=== PATIENT | female | born 1955 | race Two or more races ===

== ENCOUNTER 2020-06-22 10:19 | Outpatient (REF) | payer MEDICAID, SELFPAY ==
--- NOTE | 2020-06-22 10:27 | MM_ITS ---
EXAMINATION: MM SCREENING DIGITAL BREAST TOMOSYNTHESIS, BILATERAL CLINICAL INFORMATION: Screening. Asymptomatic. The lifetime risk of breast cancer based on the Tyrer-Cuzick Model is 4.6%. COMPARISON: Mammography: June 02, 2019 and studies dating back to July 07, 2011 TECHNIQUE: Digital breast tomosynthesis is performed in both the craniocaudal and mediolateral oblique views along with computer-aided detection (CAD). Synthesized 2D images are generated from the tomosynthesis. FINDINGS: There are scattered areas of fibroglandular density (ACR BI-RADS breast composition Category b). There are no significant masses, abnormal calcifications, or other abnormalities. MM/MM tomosynthesis screening BI IMPRESSION: There are no significant changes from prior study. ASSESSMENT: BI-RADS 1: Negative RECOMMENDATION: Routine annual mammography screening. This patient's information was entered into a reminder system with a target due date for their next mammogram.
== END 2020-06-22 10:20 | disposition home or self-care (01) ==
LOC: HO.MAMMO 10:19
PROVIDERS: PCP Internal Medicine Geriatric Medicine; Visit Provider Internal Medicine Geriatric Medicine
DX: Z12.31 Encounter for screening mammogram for malignant neoplasm of breast (principal)
CPT/HCPCS: 77063; 77067

== ENCOUNTER → 2020-06-26 13:51 | Outpatient (BNVA) | payer MEDICAID, SELFPAY | PROVIDERS: PCP Internal Medicine Geriatric Medicine; Referring Provider Internal Medicine Geriatric Medicine; Visit Provider Internal Medicine | DX: E21.3 Hyperparathyroidism, unspecified (principal); M81.0 Age-related osteoporosis without current pathological fracture; E55.9 Vitamin D deficiency, unspecified; Z79.899 Other long term (current) drug therapy | CPT/HCPCS: 99212 ==

== ENCOUNTER 2020-07-04 10:11 | Outpatient (REF) | payer MEDICAID, SELFPAY ==
[2020-07-04 12:50] LABS: Vitamin D 25-OH Total 29.9 ng/mL (>30)
[2020-07-04 12:56] LABS: Alanine Aminotransferase 12 U/L (0-31); Albumin Level 4.4 g/dL (3.5-5.0); Alkaline Phosphatase 202 U/L (39-117); Anion Gap 10 (12-20); Aspartate Amino Transferase 13 U/L (5-31); Bilirubin Total < 0.2 mg/dL (0.0-1.0); Blood Urea Nitrogen 16 mg/dL (9-16); Calcium 10.2 mg/dL (8.4-10.2); Carbon Dioxide 30 mmol/L (22-29); Chloride 105 mmol/L (96-108); Estimated Glomerular Filt Rate > 60; Glucose Random 72 mg/dL (60-115); Phosphorus 3.1 mg/dL (2.7-4.5); Potassium 4.8 mmol/l (3.3-5.1); Sodium 140 mmol/L (135-145); Total Protein 7.4 g/dL (6.5-8.0)
[2020-07-05 18:52] LABS: Calcium (PTHI) 10.3 mg/dL (8.6-10.4); PTHI 76 pg/mL (14-64)
== END 2020-07-04 10:12 | disposition home or self-care (01) ==
LOC: HO.LAB 10:11
PROVIDERS: PCP Internal Medicine Geriatric Medicine; Visit Provider Internal Medicine
DX: M81.0 Age-related osteoporosis without current pathological fracture (principal); E55.9 Vitamin D deficiency, unspecified
CPT/HCPCS: 80053; 82306; 83970; 84100

== ENCOUNTER → 2020-08-15 14:24 | Outpatient (BNVA) | payer MEDICAID, SELFPAY | PROVIDERS: PCP Internal Medicine Geriatric Medicine; Referring Provider Internal Medicine Geriatric Medicine; Visit Provider Internal Medicine | DX: Z76.89 Persons encountering health services in other specified circumstances (principal) ==

== ENCOUNTER → 2020-11-15 13:28 | Outpatient (BNVA) | payer MEDICAID, SELFPAY | PROVIDERS: PCP Internal Medicine Geriatric Medicine; Visit Provider Internal Medicine ==

== ENCOUNTER → 2021-04-02 09:23 | Outpatient (BNVA) | payer MEDICAID, SELFPAY | PROVIDERS: PCP Internal Medicine Geriatric Medicine; Visit Provider Internal Medicine ==

== ENCOUNTER 2021-05-05 16:40 | Outpatient (REF) | payer MEDICARE, MEDICAID, SELFPAY ==
[2021-05-05 17:46] LABS: Alanine Aminotransferase 8 U/L (0-31); Albumin Level 4.2 g/dL (3.5-5.0); Alkaline Phosphatase 160 U/L (39-117); Anion Gap 11 (12-20); Aspartate Amino Transferase 13 U/L (5-31); Bilirubin Total < 0.2 mg/dL (0.0-1.0); Blood Urea Nitrogen 14 mg/dL (9-16); Calcium 10.2 mg/dL (8.4-10.2); Carbon Dioxide 27 mmol/L (22-29); Chloride 108 mmol/L (96-108); Estimated Glomerular Filt Rate > 60; Glucose Random 100 mg/dL (60-115); Sodium 141 mmol/L (135-145); Total Protein 6.9 g/dL (6.5-8.0)
[2021-05-05 17:54] LABS: Vitamin D 25-OH Total 33.6 ng/mL (>30)
[2021-05-06 18:27] LABS: Calcium (PTHI) 10.5 mg/dL (8.6-10.4); PTHI 124 pg/mL (14-64)
== END 2021-05-05 16:41 | disposition home or self-care (01) ==
LOC: HO.LAB 16:40
PROVIDERS: PCP Internal Medicine Geriatric Medicine; Visit Provider Internal Medicine
DX: M81.0 Age-related osteoporosis without current pathological fracture (principal); E55.9 Vitamin D deficiency, unspecified
CPT/HCPCS: 36415; 80053; 82306; 83970; 84100

== ENCOUNTER 2021-06-24 14:56 | Outpatient (REF) | payer MEDICARE, MEDICAID, SELFPAY ==
--- NOTE | ~2021-06-24 | MM_ITS ---
EXAMINATION: MM SCREENING DIGITAL BREAST TOMOSYNTHESIS, BILATERAL CLINICAL INFORMATION: Screening. Asymptomatic. The lifetime risk of breast cancer based on the Tyrer-Cuzick Model is 4.2%. COMPARISON: Mammography: June 22, 2020 and studies dating back to July 07, 2011 TECHNIQUE: Digital breast tomosynthesis is performed in both the craniocaudal and mediolateral oblique views along with computer-aided detection (CAD). Synthesized 2D images are generated from the tomosynthesis. FINDINGS: There are scattered areas of fibroglandular density (ACR BI-RADS breast composition Category b). There are no significant masses, abnormal calcifications, or other abnormalities. MM/MM tomosynthesis screening BI IMPRESSION: There are no significant changes from prior study. ASSESSMENT: BI-RADS 1: Negative RECOMMENDATION: Routine annual mammography screening. This patient's information was entered into a reminder system with a target due date for their next mammogram.
--- NOTE | ~2021-06-24 | MM_ITS ---
EXAMINATION: BONE DENSITOMETRY CLINICAL INDICATION: Osteoporosis. COMPARISON: Baseline BD dated 06/02/2019. TECHNIQUE: Using a [employer] DXA System (software version: 13.1) manufactured by [employer], dual-energy x-ray absorptiometry was performed of the lumbar spine, left hip, and left forearm radius 33%. The images are of good technical quality. Summary results are attached. FINDINGS: AP SPINE L1-L4: Current: BMD 0.946 g/cm2, Z-score -0.2, T-score -2.0, osteopenia, 1.6% decrease from baseline (<5% change is not significant). Baseline: BMD 0.961 g/cm2. LEFT FEMUR, NECK: Current: BMD 0.695 g/cm2, Z-score -0.9, T-score -2.5, osteoporosis. Baseline: BMD 0.728 g/cm2. LEFT FEMUR, TOTAL: Current: BMD 0.684 g/cm2, Z-score -1.3, T-score -2.6, osteoporosis, 7.4% increase from baseline (<5% change is not significant). Baseline: BMD 0.637 g/cm2. LEFT FOREARM RADIUS 33%: BMD 0.580 g/cm2, Z-score -2.0, T-score -3.4, osteoporosis, 3.2% decrease from baseline (<5% change is not significant). Baseline: BMD 0.599 g/cm2. IDENTIFIED RISK FACTORS: Menopause, hyperparathyroidism, osteoporosis. HISTORY OF FRACTURE: None listed. MEDICATIONS: Multivitamin, vitamin D. MM/XR DEXA appendicular skeleton IMPRESSION: 1. DIAGNOSIS: Osteoporosis based on the lowest T-score value of -3.4 in the forearm radius 33% applying World Health Organization criteria. 2. 10-YEAR FRACTURE RISK PREDICTION, FRAX: Major osteoporotic fracture (clinical spine, forearm, hip or shoulder) 7.3%. Hip fracture 1.5%. 3. Treatment Recommendations: NOF guidelines recommend consideration for treatment in postmenopausal women and men age 50 and older presenting with the following: -A hip or vertebral (clinical or morphometric) fracture. -T-score less than or equal to -2.5 at the femoral neck or spine after appropriate evaluation to exclude secondary causes. -Low bone mass at the hip or spine and a 10-year fracture probability by FRAX of greater than or equal to 3% for hip fracture or greater than or equal to 20% for major osteoporotic fracture based on the [place] adapted WHO algorithm. 4. Other Recommendations: All treatment decisions require clinical judgment and consideration of individual patient factors, including patient preferences, comorbidities, previous drug use, risk factors not captured in the FRAX model (e.g. frailty, falls, vitamin D deficiency, increased bone turnover, interval significant decline in bone density) and possible under or overestimation of fracture risk by FRAX. Additional medical evaluation for secondary cause of low bone mineral density may be appropriate. FUTURE SCAN RECOMMENDATION: People with diagnosed cases of osteoporosis or at high risk for fracture should have regular bone mineral density tests. For patients eligible for Medicare, routine testing is allowed once every 2 years. The testing frequency can be increased to one year for patients who have rapidly progressing disease, those who are receiving or discontinuing medical therapy to restore bone mass, or have additional risk factors.
== END 2021-06-24 14:57 | disposition home or self-care (01) ==
LOC: HO.MAMMO 14:56
PROVIDERS: Visit Provider Internal Medicine Geriatric Medicine
DX: Z12.31 Encounter for screening mammogram for malignant neoplasm of breast (principal); Z13.820 Encounter for screening for osteoporosis; M81.0 Age-related osteoporosis without current pathological fracture; Z78.0 Asymptomatic menopausal state; E21.3 Hyperparathyroidism, unspecified; Z79.899 Other long term (current) drug therapy
CPT/HCPCS: 77063; 77067; 77081

== ENCOUNTER → 2021-07-14 11:02 | Outpatient (BNVA) | payer MEDICARE, MEDICAID, SELFPAY | PROVIDERS: PCP Internal Medicine Geriatric Medicine; Visit Provider Internal Medicine ==

== ENCOUNTER → 2021-07-21 08:26 | Outpatient (BNVA) | payer MEDICARE, SELFPAY | PROVIDERS: PCP Internal Medicine Geriatric Medicine; Visit Provider Internal Medicine | DX: E21.3 Hyperparathyroidism, unspecified (principal); E55.9 Vitamin D deficiency, unspecified; M81.0 Age-related osteoporosis without current pathological fracture | CPT/HCPCS: Q3014 ==

== ENCOUNTER 2021-11-26 14:50 | Outpatient (REF) | payer MEDICARE, MEDICAID, SELFPAY ==
--- NOTE | ~2021-11-26 | XR_ITS ---
EXAMINATION: XR CHEST CLINICAL INFORMATION: Cough and SOB. COMPARISON: None TECHNIQUE: 2 views of the chest were obtained. FINDINGS: No significant abnormality is noted involving the heart, lungs, mediastinum, bony thorax or soft tissues. XR/XR chest 2V IMPRESSION: Unremarkable chest examination.
== END 2021-11-26 14:51 | disposition home or self-care (01) ==
LOC: HO.XRAY 14:50
PROVIDERS: PCP Internal Medicine Geriatric Medicine; Visit Provider Internal Medicine Geriatric Medicine
DX: R05.9 Cough, unspecified (principal); R06.02 Shortness of breath
CPT/HCPCS: 71046

== ENCOUNTER → 2021-12-10 10:55 | Outpatient (BNVA) | payer MEDICARE, SELFPAY | PROVIDERS: PCP Internal Medicine Geriatric Medicine; Visit Provider Internal Medicine | DX: Z13.89 Encounter for screening for other disorder (principal) ==

== ENCOUNTER → 2022-03-25 09:46 | Outpatient (BNVA) | payer MEDICARE, SELFPAY | PROVIDERS: PCP Internal Medicine Geriatric Medicine; Visit Provider Internal Medicine | DX: E21.3 Hyperparathyroidism, unspecified (principal); M81.0 Age-related osteoporosis without current pathological fracture | CPT/HCPCS: Q3014 ==

== ENCOUNTER → 2022-07-02 14:39 | Outpatient (BNVA) | payer MEDICARE, SELFPAY | PROVIDERS: PCP Internal Medicine Geriatric Medicine; Visit Provider Surgery Vascular Surgery | DX: I83.12 Varicose veins of left lower extremity with inflammation (principal) | CPT/HCPCS: 99202 ==

== ENCOUNTER 2022-07-22 14:32 | Outpatient (REF) | payer MEDICARE, MEDICAID, SELFPAY ==
--- NOTE | ~2022-07-22 | MM_ITS ---
EXAMINATION: MM SCREENING DIGITAL BREAST TOMOSYNTHESIS, BILATERAL CLINICAL INFORMATION: Screening. Asymptomatic. The lifetime risk of breast cancer based on the Tyrer-Cuzick Model is 4%. COMPARISON: Mammography: 06/24/2021, 06/22/2020, 06/02/2019 TECHNIQUE: Digital breast tomosynthesis is performed in both the craniocaudal and mediolateral oblique views along with computer-aided detection (CAD). Synthesized 2D images are generated from the tomosynthesis. Additional left MLO view is provided. FINDINGS: There are scattered areas of fibroglandular density (ACR BI-RADS breast composition Category b). There are no significant masses, abnormal calcifications, or other abnormalities. Parenchymal pattern is similar to prior studies. There is no developing density or architectural abnormality. The axilla and skin contours are unremarkable. No significant changes. MM/MM tomosynthesis screening BI IMPRESSION: No mammographic evidence of malignancy. ASSESSMENT: BI-RADS 1: Negative RECOMMENDATION: Routine annual mammography screening. This patient's information was entered into a reminder system with a target due date for their next mammogram.
== END 2022-07-22 14:33 | disposition home or self-care (01) ==
LOC: HO.MAMMO 14:32
PROVIDERS: PCP Internal Medicine Geriatric Medicine; Visit Provider Internal Medicine Geriatric Medicine
DX: Z12.31 Encounter for screening mammogram for malignant neoplasm of breast (principal)
CPT/HCPCS: 77063; 77067

== ENCOUNTER 2022-09-16 12:48 | Outpatient (REF) | payer MEDICARE, MEDICAID, SELFPAY ==
--- NOTE | ~2022-09-16 | US_ITS ---
EXAMINATION: US VENOUS REFLUX/INSUFFICIENCY CLINICAL INFORMATION: This is a 67-year-old woman with with left lower extremity varicosities and inflammatory change. COMPARISON: None. TECHNIQUE: Bilateral lower extremity and venous insufficiency ultrasound was performed with velocity measurements. Color flow Doppler imaging was performed. FINDINGS: RIGHT SIDE: GREATER SAPHENOUS VEIN: The right saphenofemoral junction measurement is 0.7 cm. There is no reflux The right proximal thigh measurement is 0.4 cm. There is no reflux. The right mid thigh measurement is 0.3 cm. There is no reflux The right above-knee measurement is 0.3 cm. The reflux time is 740 ms. The right at knee measurement is 0.3 cm. There is no reflux. The right below-knee measurement is 0.2 cm. There is no reflux The right mid calf measurement is 0.2 cm. The reflux time is 1408 ms. The right ankle measurement is 0.3 cm. There is no reflux. LESSER SAPHENOUS VEIN: The right saphenofemoral junction measurement is 0.2 cm. There is no reflux. The right mid calf measurement is 0.2 cm. There is no reflux. The right distal calf measurement is 0.2 cm. There is no reflux. LEFT SIDE: GREATER SAPHENOUS VEIN: The left saphenofemoral junction measurement is 0.9 cm. The reflux time is 2768 ms. The left proximal thigh measurement is 0.9 cm. The reflux time is 3224 ms. The left mid thigh measurement is 0.5 cm. The reflux time is 2900 ms. The left above-knee measurement is 0.5 cm. The reflux time is 2992 ms. The left at knee measurement is 0.4 cm. There is no reflux. The left below-knee measurement is 0.3 cm. The reflux time is 616 cm/s. The left mid calf measurement is 0.3 cm. The reflux time is 1792 ms. The left ankle measurement is 0.3 cm. The reflux time is 3232 ms. LESSER SAPHENOUS VEIN: The left saphenofemoral junction measurement is 0.2 cm. There is no reflux. The left mid calf measurement is 0.2 cm. There is no reflux. The left distal calf measurement is 0.2 cm. There is no reflux. BILATERAL LOWER EXTREMITIES DEEP VENOUS SYSTEMS: The right common femoral, mid femoral and popliteal vein segments show no reflux. No right lower extremity deep venous thrombosis is seen. The left common femoral and popliteal vein segments show no reflux. The mid left femoral vein segment shows a reflux time of 1480 ms. No left lower extremity deep venous thrombosis is seen. US/US venous duplex LE BI IMPRESSION: 1. There is hemodynamically significant reflux of the right greater saphenous vein. 2. There is hemodynamically significant reflux of the left greater saphenous vein. 3. No hemodynamically significant reflux is seen of the bilateral lesser saphenous veins. 4. No hemodynamically significant reflux is seen of the right deep venous system. 5. There is hemodynamically significant reflux of the left deep venous system.
== END 2022-09-16 12:49 | disposition home or self-care (01) ==
LOC: HO.US 12:48
PROVIDERS: PCP Internal Medicine Geriatric Medicine; Visit Provider Surgery Vascular Surgery
DX: I83.893 Varicose veins of bilateral lower extremities with other complications (principal)
CPT/HCPCS: 93970

== ENCOUNTER → 2022-11-12 15:04 | Outpatient (BNVA) | payer MEDICARE, MEDICAID, SELFPAY | PROVIDERS: PCP Internal Medicine Geriatric Medicine; Visit Provider Surgery Vascular Surgery | DX: I83.12 Varicose veins of left lower extremity with inflammation (principal) | CPT/HCPCS: 99212 ==

== ENCOUNTER 2022-12-16 14:27 | Outpatient (REF) | payer MEDICARE, MEDICAID, SELFPAY ==
--- NOTE | ~2022-12-16 | XR_ITS ---
EXAMINATION: XR LUMBOSACRAL SPINE CLINICAL INFORMATION: Low back pain COMPARISON: Previous x-ray March 2016 TECHNIQUE: Three views of the lumbosacral spine. FINDINGS: There is mild curvature of the lower lumbar spine to the right. Bone alignment is otherwise normal. No fracture or dislocation. There is degenerative spondylosis at L3-L4. There is lower lumbar spine facet arthritis. There is mild atherosclerotic disease. XR/XR lumbar spine 2-3V IMPRESSION: Mild degenerative changes.
== END 2022-12-16 14:28 | disposition home or self-care (01) ==
LOC: HO.XRAY 14:27
PROVIDERS: PCP Internal Medicine Geriatric Medicine; Visit Provider Internal Medicine Geriatric Medicine
DX: M54.50 Low back pain, unspecified (principal); M79.604 Pain in right leg
CPT/HCPCS: 72100

== ENCOUNTER → 2022-12-25 08:26 | Outpatient (BNVA) | payer MEDICARE, MEDICAID, SELFPAY | PROVIDERS: PCP Internal Medicine Geriatric Medicine; Visit Provider Surgery Vascular Surgery | DX: I83.12 Varicose veins of left lower extremity with inflammation (principal) | CPT/HCPCS: 36482 ==

== ENCOUNTER 2022-12-28 14:57 | Outpatient (REF) | payer MEDICARE, MEDICAID, SELFPAY ==
--- NOTE | ~2022-12-28 | US_ITS ---
EXAMINATION: WITH DOPPLER OF LEFT LOWER EXTREMITY CLINICAL INFORMATION: Status post Venaseal procedure on 12/28/22. COMPARISON: Venous reflux exam on 09/16/2022. TECHNIQUE: Color flow triplex imaging and compression Doppler were performed as well as superficial ultrasound with Doppler. FINDINGS: TRIPLEX SCANNING OF LEFT LOWER EXTREMITY: Respiratory variation, normal compression and augmented flow are noted throughout the lower extremity. The visualized common femoral vein, femoral vein, profunda femoral vein, popliteal vein and the calf veins show no evidence of deep venous thrombosis. There is no evidence of Sandoval's cyst. SUPERFICIAL ULTRASOUND WITH DOPPLER OF LEFT LOWER EXTREMITY: The left great saphenous vein is occluded from the access site to just before the saphenofemoral junction. There is no extension of thrombus into the deep system. US/US venous duplex LE IMPRESSION: 1. Normal triplex scan of the left lower extremity without evidence of deep venous thrombosis. 2. Excellent appearance status post Venaseal of the left great saphenous vein.
== END 2022-12-28 14:58 | disposition home or self-care (01) ==
LOC: HO.US 14:57
PROVIDERS: PCP Internal Medicine Geriatric Medicine; Visit Provider Surgery Vascular Surgery
DX: M79.605 Pain in left leg (principal)
CPT/HCPCS: 93971

== ENCOUNTER → 2023-01-07 15:04 | Outpatient (BNVA) | payer MEDICARE, MEDICAID, SELFPAY | PROVIDERS: PCP Internal Medicine Geriatric Medicine; Visit Provider Surgery Vascular Surgery | DX: I83.12 Varicose veins of left lower extremity with inflammation (principal); Z98.890 Other specified postprocedural states | CPT/HCPCS: 99212 ==

== ENCOUNTER 2023-02-03 15:32 | Outpatient (REF) | payer MEDICARE, MEDICAID, SELFPAY ==
--- NOTE | ~2023-02-03 | US_ITS ---
EXAMINATION: US VENOUS ULTRASOUND WITH DOPPLER LOWER EXTREMITY, RIGHT CLINICAL INFORMATION: Right lower extremity edema. Venaseal closure in December 2022 COMPARISON: 12/28/2022. TECHNIQUE: Ultrasound of the deep veins is performed from the hip to the calf with compression sonography and color and pulse Doppler assessment. Spectral analysis with color-flow imaging is performed. FINDINGS: There is normal venous compression and respiratory variation and augmented flow. The visualized common femoral vein, superficial femoral vein, profunda femoral vein, popliteal vein, and the trifurcation region shows no evidence of deep venous thrombosis. There is no significant popliteal fossa cyst. If the patient's symptoms persist, followup ultrasound in 5 days 7 days might be of value to exclude proximal propagation from a non-visualized calf vein. US/US venous duplex LE RT IMPRESSION: No DVT demonstrated in the right lower extremity.
== END 2023-02-03 15:33 | disposition home or self-care (01) ==
LOC: HO.US 15:32
PROVIDERS: PCP Internal Medicine Geriatric Medicine; Visit Provider Internal Medicine
DX: R60.0 Localized edema (principal)
CPT/HCPCS: 93971

== ENCOUNTER 2023-02-15 15:59 | Outpatient (REF) | payer MEDICARE, MEDICAID, SELFPAY | END 2023-02-15 16:00 | disposition home or self-care (01) | LOC: HO.HHCX 15:59 | PROVIDERS: Visit Provider Internal Medicine Geriatric Medicine | DX: M25.561 Pain in right knee (principal) | CPT/HCPCS: 73564 ==

== ENCOUNTER 2023-04-13 13:58 | Outpatient (AMB) | payer MEDICARE, MEDICAID, SELFPAY ==
--- NOTE | 2023-04-13 13:59 | MHC.OFFVIS ---
Intake Vital Signs 04/13/23 14:04 Height 5 ft 3 in Weight 133 lb BMI 23.6 Intake Visit Reasons: ccnp- Chronic pain of right knee Intake Note: Catalina is a 67 year old female who presents today as a new patient with complaints of right knee pain. Denies injury. Pain has been ongoing for about 3 months now. She has had no previous therapies. She has tried Tylenol and anti-inflammatory medicines which gave her mild relief. She states that her right knee will give out intermittently. She has worn a knee brace which gives her mild relief. 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 Analytical Chemistry Teacher Name: [id number] Allergies sumatriptan [Imitrex] Allergy (Unknown, Verified 04/13/23 14:00) anaphylaxis Medication List - Last Reconciled 04/13/23 by Bhavesh Montiel MD amitriptyline 50 mg PO BEDTIME amlodipine 5 mg PO DAILY yaafksyqzx-tivwkjwfeo-btx-cod [id number] mg 1 cap PO Q4H PRN cholecalciferol (vitamin D3) 50 mcg PO DAILY lisinopril 20 mg PO DAILY loratadine 10 mg PO DAILY omeprazole 20 mg PO DAILY omeprazole 20 mg PO DAILY trazodone 50 mg PO BEDTIME PRN venlafaxine ER 37.5 mg PO DAILY PFSH Medical History Hyperparathyroidism Osteoporosis Vitamin D deficiency Surgical History Hx of colonoscopy Family History Father Colon cancer Mother Cancer Social History Alcohol intake: never Patient Tobacco Use Status: Never used Tobacco Physical Exam Vital Signs: BMI result Body Mass Index 23.6 Const Other: Well-nourished well-developed very friendly female awake alert and oriented x3 in no acute distress Extrem Other: Bilateral lower extremity examination shows good capillary refill, no skin lesions noted, normal sensation light touch Right knee examination shows a minimal effusion, minimal crepitus with range of motion, tenderness along her medial joint line, positive Ronnie's test no instability Office Procedures Joint Injection/Drain Joint Injection/Drain Primary Site: left knee Prep: site was prepped using aseptic technique Injected: 40 mg of, Kenalog and 1% plain lidocaine Procedure: The patient tolerated the procedure well Coding 39174 - Large joint Procedure code (CPT) selection complete Results Reviewed Results Reviewed: 04/13/23 14:16 Lidocaine HCl 2 % MPF [Xylocaine 2 % MPF] 5 ml .ROUTE .STK-MED ONE Triamcinolone Acetonide [Kenalog-40] 40 mg .ROUTE .STK-MED ONE X-rays of the patient's right knee show mild diffuse joint space narrowing, no acute bony Assessment & Plan Assessment & Plan (1) Arthritis of left knee: Code(s): M17.12 - Unilateral primary osteoarthritis, left knee Plan: Ms. Florian presents with right knee pain most likely due to early degenerative joint disease as well as possible medial meniscus tearing. I had a lengthy discussion with the patient regarding the treatment options. She wishes to hold off on surgery for as long as possible. I agree with this plan. The risks and benefits of a right knee cortisone injection were discussed at length with the patient. The patient wished to proceed. The patient tolerated the injection well. She will continue with her activity modifications. She will follow up with me on an as-needed basis should her symptoms not plateau at an acceptable level over the next few months. Feel free to call me at any time should questions regarding her orthopedic management arise. Thank you very much for asking me to see this very friendly patient. I spent 22 minutes in reviewing the patient's records and imaging studies, seeing the patient and documenting in the medical record. Orders: Orders AMB Joint Injection/Aspiration Today M17.12 - Unilateral primary osteoarthritis, left knee Coding Level of Care Code New Pt Level 2 (49721) Diagnoses Arthritis of left knee M17.12 CPT Codes Coding - 92491 Large joint: 58774 - Large joint ([id number])
[2023-04-13 14:04] VITALS: BMI 23.6
== END 2023-04-13 14:36 | disposition home or self-care (01) ==
PROVIDERS: PCP Internal Medicine Geriatric Medicine; Visit Provider Orthopaedic Surgery
DX: M17.12 Unilateral primary osteoarthritis, left knee (principal)
CPT/HCPCS: 20610; 99204

== ENCOUNTER → 2023-04-13 13:58 | Outpatient (BNVA) | payer MEDICARE, MEDICAID, SELFPAY | PROVIDERS: PCP Internal Medicine Geriatric Medicine; Visit Provider Orthopaedic Surgery | DX: M17.12 Unilateral primary osteoarthritis, left knee (principal) | CPT/HCPCS: 20610; 99202; J3301 ==

== ENCOUNTER 2023-07-27 09:27 | Outpatient (AMB) | payer MEDICARE, MEDICAID, SELFPAY ==
--- NOTE | 2023-07-27 09:44 | A.OFFVIS_ITS ---
Intake Vital Signs 07/27/23 09:45 Height 5 ft 3 in Weight 133 lb BMI 23.6 Intake Visit Reasons: OV- pain of right knee Intake Note: Catalina is a 68 year old female who presents today for a new problem visit of her right knee. Last injection done in the left knee 04/13/23. She states that she got very good relief from the left knee injection. She describes her right knee pain as sharp in nature. She denies any locking or giving way. She has taken Tylenol which gives her mild relief. He denies any fevers or chills. She would like to hold off on surgery for as long as possible. Allergies sumatriptan [Imitrex] Allergy (Unknown, Verified 04/13/23 14:00) anaphylaxis Medication List - Last Reconciled 07/27/23 by Bhavesh Montiel MD amitriptyline 50 mg PO BEDTIME amlodipine 5 mg PO DAILY riezcqocly-yjabuxoqlv-jrp-cod [id number] mg 1 cap PO Q4H PRN cholecalciferol (vitamin D3) 50 mcg PO DAILY lisinopril 20 mg PO DAILY loratadine 10 mg PO DAILY omeprazole 20 mg PO DAILY omeprazole 20 mg PO DAILY trazodone 50 mg PO BEDTIME PRN venlafaxine ER 37.5 mg PO DAILY PFSH Medical History Hyperparathyroidism Osteoporosis Vitamin D deficiency Surgical History Hx of colonoscopy Family History Father Colon cancer Mother Cancer Social History Alcohol intake: never Patient Tobacco Use Status: Never used Tobacco Physical Exam Vital Signs: BMI result Body Mass Index 23.6 Const Other: Well-nourished well-developed very friendly female awake alert and oriented x3 in no acute distress Extrem Other: Bilateral lower extremity examination shows good capillary refill, no skin lesions noted, normal sensation light touch Right knee examination shows a minimal effusion, mild crepitus with range of motion, tenderness along her medial joint line, positive Ronnie's test, no instability Office Procedures Joint Injection/Drain Joint Injection/Drain Primary Site: right knee Prep: site was prepped using aseptic technique Injected: 40 mg of, DepoMedrol and 1% plain lidocaine Procedure: The patient tolerated the procedure well Coding - Large joint Procedure code (CPT) selection complete Results Reviewed Results Reviewed: X-rays of the patient's right knee taken today show mild diffuse joint space narrowing, no acute bony abnormalities Assessment & Plan Assessment & Plan (1) Arthritis of right knee: Code(s): M17.11 - Unilateral primary osteoarthritis, right knee Plan: Ms. Florian presents with right knee pain due to degenerative joint disease as well as possible tearing of her medial meniscus. I had a lengthy discussion with the patient regarding the treatment options. She wishes to hold off on surgery for as long as possible. I agree with this plan. The risks and benefits of a right knee cortisone injection were discussed at length with the patient. The patient wished to proceed. She tolerated the injection well. She will continue with her home exercise program. She will follow up with me on an as-needed basis should her symptoms not plateau at an unacceptable level over the next few months. Feel free to call me at any time should questions r egarding her orthopedic management arise. I spent 22 minutes in reviewing the patient's records and imaging studies, seeing the patient and documenting in the medical record. Orders: Orders AMB Joint Injection/Aspiration Today M17.11 - Unilateral primary osteoarthritis, right knee Coding Level of Care Code Est Pt Level 2 (97215) Diagnoses Arthritis of right knee M17.11 CPT Codes Coding - Large joint: 57024 - Large joint ([id number])
[2023-07-27 09:45] VITALS: BMI 23.6
== END 2023-07-27 10:15 | disposition home or self-care (01) ==
PROVIDERS: PCP Internal Medicine Geriatric Medicine; Visit Provider Orthopaedic Surgery
DX: M17.11 Unilateral primary osteoarthritis, right knee (principal)
CPT/HCPCS: 20610; 99213

== ENCOUNTER → 2023-07-27 09:27 | Outpatient (BNVA) | payer MEDICARE, MEDICAID, SELFPAY | PROVIDERS: PCP Internal Medicine Geriatric Medicine; Visit Provider Orthopaedic Surgery | DX: M17.11 Unilateral primary osteoarthritis, right knee (principal) | CPT/HCPCS: 20610; 99212; J1020 ==

== ENCOUNTER 2023-08-17 11:45 | Outpatient (AMB) | payer MEDICARE, MEDICAID, SELFPAY ==
[2023-08-17 11:47] VITALS: BMI 23.6
--- NOTE | 2023-08-17 11:47 | A.OFFVIS_ITS ---
Intake Vital Signs 08/17/23 11:47 Height 5 ft 3 in Weight 133 lb BMI 23.6 Intake Visit Reasons: OV-pain of right knee-follow up Intake Note: Catalina, 68 female, reports pain in her left knee being an 8/10. She describes her pain as sharp in nature. Most of the pain is along the medial aspect of her knee. She denies any locking or giving way. She has tried Tylenol and anti- inflammatory medicines which gave her minimal relief. She has also done physical therapy exercises which aggravated her pain. She has had cortisone injections given into her right knee which gave her good relief of her right knee pain. Allergies sumatriptan [Imitrex] Allergy (Unknown, Verified 08/17/23 11:48) anaphylaxis Medication List - Last Reconciled 08/17/23 by Bhavesh Montiel MD amitriptyline 50 mg PO BEDTIME amlodipine 5 mg PO DAILY cyvpqbsswh-gfwkrqubto-qyb-cod 04-729-14-30 mg 1 cap PO Q4H PRN cholecalciferol (vitamin D3) 50 mcg PO DAILY lisinopril 20 mg PO DAILY loratadine 10 mg PO DAILY omeprazole 20 mg PO DAILY PFSH Medical History Osteoporosis Vitamin D deficiency Hyperparathyroidism Surgical History Hx of colonoscopy Family History Father Colon cancer Mother Cancer Social History Alcohol intake: never Patient Tobacco Use Status: Never used Tobacco Physical Exam Vital Signs: BMI result Body Mass Index 23.6 Const Other: Well-nourished well-developed very friendly female awake alert and oriented x3 in no acute distress Extrem Other: Bilateral lower extremity examination shows good capillary refill, no skin lesions noted, normal sensation light touch Left knee examination shows a minimal effusion, mild crepitus with range of motion, pain with range of motion, negative Ronnie's test, no instability Office Procedures Joint Injection/Drain Joint Injection/Drain Primary Site: left knee Prep: site was prepped using aseptic technique Injected: 40 mg of, DepoMedrol and 1% plain lidocaine Procedure: The patient tolerated the procedure well Coding - Large joint Procedure code (CPT) selection complete Assessment & Plan Assessment & Plan (1) Arthritis of left knee: Code(s): M17.12 - Unilateral primary osteoarthritis, left knee Plan Ms. Florian presents with left knee pain due to degenerative joint disease. I had a lengthy discussion with the patient regarding the treatment options. She wishes to hold off on surgery for as long as possible. I agree with this plan. The risks and benefits of a left knee cortisone injection were discussed at length with the patient. The patient wished to proceed with the injection. She tolerated the injection well. She will continue with activities as tolerated. She will follow up with me on an as-needed basis should her symptoms not plateau at an unacceptable level over the next few months. Feel free to call me at any time should questions regarding her orthopedic management arise. I spent 22 minutes in reviewing the patient's records and imaging studies, seeing the patient and documenting in the medical record. Orders: Orders AMB Joint Injection/Aspiration Today M17.12 - Unilateral primary osteoarthritis, left knee Coding Level of Care Code Est Pt Level 2 (24313) Diagnoses Arthritis of left knee M17.12 CPT Codes Coding - Large joint: 57623 - Large joint ([id number])
--- OUTSIDE RECORDS SUMMARY | 2023-08-17 11:47 | XMS_ITS | Continuity of Care Document ---
Author Name Unknown Organization [facility] Address [address] [place] [id number]- Care Team Providers Care Dedicated Driver Name Role Phone Name Juan CERDA Primary Care Physician Encounter [facility] [place] Date(s): 12/21/22 - 01/20/23 [facility] [address] [place] [id number] [place] Allergies, Adverse Reactions, Alerts Substance Reaction Severity Status Imitrex Active Medications Acetaminophen PRN, 0 Refills, Maintenance, 08/04/17 13:08:22 Start Date: 08/04/17 Status: Ordered acetaminophen-butalbital 325 mg-50 mg oral tablet 1 tablet, By Mouth, Every 4 hours, 0 Refills, Maintenance, 06/29/22 8:58:00 EST, Partial fill upon patient request if the prescription is for a schedule II opioid drug. Start Date: 06/29/22 Status: Ordered amitriptyline 50 mg oral tablet 1 tablet = 50 mg, By Mouth, Daily at bedtime, 0 Refills, Maintenance, 06/29/22 8:57:00 EST, Partialfill upon patient request if the prescription is for a schedule II opioid drug. Start Date: 06/29/22 Status: Ordered Dulcolax 5 mg oral enteric coated tablet 2 tablet = 10 mg, By Mouth, Daily, the night before the colonoscopy, # 4 tablet, 0 Refills, Maintenance, 07/13/18 15:16:44 EST Start Date: 07/13/18 Status: Ordered Flovent 110 mcg Inhaler HFA Refills 0, Maintenance, 06/29/22 8:57:00 EST Start Date: 06/29/22 Status: Ordered hydrochlorothiazide-lisinopril 12.5 mg-10 mg oral tablet 1 tablet, By Mouth, Daily, # 90 tablet, 0 Refills, Maintenance, 08/04/17 13:05:50, Tablet Start Date: 08/04/17 Status: Ordered lisinopril 20 mg oral tablet 20 mg, 1, tablet, By Mouth, Daily, # 30 tablet, Refills 0, Maintenance, 06/29/22 8:58:00 EST, Partial fill upon patient request if the prescription is for a schedule II opioid drug. Start Date: 06/29/22 Status: Ordered loratadine 10 mg oral capsule 1 capsule = 10 mg, By Mouth, Daily, 0 Refills, Maintenance, 06/29/22 8:56:00 EST, Partial fill uponpatient request if the prescription is for a schedule II opioid drug. Start Date: 06/29/22 Status: Ordered naproxen 500 mg oral tablet 1 tablet = 500 mg, By Mouth, 2 times a day, PRN, # 180 tablet, 0 Refills, Maintenance, 08/04/17 13:07:46, Tablet Start Date: 08/04/17 Status: Ordered NuLYTELY with Flavor Packs oral powder for reconstitution 240 mL, By Mouth, Every 15 minutes, # 4,000 mL, 0 Refills, Maintenance, 08/04/17 13:25:40, 240 mL By Mouth Every 15 minutes Start Date: 08/04/17 Status: Ordered NuLYTELY with Flavor Packs oral powder for reconstitution 240 mL, By Mouth, Every 15 minutes, # 4,000 mL, 0 Refills, Maintenance, 01/26/19 18:19:00 EDT, 240 mL By Mouth Every 15 minutes Start Date: 01/26/19 Status: Ordered PriLOSEC OTC 20 mg oral delayed release tablet 1 tablet = 20 mg, By Mouth, Daily, 0 Refills, Maintenance, 08/04/17 13:06:43 Start Date: 08/04/17 Status: Ordered ProAir HFA 90 mcg/inh inhalation aerosol 2 puffs, Inhalation, Every 6 hours, 0 Refills, Maintenance, 06/29/22 8:55:00 EST, Partial fill uponpatient request if the prescription is for a schedule II opioid drug. Start Date: 06/29/22 Status: Ordered traZODone 50 mg oral tablet 50 mg, 1, tablet, By Mouth, Daily at bedtime, Refills 0, Maintenance, 08/04/17 13:06:14 Start Date: 08/04/17 Status: Ordered venlafaxine 75 mg oral capsule, extended release 75 mg, 1, capsule, By Mouth, Daily, # 30 capsule, Refills 0, Maintenance, 06/29/22 8:56:00 EST, Partial fill upon patient request if the prescription is for a schedule II opioid drug. Start Date: 06/29/22 Status: Ordered Ventolin 90 mcg Inhaler Inhalation, Every 6 hours, Refills 0, Maintenance, 06/29/22 8:57:00 EST Start Date: 06/29/22 Status: Ordered Zofran ODT 4 mg oral tablet, disintegrating = 4 mg, By Mouth, 2 times a day, 0 Refills, Maintenance, 06/29/22 8:56:00 EST, Partial fill upon patient request if the prescription is for a schedule II opioid drug. Start Date: 06/29/22 Status: Ordered Patient Care team information Care Team Personnel Name: Lynn Tamez Position: S Outreach Member Role: Lifetime Consulting Physician Name: Juan Lacy MD Position: S Outreach Member Role: PCP Address: Address: [address] [place] [id number]- Care Team Related Persons Name: FREDDY HOU Name: BAILEE GUNN Address: home [id number] Name: SHIN DRUMMOND Address: home [address] [address]
== END 2023-08-17 12:20 | disposition home or self-care (01) ==
LOC: HO.HOS 11:45
PROVIDERS: PCP Internal Medicine Geriatric Medicine; Visit Provider Orthopaedic Surgery
DX: M17.12 Unilateral primary osteoarthritis, left knee (principal)
CPT/HCPCS: 20610; 99213

== ENCOUNTER → 2023-08-17 11:45 | Outpatient (BNVA) | payer MEDICARE, OTHER, SELFPAY | PROVIDERS: PCP Internal Medicine Geriatric Medicine; Visit Provider Orthopaedic Surgery | DX: M17.12 Unilateral primary osteoarthritis, left knee (principal) | CPT/HCPCS: 20610; 99212; J1020 ==

== ENCOUNTER 2023-08-30 09:28 | Outpatient (AMB) | payer MEDICARE, SELFPAY ==
--- NOTE | 2023-08-30 09:33 | MHC.OFFVIS ---
Intake Vital Signs 08/30/23 09:35 08/30/23 09:58 Height 5 ft 3 in Weight 134 lb 7.712 oz BMI 23.8 BP 182/98 H 156/74 H Blood Pressure Location Lt brachial Lt brachial Position Sitting Sitting Pulse 62 Comment BP RECHECK Intake Visit Reasons: colonoscopy screening/family hx of colon CA Intake Note: Catalina presents in the office as a colon cancer screening - family Hx of CA. CC: She states that she is having some concerns. She states that she is having lots of acid. She states that she is not able to eat anymore. It comes up into her throat and alejandro. At night or standing up she gets burning in her stomach. Field Contractor Required: Yes Field Contractor Name: [id number] Horace Allergies sumatriptan [Imitrex] Allergy (Unknown, Verified 08/30/23 09:37) anaphylaxis Medication List - Last Reconciled 08/30/23 by Tia Barrientos PA-C amitriptyline 50 mg PO BEDTIME amlodipine 5 mg PO DAILY bisacodyl (Dulcolax (bisacodyl)) 20 mg (4 x 5 mg) PO ONCE 1 day yfzmjlpilj-pkpmycqrrc-iwo-cod 44-526-10-30 mg 1 cap PO Q4H PRN lisinopril 20 mg PO DAILY metoprolol tartrate 25 mg PO BID omeprazole 20 mg PO DAILY pantoprazole 20 mg PO QAM PRN 30 days polyethylene glycol 3350 (Miralax) 238 grams PO ONCE PRN 1 day HPI HPI Comments History of Present Illness Details A 68 y/o female HTN referred for screening colonoscopy- family hx of cancers unknown type- not CRC- She says her BP runs high very often- no CP, SOB or headache- she monitors at home-always high- saw BCP-April Bowels are normal appetite is good- she cannot tolerate eating too much beef- so avoids it -she has had acid reflux for many years she is taking omeprazole does not seem to really help much No respiratory ofr cardiac issues- No nausea, vomiting, hematemesis, hematochezia fever chills PFSH Medical History Osteoporosis Vitamin D deficiency Hyperparathyroidism Surgical History Hx of colonoscopy Family History Father Colon cancer Mother Cancer Social History (Updated 08/30/23 @ 09:55 by Tia Barrientos PA-C) Household Members Other:: alone Alcohol intake: never Patient Tobacco Use Status: Never used Tobacco Review of Systems Const All systems reviewed & are unremarkable except as noted in HPI and below Card Denies chest pain and Denies dyspnea Resp Denies dyspnea GI Denies abdominal pain, Denies hematochezia, Reports heartburn, Denies nausea and Denies vomiting Physical Exam Vital Signs: Last Vital Signs Pulse 62 08/30/23 09:35 BP 156/74 H 08/30/23 09:58 BMI result Body Mass Index 23.8 Const General: cooperative, healthy appearing, comfortable and no acute distress Orientation/consciousness: patient oriented x3 Limitations: language barrier Eyes Sclerae: sclerae normal Resp Effort & Inspection: normal respiratory effort and able to speak in complete sentences Auscultation: clear to auscultation bilaterally, no rales, no rhonchi and no wheezes Cardio Rate: regular rate Rhythm: regular rhythm Heart sounds: S1 normal heart sound present and S2 normal heart sound present GI Palpation (GI): Soft to palpation and nontender Auscultation: normal bowel sounds Skin General skin exam: no rashes or lesions noted Neuro General: patient oriented x3 Extrem General: Yes full ROM Psych Appearance: grossly normal and well kempt Mental Status: mental status grossly normal Speech and movement: Normal speech and movement present and Clear speech present Affect: normal affect Thought process: Normal thought process present Thought content: Normal thought content present Insight: Good insight present (Psych) Judgement: Good judgement present (Psych) Assessment & Plan Assessment & Plan (1) Encounter for screening colonoscopy: Comment: Screening colonoscopy and EGD discussed procedure, rare risks need for escorted due to anesthesia Code(s): Z12.11 - Encounter for screening for malignant neoplasm of colon Plan: colonoscopy (2) HTN (hypertension): Comment: Recheck BP improved Code(s): I10 - Essential (primary) hypertension Plan: continue to monitor (3) Acid reflux: Comment: Omeprazole for years without much improvement will switch to pantoprazole for better coverage Code(s): K21.9 - Gastro-esophageal reflux disease without esophagitis Plan: pantoprazole 20 mg Reflux precautions EGD Plan EGD/ colon- MG prep Pantoprazole-20 mg reflux precautions Orders: Orders EGD/Winona Combo - GI Use Only Today K21.9 - Gastro-esophageal reflux disease without esophagitis, Z12.11 - Encounter for screening for malignant neoplasm of colon Medications: New polyethylene glycol 3350 (Miralax) Take as directed by mouth the day before your procedure. 238 grams PO ONCE 1 day PRN 238 grams 0RF laxative effect pantoprazole 20 mg PO QAM 30 days PRN 30 tabs 6RF reflux bisacodyl (Dulcolax (bisacodyl)) Day before procedure, prep day Take 4 tablets by mouth upon awakening followed by large glass of water 20 mg (4 x 5 mg) PO ONCE 1 day 4 tabs 0RF colonoscopy prep Z12.11 - Encounter for screening for malignant neoplasm of colon Patient Instructions: EGD/ colon- MG prep, reviewed, literature given Pantoprazole-20 mg reflux precautions avoid culprits Encouraged to call with questions or concerns Coding Level of Care Code New Pt Level 4 (11529) Diagnoses Encounter for screening colonoscopy Z12.11 HTN (hypertension) I10 Acid reflux K21.9 Time Spent (min) 30 Comment [id number]
[2023-08-30 09:35] VITALS: BP 182/98; PULSE 62; BMI 23.8
[2023-08-30 09:58] VITALS: BP 156/74
== END 2023-08-30 10:14 | disposition home or self-care (01) ==
PROVIDERS: PCP Internal Medicine Geriatric Medicine; Visit Provider Physician Assistant
DX: K21.9 Gastro-esophageal reflux disease without esophagitis (principal); Z12.11 Encounter for screening for malignant neoplasm of colon; Z80.0 Family history of malignant neoplasm of digestive organs; I10 Essential (primary) hypertension
CPT/HCPCS: 99204

== ENCOUNTER → 2023-08-30 09:28 | Outpatient (BNVA) | payer MEDICARE, SELFPAY | PROVIDERS: PCP Internal Medicine Geriatric Medicine; Visit Provider Physician Assistant | DX: Z12.11 Encounter for screening for malignant neoplasm of colon (principal); I10 Essential (primary) hypertension; K21.9 Gastro-esophageal reflux disease without esophagitis | CPT/HCPCS: 99202 ==

== ENCOUNTER 2023-11-02 09:00 | Outpatient (REF) | payer MEDICARE, SELFPAY ==
[2023-11-02 12:21] LABS: Anion Gap 12 (12-20); Blood Urea Nitrogen 12 mg/dL (9-16); Calcium 10.7 mg/dL (8.4-10.2); Carbon Dioxide 29 mmol/L (22-29); Chloride 104 mmol/L (96-108); Estimated Glomerular Filt Rate > 60; Glucose Random 113 mg/dL (60-115); Potassium 4.3 mmol/L (3.3-5.1); Sodium 141 mmol/L (135-145)
[2023-11-02 13:36] LABS: Erythrocyte Sedimentation Rate 5 MM/HR (0-20)
== END 2023-11-02 09:01 | disposition home or self-care (01) ==
LOC: HO.HHCL 09:00
PROVIDERS: Visit Provider Internal Medicine Geriatric Medicine
DX: I10 Essential (primary) hypertension (principal); G43.909 Migraine, unspecified, not intractable, without status migrainosus
CPT/HCPCS: 36415; 80048; 85652

== ENCOUNTER 2023-11-16 10:14 | Outpatient (AMB) | payer MEDICARE, MEDICAID, SELFPAY ==
[2023-11-16 10:21] VITALS: BMI 23.7
--- NOTE | 2023-11-16 10:21 | A.OFFVIS_ITS ---
Intake Vital Signs 11/16/23 10:21 Height 5 ft 3 in Weight 134 lb BMI 23.7 Intake Visit Reasons: OV-pain of right knee-follow up Intake Note: Catalina is a 68 year old female who presents with right knee pain. The patient describes her pain as sharp in nature. She has had cortisone injections in the past which gave her fairly good relief. She has tried Tylenol and anti- inflammatory medicines which gave her minimal hold surgery for as long as possible. Allergies sumatriptan [Imitrex] Allergy (Unknown, Verified 11/16/23 10:24) anaphylaxis Medication List - Last Reconciled 11/16/23 by Bhavesh Montiel MD amitriptyline 50 mg PO BEDTIME amlodipine 5 mg PO DAILY bisacodyl (Dulcolax (bisacodyl)) 20 mg (4 x 5 mg) PO ONCE 1 day hnxjgtnzjy-zeuazdguvg-pru-cod 29-136-73-30 mg 1 cap PO Q4H PRN lisinopril 20 mg PO DAILY metoprolol tartrate 25 mg PO BID omeprazole 20 mg PO DAILY pantoprazole 20 mg PO QAM PRN 30 days polyethylene glycol 3350 (Miralax) 238 grams PO ONCE PRN 1 day PFSH Medical History Osteoporosis Vitamin D deficiency Hyperparathyroidism Surgical History Hx of colonoscopy Family History Father Colon cancer Mother Cancer Social History (Updated 08/30/23 @ 09:55 by Tia Barrientos PA-C) Household Members Other:: alone Alcohol intake: never Patient Tobacco Use Status: Never used Tobacco Physical Exam Vital Signs: BMI result Body Mass Index 23.7 Const Other: Well-nourished well-developed very friendly female awake alert and oriented x3 in no acute distress Extrem Other: Bilateral lower extremity examination shows good capillary refill, no skin lesions noted, normal sensation light touch Right knee examination shows a minimal effusion, palpable crepitus with range of motion, pain with range of motion, no instability Office Procedures Joint Injection/Drain Joint Injection/Drain Primary Site: right knee Prep: site was prepped using aseptic technique Injected: 40 mg of, DepoMedrol and 1% plain lidocaine Procedure: The patient tolerated the procedure well Coding - Large joint Procedure code (CPT) selection complete Results Reviewed Results Reviewed: X-rays of the patient's right knee show joint space narrowing, subchondral sclerosis, no acute bony abnormalities Assessment & Plan Assessment & Plan (1) Arthritis of right knee: Code(s): M17.11 - Unilateral primary osteoarthritis, right knee Plan Ms. Florian presents with right knee pain due to degenerative joint disease. I had a lengthy discussion with the patient regarding the treatment options. She wishes to hold off on surgery for as long as possible. I agree with this plan. The risks and benefits of a right knee cortisone injection were discussed at length with the patient. The patient wished to proceed. She tolerated the injection well. She will continue with her activity modifications. She will follow up with me on an as-needed basis should her symptoms not plateau at an unacceptable level over the next few months. I spent 22 minutes in reviewing the patient's records and imaging studies, seeing the patient and documenting in the medical record. Orders: Orders AMB Joint Injection/Aspiration Today M17.11 - Unilateral primary osteoarthritis, right knee Coding Level of Care Code Est Pt Level 2 (70692) Diagnoses Arthritis of right knee M17.11 CPT Codes Coding - Large joint: 21666 - Large joint ([id number])
== END 2023-11-16 10:46 | disposition home or self-care (01) ==
PROVIDERS: PCP Internal Medicine Geriatric Medicine; Visit Provider Orthopaedic Surgery
DX: M17.11 Unilateral primary osteoarthritis, right knee (principal)
CPT/HCPCS: 20610; 99213

== ENCOUNTER → 2023-11-16 10:14 | Outpatient (BNVA) | payer MEDICARE, OTHER, SELFPAY | PROVIDERS: PCP Internal Medicine Geriatric Medicine; Visit Provider Orthopaedic Surgery | DX: M17.11 Unilateral primary osteoarthritis, right knee (principal) | CPT/HCPCS: 20610; 99212; J1010; J1020 ==

== ENCOUNTER → 2023-12-14 07:44 | Outpatient (REF) | payer MEDICARE, SELFPAY ==
--- NOTE | 2023-12-14 07:56 | CA_ITS ---
Transthoracic Echocardiogram Patient (Last, First, Middle): Catalina Florian, Gender: Female Date of : 1955 Age: 68 Procedure Date: 12/14/2023 Procedure Type: Transthoracic Echocardiogram Location: OP Height: 160.02 cm Weight: 60.78 kg BSA: 1.63 m2 Heart Rate: 54 bpm BP: 142 / 94 mmHg Donor Floor Technician: ZHAO Referring MD: Juan Lacy MD Symptoms: I10 HTN Study Quality: Adequate ECG Rhythm: Bradycardia Conclusions: - The left ventricular systolic function is normal. The calculated ejection fraction is 61% by biplane method. - There is mild septal asymmetric hypertrophy. - There is mild calcification of the aortic valve. - There is mild mitral annular calcification. - There is mild tricuspid valve regurgitation. - There is mild dilatation of the ascending aorta measuring 3.80 cm. Findings Left Ventricle Normal left ventricular cavity size. The left ventricular systolic function is normal. The calculated ejection fraction is 61% by biplane method. There is no evidence of regional wall motion abnormalities. Evidence suggests grade I (mild) diastolic dysfunction. There is mild septal asymmetric hypertrophy. LV peak GLS -17.1%, possibly underestimate. Right Ventricle Normal right ventricular cavity size and systolic function. Atria Both atria are normal in size. Aortic Valve There is a normal trileaflet aortic valve. There is mild calcification of the aortic valve. There is no aortic valve stenosis. There is no aortic valve regurgitation. Mitral Valve There is mild mitral annular calcification. There is no mitral valve regurgitation. There is no mitral valve stenosis. Pulmonic Valve The pulmonic valve is likely normal. Tricuspid Valve Normal tricuspid valve structure. There is mild tricuspid valve regurgitation. There is no evidence of pulmonary hypertension. Great Vessels There is mild dilatation of the ascending aorta measuring 3.80 cm. Venous The inferior vena cava is normal in size and collapses greater than 50% with inspiration. Pericardium/Pleural There is no evidence of pericardial effusion. Prior Study Comparison No prior study available for comparison. Measurements 2D Linear Measurements IVSd: 1.23 0.6-0.9/0.6-1.0 cm LVIDd: 4.12 3.9-5.3/4.2-5.9 cm LVIDd Index: 2.53 2.4-3.2/2.2-3.1 cm/m2 LVIDs: 2.29 2.0-3.6 cm LVPWd: 0.86 0.7-1.1 cm Ao Root: 2.90 2.1-3.5 cm LA Diam: 2.70 2.7-3.8/3.0-4.0 cm LAIDs Index: 1.66 1.5-2.3 cm/m2 LV Mass: 176.33 67-162/88-224 g LV Mass Index: 108.18 43-95/49-115 g/m2 LVOT Diam: 2.00 3.0+(-)1.3 cm 2D Systolic Function EF 4C: 56.30 >55% EF 2C: 67.50 >55% EF BiP: 61.30 >55% Mitral Valve MV Pk E: 0.63 MV PK A: 0.76 MV Decel Time: 217.00 E/A: 0.80 E'Lateral: 5.22 E'Medial: 4.03 E/E' Med: 15.70 E/E' Lat: 12.10 PHT: 64.00 MVA PHT: 3.44 Decel [place]: 2.92 Aortic Valve AoV Pk Martín: 1.05 AoV Pk Grad: 4.00 FEDERICO: 2.93 LVOT LVOT Pk Martín: 0.98 LVOT Mn Martín: 0.69 LVOT VTI: 0.21 LVOT Pk Grad: 4.00 LVOT Mn Grad: 2.00 LVOT Diam: 2.00 LVOT Area: 3.14 Diastolic Function MV Pk E: 0.63 MV Pk A: 0.76 E/A: 0.80 E'Medial: 4.03 E/E' Med: 15.70 E' Laterial: 5.22 E/E' Lat: 12.10 Right Ventricle TAPSE (mm): 24.00 TVS' Martín: 12.60 Tricuspid Valve TR Pk Martín: 1.89 TR Pk Grad: 14.00 RA Press: 3.00 RVSP: 17.00 Great Vessels Aorta Ao Root-2D: 2.90 2.0-3.7 cm Sinus of Valsalva: 2.90 2.0-3.5 cm Ao Asc: 3.80 2.1-3.4 cm Pulmonary Valve PV Pk Martín: 0.67 Peak PV Grad: 2.00 Updated in Other Vendor System with Status of Final Dima Rodriguez MD electronically signed on 12/15/2023 12:41:36 PM with status of Final
== END ==
LOC: HO.CARD 07:44
PROVIDERS: PCP Internal Medicine Geriatric Medicine; Visit Provider Internal Medicine Geriatric Medicine
DX: Z13.89 Encounter for screening for other disorder (principal)
CPT/HCPCS: 93306

== ENCOUNTER → 2023-12-14 07:56 | Outpatient (BNV) | payer MEDICARE, SELFPAY | PROVIDERS: PCP Internal Medicine Geriatric Medicine; Visit Provider Internal Medicine | DX: I36.1 Nonrheumatic tricuspid (valve) insufficiency (principal); I34.81 Nonrheumatic mitral (valve) annulus calcification; I35.8 Other nonrheumatic aortic valve disorders | CPT/HCPCS: 93306; 93356 ==

== ENCOUNTER 2023-12-14 08:41 | Day surgery (SDC) | payer MEDICARE, OTHER, SELFPAY ==
[2023-12-10 15:04] VITALS: BMI 23.7
--- NOTE | 2023-12-13 12:00 | HO.ANESPROP2 ---
Documented by User: Kaylee Bravo NP 12/13/23 12:00 HPI - Anesthesia Eval Consult details Narrative: 68yo F for Upper Endoscopy and Colonoscopy PMFSH Active Problems Active Problems: All Active Problems Acid reflux (Acute) HTN (hypertension) (Acute) Encounter for screening colonoscopy (Acute) Arthritis of right knee (Acute) Arthritis of left knee (Acute) Varicose veins of left lower extremity with inflammation (Acute) Osteoporosis (Acute) Vitamin D deficiency (Acute) Hyperparathyroidism (Acute) Past Medical History Medical History Hyperparathyroidism Arthritis HTN (hypertension) Osteoporosis Vitamin D deficiency Hyperparathyroidism Family History Family History Father Colon cancer Mother Cancer Surgical History Surgical History Hx of colonoscopy Social History Social History Household Members Other:: alone Alcohol intake: never Patient Tobacco Use Status: Never used Tobacco Advance Directives: No Advance Directives Information Provided: Yes Meds Allergies Allergy/AdvReac Type Severity Reaction Status Date / Time sumatriptan [Imitrex] Allergy Unknown anaphylaxis Verified 11/16/23 10:24 Home Medications ?Medication ?Instructions ?Recorded ?Confirmed ?Last Taken ?Type butalbital 50 mg-acetaminophen 325 1 cap PO Q4H PRN Migraine Headache 06/26/20 12/10/23 Unknown History mg-caffeine 40 mg-codeine 30 mg cap lisinopril 20 mg tablet 20 mg PO DAILY 06/26/20 12/10/23 Unknown History amitriptyline 50 mg tablet 50 mg PO BEDTIME 11/15/20 12/10/23 Unknown History amlodipine 5 mg tablet 5 mg PO DAILY 07/02/22 12/14/23 Unknown History metoprolol tartrate 25 mg tablet 25 mg PO BID 08/30/23 12/10/23 Unknown History Exam Height,Weight and Vital Signs: Height 5 ft 3 in Weight 60.781 kg Pertinent Lab Results Pertinent Lab Results: Laboratory Tests 11/02/23 09:01 Sodium 141 Potassium 4.3 Chloride 104 Carbon Dioxide 29 BUN 12 Creatinine 0.73 Assessment and Plan Assessment Anesthesia Assessment: Chart Reviewed Documented by User: Alicia Womack MD 12/14/23 11:10 [facility] Past Medical History Medical History Hyperparathyroidism Arthritis HTN (hypertension) Osteoporosis Vitamin D deficiency Hyperparathyroidism Family History Family History Father Colon cancer Mother Cancer Surgical History Surgical History Hx of colonoscopy History of Problems with Anesthesia: No Social History Social History Household Members Other:: alone Alcohol intake: never Patient Tobacco Use Status: Never used Tobacco Advance Directives: No Advance Directives Information Provided: Yes Meds Allergies Allergy/AdvReac Type Severity Reaction Status Date / Time sumatriptan [Imitrex] Allergy Unknown anaphylaxis Verified 11/16/23 10:24 Home Medications ?Medication ?Instructions ?Recorded ?Confirmed ?Last Taken ?Type butalbital 50 mg-acetaminophen 325 1 cap PO Q4H PRN Migraine Headache 06/26/20 12/10/23 Unknown History mg-caffeine 40 mg-codeine 30 mg cap lisinopril 20 mg tablet 20 mg PO DAILY 06/26/20 12/10/23 Unknown History amitriptyline 50 mg tablet 50 mg PO BEDTIME 11/15/20 12/10/23 Unknown History amlodipine 5 mg tablet 5 mg PO DAILY 07/02/22 12/14/23 Unknown History metoprolol tartrate 25 mg tablet 25 mg PO BID 08/30/23 12/10/23 Unknown History Exam Airway Mallampati Class: III TM Dist: >3cm Neck ROM: Full Loose/Missing/Broken Teeth: No Heart: RRR Lungs: CTA Assessment and Plan Assessment Anesthesia Assessment: Anesthesia Plan Discussed Final Anesthetic Review History of Problems with Anesthesia: No NPO: Yes ASA Class: II Final Preanesthetic Review: Meds/Allgs Chart Reviewed, Consent Obtained/Reviewed and Anes Risks/Benef Reviewed Patient Risk: Low Procedure Risk: Intermediate Anesthetic Plan Anesthetic Plan: MAC: Disposition: Standard PACU
[2023-12-14 09:49] VITALS: BP 156/76; PULSE 55; RESP 16; TEMP 36.1; O2SAT 100
[2023-12-14 09:51] VITALS: BMI 23.3
[2023-12-14] MEDS: Lactated Ringers 1,000 ML 100 ML IVCONT (10:10)
--- NOTE | 2023-12-14 11:43 | MHC.SHP ---
Pre-Procedural Eval Section A - 24 Hr Update-Section A only Date of Service: 12/14/23 Section B - Complete if H&P > 30 days Chief Complaint: Gastro-esophageal reflux disease without esophagit Details of Present Illness: Osteoporosis Vitamin D deficiency Hyperparathyroidism Surgical History Hx of colonoscopy Present Medications: see Short Stay Collaborative assessment Medical History: No relevant PMH History of Previous Operations: No relevant previous surgery Allergies: Allergies Allergy/AdvReac Type Severity Reaction Status Date / Time sumatriptan [Imitrex] Allergy Unknown anaphylaxis Verified 11/16/23 10:24 Review of Systems Review of Systems Comment: Ten point ROS negative Exam Exam Comment: Gen appear: No acute distress HEENT: no icterus Chest: No overt resp distress Abd: soft, nontender, nondistended Psych: Stable affect, answering questions appropriately Neuro: A/Ox3 noted to move all extremities spontaneously Ext: no peripheral edema Plan Diagnosis/Plan: Unchanged I have reviewed the history and physical and performed a pertinent physical examination on my patient. No changes have occurred unless specified. Time Spent With Patient Time: Total time managing care of this patient today ____ minutes.
--- NOTE | 2023-12-14 12:30 | P.OP_ITS ---
Operative Note Operative Note Date of Service: 12/14/23 Narrative: Procedure: Upper endoscopy and colonoscopy Indication: GERD, screening Endoscopist: Rosamaria Marsh MD Anesthesia Provider: Paulina Flores CRNA Anesthesia type: MAC Instrument: [id number]-[id number] and [id number]-[id number] EGD Procedure:?? The procedure, indications, preparation and potential complications were reviewed with the patient, who indicated understanding and gave written informed consent to proceed. An assault boat coxswain was utilized to assist with the encounter. Physical exam was performed. The endoscope was introduced through the mouth, and advanced to the 2nd part of the duodenum. The mucosa was carefully examined on slow withdrawal of the endoscope. The patient tolerated the procedure well. There were no immediate complications.? EGD Findings:? * Esophagus:? Normal mucosa was noted with irregular Z-line at 35 cm up to 34 cm. A moderate sized hiatal hernia was noted with the diaphragmatic pinch at 38 cm. Cold forceps biopsies were taken to rule out Barretts esophagus. These will be sent for tissue site for if BE confirmed. * Stomach:? Normal gastric mucosa was noted. Retroflexion was performed in the cardia. Cold forceps biopsies were taken to r/o H Pylori. * Duodenum:? Normal duodenal mucosa. Colonoscopy Procedure:? The patient was then turned for the colonoscopy. A digital rectal exam was performed which was normal.? A distal attachment cap was affixed to the tip of the scope and the colonoscope was then inserted through the anus and advanced through the colon and advanced to the cecum at 75 cm and terminal ileum.? Appendiceal orifice and ileocecal valve were identified. Mucosa was carefully examined under high definition white light as the instrument was slowly withdrawn in a retrograde panoramic fashion. Retroflexion was performed in ascending colon and rectum. The procedure was not difficult. The quality of the prep was BBPS: 2+2+2 = adequate Withdrawal time 15 minutes Limitations: No limitations Findings: Mucosa: Small pellets of solid stools were noted throughout the colon likely due to underlying diverticulosis. Normal colon and terminal ileum mucosa. Protruding lesions: * A 2 cm pedunculated subepithelial lesion was noted in the sigmoid colon at 25 cm. Pillow sign was positive. Most consistent with a lipoma clinically. Bite on bite cold forceps biopsies were taken for histology. * Medium internal hemorrhoids without stigmata of recent bleeding. Excavated lesions: * Extensive diverticulosis of the colon including cecum. Impression: 1. Irregular Z line (biopsy) 2. Hiatal hernia 3. Normal gastric mucosa (biopsy) 4. Normal duodenal mucosa (biopsy) 5. Normal colon and terminal ileum mucosa 6. Nodule in sigmoid colon ? lipoma (biopsy) 7. Diverticulosis 8. Internal hemorrhoids Recommendations:?? * Follow-up path results * Repeat colonoscopy in 5-7 years due to prep
[2023-12-14 12:35] VITALS: BP 127/71; PULSE 66; RESP 16; TEMP 36.7; O2SAT 100
[2023-12-14 12:52] VITALS: BP 158/77; PULSE 62; RESP 17; TEMP 36.7; O2SAT 100
== END 2023-12-14 13:05 | disposition home or self-care (01) ==
PROVIDERS: PCP Internal Medicine Geriatric Medicine; Visit Provider Internal Medicine
PROC: (CPT 45380; principal; 2023-12-14 12:00)
DX: Z12.11 Encounter for screening for malignant neoplasm of colon (principal); K63.89 Other specified diseases of intestine; K57.30 Diverticulosis of large intestine without perforation or abscess without bleeding; K64.8 Other hemorrhoids; K21.9 Gastro-esophageal reflux disease without esophagitis; K44.9 Diaphragmatic hernia without obstruction or gangrene; I10 Essential (primary) hypertension; Z79.899 Other long term (current) drug therapy; Z88.8 Allergy status to other drugs, medicaments and biological substances
CPT/HCPCS: 45380; 43239; 88305; 88313; 88342; 93306; 93356; 95816; J2704

== ENCOUNTER → 2023-12-14 08:41 | Outpatient (BNV) | payer MEDICARE, SELFPAY | PROVIDERS: PCP Internal Medicine Geriatric Medicine; Visit Provider Internal Medicine | DX: Z12.11 Encounter for screening for malignant neoplasm of colon (principal); K57.90 Diverticulosis of intestine, part unspecified, without perforation or abscess without bleeding; D12.5 Benign neoplasm of sigmoid colon; K64.8 Other hemorrhoids; K21.9 Gastro-esophageal reflux disease without esophagitis; K22.89 Other specified disease of esophagus | CPT/HCPCS: 43239; 45380 ==

== ENCOUNTER 2023-12-28 09:04 | Outpatient (AMB) | payer MEDICARE, SELFPAY ==
[2023-12-28 09:15] VITALS: BP 164/74; PULSE 65; BMI 23.5
--- NOTE | 2023-12-28 09:15 | MHC.OFFVIS ---
Vital Signs 12/28/23 09:15 Height 5 ft 4 in Weight 137 lb BMI 23.5 BP 164/74 H Blood Pressure Location Lt brachial Position Sitting Pulse 65 Intake Visit Reasons: S/P Double; Dr. Thomas Intake Note: Patient follow up for S/P double results Patient cc: acid reflex with burning sensation. Denies any other GI issues. Robotic Technician Required: Yes Robotic Technician Name: Jean [id number] Accompanied by: Self / Same As Patient Allergies sumatriptan [Imitrex] Allergy (Unknown, Verified 12/28/23 09:14) anaphylaxis Medication List - Last Reconciled 12/28/23 by Tia Barrientos PA-C amitriptyline 50 mg PO BEDTIME amlodipine 5 mg PO DAILY mfkquogprf-grcmymtjxx-tpg-cod [id number] mg 1 cap PO Q4H PRN lisinopril 20 mg PO DAILY metoprolol tartrate 25 mg PO BID pantoprazole 20 mg PO QAM PRN 30 days HPI Comments Details: A very pleasant 68-year-old female follows up after recent EGD and colonoscopy for reflux screening She tolerated procedures well She has no GI complaint Reviewed procedure report, pathology as well as recommendations Opportunity for questions, answered to her satisfaction She does not eat much fiber-discussed importance good bowel pattern certainly given fact she has extensive diverticulosis experience design director device was used No nausea, vomiting, hematemesis, hematochezia fever or chills PFSH Medical History (Updated 12/28/23 @ 09:52 by Tia Barrientos PA-C) Hyperparathyroidism Arthritis HTN (hypertension) Osteoporosis Vitamin D deficiency Hyperparathyroidism Surgical History History of esophagogastroduodenoscopy (EGD) Hx of colonoscopy Family History Father Colon cancer Mother Cancer Social History Household Members Other:: alone Alcohol intake: never Patient Tobacco Use Status: Never used Tobacco Review of Systems Const All systems reviewed & are unremarkable except as noted in HPI and below Physical Exam Vital Signs: Last Vital Signs Pulse 65 12/28/23 09:15 BP 164/74 H 12/28/23 09:15 BMI result Body Mass Index 23.5 Const General: cooperative, healthy appearing, comfortable, no acute distress and well groomed Orientation/consciousness: patient oriented x3 Limitations: language barrier Neuro General: patient oriented x3 Extrem General: Yes full ROM Psych Appearance: grossly normal and well kempt Mental Status: mental status grossly normal Speech and movement: Normal speech and movement present and Clear speech present Affect: normal affect Attitude: cooperative Thought process: Normal thought process present Thought content: Normal thought content present Insight: Good insight present (Psych) Judgement: Good judgement present (Psych) Results Reviewed Results Reviewed: 12/14/23- Dr. Marsh Impression: 1. Irregular Z line (biopsy) 2. Hiatal hernia 3. Normal gastric mucosa (biopsy) 4. Normal duodenal mucosa (biopsy) 5. Normal colon and terminal ileum mucosa 6. Nodule in sigmoid colon ? lipoma (biopsy) 7. Diverticulosis 8. Internal hemorrhoids Recommendations:?? Follow-up path results Repeat colonoscopy in 5-7 years due to prep ddendum #1 Immunostain for H. pylori is non-reactive (A). Deeper levels on C do not reveal significant submucosal tissue. No change is made to the diagnoses. Electronically Signed By: Ever Caldwell MD 12/20/23 1308 Diagnosis A. Stomach, random, biopsy: Gastric antral and body mucosa with minimal chronic inactive gastritis; negative for intestinal metaplasia and dysplasia (see comment). B. Gastroesophageal junction, biopsy: Squamocolumnar mucosa with hyperplasia and mild chronic active inflammation; negative for intestinal metaplasia and dysplasia. C. Colon, sigmoid at 25 cm, submucosal nodule: Colonic mucosa with no specific change (see comment). Comment: (A): Immunostain for H.pylori is pending; addendum to follow. (C): The submucosa is not well represented on the initial levels. Additional deeper tissue levels are pending; addendum to follow. Clinical History Pre-Op Dx: GERD, screening Post-Op Dx: Hiatal hernia, irregular z - line, internal hemorrhoids, diverticulosis, nodule, hemorrhoids Microscopic Description Microscopic sections reviewed. AB/PAS on B and C are negative for intestinal metaplasia. Control stains appropriately. Material Received A. Random gastric B. GE junction, r/o Scott's Patient: Catalina Florian Age/Sex: 68/F [id number] MR#: [id number] Page 1 of 2 Assessment & Plan Assessment & Plan (1) Diverticulosis of colon: Comment: reviewed procedure report, path and recommendation Code(s): K57.30 - Diverticulosis of large intestine without perforation or abscess without bleeding Category: Medical Plan: Questions answered- via conche loader and unloader (2) Acid reflux: Comment: Omeprazole for years without much improvement will switch to pantoprazole for better coverage Code(s): K21.9 - Gastro-esophageal reflux disease without esophagitis Category: Medical (3) Hemorrhoids: Code(s): K64.9 - Unspecified hemorrhoids Category: Medical Plan ER protocol foods to avoid HFD- lit given Medications: New psyllium husk (Metamucil) mix into at least 8 oz of water or juice before administering 1 tbsp PO DAILY 30 days 660 grams 5RF Patient Instructions: ER protocol diverticulosis/ititis foods to avoid-nuts, corn, seeds HFD- lit given metamucil recall colonoscopy- 5-7 years due to prep Coding Level of Care Code Est Pt Level 4 (61668) Diagnoses Diverticulosis of colon K57.30 Acid reflux K21.9 Hemorrhoids K64.9 Time Spent (min) 30 Comment [id number] many repetitions
== END 2023-12-28 10:17 | disposition home or self-care (01) ==
PROVIDERS: PCP Internal Medicine Geriatric Medicine; Visit Provider Physician Assistant
DX: K57.30 Diverticulosis of large intestine without perforation or abscess without bleeding (principal); K21.9 Gastro-esophageal reflux disease without esophagitis; K64.9 Unspecified hemorrhoids
CPT/HCPCS: 99214

== ENCOUNTER → 2023-12-28 09:04 | Outpatient (BNVA) | payer MEDICARE, SELFPAY | PROVIDERS: PCP Internal Medicine Geriatric Medicine; Visit Provider Physician Assistant | DX: K57.30 Diverticulosis of large intestine without perforation or abscess without bleeding (principal); K21.9 Gastro-esophageal reflux disease without esophagitis; K64.9 Unspecified hemorrhoids; Z98.890 Other specified postprocedural states | CPT/HCPCS: 99212 ==

== ENCOUNTER 2024-02-15 09:28 | Outpatient (AMB) | payer MEDICARE, MEDICAID, SELFPAY ==
--- NOTE | 2024-02-15 09:28 | A.OFFVIS_ITS ---
Intake Visit Reasons: OV-pain of right knee-follow up Intake Note: Catalina is a 68 year old female who presents with complaints of progressively worsening right knee pain. The patient describes her knee pain as sharp in nature. She did have a cortisone injection given into her left knee earlier this year. She got very good relief from that injection. She reports minimal discomfort in her left knee today. Her right knee pain has gotten worse over the last few months in spite of continued non operative treatments. She has tried Tylenol and anti-inflammatory medicines which gave her minimal relief. She has also done a home exercise program which aggravated her pain she wishes to hold off on surgery for as long as possible. Allergies sumatriptan [Imitrex] Allergy (Unknown, Verified 02/15/24 09:29) anaphylaxis Medication List - Last Reconciled 02/15/24 by Bhavesh Montiel MD amitriptyline 50 mg PO BEDTIME amlodipine 5 mg PO DAILY fgjxwcshcl-zpqhylkvyh-mxd-cod 76-614-65-30 mg 1 cap PO Q4H PRN lisinopril 20 mg PO DAILY metoprolol tartrate 25 mg PO BID pantoprazole 20 mg PO QAM PRN 30 days psyllium husk (Metamucil) 1 tbsp PO DAILY 30 days PFSH Medical History (Updated 12/28/23 @ 09:52 by Tia Barrientos PA-C) Hyperparathyroidism Arthritis HTN (hypertension) Osteoporosis Vitamin D deficiency Hyperparathyroidism Surgical History History of esophagogastroduodenoscopy (EGD) Hx of colonoscopy Family History Father Colon cancer Mother Cancer Social History Household Members Other:: alone Alcohol intake: never Patient Tobacco Use Status: Never used Tobacco Physical Exam Const Other: Well-nourished well-developed very friendly female awake alert and oriented x3 in no acute distress Extrem Other: Bilateral lower extremity examination shows good capillary refill, no skin lesions noted, normal sensation light touch Right knee examination shows a minimal effusion, palpable crepitus with range of motion, pain with range motion, no instability Office Procedures Joint Injection/Drain Joint Injection/Drain Primary Site: right knee Prep: site was prepped using aseptic technique Injected: 40 mg of, DepoMedrol and 1% plain lidocaine Procedure: The patient tolerated the procedure well Coding - Large joint Procedure code (CPT) selection complete Results Reviewed Results Reviewed: X-rays of the patient's right knee show joint space narrowing, subchondral sclerosis, no acute Assessment & Plan Assessment & Plan (1) Arthritis of right knee: Code(s): M17.11 - Unilateral primary osteoarthritis, right knee Category: Medical Plan Ms. Florian presents with right knee pain due to degenerative joint disease. I had a lengthy discussion with the patient regarding the treatment options. She wishes to hold off on surgery for as long as possible. I agree with this plan. The risks and benefits of a right knee cortisone injection were discussed at length with the patient. The patient wished to proceed. She tolerated the injection well. She will continue with her home exercise program. She will follow up with me on an as-needed basis should her symptoms not plateau at an un acceptable level over the next few months. Feel free to call me at any time should questions regarding her orthopedic management arise. I spent 22 minutes in reviewing the patient's records and imaging studies, seeing the patient and documenting in the medical record. Orders: Orders AMB Joint Injection/Aspiration Today M17.11 - Unilateral primary osteoarthritis, right knee Coding Level of Care Code Est Pt Level 3 (06588) Diagnoses Arthritis of right knee M17.11 CPT Codes Coding - Large joint: 29167 - Large joint ([id number])
== END 2024-02-15 09:55 | disposition home or self-care (01) ==
PROVIDERS: PCP Internal Medicine Geriatric Medicine; Visit Provider Orthopaedic Surgery
DX: M17.11 Unilateral primary osteoarthritis, right knee (principal)
CPT/HCPCS: 20610; 99213

== ENCOUNTER → 2024-02-15 09:28 | Outpatient (BNVA) | payer MEDICARE, SELFPAY | PROVIDERS: PCP Internal Medicine Geriatric Medicine; Visit Provider Orthopaedic Surgery | DX: M17.11 Unilateral primary osteoarthritis, right knee (principal) | CPT/HCPCS: 20610; 99212; J1010 ==

== ENCOUNTER 2024-05-15 09:19 | Outpatient (REF) | payer MEDICARE, MEDICAID, SELFPAY ==
[2024-05-15 11:52] LABS: MANUAL DIFF FLAG NO
[2024-05-15 12:01] LABS: Basophils Absolute Auto 0.1 X10*3/uL (0.0-0.2); Eosinophils Absolute Auto 1.5 X10*3/uL (0.0-0.4); Eosinophils Percent Auto 18.2 % (0-4); Hematocrit 41.4 % (37.0-47.0); Hemoglobin 13.8 g/dl (12.0-16.0); Imm Gran Abs Auto 0.02 X10*3/uL (0.00-0.03); Imm Gran Pct Auto 0.2 % (0.0-0.4); Lymphocytes Absolute Auto 3.1 X10*3/uL (1.2-4.9); Lymphocytes Percent Auto 36.9 % (20-40); Mean Corpuscular HGB Conc 33.3 g/dl (31.0-35.0); Mean Corpuscular Hemoglobin 29.6 pg (27.0-33.0); Mean Corpuscular Volume 88.7 fL (80.0-98.0); Mean Platelet Volume 12.1 fL (9.4-12.3); Monocytes Absolute Auto 0.6 X10*3/uL (0.1-1.2); Monocytes Percent Auto 7.3 % (2-11); Neutrophils Absolute Auto 3.1 x10*3/uL (2.0-8.3); Neutrophils Percent Auto 36.4 % (45-73); Platelet Count 289 X10*3/uL (160-400); Red Blood Count 4.67 X10*6/uL (4.20-5.50); Red Cell Distribution Width 12.8 % (11.0-16.0); White Blood Count 8.4 X10*3/uL (4.8-10.8)
[2024-05-15 12:29] LABS: Alanine Aminotransferase 13 U/L (0-31); Albumin Level 4.6 g/dL (3.5-5.0); Alkaline Phosphatase 186 U/L (39-117); Anion Gap 12 (12-20); Aspartate Amino Transferase 16 U/L (5-31); Bilirubin Total 0.3 mg/dL (0.0-1.0); Blood Urea Nitrogen 18 mg/dL (9-16); Calcium 11.1 mg/dL (8.4-10.2); Carbon Dioxide 26 mmol/L (22-29); Chloride 104 mmol/L (96-108); Cholesterol 216 mg/dL (<200); Estimated Glomerular Filt Rate > 60; Glucose Random 80 mg/dL (60-115); HDL Cholesterol 47 mg/dL (>40); LDL Cholesterol Calculated 133 mg/dL (<100); Potassium 3.6 mmol/L (3.3-5.1); Sodium 138 mmol/L (135-145); Total Protein 8.1 g/dL (6.5-8.0); Triglycerides 180 mg/dL (<150)
== END 2024-05-15 09:20 | disposition home or self-care (01) ==
LOC: HO.HHCL 09:19
PROVIDERS: Visit Provider Internal Medicine Geriatric Medicine
DX: I10 Essential (primary) hypertension (principal); E21.3 Hyperparathyroidism, unspecified
CPT/HCPCS: 36415; 80053; 80061; 85025

== ENCOUNTER 2024-05-18 09:14 | Outpatient (AMB) | payer MEDICARE, SELFPAY ==
--- NOTE | 2024-05-18 09:18 | MHC.OFFVIS ---
Intake Visit Reasons: Right knee pain Intake Note: Catalina 69 year old female that presents with complaints of right knee pain. The patient describes her pain as sharp in nature. She has tried Tylenol and anti-inflammatory medicines which gave her minimal relief. She has also done physical therapy which aggravated her pain. She has had cortisone injections in the past which gave her fairly good relief. She wishes to hold off on surgery if at all possible. Allergies sumatriptan [Imitrex] Allergy (Unknown, Verified 05/18/24 09:18) anaphylaxis Medication List - Last Reconciled 05/18/24 by Bhavesh Montiel MD amitriptyline 50 mg PO BEDTIME amlodipine 5 mg PO DAILY rhfoymrnnn-htsprjnkbf-dgv-cod [id number] mg 1 cap PO Q4H PRN lisinopril 20 mg PO DAILY metoprolol tartrate 25 mg PO BID pantoprazole 20 mg PO QAM PRN 30 days psyllium husk (Metamucil) 1 tbsp PO DAILY 30 days PFSH Medical History (Updated 12/28/23 @ 09:52 by Tia Barrientos PA-C) Hyperparathyroidism Arthritis HTN (hypertension) Osteoporosis Vitamin D deficiency Hyperparathyroidism Surgical History History of esophagogastroduodenoscopy (EGD) Hx of colonoscopy Family History Father Colon cancer Mother Cancer Social History Household Members Other:: alone Alcohol intake: never Patient Tobacco Use Status: Never used Tobacco Physical Exam Const Other: Well-nourished well-developed very friendly female awake alert and oriented x3 in no acute distress Extrem Other: Bilateral lower extremity examination shows good capillary refill, no skin lesions noted, normal sensation light touch Right knee examination shows a minimal effusion, palpable crepitus with range of motion, pain with range of motion, no instability Office Procedures Joint Injection/Aspiration Joint Injection/Aspiration Primary Site: right knee Prep: site was prepped using aseptic technique Injected: 40 mg of, DepoMedrol and 1% plain lidocaine Procedure: The patient tolerated the procedure well Coding 57550 - Large joint Procedure code (CPT) selection complete Results Reviewed Results Reviewed: X-rays of the patient's bilateral knees taken previously show joint space narrowing, subchondral sclerosis, no acute bony abnormalities Assessment & Plan Assessment & Plan (1) Arthritis of right knee: Code(s): M17.11 - Unilateral primary osteoarthritis, right knee Category: Medical (2) Right knee pain: Code(s): M25.561 - Pain in right knee Plan Ms. Florian presents with progressively worsening right knee pain due to degenerative joint disease. I had a lengthy discussion with the patient regarding the treatment options. She wishes to hold off on surgery for as long as possible. The risks and benefits of a right knee cortisone injection were discussed at length with the patient. The patient wished to proceed. She tolerated the injection well. She will continue with her home exercise program. She will contact me prior to her follow-up appointment in 3 months should any questions or concerns arise. Feel free to call me at any time should questions regarding her orthopedic management arise. I spent 22 minutes in reviewing the patient's records and imaging studies, seeing the patient and documenting in the medical record. Orders: Orders AMB Joint Injection/Aspiration Today M17.11 - Unilateral primary osteoarthritis, right knee Coding Level of Care Code Est Pt Level 3 (63747) Complex EM visit Add On G2211 Diagnoses Arthritis of right knee M17.11 Right knee pain M25.561 CPT Codes Coding - 76662 Large joint: 31251 - Large joint ([id number])
== END 2024-05-18 09:51 | disposition home or self-care (01) ==
PROVIDERS: PCP Internal Medicine Geriatric Medicine; Visit Provider Orthopaedic Surgery
DX: M17.11 Unilateral primary osteoarthritis, right knee (principal); M25.561 Pain in right knee
CPT/HCPCS: 20610; 99213

== ENCOUNTER → 2024-05-18 09:14 | Outpatient (BNVA) | payer MEDICARE, SELFPAY | PROVIDERS: PCP Internal Medicine Geriatric Medicine; Visit Provider Orthopaedic Surgery | DX: M17.11 Unilateral primary osteoarthritis, right knee (principal) | CPT/HCPCS: 20610; 99212; J1010; J2003 ==

== ENCOUNTER 2024-06-07 08:16 | Outpatient (AMB) | payer MEDICARE, SELFPAY ==
[2024-06-07 08:30] VITALS: BMI 23.5
--- NOTE | 2024-06-07 08:30 | A.OFFVIS_ITS ---
Vital Signs 06/07/24 08:30 Height 5 ft 4 in Weight 137 lb BMI 23.5 Intake Visit Reasons: Right shoulder pain and weakness Intake Note: Mckayla is a 69 year old female who presents with complaints of progressively worsening right shoulder pain and weakness. The patient states that she injured her right shoulder several years ago while lifting a heavy object. Since that time her symptoms have gotten worse in spite of continued non operative treatments. She has failed the last 6 weeks of conservative treatment which consisted of physical therapy exercises, Tylenol, topical creams and anti- inflammatory medicines. The patient reports difficulty lifting her right hand above shoulder height. Supervisor Ride Assembly Required: Yes Supervisor Ride Assembly Language: Cashiers Supervisor Name: Sushil [id number] Allergies sumatriptan [Imitrex] Allergy (Unknown, Verified 06/07/24 08:38) anaphylaxis Medication List - Last Reconciled 06/07/24 by Bhavesh Montiel MD amitriptyline 50 mg PO BEDTIME amlodipine 5 mg PO DAILY arqfjlyozx-fmvohwadff-rss-cod [id number] mg 1 cap PO Q4H PRN lisinopril 20 mg PO DAILY metoprolol tartrate 25 mg PO BID pantoprazole 20 mg PO QAM PRN 30 days psyllium husk (Metamucil) 1 tbsp PO DAILY 30 days PFSH Medical History (Updated 06/02/24 @ 12:33 by Bhavesh Montiel MD) Hyperparathyroidism Arthritis HTN (hypertension) Osteoporosis Vitamin D deficiency Hyperparathyroidism Surgical History History of esophagogastroduodenoscopy (EGD) Hx of colonoscopy Family History Father Colon cancer Mother Cancer Social History Household Members Other:: alone Alcohol intake: never Patient Tobacco Use Status: Never used Tobacco Physical Exam Vital Signs: BMI result Body Mass Index 23.5 Const Other: Well-nourished well-developed very friendly female awake alert and oriented x3 in no acute distress Extrem Other: Bilateral upper extremity examination shows good capillary refill, no skin lesions noted, normal sensation light touch Right shoulder examination shows decreased range of motion when compared to her left shoulder, 4+ out of 5 strength with supraspinatus testing, positive impingement signs, tenderness over her acromioclavicular joint, no instability Results Reviewed Results Reviewed: X-rays of the patient's right shoulder taken today show severe acromioclavicular joint narrowing, a type 2 acromion, no acute bony abnormalities Assessment & Plan Assessment & Plan (1) Right shoulder pain: Code(s): M25.511 - Pain in right shoulder Category: Medical Plan Ms. Florian presents with progressively worsening right shoulder pain and weakness due to impingement syndrome and possible rotator cuff tearing. Thus, I will send the patient for an MRI of her right shoulder to further evaluate the status of her rotator cuff tendons. I will see her back once the MRI is completed to discuss the findings and treatment options. Feel free to call me at any time should questions regarding her orthopedic management arise. I spent 21 minutes in reviewing the patient's records and imaging studies, seeing the patient and documenting in the medical record. Orders: Orders XR shoulder RT min 2V Today M25.511 - Pain in right shoulder MR shoulder RT wo con Today M25.511 - Pain in right shoulder Coding Level of Care Code Est Pt Level 3 (47773) Complex EM visit Add On G2211 Diagnoses Right shoulder pain M25.511
== END 2024-06-07 08:44 | disposition home or self-care (01) ==
PROVIDERS: PCP Internal Medicine Geriatric Medicine; Visit Provider Orthopaedic Surgery
DX: M25.511 Pain in right shoulder (principal)
CPT/HCPCS: 99213; G2211

== ENCOUNTER → 2024-06-07 08:24 | Outpatient (BNV) | payer MEDICARE, SELFPAY | PROVIDERS: Visit Provider Radiology Diagnostic Radiology | DX: M25.511 Pain in right shoulder (principal) | CPT/HCPCS: 73030 ==

== ENCOUNTER 2024-06-07 12:46 | Outpatient (REF) | payer MEDICARE, SELFPAY ==
--- NOTE | ~2024-06-07 | XR_ITS ---
EXAMINATION: XR SHOULDER, RIGHT CLINICAL INFORMATION: Pain COMPARISON: None available. TECHNIQUE: AP external rotation, and scapular Y, views of the right shoulder. FINDINGS: No acute cortical disruption or malalignment. No lytic or blastic lesions. XR/XR shoulder RT min 2V IMPRESSION: No acute fracture or dislocation. Electronically signed by: Murtaza Cavazos MD 06/07/2024 08:50 AM EDT
== END 2024-06-07 12:47 | disposition home or self-care (01) ==
LOC: HO.HOSX 12:46
PROVIDERS: Visit Provider Orthopaedic Surgery
DX: M25.511 Pain in right shoulder (principal)
CPT/HCPCS: 73030; 99212

== ENCOUNTER 2024-06-27 09:13 | Outpatient (REF) | payer MEDICARE, SELFPAY ==
[2024-06-27 12:02] LABS: Alanine Aminotransferase 16 U/L (0-31); Albumin Level 4.1 g/dL (3.5-5.0); Alkaline Phosphatase 167 U/L (39-117); Anion Gap 10 (12-20); Aspartate Amino Transferase 22 U/L (5-31); Bilirubin Direct 0.1 mg/dL (0.0-0.5); Bilirubin Total 0.4 mg/dL (0.0-1.0); Blood Urea Nitrogen 24 mg/dL (9-16); Calcium 10.5 mg/dL (8.4-10.2); Carbon Dioxide 27 mmol/L (22-29); Chloride 106 mmol/L (96-108); Cholesterol 151 mg/dL (<200); Estimated Glomerular Filt Rate > 60; Glucose Random 93 mg/dL (60-115); HDL Cholesterol 45 mg/dL (>40); LDL Cholesterol Calculated 87 mg/dL (<100); Sodium 139 mmol/L (135-145); Total Protein 7.2 g/dL (6.5-8.0); Triglycerides 96 mg/dL (<150)
[2024-06-27 12:18] LABS: TSH reflex Free T4 2.39 uIU/mL (0.32-4.0)
== END 2024-06-27 09:14 | disposition home or self-care (01) ==
LOC: HO.HHCL 09:13
PROVIDERS: Visit Provider Internal Medicine Geriatric Medicine
DX: I10 Essential (primary) hypertension (principal); E78.5 Hyperlipidemia, unspecified; E21.3 Hyperparathyroidism, unspecified
CPT/HCPCS: 36415; 80048; 80061; 80076; 84443

== ENCOUNTER 2024-07-18 08:37 | Outpatient (REF) | payer MEDICARE, SELFPAY ==
--- NOTE | ~2024-07-18 | MR_ITS ---
EXAMINATION: MR SHOULDER WITHOUT CONTRAST, RIGHT CLINICAL INFORMATION: Right shoulder pain, limited range of motion, crepitus, swelling. COMPARISON: Right shoulder radiographs dated 06/07/2024. TECHNIQUE: MRI of the shoulder without contrast was performed on a high-field scanner. FINDINGS: ROTATOR CUFF: Moderate supraspinatus and more mild infraspinatus tendinosis. Irregular bursal surface fraying/partial tearing involving the supraspinatus and anterior aspect of the infraspinatus tendon measuring approximately 2.3 x 1.8 cm (AP x ML). Articular surface tendon fibers remaining intact. No full-thickness rotator cuff tendon tear. No muscle atrophy or fatty infiltration. BICEPS: Intact. CORACOACROMIAL ARCH: The undersurface of the acromion is flat with no subacromial spur. Moderate acromioclavicular osteoarthritis with capsular and marrow edema. Trace fluid within the subacromial-subdeltoid bursa, consistent with minimal bursitis. LABRUM/CAPSULE: No displaced labral tear. Intact inferior joint capsule. GLENOHUMERAL JOINT/MARROW: Intact articular cartilage. No acute glenohumeral injury. MR/MR shoulder RT wo con IMPRESSION: 1. Moderate supraspinatus and more mild infraspinatus tendinosis. Irregular bursal surface fraying/partial tearing involving the supraspinatus and anterior aspect of the infraspinatus tendon measuring 2.3 x 1.8 cm (AP x ML). Articular surface tendon fibers remaining intact. No full-thickness rotator cuff tendon tear. 2. Moderate acromioclavicular osteoarthritis with capsular and marrow edema. 3. Minimal subacromial-subdeltoid bursitis. Electronically signed by: Ulisses Rutledge MD 07/27/2024 09:06 PM ELEANOR
== END 2024-07-18 08:38 | disposition home or self-care (01) ==
LOC: HO.MRI 08:37
PROVIDERS: PCP Internal Medicine Geriatric Medicine; Visit Provider Orthopaedic Surgery
DX: M25.511 Pain in right shoulder (principal)
CPT/HCPCS: 73221

== ENCOUNTER 2024-08-22 10:05 | Outpatient (REF) | payer MEDICARE, MEDICAID, SELFPAY ==
[2024-08-22 12:09] LABS: Anion Gap 7 (12-20); Blood Urea Nitrogen 11 mg/dL (9-16); Calcium 10.2 mg/dL (8.4-10.2); Carbon Dioxide 31 mmol/L (22-29); Chloride 107 mmol/L (96-108); Estimated Glomerular Filt Rate > 60; Glucose Random 87 mg/dL (60-115); Potassium 4.1 mmol/L (3.3-5.1); Sodium 141 mmol/L (135-145)
== END 2024-08-22 10:06 | disposition home or self-care (01) ==
LOC: HO.HHCL 10:05
PROVIDERS: Visit Provider Internal Medicine Geriatric Medicine
DX: I10 Essential (primary) hypertension (principal)
CPT/HCPCS: 36415; 80048

== ENCOUNTER 2024-08-31 08:24 | Outpatient (AMB) | payer MEDICARE, SELFPAY ==
--- NOTE | 2024-08-31 08:27 | A.OFFVIS_ITS ---
Vital Signs 08/31/24 08:28 Height 5 ft 4 in Weight 137 lb BMI 23.5 Intake Visit Reasons: OV- RT shoulder MRI review Intake Note: Catalina is a 69 year old female who presents with complaints of right shoulder pain and stiffness. She describes her pain as sharp in nature. Her pain has gotten worse over the last few years in spite of continued non operative treatments. She reports difficulty lifting her right hand above shoulder height. She has done physical therapy exercises which aggravated her pain. She has also tried Tylenol and anti-inflammatory medicines which gave her minimal relief. Her right shoulder pain and stiffness are now interfering with her activities of daily living and her ability to sleep well through the night. Hospital Administrative Assistant Required: Yes Hospital Administrative Assistant Language: Fruit C[employer] Services: Hospital Administrative Assistant Present Hospital Administrative Assistant Name: MertCHRISTAL/ISAIAH Allergies sumatriptan [Imitrex] Allergy (Unknown, Verified 08/31/24 08:28) anaphylaxis Medication List - Last Reconciled 08/31/24 by Bhavesh Montiel MD amitriptyline 50 mg PO BEDTIME amlodipine 5 mg PO DAILY bisacodyl (Dulcolax (bisacodyl)) 20 mg (4 x 5 mg) PO ONCE 1 day cpidctthnr-xuspokwbxq-dfq-cod 80-218-87-30 mg 1 cap PO Q4H PRN lisinopril 20 mg PO DAILY metoprolol tartrate 25 mg PO BID pantoprazole 20 mg PO QAM PRN 30 days polyethylene glycol 3350 (Miralax) 238 grams PO ONCE 1 day psyllium husk (Metamucil) 1 tbsp PO DAILY 30 days spironolactone PO PFSH Medical History Arthritis HTN (hypertension) Osteoporosis Vitamin D deficiency Hyperparathyroidism Surgical History History of esophagogastroduodenoscopy (EGD) Hx of colonoscopy Family History Father Colon cancer Mother Cancer Social History Household Members Other:: alone Alcohol intake: never Patient Tobacco Use Status: Never used Tobacco Physical Exam Vital Signs: BMI result Body Mass Index 23.5 Const Other: Well-nourished well-developed very friendly female awake alert and oriented x3 in no acute distress Psych Other: Bilateral upper extremity examination shows good capillary refill, no skin lesions noted, normal sensation light touch Right shoulder examination shows decreased active and passive range of motion when compared to her left shoulder, 4+ out of 5 strength with supraspinatus testing, tenderness over her acromioclavicular joint, no instability Results Reviewed Results Reviewed: MRI of the patient's right shoulder show severe acromioclavicular joint narrowing, a type 2 acromion, signal change within the supraspinatus tendon most likely due to adhesive capsulitis Assessment & Plan Assessment & Plan (1) Impingement of right shoulder: Code(s): M25.811 - Other specified joint disorders, right shoulder Category: Medical Plan Ms. Florian presents with right shoulder pain and stiffness due to impingement syndrome, acromioclavicular joint arthritis and adhesive capsulitis. I had a lengthy discussion with the patient regarding the treatment options. At this point she appears to be failing continued non operative treatments. The risks and benefits of right shoulder surgery were discussed at length with the patient. The patient is considering undergoing right shoulder surgery later this year. She will contact my office to pick a surgery date if she chooses to do so. Surgery will most likely involve right shoulder diagnostic arthroscopy with distal clavicle excision, acromioplasty, capsular release and manipulation under anesthesia. The patient will continue with her kevse-cy-ixtuzt exercises in the meantime. Feel free to call me at any time should questions regarding her orthopedic management arise. I spent 20 minutes in reviewing the patient's records and imaging studies, seeing the patient and documenting in the medical record. Coding Level of Care Code Est Pt Level 3 (94509) Complex EM visit Add On G2211 Diagnoses Impingement of right shoulder M25.811
[2024-08-31 08:28] VITALS: BMI 23.5
== END 2024-08-31 08:47 | disposition home or self-care (01) ==
PROVIDERS: PCP Internal Medicine Geriatric Medicine; Visit Provider Orthopaedic Surgery
DX: M25.811 Other specified joint disorders, right shoulder (principal)
CPT/HCPCS: 99213; G2211

== ENCOUNTER → 2024-08-31 08:24 | Outpatient (BNVA) | payer MEDICARE, SELFPAY | PROVIDERS: PCP Internal Medicine Geriatric Medicine; Visit Provider Orthopaedic Surgery | DX: M25.811 Other specified joint disorders, right shoulder (principal) | CPT/HCPCS: 99212 ==

== ENCOUNTER 2024-09-26 09:15 | Outpatient (AMB) | payer MEDICARE, SELFPAY ==
[2024-09-26 09:23] VITALS: BMI 23.5
--- NOTE | 2024-09-26 09:23 | MHC.OFFVIS ---
Vital Signs 09/26/24 09:23 Height 5 ft 4 in Weight 137 lb BMI 23.5 Intake Visit Reasons: Right shoulder pain and stiffness Intake Note: Catalina is a 69 year old female who presents with complaints of right shoulder pain and stiffness. She describes her pain as sharp in nature. Her pain has gotten worse over the last few years in spite of continued non operative treatments. She reports difficulty lifting her right hand above shoulder height. She has done physical therapy exercises which aggravated her pain. She has also tried Tylenol and anti-inflammatory medicines which gave her minimal relief. Her right shoulder pain and stiffness are now interfering with her activities of daily living and her ability to sleep well through the night. Registered Nurse Maternity Required: Yes Registered Nurse Maternity Language: Supervisor Plate Forming Services: Registered Nurse Maternity Present Registered Nurse Maternity Name: Mert CHRISTAL/ISAIAH Allergies sumatriptan [Imitrex] Allergy (Unknown, Verified 09/26/24 09:24) anaphylaxis Medication List - Last Reconciled 09/26/24 by Bhavesh Montiel MD amitriptyline 50 mg PO BEDTIME amlodipine 5 mg PO DAILY bisacodyl (Dulcolax (bisacodyl)) 20 mg (4 x 5 mg) PO ONCE 1 day xpqrzrtzaz-zmbcpepqox-ksa-cod [id number] mg 1 cap PO Q4H PRN lisinopril 20 mg PO DAILY metoprolol tartrate 25 mg PO BID pantoprazole 20 mg PO QAM PRN 30 days polyethylene glycol 3350 (Miralax) 238 grams PO ONCE 1 day psyllium husk (Metamucil) 1 tbsp PO DAILY 30 days spironolactone PO PFSH Medical History Arthritis HTN (hypertension) Osteoporosis Vitamin D deficiency Hyperparathyroidism Surgical History History of esophagogastroduodenoscopy (EGD) Hx of colonoscopy Family History Father Colon cancer Mother Cancer Social History Household Members Other:: alone Alcohol intake: never Patient Tobacco Use Status: Never used Tobacco Physical Exam Vital Signs: BMI result Body Mass Index 23.5 Const Other: Well-nourished well-developed very friendly female awake alert and oriented x3 in no acute distress Extrem Other: Bilateral upper extremity examination shows good capillary refill, no skin lesions noted, normal sensation light touch Right shoulder examination shows decreased active and passive range of motion when compared to her left shoulder, 4+ out of 5 strength with supraspinatus testing, positive impingement signs, tenderness over her acromioclavicular joint, no instability Results Reviewed Results Reviewed: MRI of the patient's right shoulder show severe acromioclavicular joint narrowing, a type 2 acromion, signal change within the supraspinatus tendon most likely due to adhesive capsulitis Assessment & Plan Assessment & Plan (1) Impingement of right shoulder: Code(s): M25.811 - Other specified joint disorders, right shoulder Category: Medical Plan Ms. Florian presents with progressively worsening right shoulder pain and stiffness due to impingement syndrome, acromioclavicular joint arthritis and adhesive capsulitis. I had a lengthy discussion with the patient regarding the treatment options. At this point she has failed continued non operative treatments. The risks and benefits of right shoulder surgery were discussed at length with the patient. The patient wishes to proceed with surgery. Surgery will most likely involve right shoulder diagnostic arthroscopy with distal clavicle excision, acromioplasty, capsular release and manipulation under anesthesia. The patient will continue with her lmxjb-pn-dudipt exercises in the meantime. I did give her a prescription for tramadol to help with her pain. Feel free to call me should any questions regarding her orthopedic management arise. I spent 20 minutes in reviewing the patient's records and imaging studies, seeing the patient and documenting in the medical record. Medications: New tramadol 50 mg PO Q12H PRN 30 tabs 0RF pain Coding Level of Care Code Est Pt Level 3 (14788) Complex EM visit Add On G2211 Diagnoses Impingement of right shoulder M25.811
--- OUTSIDE RECORDS SUMMARY | 2024-09-26 10:22 | XMS_ITS | Encounter Summary ---
Author Organization [employer] Address [address] [facility] 7t [place] [address] Care Team Providers Care Lapping Machine Operator Name Role Phone Name, Juan CERDA Primary Care Provider [phone] Daja Sigala PharmD Unavailable [phone] Reason for Visit * Reason Onset Date Comments Nurse Triage 09/21/2023 Encounter Details Date Type Department Care Team ([facility] st Contact Info) Description 09/21/2023 Telephone [facility] [address] [place], [place] [phone] Name, MD Juan [address] [place] [address] Nurse Triage Social History Tobacco Use Types Packs/Day Years Used Date Smoking Tobacco: Never Smokeless Tobacco: Never Alcohol Use Standard Drinks/Week Comments Never 0 (1 standard drink = 0.6 oz pur e alcohol) Depression Answer Date Recorded Patient Health Questionnaire-9 Score 2 01/07/2024 Patient Health Questionnaire-9 Score 2 01/07/2024 Last PHQ-9: Questionnaire Data Not on file 0 01/07/2024 Housing Stability Answer Date Recorded What is your housing situation today? I have sandhya perea 01/07/[address] you li ve. Do you have problems with any of the following? None of the above 01/07/2024 Food Insecurity Answer Date Recorded Within the past 12 months, y ou worried that your food would run out before you got money to buy more: Never True 01/07/2024 Within the past 12 months,th e food you bought just didn't last and you didn't have enough money to get more: Never True Transportation Answer Date Recorded In the past 12 months, has l ack of transportation kept you from medical appts, meetings, work or from getting things needed for daily living? No 01/07/2024 Utilities Answer Date Recorded In the past 12 months, has t he electric, gas, oil or water company threatened to shut off services in your home? No 01/07/2024 Depression Answer Date Recorded Patient Health Questionnaire-2 Score 0 01/07/2024 Comments Unknown Sex and Gender Information Value Date Recorded Sex Assigned at Female 06/15/2022 10:18 AM EDT Legal Sex Female 10:18 AM EDT Gender Identity Female 06/15/2022 10:18 AM EDT Sexual Orientation Don't know 06/15/2022 10 :18 AM EDT documented as of this encounter Miscellaneous Notes * Telephone Encounter - Farnaz Gomez RN - 09/21/2023 12:54 PM EST Called pt. Via [employer] slag [employer]er [id number] [place]re[place]. Pt. States that she has been having a headache x 2weeks. Pt. Also has pain in her neck. Pt. Denies any problem breathing, denies tightness in throat.Pt. States she has HX. Of Migraines and over the past few days her headache makes her feel like shecannot open her eyes. Pt. Takes Tylenol and also a migraine medication that is not working. Pt. Cantouch chin to her neck but it is painful. Pt has been having nausea and vomited one time the other night. Bright lights are bothersome to pt. Pt. Does check her BP daily due to HX of Htn. Todays 184/113- pulse 67. Asked pt. To recheck BP at present 166/94-71. Pt. Is adamant to see her PCP, Dr. Lacy. Appt. Made for 10/27/23 at 315pm with PCP but, pt. Advised to go to walk in today for evaluation of headache and high BP. Strongly advised. Protocol Used: Headache (Adult) Protocol-Based Disposition: Callback or Video Visit by PCP within 1 Hour- advised walk in. Will send note to PCP as FYI since pt. Upset that PCP has booked schedule. Video visit not offered Positive Triage Question: * Severe headache (e.g., excruciating) and has had severe headaches before * All higher-acuity triage questions were negative Care Advice Discussed: * Reassurance and Education - Migraine Headache * Pain Medicines * Pain Medicines - Extra Notes and Warnings * Pain Medicine for Migraine * Rest for Headache * Cold Pack for Headache * Stretching * Reasons To Call Back * Telephone Encounter - Rosalba Valente - 09/21/2023 12:52 PM EST Symptom: Headache Outcome: Transfer to a nurse or provider NOW! Reason: Sudden worst headache of life now The caller accepted this outcome Please contact at [phone] Nigerien documented in this encounter Plan of Treatment Upcoming Encounters Date Type Department Care Team (Late st Contact Info) Description 10/31/2024 9:00 AM EDT Medication Management [facility] [address] [place] [address] Daja Sigala PharmD [address] [place] [address] documented as of this encounter Visit Diagnoses Not on filedocumented in this encounter Additional Health Concerns Assessment Noted Time PHQ-9 Depression Total Score: 6 12/10/19 23 4:19 PM EDT documented as of this encounter Care Teams Lapping Machine Operator Relationship Specialty Start Date End Date Name, MD Juan [address] [place] [address] PCP - General Family Medicine 11/29/15 Daja Sigala, PharmD [address] [place] [address] Pharmacist Internal Medicine 05/25/24 documented as of this encounter
--- OUTSIDE RECORDS SUMMARY | 2024-09-26 10:22 | XMS_ITS | Encounter Summary ---
Author Organization [employer] Address [address] [facility] 7t [place] [address] Care Team Providers Care Fireworks Display Specialist Name Role Phone Name, Juan CERDA Primary Care Provider [phone] Daja Sigala PharmD Unavailable [phone] Encounter Details Date Type Department Care Team (Late st Contact Info) Description 01/07/2023 Abstract [facility] MEDICINE [address] [place] [address] [phone] Name, MD Juan [address] [place] [phone] Social History Tobacco Use Types Packs/Day Years Used Date Smoking Tobacco: Never Smokeless Tobacco: Never Depression Answer Date Recorded Patient Health Questionnaire-9 Score 6 12/09/2022 Depression Answer Date Recorded Patient Health Questionnaire-2 Score 2 12/09/2022 Comments Unknown Sex and Gender Information Value Date Recorded Sex Assigned at Female 06/15/2022 10:18 AM EDT Legal Sex Female 10:18 AM EDT Gender Identity Female 06/15/2022 10:18 AM EDT Sexual Orientation Don't know 06/15/2022 10 :18 AM EDT COVID-19 Exposure Response Date Recorded In the last 10 days, have yo u been in contact with someone who was confirmed or suspected to have Coronavirus/COVID-19? No / Unsure 12/09/2022 3:47 PM EDT documented as of this encounter Plan of Treatment Upcoming Encounters Date Type Department Care Team (Late st Contact Info) Description 10/31/2024 9:00 AM EDT Medication Management [facility] MED[facility]INE [address] [place] [address] [phone] Daja Sigala PharmD [address] [place] [address] documented as of this encounter Visit Diagnoses Not on filedocumented in this encounter Additional Health Concerns Assessment Noted Time PHQ-9 Depression Total Score: 6 12/10/19 23 4:19 PM EDT documented as of this encounter Care Teams Fireworks Display Specialist Relationship Specialty Start Date End Date Name, MD Juan [address] [place] [id number] PCP - General Family Medicine 11/29/15 Daja Sigala PharmD [address] [place] [phone] Pharmacist Internal Medicine 05/25/24 documented as of this encounter
--- OUTSIDE RECORDS SUMMARY | 2024-09-26 10:22 | XMS_ITS | Encounter Summary ---
Author Organization [employer] Address [address] [facility] 7t [place] [address] Care Team Providers Care Culinary Art Teacher Name Role Phone Name, Juan CERDA Primary Care Provider [phone] Daja Sigala PharmD Unavailable [phone] Reason for Visit * Reason Comments Med Refill Encounter Details Date Type Department Care Team ([facility] st Contact Info) Description 09/20/2024 Refill [facility] MEDICINE [address] [place], [place] [phone] Name, MD Juan [address] [place] [address] Social History Tobacco Use Types Packs/Day Years [...] AM EDT documented as of this encounter Plan of Treatment Upcoming Encounters Date Type Department Care Team (Late st Contact Info) Description 10/31/2024 9:00 AM EDT Medication Management [facility] [address] [place] [address] Daja Sigala PharmD [address] [place] [address] documented as of this encounter Visit Diagnoses Not on filedocumented in this encounter Additional Health Concerns Assessment Noted Time PHQ-9 Depression Total Score: 2 01/07/20 11:51 AM EDT documented as of this encounter Care Teams Culinary Art Teacher Relationship Specialty Start Date End Date Name, MD Juan [address] [place] [phone] PCP - General Family Medicine 11/29/15 Daja Sigala, MirnaD [address] [place] [phone] Pharmacist Internal Medicine 05/25/24 documented as of this encounter
--- OUTSIDE RECORDS SUMMARY | 2024-09-26 10:22 | XMS_ITS | Encounter Summary ---
Author Organization [employer] Address [address] [facility] 7t [place] [address] Care Team Providers Care Dental Office Receptionist Name Role Phone Name, Juan CERDA Primary Care Provider [phone] Daja Sigala PharmD Unavailable [phone] Reason for Visit * Reason Onset Date Comments Prior Authorization 01/08/2023 Encounter Details Date Type Department Care Team (Late st Contact Info) Description 01/08/2023 Telephone [facility] [address] [place], [place] [phone] Name, MD Juan [address] [place] [address] Prior Authorization Social History Tobacco Use Types Packs/Day Years [...] PM EDT documented as of this encounter Miscellaneous Notes * Telephone Encounter - Annetta Patel - 01/15/2023 10:13 AM EDT PA initiated through Cover my meds, waiting on response * Telephone Encounter - Daja Martinez - 01/08/2023 10:48 AM EDT Tc grupo Strong from [facility] pharmacy requesting a PA for medication elavil 50 mg . documented in this encounter Plan of Treatment Upcoming Encounters Date Type Department Care Team (Late st Contact Info) Description 10/31/2024 9:00 AM EDT Medication Management [facility] [address] [place] [address] Daja Sigala PharmD [address] [place] [address] documented as of this encounter Visit Diagnoses Not on filedocumented in this encounter Additional Health Concerns Assessment Noted Time PHQ-9 Depression Total Score: 6 12/10/19 23 4:19 PM EDT documented as of this encounter Care Teams Dental Office Receptionist Relationship Specialty Start Date End Date Name, MD Juan [address] [place] [address] PCP - General Family Medicine 11/29/15 Daja Sigala PharmD [address] [place] [address] Pharmacist Internal Medicine 05/25/24 documented as of this encounter
--- OUTSIDE RECORDS SUMMARY | 2024-09-26 10:22 | XMS_ITS | Encounter Summary ---
Author Organization [employer] Address [address] [facility] 7t [place] [address] Care Team Providers Care Parts And Service Manager Name Role Phone Name, Juan CERDA Primary Care Provider [phone] Daja Sigala PharmD Unavailable [phone] Reason for Visit * Reason Onset Date Comments Call Back Request 10/20/2023 Encounter Details Date Type Department Care Team ([facility] st Contact Info) Description 10/20/2023 Telephone [facility] MEDICINE [address] [place], [place] [phone] Name, MD Juan [address] [place] [address] Call Back Request Social History Tobacco Use Types Packs/Day Years Used Date Smoking Tobacco: Never Smokeless Tobacco: Never Alcohol Use Standard Drinks/Week Comments Never 0 (1 standard drink = 0.6 oz pur e alcohol) Depression Answer Date Recorded Patient Health Questionnaire-9 Score 6 12/09/2022 Housing Stability Answer Date Recorded What is your housing situation today? I have sandhya perea 06/09/[address] you li ve. Do you have problems with any of the following? None of the above 06/09/2023 Food Insecurity Answer Date Recorded Within the past 12 months, y ou worried that your food would run out before you got money to buy more: Never True 06/09/2023 Within the past 12 months,th e food you bought just didn't last and you didn't have enough money to get more: Never True Transportation Answer Date Recorded In the past 12 months, has l ack of transportation kept you from medical appts, meetings, work or from getting things needed for daily living? No 06/09/2023 Utilities Answer Date Recorded In the past 12 months, has t he electric, gas, oil or water company threatened to shut off services in your home? No 06/09/2023 Depression Answer Date Recorded Patient Health Questionnaire-2 Score 2 12/09/2022 Comments Unknown Sex and Gender Information Value Date Recorded Sex Assigned at Female 06/15/2022 10:18 AM EDT Legal Sex Female 10:18 AM EDT Gender Identity Female 06/15/2022 10:18 AM EDT Sexual Orientation Don't know 06/15/2022 10 :18 AM EDT documented as of this encounter Miscellaneous Notes * Telephone Encounter - Altaf Bee - 10/20/2023 2:19 PM EST Tc from patient was returning for required information please return call to patient documented in this encounter Plan of Treatment Upcoming Encounters Date Type Department Care Team (Late st Contact Info) Description 10/31/2024 9:00 AM EDT Medication Management [facility]INE [address] [place] [address] Daja Sigala PharmD [address] [place] [address] documented as of this encounter Visit Diagnoses Not on filedocumented in this encounter Additional Health Concerns Assessment Noted Time PHQ-9 Depression Total Score: 6 12/10/19 23 4:19 PM EDT documented as of this encounter Care Teams Parts And Service Manager Relationship Specialty Start Date End Date Name, MD Juan [address] [place] [phone] PCP - General Family Medicine 11/29/15 Daja Sigala PharmD [address] [place] [phone] Pharmacist Internal Medicine 05/25/24 documented as of this encounter
--- OUTSIDE RECORDS SUMMARY | 2024-09-26 10:22 | XMS_ITS | Encounter Summary ---
Author Organization [employer] Address [address] [facility] 7t [place] [address] Care Team Providers Care Mechanical System Technician Name Role Phone Name, Juan CERDA Primary Care Provider [phone] Daja Sigala PharmD Unavailable [phone] Reason for Visit * Reason Comments Med Refill Encounter Details Date Type Department Care Team ([facility] st Contact Info) Description 08/03/2024 Refill [facility] MEDICINE [address] [place], [place] [phone] Name, MD Juan [address] [place] [address] Social History Tobacco Use Types Packs/Day Years [...] Description 10/31/2024 9:00 AM EDT Medication Management [facility] [address] [place] [address] Daja Sigala PharmD [address] [place] [address] documented as of this encounter Visit Diagnoses Not on filedocumented in this encounter Additional Health Concerns Assessment Noted Time PHQ-9 Depression Total Score: 2 01/07/20 11:51 AM EDT documented as of this encounter Care Teams Mechanical System Technician Relationship Specialty Start Date End Date Name, MD Juan [address] [place] [phone] PCP - General Family Medicine 11/29/15 Daja Sigala, MirnaD [address] [place] [phone] Pharmacist Internal Medicine 05/25/24 documented as of this encounter
--- OUTSIDE RECORDS SUMMARY | 2024-09-26 10:22 | XMS_ITS | Encounter Summary ---
Author Organization [employer] Address [address] [facility] 7t [place] [address] Care Team Providers Care Loadmaster Name Role Phone Name, Juan CERDA Primary Care Provider [phone] Daja Sigala PharmD Unavailable [phone] Reason for Visit * Reason Onset Date Comments No Show 09/19/2024 Encounter Details Date Type Department Care Team ([facility] st Contact Info) Description 09/19/2024 Telephone [facility] MED[facility]INE [address] [place], [place] [phone] Name, MD Juan [address] [place] [address] No Show Social History Tobacco Use Types Packs/Day Years [...] encounter Miscellaneous Notes * Telephone Encounter - Luz Sr - 09/19/2024 10:37 AM EST Patient didn't answer TELEPHONE VISIT appointment on 09/19/24. documented in this encounter Plan of Treatment Upcoming Encounters Date Type Department Care Team (Late st Contact Info) Description 10/31/2024 9:00 AM EDT Medication Management [facility] [address] [place] [address] Daja Sigala PharmD [address] [place] [address] documented as of this encounter Visit Diagnoses Not on filedocumented in this encounter Additional Health Concerns Assessment Noted Time PHQ-9 Depression Total Score: 2 01/07/20 24 11:51 AM EDT documented as of this encounter Care Teams Loadmaster Relationship Specialty Start Date End Date Name, MD Juan [address] [place] [address] PCP - General Family Medicine 11/29/15 Daja Sigala PharmD [address] [place] [address] Pharmacist Internal Medicine 05/25/24 documented as of this encounter
--- OUTSIDE RECORDS SUMMARY | 2024-09-26 10:22 | XMS_ITS | Encounter Summary ---
Author Organization [employer] Address [address] [facility] 7t [place] [address] Care Team Providers Care Marker Delivery Name Role Phone Name, Juan CERDA Primary Care Provider [phone] Daja Sigala PharmD Unavailable [phone] Encounter Details Date Type Department Care Team (Late st Contact Info) Description 01/08/2023 Abstract [facility] MEDICINE [address] [place] [address] [phone] Name, MD Juan [address] [place] [address] Social History Tobacco Use Types Packs/Day Years [...] Description 10/31/2024 9:00 AM EDT Medication Management [facility] MED[facility]INE [address] [place] [address] [phone] Daja Sigala PharmD [address] [place] [address] documented as of this encounter Visit Diagnoses Not on filedocumented in this encounter Additional Health Concerns Assessment Noted Time PHQ-9 Depression Total Score: 6 12/10/19 23 4:19 PM EDT documented as of this encounter Care Teams Marker Delivery Relationship Specialty Start Date End Date Name, MD Juan [address] [place] [address] PCP - General Family Medicine 11/29/15 Daja Sigala PharmD [address] [place] [address] Pharmacist Internal Medicine 05/25/24 documented as of this encounter
--- OUTSIDE RECORDS SUMMARY | 2024-09-26 10:22 | XMS_ITS | Clinical Summary ---
Author Organization [facility] [employer] Address [address] [facility] [address] [place] [address] Care Team Providers Care Menagerie Caretaker Name Role Phone Name, Juan CERDA Primary Care Provider [phone] Daja Sigala PharmD Unavailable [phone] Allergies Active Allergy Reactions Criticality Noted Date Comments Sumatriptan Anaphylaxis High 11/29/2015 Medications alendronate (Fosamax) 70 MG tablet 04/29/20 22 Active famotidine (Pepcid) 20 MG tablet Take 1 tablet (20 mg) by mouth 2 times daily. 60 tablet 11 05/11/20 23 Active amLODIPine-valsar king (Exforge) 10-320 MG tablet Take 1 tablet by mouth in the morning. 30 tablet 11 10/27/19 24 025 Active hydrocortisone 2.5 % cream Mix 60g tube of Hydrocortisone 2.5% with 16oz jar of CeraVe cream. Apply by topical route 1-2 times per day after shower or bath from the neck down (not on face). 60 g 1 01/17/20 24 Active magnesium oxide (Mag-Ox) 400 mg tablet TAKE 1 TABLET BY MOUTH IN THE MORNING 30 tablet 04/20/20 24 Active amitriptyline (Elavil) 10 MG tablet Take 1 tablet (10 mg) by mouth at bedtime. 30 tablet 2 05/09/20 24 Active atorvastatin (Lipitor) 40 MG tabletIndications :Hyperlipidemia, unspecified hyperlipidemia type Take 1 tablet (40 mg) by mouth Once per day. 30 tablet 11 05/25/20 24 025 Active metoprolol succinate XL (Toprol XL) 25 MG 24 hr tabletIndications :Essential hypertension Take 1 tablet (25 mg) by mouth Once per day. Do not crush or chew. 90 tablet 1 06/12/20 Active Blood Pressure kitIndications:Es sential hypertension USE TO CHECK HOME BLOOD PRESSURE ONCE DAILY DIRECTED 1 kit 06/20/20 Active butalbital-acetam inophen-caffeine 50-325-40 MG tablet TAKE 1 TO 2 TABLETS BY MOUTH EVERY 8 HOURS NEEDED . DO NOT EXCEED 6 TABLETS PER 24 HOURS 20 tablet 07/06/20 24 Active pantoprazole (ProtoNix) 20 MG EC tablet Take 20 mg by mouth if needed each day (reflux). 06/29/20 Active hydroCHLOROthiazi de (HYDRODiuril) 25 MG tabletIndications :Essential hypertension Take 1 tablet (25 mg) by mouth Once per day. 30 tablet 2 07/11/20 Active spironolactone (Aldactone) 25 MG tablet Take 1 tablet (25 mg) by mouth Once per day. 30 tablet 11 09/12/19 25 026 Active zolpidem (Ambien) 5 MG tablet Take 1 tablet (5 mg) by mouth if needed at bedtime for sleep. 30 tablet 09/12/19 25 026 Active spironolactone (Aldactone) 25 MG tablet Take 0.5 tablets (12.5 mg) by mouth Once per day. 15 tablet 11 05/09/20 24 025 Disconti nued(Dos e adjustme nt) Active Problems Problem Noted Date Diagnosed Date Acid reflux 05/09/2024 Arthritis of right knee 05/09/2024 Diverticulosis of colon 05/09/2024 Encounter for screening colonoscopy 05/09/2024 Hemorrhoids 05/09/2024 Varicose veins of left lower extremity with infl ammation 05/09/2024 Vitamin D deficiency 05/09/2024 Nocturnal leg cramps 02/15/2023 SILVERIO (obstructive sleep apnea) 02/15/2023 Leg edema, right 02/02/2023 Assessment & Plan (02/02/2023 5:49 PM EDT): CHF? ro DVT Order venous DVT US, avoid leg massages Order BNP, if elevated it may be related to CHF, will fu results. Use compression stockings Generalized abdominal pain 02/02/2023 Assessment & Plan (02/02/2023 5:47 PM EDT): Patient has some abd distension,\ with no potential GI cause ro CHF Order BNP, US. Change to liquid diet and advance as tolerated, re consult prn Osteoporosis 10/19/2022 Tinea corporis 01/10/2019 Seasonal allergic rhinitis 02/03/2018 Posterior rhinorrhea 02/03/2018 Seasonal allergic reaction 12/30/2017 Diverticulitis of large intestine 05/05/2017 Hyperparathyroidism 04/05/2017 Hypercalcemia 03/30/2017 Insomnia 01/27/2017 Recurrent major depressive episodes, moderate Peripheral venous insufficiency 03/31/2016 Chronic low back pain 02/19/2016 Migraine 11/29/2015 HTN (hypertension) 11/29/2015 Assessment & Plan (02/02/2023 5:48 PM EDT): Uncontrolled. Continue amlodipine, lisinopril and fu w PCP next week Encounters Date Type Department Care Team Description 09/26/2024 Travel 09/20/2024 Refill [facility] [place] [place] [address] [place] Lacy MD 09/19/2024 Telephone [facility] [place] [address] [place] Lacy MD No Show 09/19/2024 Telephone [facility] [place] [phone] Tesha Clemens RN 09/12/2024 10:00 AM EST Office Visit [facility] [place] [address] [place] Lacy MD Hypertension, unspecified type (Primary Dx); Acute insomnia 09/12/2024 Travel 09/11/2024 Telephone [facility] [place] [phone] Chrissy Patel MA chart prep 08/22/2024 Orders Only [facility] [place] [address] [place] Lacy MD 08/21/2024 Telephone [facility] [place] [place] [address] [place] Lacy MD 08/03/2024 Refill [facility] [address] [place] [address] Name, MD [place] 07/18/2024 Orders Only [facility] External Provider, [facility] 07/06/2024 Refill [facility] [address] [facility] [place] [address] Name, MD [place] from Last 3 Months Immunizations Name Administration Dates Next Due INFLUENZA VACCINE QUADRIVALE NT RECOMBINANT PRESERVATIVE FREE RIV4 05/04/2020 Influenza High-dose Quadriva lent Preservative Free 06/21/2023,05/18/2022,05/13/2021 Influenza injectable quadriv alent IIV4 with preservative 05/05/2017,07/27/2016 Influenza injectable quadriv alent preservative free 06/23/2019 Influenza, High Dose Seasona l, Preservative Free 05/09/2024 Influenza, IIV3, injectable 07/30/2015,0 05/15/2013,05/24/2012,2010,05/13/2010,05/23/2009,06/14/2008 MMR 04/08/2017 Moderna Covid-19 Vaccine 12+ 12/01/2020,11/10/19 21 Novel [id number], preservative-free 08/22/2009 Pneumococcal Conjugate PCV 13 02/09/2022 Pneumococcal Conjugate PCV 20 06/20/2024 TD (adult), 2 Lf tetanus tox oid, preservative free, adsorbed 02/09/2022 Tdap 06/14/2008 Zoster, Recombinant 10/11/2019,06/23/2019 Social History Tobacco Use Types Packs/Day Years Used Date Smoking Tobacco: Never Smokeless Tobacco: Never Tobacco Cessation:Counseling Given: Not Answered Alcohol Use Standard Drinks/Week Comments Never 0 [...] Don't know 06/15/2022 10 :18 AM EDT Last Filed Vital Signs Vital Sign Reading Time Taken Comments Blood Pressure 134/82 09/26/2024 10:13 AM EST Pulse 70 09/26/2024 10:13 AM EST Temperature 35.9 ??C (96.6 ??F) 09/12/2024 1 0:17 AM EST Respiratory Rate 12 09/12/2024 10:1 7 AM EST Oxygen Saturation 98% 09/12/2024 10: 17 AM EST Inhaled Oxygen Concentration - - Weight 60.2 kg (132 lb 12.8 oz) 025 10:17 AM EST Height 162.6 cm (5' 4 ) 09/12/2024 10:1 7 AM EST Body Mass Index 22.8 09/12/2024 10:17 AM EST Plan of Treatment Upcoming Encounters Date Type Department Care Team (Late st Contact Info) Description 10/31/2024 9:00 AM EDT Medication Management [facility] [address], [place] [phone] Daja Sigala, MirnaD [address] [place] [address] Health Maintenance Due Date Last Done Comments CT Colonography 1955 FIT DNA/Cologuard 1955 FIT 1955 FOBT 1955 Sigmoidoscopy 1955 Alcohol/Substance Use Screening 1968 Hepatitis C Screening 1974 COVID-19 Vaccine ( season) 2024 07/18/2021, 12/01/2020, 11/09/2020 Mammogram 07/22/2024 07/22/2022, 04/2021, 06/24/2021, Additional history exists Depression Screening 01/06/2025 01/07/2024, 01/07/20 SDOH Screening 01/06/2025 01/07/2024 Tobacco Screening 09/12/2025 09/12/2024 Colonoscopy 12/13/2028 12/14/2023 Colorectal Cancer Screening 12/13/2028 Lipid Panel 06/27/2029 06/27/2024, 05/15/2024 RSV Patients and Patients Aged 60 years or older (1 - 1-dose 75+ series) 2031 DTaP/Tdap/Td Vaccines (3 - Td or Tdap) 02/10/2032 02/09/2022, 06/14/2008 Zoster Vaccines Completed 10/11/2019, 06/23/2019 Influenza Vaccine Completed 05/09/2024, , 05/18/2022, Additional history exists Pneumococcal Vaccine: 50+ Years Completed 06/20/2024, 02/09/2022 HIB Vaccines Aged Out No longer eligi ble based on patient's age to complete this topic HPV Vaccines Aged Out No longer eligi ble based on patient's age to complete this topic Hepatitis A Vaccines Aged Out No long er eligible based on patient's age to complete this topic Hepatitis B Vaccines Aged Out No long er eligible based on patient's age to complete this topic IPV Vaccines Aged Out No longer eligi ble based on patient's age to complete this topic Meningococcal Vaccine Aged Out No francisco bob eligible based on patient's age to complete this topic RSV under 20 months Aged Out No longe r eligible based on patient's age to complete this topic Rotavirus Vaccines Aged Out No longer eligible based on patient's age to complete this topic Procedures Procedure Name Priority Date/Time Associated Diagnosis Comments BASIC METABOLIC PANEL Routine 08/22/2024 10:06 AM EST MR SHOULDER WO CONTRAST RIGHT Routine 07/18/2024 8:51 AM EST TSH W/REFLEX TO FT4 Routine 06/27/2024 9 :17 AM EST LIPID PANEL, STANDARD Routine 06/27/2024 9:17 AM EST BASIC METABOLIC PANEL Routine 06/27/2024 9:17 AM EST HEPATIC FUNCTION PANEL Routine 9:17 AM EST HM COLONOSCOPY Routine 12/14/2023 BI MAMMOGRAM SCREENING TOMOSYNTHESIS BILATERAL Routine 07/22/2022 2:52 PM EST from Last 3 Months or Most Recently Relevant to Health Maintenance Results * (ABNORMAL) Basic Metabolic Panel (08/22/2024 10:06 AM EST) Only the most recent of2 resultswithin the time period is included. Sodium 141 135 - 145 mmol/L [facility] Potassium 4.1 3.3 - 5.1 mmol/L [facility] Chloride 107 96 - 108 mmol/L [facility] Carbon Dioxide 31(H) 22 - 29 mmol/L [facility] Anion Gap 7(L) 12 - 20 [facility] Urea Nitrogen (BUN) 11 9 - 16 mg/dL [facility] Creatinine, Serum 0.70 0.5 - 1.4 mg/dL [facility] Estimated Glomerular Filt Rate >60 [facility] Comment:Chronic Kidney Disea se: Estimated GFR < 60 mL/min/1.73i7Qcmpnd Kidney Disease: Estimated GFR < 15 mL/min/1.73m2 Glucose 87 60 - 115 mg/dL [facility] Calcium 10.2 8.4 - 10.2 mg/dL [facility] 08/22/2024 10:0 6 AM EST 08/22/2024 11:39 AM EST us Juan Name MD LAB BLOOD ORDERABLES Final Resul t [facility] [address] [place] [address] [phone] * MR Shoulder w/o Contrast Right (07/18/2024 8:51 AM EST) Anatomical Region Laterality Modality Upper Extremities, Shoulder Right Magn etic Resonance 07/18/2024 8:51 AM EST Narrative 07/27/2024 9:09 PM EST ? [facility] ?[address] ?[place] [address] ? Magnetic Resonance Report ? Signed ? Patient: Anival,Ceneida ?MR#: [id number] ?? [id number] ? : 1955 ?Acct:[id number] ? Age/Sex: 69 / F ?ADM Date: 07/18/24 ? Loc: HO.MRI ? Attending Dr: Bhavesh Montiel MD ? Ordering Physician: Bhavesh Montiel MD ?? Date of Service: 07/18/24 ?? Procedure(s): MR shoulder RT wo con ?? Accession Number(s): [id number] ? cc: [place] Lacy MD; Bhavesh Montiel MD ? EXAMINATION: ?? MR SHOULDER WITHOUT CONTRAST, RIGHT ? CLINICAL INFORMATION: ?? Right shoulder pain, limited range of motion, crepitus, swelling. ? COMPARISON: ?? Right shoulder radiographs dated 06/07/2024. ? TECHNIQUE: ?? MRI of the shoulder without contrast was performed on a high-field ?? scanner. ? FINDINGS: ?? ROTATOR CUFF: Moderate supraspinatus and more mild infraspinatus ?? tendinosis. Irregular bursal surface fraying/partial tearing involving ?? the supraspinatus and anterior aspect of the infraspinatus tendon ?? measuring approximately 2.3 x 1.8 cm (AP x ML). Articular surface ?? tendon fibers remaining intact. No full-thickness rotator cuff tendon ?? tear. No muscle atrophy or fatty infiltration. ? BICEPS: Intact. ? CORACOACROMIAL ARCH: The undersurface of the acromion is flat with no ?? subacromial spur. Moderate acromioclavicular osteoarthritis with ?? capsular and marrow edema. Trace fluid within the ?? subacromial-subdeltoid bursa, consistent with minimal bursitis. ? LABRUM/CAPSULE: No displaced labral tear. Intact inferior joint ?? capsule. ? GLENOHUMERAL JOINT/MARROW: Intact articular cartilage. No acute ?? glenohumeral injury. ? MR/MR shoulder RT wo con ?? IMPRESSION: ?? 1. Moderate supraspinatus and more mild infraspinatus tendinosis. ?? Irregular bursal surface fraying/partial tearing involving the ?? supraspinatus and anterior aspect of the infraspinatus tendon measuring ?? 2.3 x 1.8 cm (AP x ML). Articular surface tendon fibers remaining ?? intact. No full-thickness rotator cuff tendon tear. ? 2. Moderate acromioclavicular osteoarthritis with capsular and marrow ?? edema. ? 3. Minimal subacromial-subdeltoid bursitis. ? Electronically signed by: ??Ulisses Rutledge MD ??07/27/2024 09:06 PM EST ? Dictated By: ?Ulisses Rutledge MD ? Signed By: ?<Electronically signed by Ulisses Rutledge MD in OV> ?07/27/24 2106 ? DD/ 0851 ? TD/TT: 07/18/24 0905 ? Bisque Placer: SR ? Procedure Note Francisco Rutherford - 07/28/[address] [address] Magnetic Resonance Report Signed Patient: Kassandra Florian#: [id number] : 6Acct:[id number] Age/Sex: 69 / FADM Date: 07/18/24 Loc: HO.MRI Attending Dr: Bhavesh Montiel MD Ordering Physician: Bhavesh Montiel MD Date of Service: 07/18/24 Procedure(s): MR shoulder RT wo con Accession Number(s): [id number] cc: Name,[place] CERDA; Bhavesh Montiel MD EXAMINATION: MR SHOULDER WITHOUT CONTRAST, RIGHT CLINICAL INFORMATION: Right shoulder pain, limited range of motion, crepitus, swelling. COMPARISON: Right shoulder radiographs dated 06/07/2024. TECHNIQUE: MRI of the shoulder without contrast was performed on a high-field scanner. FINDINGS: ROTATOR CUFF: Moderate supraspinatus and more mild infraspinatus tendinosis. Irregular bursal surface fraying/partial tearing involving the supraspinatus and anterior aspect of the infraspinatus tendon measuring approximately 2.3 x 1.8 cm (AP x ML). Articular surface tendon fibers remaining intact. No full-thickness rotator cuff tendon tear. No muscle atrophy or fatty infiltration. BICEPS: Intact. CORACOACROMIAL ARCH: The undersurface of the acromion is flat with no subacromial spur. Moderate acromioclavicular osteoarthritis with capsular and marrow edema. Trace fluid within the subacromial-subdeltoid bursa, consistent with minimal bursitis. LABRUM/CAPSULE: No displaced labral tear. Intact inferior joint capsule. GLENOHUMERAL JOINT/MARROW: Intact articular cartilage. No acute glenohumeral injury. MR/MR shoulder RT wo con IMPRESSION: 1. Moderate supraspinatus and more mild infraspinatus tendinosis. Irregular bursal surface fraying/partial tearing involving the supraspinatus and anterior aspect of the infraspinatus tendon measuring 2.3 x 1.8 cm (AP x ML). Articular surface tendon fibers remaining intact. No full-thickness rotator cuff tendon tear. 2. Moderate acromioclavicular osteoarthritis with capsular and marrow edema. 3. Minimal subacromial-subdeltoid bursitis. Electronically signed by: Ulisses Rutledge MD 07/27/2024 09:06 PM [facility] Dictated By: Ulisses Rutledge MD Signed By: <Electronically signed by Ulisses Rutledge MD in OV> 07/27/24 2106 DD/ 0851 TD/TT: 07/18/24 0905 Bisque Placer: SR [facility] External Provider IMG MRI PROCEDURES Edited Result - Final * TSH with Reflex to Free T4 (06/27/2024 9:17 AM EST) TSH reflex Free T4 2.39 0.32 - 4.0 uIU/mL [facility] 06/27/2024 9:17 AM EST 06/27/2024 11:35 AM EST [place] Lacy MD LAB BLOOD ORDERABLES Final Resul t Performing Organization Address [facility] Co de Phone Number [facility] [address] [place] [address] [phone] * (ABNORMAL) Hepatic Function Panel (06/27/2024 9:17 AM EST) Bilirubin, Total 0.4 0.0 - 1.0 mg/dL [facility] Bilirubin, Direct 0.1 0.0 - 0.5 mg/dL [facility] Aspartate Amino Transferase 22 5 - 31 U/L [facility] Alanine Aminotransferase 16 0 - 31 U/L [facility] Total Protein 7.2 6.5 - 8.0 g/dL [facility] Albumin Level 4.1 3.5 - 5.0 g/dL [facility] Alkaline Phosphatase 167(H) 39 - 117 U/L [facility] 06/27/2024 9:17 AM EST 06/27/2024 11:35 AM EST [place] Lacy MD LAB BLOOD ORDERABLES Final Resul t Performing Organization Address City/[facility]/ZIP Co de Phone Number [facility] [address] [place] [phone] * Lipid Panel, Standard (06/27/2024 9:17 AM EST) Triglycerides 96 <150 mg/dL [facility] Comment:Desirable Triglyceri de: less than 150 mg/dLBorderline High Triglyceride 150-199 mg/dLHigh Triglyceride: 200-499 mg/dLVery High Triglyceride: greater than or equal to 5OO mg/dL Cholesterol 151 <200 mg/dL [facility] Comment:Desirable Cholestero l: less than 200 mg/dLBorderline High Cholesterol: 200-239 mg/dLHigh Cholesterol: greater than 239 mg/dL LDL Cholesterol Calculated 87 <100 mg/dL [facility] Comment:Desirable LDL: less than 100 mg/dLNear Optimal/Above Optimal LDL: 110- 129 mg/dLBorderline High LDL: 130-159 mg/dLHigh LDL: 160-189 mg/dLVery High LDL: greater than or equal to 190 mg/dL HDL Cholesterol 45 >40 mg/dL [facility] Comment:Desirable HDL: great er than 40 mg/dL Note: This HDL assay may give artificially low results in patients with liver disease. 06/27/2024 9:17 AM EST 06/27/2024 11:35 AM EST us [place] Lacy MD LAB BLOOD ORDERABLES Final Resul t [facility] [address] [place] [address] [phone] * (ABNORMAL) Hm Colonoscopy (12/14/2023) Colonoscopy Abnormal(A ) Normal us [place] Lacy MD HEALTH MAINTENANCE Final Result * BI Mammogram Screening Tomosynthesis Bilateral (07/22/2022 2:52 PM EST) Anatomical Region Laterality Modality Breast Bilateral Mammography 07/22/2022 2:52 PM EST Narrative 07/23/2022 1:30 PM EST ? [facility] ? [address] ?[place] [address] ? Mammography Report ? Signed ? Patient: Anival,Ceneida ?MR#: [id number] ?? [id number] ? : 1955 ?Acct:[id number] ? Age/Sex: 67 / F ?ADM Date: 12/07/22 ? Loc: HO.MAMMO ? Attending Dr: [place] Lacy MD ? Ordering Physician: [place] Lacy MD ?Results: 1Negative ? Date of Service: 07/22/22 ?Follow Up: 1 Year From Orig ?? inal Mammogram ? Procedure(s): MM tomosynthesis screening BI ?? Accession Number(s): [id number] ? cc: Bambi,Juan CERDA ? EXAMINATION: ?? MM SCREENING DIGITAL BREAST TOMOSYNTHESIS, BILATERAL ? CLINICAL INFORMATION: ? Screening. Asymptomatic. ? The lifetime risk of breast cancer based on the Tyrer-Cuzick Model is ?? 4%. ? COMPARISON: ?? Mammography: 06/24/2021, 06/22/2020, 06/02/2019 ? TECHNIQUE: ?? Digital breast tomosynthesis is performed in both the craniocaudal and ?? mediolateral oblique views along with computer-aided detection (CAD). ?? Synthesized 2D images are generated from the tomosynthesis. ??Additional ?? left MLO view is provided. ? FINDINGS: ?? There are scattered areas of fibroglandular density (ACR BI-RADS breast ?? composition Category b). ? There are no significant masses, abnormal calcifications, or other ?? abnormalities. ??Parenchymal pattern is similar to prior studies. There ?? is no developing density or architectural abnormality. The axilla and ?? skin contours are unremarkable. No significant changes. ? MM/MM tomosynthesis screening BI ?? IMPRESSION: ?? No mammographic evidence of malignancy. ? ASSESSMENT: ? BI-RADS 1: Negative ? RECOMMENDATION: ?? Routine annual mammography screening. ? This patient's information was entered into a reminder system with a ?? target due date for their next mammogram. ? Dictated By: ?Judah Martínez MD ? Signed By: ?<Electronically signed by Judah Martínez MD in OV> ?07/23/227 ? DD/ 1452 ? TD/TT: ? Bisque Placer: MARSHALL ? Procedure Note Donotuseinterpreter, Image - 07/23/2022 [place] [facility] [address] [place] [address] Mammography Report Signed Patient: Kassandra Florian#: [id number] : 6Acct:[id number] Age/Sex: 67 / FADM Date: 07/22/22 Loc: HO.MAMMO Attending Dr: [place] Lacy MD Ordering Physician: [place] Lacy MDResults: 1Negative Date of Service: 07/22/22Follow Up: 1 Year From Orig inal Mammogram Procedure(s): MM tomosynthesis screening BI Accession Number(s): [id number] cc: [place] Lacy MD EXAMINATION: MM SCREENING DIGITAL BREAST TOMOSYNTHESIS, BILATERAL CLINICAL INFORMATION: Screening. Asymptomatic. The lifetime risk of breast cancer based on the Tyrer-Cuzick Model is 4%. COMPARISON: Mammography: 06/24/2021, 06/22/2020, 06/02/2019 TECHNIQUE: Digital breast tomosynthesis is performed in both the craniocaudal and mediolateral oblique views along with computer-aided detection (CAD). Synthesized 2D images are generated from the tomosynthesis. Additional left MLO view is provided. FINDINGS: There are scattered areas of fibroglandular density (ACR BI-RADS breast composition Category b). There are no significant masses, abnormal calcifications, or other abnormalities. Parenchymal pattern is similar to prior studies. There is no developing density or architectural abnormality. The axilla and skin contours are unremarkable. No significant changes. MM/MM tomosynthesis screening BI IMPRESSION: No mammographic evidence of malignancy. ASSESSMENT: BI-RADS 1: Negative RECOMMENDATION: Routine annual mammography screening. This patient's information was entered into a reminder system with a target due date for their next mammogram. Dictated By: Judah Martínez MD Signed By: <Electronically signed by Judah Martínez MD in OV> 07/23/22 1327 DD/ 1452 TD/TT: Bisque Placer: JOANNA [facility] External Provider IMG BI PROCEDURES Edited Result - Final from Last 3 Months or Most Recently Relevant to Health Maintenance [place] [address] [address] [place] [address] STANDARD MEDICARE [address] [place] [id number] Care Teams Menagerie Caretaker Relationship Specialty Start Date End Date Name, MD [place] [address] [place] [address] PCP - General Family Medicine 11/29/15 Daja Sigala PharmD [address] [place] [phone] Pharmacist Internal Medicine 05/25/24
--- OUTSIDE RECORDS SUMMARY | 2024-09-26 10:22 | XMS_ITS | Clinical Summary ---
Author Organization [facility] Address [address] [place] [address] Care Team Providers Care Roof Fitter Name Role Phone Richi Bazan MD Primary Care Provider Surgical History Surgery Date Site/Laterality Comments COLONOSCOPY 11/12/2005 PROCEDURE: GA COLONOSCOPY STOMA DX INCLUDING COLLJ SPEC SPX; COMMENT: Up to cecum, diverticulosis. [facility] at [facility], poor prep. ESOPHAGOGASTRODUODENOSCOPY 01/21/2009 PROCEDURE: GA EGD TRANSORAL BIOPSY SINGLE/MULTIPLE; COMMENT: Normal esophagus, antral ulcer-biopsy:bening ulcer(HPylori+/treated), duodenitis, SB-biopsy:Nl ESOPHAGOGASTRODUODENOSCOPY 05/12/2010 PROCEDURE: GA EGD TRANSORAL BIOPSY SINGLE/MULTIPLE; COMMENT: Esophagus normal, gastritis, gastric ulcer-biopsy:acute ulcerative gastritis (HPylori+++), normal esophagus. SB bx: normal ESOPHAGOGASTRODUODENOSCOPY 10/02/2011 PROCEDURE: GA EGD TRANSORAL BIOPSY SINGLE/MULTIPLE; COMMENT: small gastric ulcer, bx: h pylori present. COLONOSCOPY 10/02/2011 PROCEDURE: GA COLONOSCOPY FLX DX W/COLLJ SPEC WHEN PFRMD; COMMENT: diverticulosis; no polyps. good prep. OTHER SURGICAL HISTORY 06/06/2013 PROCEDURE: GA ANTERIOR COLPORRAPHY RPR CYSTOCELE W/CYSTO Medical History Medical History Date Comments Migraine with aura, without mention of intractable migraine without mention of status migrainosus 02/14/2007 DX:Migraine with aura, witho ut mention of intractable migraine without mention of status migrainosus Allergic rhinitis, cause unspecified 02/14/2007 DX:Allergic rhinitis, cause unspecified Unspecified essential hypertension 03/28/2007 DX:Unspecified essential hypertension Heart disease, unspecified 03/28/2007 DX:He art disease, unspecified Anemia 11/26/08 DX:Anemia Family History Medical History Relation Name Comments Colon cancer Father Relation Name Status Comments Father colon cancer Mother cancer, primary ? Sister Alive Social History Tobacco Use Types Packs/Day Years Used Date Smoking Tobacco: Never Smokeless Tobacco: Never Alcohol Use Standard Drinks/Week Comments No 0 (1 standard drink = 0.6 oz pur e alcohol) Comments Unknown Sex and Gender Information Value Date Recorded Sex Assigned at Not on file Legal Sex Female 4:51 AM EST Gender Identity Not on file Sexual Orientation Not on file Obstetrics History Plan of Treatment Health Maintenance Due Date Last Done Comments Breast Cancer Screening 1955 Pneumococcal Vaccine: 50+ Years (1 of 1 - PCV) 2006 Zoster Vaccines (1 of 2) 2006 DTaP,Tdap,and Td Vaccines (2 - Td or Tdap) 07/12/2008 06/14/2008 COVID-19 Vaccine (1 - season) 2024 Influenza Vaccine (#1) 2024 5, 05/15/2013, 05/24/2012, Additional history exists RSV Immunization Patients 60+ Years Old (1 - 1-dose 75+ series) 2031 HIB Vaccines Aged Out No longer eligi [...] on patient's age to complete this topic MMR Vaccines Aged Out No longer eligi ble based on patient's age to complete this topic Meningococcal ACWY Vaccine Aged Out N o longer eligible based on patient's age to complete this topic Meningococcal B Vacine Aged Out No lo nger eligible based on patient's age to complete this topic RSV Immunization Patients Under 20 months Aged Out No longer eligible based on patient's age to complete this topic Varicella Vaccines Aged Out No longer eligible based on patient's age to complete this topic Care Teams Roof Fitter Relationship Specialty Start Date End Date Richi Bazan MD PCP - General Internal Medicine 10/03/15
--- OUTSIDE RECORDS SUMMARY | 2024-09-26 10:22 | XMS_ITS | Encounter Summary ---
Author Organization [employer] Address [address] [facility] 7t [place] [address] Care Team Providers Care Vortex Operator Name Role Phone Name, Juan CERDA Primary Care Provider [phone] Daja Sigala PharmD Unavailable [phone] Encounter Details Date Type Department Care Team (Latest Contact Info) Description 09/12/2024 Travel Social History Tobacco Use Types Packs/Day Years [...] 9:00 AM EDT Medication Management [facility] [address] [place] [address] Daja Sigala PharmD [address] [place] [address] documented as of this encounter Visit Diagnoses Not on filedocumented in this encounter Additional Health Concerns Assessment Noted Time PHQ-9 Depression Total Score: 2 01/07/20 24 11:51 AM EDT documented as of this encounter Care Teams Vortex Operator Relationship Specialty Start Date End Date Name, MD Juan [address] [place] [address] PCP - General Family Medicine 11/29/15 Daja Sigala PharmD [address] [place] [address] Pharmacist Internal Medicine 05/25/24 documented as of this encounter
--- OUTSIDE RECORDS SUMMARY | 2024-09-26 10:22 | XMS_ITS | Encounter Summary ---
Author Organization [employer] Address [address] [facility] 7t [place] [address] Care Team Providers Care Biller Name Role Phone Name, Juan CERDA Primary Care Provider [phone] Daja Sigala PharmD Unavailable [phone] Reason for Visit * Reason Comments Hypertension Encounter Details Date Type Department Care Team ([facility] Contact Info) Description 09/12/2024 10:00 AM EST Office Visit [facility] MEDICINE [address] [place], [place] [phone] Name, MD Juan [address] [place], [place] [phone] Hypertension, unspecified type (Primary Dx); Acute insomnia Social History Tobacco Use Types Packs/Day Years [...] your housing situation today? I have sandhya eliazar 01/07/[address] you li [...] AM EDT documented as of this encounter Last Filed Vital Signs Vital Sign Reading Time Taken Comments Blood Pressure 173/94 09/12/2024 10:17 AM EST Pulse 58 09/12/2024 10:17 AM EST Temperature 35.9 ??C (96.6 ??F) 09/12/2024 1 0:17 AM EST Respiratory Rate 12 09/12/2024 10:1 7 AM EST Oxygen Saturation 98% 09/12/2024 10: 17 AM EST Inhaled Oxygen Concentration - - Weight 60.2 kg (132 lb 12.8 oz) 025 10:17 AM EST Height 162.6 cm (5' 4 ) 09/12/2024 10:1 7 AM EST Body Mass Index 22.8 09/12/2024 10:17 AM EST documented in this encounter Progress Notes * Juan Lacy MD - 09/12/2024 10:00 AM EST Subjective Patient ID: Catalina Florian is a 69 y.o. female who presents for Hypertension. Patient comes for a follow-up visit. Her blood pressure is elevated. The patient is on a multiple medication regimen that was controlling her blood pressure well under the past week or so. She deniesany chest pains or shortness of breath. She is not having any headaches. She explains to me that she has been anxious and for the past week she has not slept at all for at least 3 days. She uses her m edications as prescribed. She checks her blood pressure at home daily. She follows with a CDTM program. Review of Systems Constitutional: Negative for chills and fever. HENT: Negative for sore throat. Respiratory: Negative for cough, shortness of breath and wheezing. Cardiovascular: Negative for chest pain, palpitations and leg swelling. Gastrointestinal: Negative for abdominal pain. Psychiatric/Behavioral: Positive for sleep disturbance. Visit Vitals BP (!) 173/94 (BP Location: Right arm, Patient Position: Sitting, BP Cuff Size: Adult) Pulse 58 Temp 96.6 ??F (35.9 ??C) (Temporal) Resp 12 Ht 5' 4 (1.626 m) Wt 132 lb 12.8 oz (60.2 kg) SpO2 98% BMI 22.80 kg/m?? Smoking Status Never BSA 1.65 m?? Objective Physical Exam Constitutional: Appearance: Normal appearance. Cardiovascular: Rate and Rhythm: Normal rate and regular rhythm. Heart sounds: No murmur heard. No gallop. Pulmonary: Effort: Pulmonary effort is normal. No respiratory distress. Breath sounds: Normal breath sounds. No wheezing. Musculoskeletal: Right lower leg: No edema. Left lower leg: No edema. Neurological: Mental Status: She is alert. Lab Results Component Value Date GLUCOSE 87 08/22/2024 NA 141 08/22/2024 K 4.1 08/22/2024 CO2 31 (H) 08/22/2024 CL 107 08/22/2024 BUN 11 08/22/2024 CREATININE 0.70 08/22/2024 Current Outpatient Medications on File Prior to Visit Medication Sig Dispense Refill alendronate (Fosamax) 70 MG tablet amitriptyline (Elavil) 10 MG tablet Take 1 tablet (10 mg) by mouth at bedtime. 30 tablet 2 amLODIPine-valsartan (Exforge) 10-320 MG tablet Take 1 tablet by mouth in the morning. 30 tablet 11 atorvastatin (Lipitor) 40 MG tablet Take 1 tablet (40 mg) by mouth Once per day. 30 tablet 11 Blood Pressure kit USE TO CHECK HOME BLOOD PRESSURE ONCE DAILY DIRECTED 1 kit 0 zwzktlwqeq-znmdvcipqnjsh-qsruhgtf 50-325-40 MG tablet TAKE 1 TO 2 TABLETS BY MOUTH EVERY 8 HOURS ASNEEDED . DO NOT EXCEED 6 TABLETS PER 24 HOURS 20 tablet 0 famotidine (Pepcid) 20 MG tablet Take 1 tablet (20 mg) by mouth 2 times daily. 60 tablet 11 hydroCHLOROthiazide (HYDRODiuril) 25 MG tablet Take 1 tablet (25 mg) by mouth Once per day. 30 tablet 2 hydrocortisone 2.5 % cream Mix 60g tube of Hydrocortisone 2.5% with 16oz jar of CeraVe cream. Applyby topical route 1-2 times per day after shower or bath from the neck down (not on face). 60 g 1 magnesium oxide (Mag-Ox) 400 mg tablet TAKE 1 TABLET BY MOUTH IN THE MORNING 30 tablet 0 metoprolol succinate XL (Toprol XL) 25 MG 24 hr tablet Take 1 tablet (25 mg) by mouth Once per day.Do not crush or chew. 90 tablet 1 pantoprazole (ProtoNix) 20 MG EC tablet Take 20 mg by mouth if needed each day (reflux). [DISCONTINUED] spironolactone (Aldactone) 25 MG tablet Take 0.5 tablets (12.5 mg) by mouth Once perday. 15 tablet 11 No current facility-administered medications on file prior to visit. Assessment/Plan Diagnoses and all orders for this visit: Hypertension, unspecified type Comments: I recommended to double the dose of spironolactone, continue rest of the medications as prescribed,continue checking blood pressure at home daily, recheck BMP next week, follow-up televisit with team nurse next week for BP recheck. I recommended trial of Ambien at bedtime for treatment of severe in somnia. She denies significant depression or anxiety. She denies excessive caffeine intake. She does not drink alcohol. Orders: - Basic Metabolic Panel; Future Acute insomnia Other orders - spironolactone (Aldactone) 25 MG tablet; Take 1 tablet (25 mg) by mouth Once per day. - zolpidem (Ambien) 5 MG tablet; Take 1 tablet (5 mg) by mouth if needed at bedtime for sleep. documented in this encounter Plan of Treatment Upcoming Encounters Date Type Department Care Team (Late st Contact Info) Description 10/31/2024 9:00 AM EDT Medication Management [facility] MEDICINE [address] [place] [address] Daja Sigala PharmD [address] [place] [address] Scheduled Orders Name Type Priority Associated Diagnoses Orde r Schedule Basic Metabolic Panel Lab Routine Hypertension, unspecified type Expected: 09/12/2024 (Approximate), Expires: 09/12/2025 documented as of this encounter Visit Diagnoses Diagnosis Hypertension, unspecified type- Primary Acute insomnia documented in this encounter Additional Health Concerns Assessment Noted Time PHQ-9 Depression Total Score: 2 01/07/20 24 11:51 AM EDT documented as of this encounter Care Teams Biller Relationship Specialty Start Date End Date Name, MD Juan [address] [place] [address] PCP - General Family Medicine 11/29/15 Daja Sigala PharmD [address] [place] [address] Pharmacist Internal Medicine 05/25/24 documented as of this encounter
--- OUTSIDE RECORDS SUMMARY | 2024-09-26 10:22 | XMS_ITS | Encounter Summary ---
Author Organization [employer] Address [address] [facility] 7t [place] [address] Care Team Providers Care Workcell Operator Name Role Phone Name, Juan CERDA Primary Care Provider [phone] Daja Sigala PharmD Unavailable [phone] Reason for Visit * Reason Onset Date Comments chart prep 09/11/2024 Encounter Details Date Type Department Care Team ([facility] st Contact Info) Description 09/11/2024 Telephone [facility] [address] [place] [address] Chrissy Patel MA chart prep Social History Tobacco Use Types Packs/Day Years [...] encounter Miscellaneous Notes * Telephone Encounter - Chrissy Patel MA - 09/11/2024 9:26 AM EST Chart Prep Labs: done Images: done Vaccines due: yes Referrals: complete Screenings: mammogram Overdue care gaps: Sbirt documented in this encounter Plan of Treatment Upcoming Encounters Date Type Department Care Team (Late st Contact Info) Description 10/31/2024 9:00 AM EDT Medication Management [facility] [address] [place] [address] Daja Sigala PharmD [address] [place] [address] documented as of this encounter Visit Diagnoses Not on filedocumented in this encounter Additional Health Concerns Assessment Noted Time PHQ-9 Depression Total Score: 2 01/07/20 24 11:51 AM EDT documented as of this encounter Care Teams Workcell Operator Relationship Specialty Start Date End Date Name, MD Juan [address] [place] [address] PCP - General Family Medicine 11/29/15 Daja Sigala PharmD [address] [place] [address] Pharmacist Internal Medicine 05/25/24 documented as of this encounter
--- OUTSIDE RECORDS SUMMARY | 2024-09-26 10:22 | XMS_ITS | Encounter Summary ---
Author Organization [employer] Address [address] [facility] 7t [place] [address] Care Team Providers Care Digital Account Director Name Role Phone Name, Juan CERDA Primary Care Provider Daja Sigala PharmD Unavailable [phone] Encounter Details Date Type Department Care Team (Late st Contact Info) Description 09/19/2024 Telephone [facility] [address] [place], [place] [phone] Tesha Clemens RN [address] [place], [place] [phone] Social History Tobacco Use Types Packs/Day Years [...] encounter Miscellaneous Notes * Telephone Encounter - Tesha Clemens RN - 09/19/2024 10:11 AM EST T/C to pt for tele visit for BP review. No answer at either available number. V/M left to return call to [place] team nurses. documented in this encounter Plan of Treatment Upcoming Encounters Date Type Department Care Team (Late st Contact Info) Description 10/31/2024 9:00 AM EDT Medication Management [facility] [address] [place] [address] Daja Sigala PharmD [address] [place] [address] documented as of this encounter Visit Diagnoses Not on filedocumented in this encounter Additional Health Concerns Assessment Noted Time PHQ-9 Depression Total Score: 2 01/07/20 24 11:51 AM EDT documented as of this encounter Care Teams Digital Account Director Relationship Specialty Start Date End Date Name, MD Juan [address] [place] [address] PCP - General Family Medicine 11/29/15 Daja Sigala PharmD [address] [place] [address] Pharmacist Internal Medicine 05/25/24 documented as of this encounter
--- OUTSIDE RECORDS SUMMARY | 2024-09-26 10:23 | XMS_ITS | Encounter Summary ---
Author Organization [employer] Address [address] [place] [address] 7t [place] [address] Care Team Providers Care Cashier Clerk Name Role Phone Name, Juan CERDA Primary Care Provider [phone] Daja Sigala PharmD Unavailable [phone] Encounter Details Date Type Department Care Team (Late st Contact Info) Description 10/19/2022 Orders Only [facility] [address] [place], [place] [phone] Tamara Yi LPN Social History Tobacco Use Types Packs/Day Years Used Date Smoking Tobacco: Never Assessed Comments Unknown Sex and Gender Information Value [...] Description 10/31/2024 9:00 AM EDT Medication Management [facility] [address] [place] [address] PuiaPhilipDaja, PharmD [address] [place] [address] documented as of this encounter Visit Diagnoses Not on filedocumented in this encounter Care Teams Cashier Clerk Relationship Specialty Start Date End Date Name, MD Juan [address] [place] [address] PCP - General Family Medicine 11/29/15 Daja Sigala, MirnaD [address] [place] [address] Pharmacist Internal Medicine 05/25/24 documented as of this encounter
--- OUTSIDE RECORDS SUMMARY | 2024-09-26 10:23 | XMS_ITS | Encounter Summary ---
Author Organization [employer] [facility] Address [address] [place] [address] 7t [place] [address] Care Team Providers Care Grades 1 Thru 6 Home Teacher Name Role Phone Name, Juan CERDA Primary Care Provider [phone] Daja Sigala PharmD Unavailable [phone] Reason for Visit * Reason Comments Med Refill Encounter Details Date Type Department Care Team (Late st Contact Info) Description 11/05/2022 Refill [facility] MED[facility]INE [address] [place] [address] NameJuan MD [address] [place] [address] Social History Tobacco Use Types Packs/Day Years [...] Description 10/31/2024 9:00 AM EDT Medication Management [facility] [address] [place] [address] Daja Sigala, PharmD [address] [place] [address] documented as of this encounter Visit Diagnoses Not on filedocumented in this encounter Care Teams Grades 1 Thru 6 Home Teacher Relationship Specialty Start Date End Date Juan Lacy MD [address] [place] [address] PCP - General Family Medicine 11/29/15 Daja Sigala PharmD [address] [place] [address] Pharmacist Internal Medicine 05/25/24 documented as of this encounter
== END 2024-09-26 09:40 | disposition home or self-care (01) ==
PROVIDERS: PCP Internal Medicine Geriatric Medicine; Visit Provider Orthopaedic Surgery
DX: M75.41 Impingement syndrome of right shoulder (principal); M19.011 Primary osteoarthritis, right shoulder
CPT/HCPCS: 99213; G2211

== ENCOUNTER 2024-09-26 10:31 | Outpatient (REF) | payer MEDICARE, SELFPAY ==
--- OUTSIDE RECORDS SUMMARY | 2024-09-26 11:43 | XMS_ITS | Encounter Summary ---
Author Organization [employer] Address [address] [facility] 7t [place] [address] Care Team Providers Care Automobile Upholstery Trim Installer Name Role Phone Name, Juan CERDA Primary Care Provider [phone] Daja Sigala PharmD Unavailable [phone] Reason for Visit * Reason Onset Date Comments No Show 09/19/2024 Encounter Details Date Type Department Care Team ([facility] st Contact Info) Description 09/19/2024 Telephone [facility] [address] [place], [place] [phone] Name, MD Juan [address] [place] [address] No Show Social History Tobacco Use Types [...] Description 10/31/2024 9:00 AM EDT Medication Management [facility] [address] [place] [address] Daja Sigala PharmD [address] [place] [address] documented as of this encounter Visit Diagnoses Not on filedocumented in this encounter Additional Health Concerns Assessment Noted Time PHQ-9 Depression Total Score: 2 01/07/20 24 11:51 AM EDT documented as of this encounter Care Teams Automobile Upholstery Trim Installer Relationship Specialty Start Date End Date Name, MD Juan [address] [place], [place] [phone] PCP - General Family Medicine 11/29/15 Daja Sigala PharmD [address] [place] [address] Pharmacist Internal Medicine 05/25/24 documented as of this encounter
--- OUTSIDE RECORDS SUMMARY | 2024-09-26 11:43 | XMS_ITS | Encounter Summary ---
Author Organization [employer] Address [address] [facility] 7t [place] [address] Care Team Providers Care Third Helper Name Role Phone Name, Juan CERDA Primary Care Provider [phone] Daja Sigala PharmD Unavailable [phone] Encounter Details Date Type Department Care [...] Description 10/31/2024 9:00 AM EDT Medication Management [facility] MEDICINE [address] [place] [address] Daja Sigala PharmD [address] [place] [address] documented as of this encounter Visit Diagnoses Not on filedocumented in this encounter Additional Health Concerns Assessment Noted Time PHQ-9 Depression Total Score: 2 01/07/20 24 11:51 AM EDT documented as of this encounter Care Teams Third Helper Relationship Specialty Start Date End Date Name, MD Juan [address] [place] [address] PCP - General Family Medicine 11/29/15 Daja Sigala PharmD [address] [place] [address] Pharmacist Internal Medicine 05/25/24 documented as of this encounter
--- OUTSIDE RECORDS SUMMARY | 2024-09-26 11:43 | XMS_ITS | Encounter Summary ---
Author Organization [employer] Address [address] [facility] 7t [place] [address] Care Team Providers Care Remote Control Assembler Name Role Phone Name, Juan CERDA Primary Care Provider [phone] Daja Sigala PharmD Unavailable [phone] Reason for Visit * Reason Comments Med Refill Encounter Details Date Type Department Care Team ([facility] st Contact Info) Description 09/20/2024 Refill [facility] MED[facility]INE [address] [place], [place] [phone] Name, MD Juan [address] [place] [address] Social History Tobacco Use Types Packs/Day Years [...] Description 10/31/2024 9:00 AM EDT Medication Management [facility] MED[facility]INE [address] [place] [address] Daja Sigala PharmD [address] [place] [address] documented as of this encounter Visit Diagnoses Not on filedocumented in this encounter Additional Health Concerns Assessment Noted Time PHQ-9 Depression Total Score: 2 01/07/20 24 11:51 AM EDT documented as of this encounter Care Teams Remote Control Assembler Relationship Specialty Start Date End Date Name, MD Juan [address] [place] [address] PCP - General Family Medicine 11/29/15 Daja Sigala PharmD [address] [place] [address] Pharmacist Internal Medicine 05/25/24 documented as of this encounter
--- OUTSIDE RECORDS SUMMARY | 2024-09-26 11:43 | XMS_ITS | Encounter Summary ---
Author Organization [employer] Address [address] [facility] 7t [place] [address] Care Team Providers Care Road Engineer Name Role Phone Name, Juan CERDA Primary Care Provider [phone] Daja Sigala PharmD Unavailable [phone] Reason for Visit * Reason Onset Date Comments Nurse Triage 09/21/2023 Encounter Details Date Type Department Care Team ([facility] st Contact Info) Description 09/21/2023 Telephone [facility] MED[facility]INE [address] [place], [place] [phone] Name, MD Juan [address] [place] [address] Nurse Triage Social History Tobacco Use Types [...] 09/21/2023 12:54 PM EST Called pt. Via [employer] private investigator [id number] Contreras. Pt. States that she has been [...] To Call Back * Telephone Encounter - Zhangjaime Ambrosio - 09/21/2023 12:52 PM EST Symptom: Headache Outcome: Transfer to a nurse or provider NOW! Reason: Sudden worst headache of life now The caller accepted this outcome Please contact at [phone] [place] documented in this encounter Plan of Treatment Upcoming Encounters Date Type Department Care Team (Late st Contact Info) Description 10/31/2024 9:00 AM EDT Medication Management [facility] MED[facility]INE [address] [place] [address] Daja Sigala PharmD [address] [place] [address] documented as of this encounter Visit Diagnoses Not on filedocumented in this encounter Additional Health Concerns Assessment Noted Time PHQ-9 Depression Total Score: 6 12/10/19 23 4:19 PM EDT documented as of this encounter Care Teams Road Engineer Relationship Specialty Start Date End Date Name, MD Juan [address] [place] [address] PCP - General Family Medicine 11/29/15 Daja Sigala PharmD [address] [place] [address] Pharmacist Internal Medicine 05/25/24 documented as of this encounter
--- OUTSIDE RECORDS SUMMARY | 2024-09-26 11:43 | XMS_ITS | Encounter Summary ---
Author Organization [employer] Address [address] [facility] 7t [place] [address] Care Team Providers Care Motorcycle Deliverer Name Role Phone Name, Juan CERDA Primary Care Provider [phone] Daja Sigala PharmD Unavailable [phone] Reason for Visit * Reason Comments Hypertension Encounter Details Date Type Department Care Team ([facility] Contact Info) Description 09/12/2024 10:00 AM EST Office Visit [facility] [address] [place] [address] Name, MD Juan [address] [place] [address] Hypertension, unspecified type (Primary Dx); Acute insomnia [...] PRESSURE ONCE DAILY DIRECTED 1 kit 0 cqudrobyzx-ajqqpblhtkbln-ipwqfcrs 50-325-40 MG tablet TAKE 1 TO 2 [...] Description 10/31/2024 9:00 AM EDT Medication Management [facility] [address] [place] [address] Daja Sigala, MirnaD [address] [place] [address] Scheduled Orders Name Type Priority Associated Diagnoses Orde r Schedule Basic Metabolic Panel Lab Routine Hypertension, unspecified type Expected: 09/12/2024 (Approximate), Expires: 09/12/2025 documented as of this encounter Visit Diagnoses Diagnosis Hypertension, unspecified type- Primary Acute insomnia documented in this encounter Additional Health Concerns Assessment Noted Time PHQ-9 Depression Total Score: 2 01/07/20 11:51 AM EDT documented as of this encounter Care Teams Motorcycle Deliverer Relationship Specialty Start Date End Date Name, MD Juan [address] [place] [address] PCP - General Family Medicine 11/29/15 aDja Sigala PharmD [address] [place] [address] Pharmacist Internal Medicine 05/25/24 documented as of this encounter
--- OUTSIDE RECORDS SUMMARY | 2024-09-26 11:43 | XMS_ITS | Encounter Summary ---
Author Organization [employer] Address [address] [facility] 7t [place] [address] Care Team Providers Care Stapling Machine Operator Name Role Phone Name, Juan CERDA Primary Care Provider [phone] Daja Sigala PharmD Unavailable [phone] Reason for Visit * Reason Onset Date Comments chart prep 09/11/2024 Encounter Details Date Type Department Care Team (Late st Contact Info) Description 09/11/2024 Telephone [facility] [address] [place] [address] Chrissy Patel MA chart prep Social History [...] Description 10/31/2024 9:00 AM EDT Medication Management [facility] [address] [place] [address] Daja Sigala PharmD [address] [place] [address] documented as of this encounter Visit Diagnoses Not on filedocumented in this encounter Additional Health Concerns Assessment Noted Time PHQ-9 Depression Total Score: 2 01/07/20 24 11:51 AM EDT documented as of this encounter Care Teams Stapling Machine Operator Relationship Specialty Start Date End Date Name, MD Juan [address] [place] [address] PCP - General Family Medicine 11/29/15 Daja Sigala PharmD [address] [place] [address] Pharmacist Internal Medicine 05/25/24 documented as of this encounter
--- OUTSIDE RECORDS SUMMARY | 2024-09-26 11:43 | XMS_ITS | Clinical Summary ---
Author Organization [facility] Address [address] [place] [address] Care Team Providers Care Site Worker Name Role Phone Richi Bazan MD Primary Care Provider Surgical History Surgery Date Site/Laterality Comments COLONOSCOPY 11/12/2005 PROCEDURE: ND COLONOSCOPY STOMA DX INCLUDING COLLJ SPEC SPX; COMMENT: Up to cecum, diverticulosis. [place] [facility] [place]. ESOPHAGOGASTRODUODENOSCOPY 01/21/2009 PROCEDURE: ND EGD TRANSORAL BIOPSY SINGLE/MULTIPLE; COMMENT: Normal esophagus, antral ulcer-biopsy:bening ulcer(HPylori+/treated), duodenitis, SB-biopsy:Nl ESOPHAGOGASTRODUODENOSCOPY 05/12/2010 PROCEDURE: ND EGD TRANSORAL BIOPSY SINGLE/MULTIPLE; COMMENT: Esophagus normal, gastritis, gastric ulcer-biopsy:acute ulcerative gastritis (HPylori+++), normal esophagus. SB bx: normal ESOPHAGOGASTRODUODENOSCOPY 10/02/2011 PROCEDURE: ND EGD TRANSORAL BIOPSY SINGLE/MULTIPLE; COMMENT: small gastric ulcer, bx: h pylori present. COLONOSCOPY 10/02/2011 PROCEDURE: ND COLONOSCOPY FLX DX W/COLLJ SPEC WHEN PFRMD; COMMENT: diverticulosis; no polyps. good prep. OTHER SURGICAL HISTORY 06/06/2013 PROCEDURE: ND ANTERIOR COLPORRAPHY RPR CYSTOCELE W/CYSTO Medical History [...] age to complete this topic Care Teams Site Worker Relationship Specialty Start Date End Date Richi Bazan MD PCP - General Internal Medicine 10/03/15
--- OUTSIDE RECORDS SUMMARY | 2024-09-26 11:43 | XMS_ITS | Encounter Summary ---
Author Organization [facility] [employer] Address [address] [facility] 7t [place] [address] Care Team Providers Care Oracle Security Consultant Name Role Phone Name, Juan CERDA Primary Care Provider [phone] Daja Sigala PharmD Unavailable [phone] Reason for Visit * Reason Comments Med Refill Encounter Details Date Type Department Care Team ([facility] st Contact Info) Description 08/03/2024 Refill [facility] [address] [place], [place] [phone] Name, MD Juan [address] [place] [address] Social History Tobacco Use Types Packs/Day Years [...] Description 10/31/2024 9:00 AM EDT Medication Management [facility] [address] [place] [address] Daja Sigala PharmD [address] [place] [address] documented as of this encounter Visit Diagnoses Not on filedocumented in this encounter Additional Health Concerns Assessment Noted Time PHQ-9 Depression Total Score: 2 01/07/20 24 11:51 AM EDT documented as of this encounter Care Teams Oracle Security Consultant Relationship Specialty Start Date End Date Name, MD Juan [address] [place] [address] PCP - General Family Medicine 11/29/15 Daja Sigala PharmD [address] [place] [address] Pharmacist Internal Medicine 05/25/24 documented as of this encounter
--- OUTSIDE RECORDS SUMMARY | 2024-09-26 11:43 | XMS_ITS | Encounter Summary ---
Author Organization [employer] Address [address] [facility] 7t [place] [address] Care Team Providers Care Group Contract Analyst Name Role Phone Name, Juan CERDA Primary Care Provider [phone] Daja Sigala PharmD Unavailable [phone] Encounter Details Date Type Department Care Team (Late st Contact Info) Description 09/19/2024 Telephone [facility] [address] [place], [place] [phone] Tesha Clemens RN [address] [place], [place] [phone] Social History Tobacco Use Types Packs/Day Years [...] number. V/M left to return call to [place] team nurses. documented in this encounter Plan of Treatment Upcoming Encounters Date Type Department Care Team (Late st Contact Info) Description 10/31/2024 9:00 AM EDT Medication Management [facility] [address] [place] [address] Daja Sigala PharmD [address] [place] [address] documented as of this encounter Visit Diagnoses Not on filedocumented in this encounter Additional Health Concerns Assessment Noted Time PHQ-9 Depression Total Score: 2 01/07/20 11:51 AM EDT documented as of this encounter Care Teams Group Contract Analyst Relationship Specialty Start Date End Date Name, MD Juan [address] [place] [address] PCP - General Family Medicine 11/29/15 Daja Sigala PharmD [address] [place] [address] Pharmacist Internal Medicine 05/25/24 documented as of this encounter
--- OUTSIDE RECORDS SUMMARY | 2024-09-26 11:43 | XMS_ITS | Encounter Summary ---
Author Organization [employer] Address [address] [place] [address] 7t [place] [address] Care Team Providers Care Diamond Saw Operator Name Role Phone Name, Juan CERDA Primary Care Provider [phone] Daja Sigala PharmD Unavailable [phone] Reason for Visit * Reason Onset Date Comments Prior Authorization 01/08/2023 Encounter Details Date Type Department Care Team (Late st Contact Info) Description 01/08/2023 Telephone [facility] [address] [place], [place] [phone] Name, MD Juan [address] [place] [address] Prior Authorization Social History Tobacco Use Types [...] Miscellaneous Notes * Telephone Encounter - Annetta Colon - 01/15/2023 10:13 AM EDT PA initiated through Cover my meds, waiting on response * Telephone Encounter - Daja Martinez - 01/08/2023 10:48 AM EDT Tc grupo Strong from [facility] pharmacy requesting a PA for medication elavil 50 mg . documented in this encounter Plan of Treatment Upcoming Encounters Date Type Department Care Team (Late st Contact Info) Description 10/31/2024 9:00 AM EDT Medication Management [facility] [address] [place] [address] Daja Sigala PharmD [address] [place] [address] documented as of this encounter Visit Diagnoses Not on filedocumented in this encounter Additional Health Concerns Assessment Noted Time PHQ-9 Depression Total Score: 6 12/10/19 23 4:19 PM EDT documented as of this encounter Care Teams Diamond Saw Operator Relationship Specialty Start Date End Date Name, MD Juan [address] [place] [address] PCP - General Family Medicine 11/29/15 Daja Sigala PharmD [address] [place] [address] Pharmacist Internal Medicine 05/25/24 documented as of this encounter
--- OUTSIDE RECORDS SUMMARY | 2024-09-26 11:44 | XMS_ITS | Encounter Summary ---
Author Organization [employer] Address [address] [place] [address] 7t [place] [address] Care Team Providers Care Mold Technician Name Role Phone Name, Juan CERDA Primary Care Provider [phone] Daja Sigala PharmD Unavailable [phone] Reason for Visit * Reason Comments Med Refill Encounter Details Date Type Department Care Team (Late st Contact Info) Description 11/05/2022 Refill [facility]INE [address] [place], [place] [phone] NameJuan MD [address] [place] [address] Social History Tobacco Use Types Packs/Day Years [...] Description 10/31/2024 9:00 AM EDT Medication Management [facility] [address] [place] [address] Daja Sigala, PharmD [address] [place] [address] documented as of this encounter Visit Diagnoses Not on filedocumented in this encounter Care Teams Mold Technician Relationship Specialty Start Date End Date Juan Lacy MD [address] [place] [address] PCP - General Family Medicine 11/29/15 Daja Sigala PharmD [address] [place] [address] Pharmacist Internal Medicine 05/25/24 documented as of this encounter
--- OUTSIDE RECORDS SUMMARY | 2024-09-26 11:44 | XMS_ITS | Encounter Summary ---
Author Organization [employer] Address [address] [place] [address] 7t [place] [address] Care Team Providers Care Securities Dealer Name Role Phone Name, Juan CERDA Primary Care Provider [phone] Daja Sigala PharmD Unavailable [phone] Encounter Details Date Type Department Care Team (Late st Contact Info) Description 10/19/2022 Orders Only [facility] P[facility]S [address] [place] [address] Tamara Yi LPN Social History Tobacco Use [...] Description 10/31/2024 9:00 AM EDT Medication Management [facility] MEDICINE [address] [place] [address] Daja Sigala, PharmD [address] [place] [address] documented as of this encounter Visit Diagnoses Not on filedocumented in this encounter Care Teams Securities Dealer Relationship Specialty Start Date End Date Name, MD Juan [address] [place] [address] PCP - General Family Medicine 11/29/15 Daja Sigala, MirnaD [address] [place] [address] Pharmacist Internal Medicine 05/25/24 documented as of this encounter
--- OUTSIDE RECORDS SUMMARY | 2024-09-26 11:44 | XMS_ITS | Encounter Summary ---
Author Organization [employer] Address [address] [place] [address] 7t [place] [address] Care Team Providers Care Mine Equipment Design Engineer Name Role Phone Name, Juan CERDA Primary Care Provider [phone] Daja Sigala PharmD Unavailable [phone] Encounter Details Date Type Department Care Team (Late Contact Info) Description 01/07/2023 Abstract [facility] MED[facility]INE [address] [place] [address] [phone] Name, MD Juan [address] [place] [address] Social History Tobacco Use Types Packs/Day Years [...] Encounters Date Type Department Care Team (Late Contact Info) Description 10/31/2024 9:00 AM EDT Medication Management [facility] [address] [place] [address] [phone] Daja Sigala PharmD [address] [place] [address] documented as of this encounter Visit Diagnoses Not on filedocumented in this encounter Additional Health Concerns Assessment Noted Time PHQ-9 Depression Total Score: 6 12/10/19 23 4:19 PM EDT documented as of this encounter Care Teams Mine Equipment Design Engineer Relationship Specialty Start Date End Date Name, MD Juan [address] [place] [address] PCP - General Family Medicine 11/29/15 Daja Sigala PharmD [address] [place] [address] Pharmacist Internal Medicine 05/25/24 documented as of this encounter
--- OUTSIDE RECORDS SUMMARY | 2024-09-26 11:44 | XMS_ITS | Encounter Summary ---
Author Organization [employer] Address [address] [place] [address] [address]t [address] Floor [address] Care Team Providers Care Steamship Agent Name Role Phone Name, Juan CERDA Primary Care Provider [phone] Daja Sigala PharmD Unavailable [phone] Encounter Details Date Type Department Care Team (Late Contact Info) Description 01/08/2023 Abstract [facility] MEDICINE [address] [place] [address] [phone] Name, MD Juan [address] [place] [address] Social History Tobacco Use Types Packs/Day Years [...] EDT Medication Management [facility] [address] [place] [phone] Daja Sigala PharmD [address] [place] [address] documented as of this encounter Visit Diagnoses Not on filedocumented in this encounter Additional Health Concerns Assessment Noted Time PHQ-9 Depression Total Score: 6 12/10/19 23 4:19 PM EDT documented as of this encounter Care Teams Steamship Agent Relationship Specialty Start Date End Date Name, MD Juan [address] [place] [address] PCP - General Family Medicine 11/29/15 Daja Sigala PharmD [address] [place] [address] Pharmacist Internal Medicine 05/25/24 documented as of this encounter
--- OUTSIDE RECORDS SUMMARY | 2024-09-26 11:44 | XMS_ITS | Encounter Summary ---
Author Organization [employer] Address [address] [facility] 7t [place] [address] Care Team Providers Care Independent Agent Music Education Name Role Phone Name, Juan CERDA Primary Care Provider [phone] Daja Sigala PharmD Unavailable [phone] Reason for Visit * Reason Onset Date Comments Call Back Request 10/20/2023 Encounter Details Date Type Department Care Team ([facility] st Contact Info) Description 10/20/2023 Telephone [facility] MEDICINE [address] [place], [place] [phone] Name, MD Juan [address] [place] [address] Call Back Request Social History Tobacco Use [...] Description 10/31/2024 9:00 AM EDT Medication Management [facility] MEDICINE [address] [place] [address] Daja Sigala, PharmD [address] [place] [address] documented as of this encounter Visit Diagnoses Not on filedocumented in this encounter Additional Health Concerns Assessment Noted Time PHQ-9 Depression Total Score: 6 12/10/19 23 4:19 PM EDT documented as of this encounter Care Teams Independent Agent Music Education Relationship Specialty Start Date End Date Name, MD Juan [address] [place] [address] PCP - General Family Medicine 11/29/15 Daja Sigala, PharmD [address] [place] [address] Pharmacist Internal Medicine 05/25/24 documented as of this encounter
--- OUTSIDE RECORDS SUMMARY | 2024-09-26 11:44 | XMS_ITS | Encounter Summary ---
Author Organization [employer] Address [address] [facility] 7t [place] [address] Care Team Providers Care Customer Operations Specialist Name Role Phone Name, Juan CERDA Primary Care Provider [phone] Daja Sigala PharmD Unavailable [phone] Encounter Details Date Type Department Care Team (Latest Contact Info) Description 09/26/2024 Travel Social History Tobacco Use Types Packs/Day [...] Description 10/31/2024 9:00 AM EDT Medication Management [facility] [address] [place] [address] Daja Sigala PharmD [address] [place] [address] documented as of this encounter Visit Diagnoses Not on filedocumented in this encounter Additional Health Concerns Assessment Noted Time PHQ-9 Depression Total Score: 2 01/07/20 24 11:51 AM EDT documented as of this encounter Care Teams Customer Operations Specialist Relationship Specialty Start Date End Date Name, MD Juan [address] [place] [address] PCP - General Family Medicine 11/29/15 Daja Sigala PharmD [address] [place] [phone] Pharmacist Internal Medicine 05/25/24 documented as of this encounter
--- OUTSIDE RECORDS SUMMARY | 2024-09-26 11:44 | XMS_ITS | Clinical Summary ---
Author Organization [employer] Address [address] [facility] [address] [place] [address] Care Team Providers Care Section Maintainer Name Role Phone Name, Juan CERDA Primary Care Provider [phone] Daja Sigala PharmD Unavailable [phone] Allergies Active Allergy Reactions Criticality Noted Date Comments Sumatriptan Anaphylaxis High 11/29/2015 Medications alendronate (Fosamax) 70 MG tablet 022 Active famotidine (Pepcid) 20 MG tablet Take 1 tablet (20 mg) by mouth 2 times daily. 60 tablet 11 023 Active hydrocortisone 2.5 % cream Mix 60g tube of Hydrocortisone 2.5% with 16oz jar of CeraVe cream. Apply by topical route 1-2 times per day after shower or bath from the neck down (not on face). 60 g 1 024 Active Additional Information Patient not taking.Reported on 09/26/2024 magnesium oxide (Mag-Ox) 400 mg tablet TAKE 1 TABLET BY MOUTH IN THE MORNING 30 tablet 024 Active Additional Information Patient not taking.Reported on 09/26/2024 amitriptyline (Elavil) 10 MG tablet Take 1 tablet (10 mg) by mouth at bedtime. 30 tablet 2 024 Active Blood Pressure kitIndications:E ssential hypertension USE TO CHECK HOME BLOOD PRESSURE ONCE DAILY DIRECTED 1 kit Active butalbital-aceta minophen-caffein e 50-325-40 MG tablet TAKE 1 TO 2 TABLETS BY MOUTH EVERY 8 HOURS NEEDED . DO NOT EXCEED 6 TABLETS PER 24 HOURS 20 tablet 024 Active pantoprazole (ProtoNix) 20 MG EC tablet Take 20 mg by mouth if needed each day (reflux). Active spironolactone (Aldactone) 25 MG tablet Take 1 tablet (25 mg) by mouth Once per day. 30 tablet 11 025 2025 Active zolpidem (Ambien) 5 MG tablet Take 1 tablet (5 mg) by mouth if needed at bedtime for sleep. 30 tablet 025 2025 Active amLODIPine-valsa rtan (Exforge) 10-320 MG tabletIndication s:Essential hypertension Take 1 tablet by mouth Once per day. 90 tablet Active atorvastatin (Lipitor) 40 MG tabletIndication s:Hyperlipidemia , unspecified hyperlipidemia type Take 1 tablet (40 mg) by mouth Once per day. 90 tablet 025 2025 Active hydroCHLOROthiaz joann (HYDRODiuril) 25 MG tabletIndication s:Essential hypertension Take 1 tablet (25 mg) by mouth Once per day. 90 tablet Active metoprolol succinate XL (Toprol XL) 25 MG 24 hr tabletIndication s:Essential hypertension Take 1 tablet (25 mg) by mouth Once per day. Do not crush or chew. 90 tablet Active amLODIPine-valsa rtan (Exforge) 10-320 MG tablet Take 1 tablet by mouth in the morning. 30 tablet 024 2024 Discontinued(R eorder (will not trigger notification to Pharmacy)) spironolactone (Aldactone) 25 MG tablet Take 0.5 tablets (12.5 mg) by mouth Once per day. 15 tablet 024 2024 Discontinued(D ose adjustment) atorvastatin (Lipitor) 40 MG tabletIndication s:Hyperlipidemia , unspecified hyperlipidemia type Take 1 tablet (40 mg) by mouth Once per day. 30 tablet 024 2024 Discontinued(R eorder (will not trigger notification to Pharmacy)) metoprolol succinate XL (Toprol XL) 25 MG 24 hr tabletIndication s:Essential hypertension Take 1 tablet (25 mg) by mouth Once per day. Do not crush or chew. 90 tablet 1 024 2024 Discontinued(R eorder (will not trigger notification to Pharmacy)) hydroCHLOROthiaz joann (HYDRODiuril) 25 MG tabletIndication s:Essential hypertension Take 1 tablet (25 mg) by mouth Once per day. 30 tablet 2 024 2024 Discontinued(R eorder (will not trigger notification to Pharmacy)) Active Problems Problem Noted Date Diagnosed Date Acid reflux 05/09/2024 Arthritis of right knee 05/09/2024 Diverticulosis of colon 05/09/2024 Encounter for screening colonoscopy 05/09/2024 Hemorrhoids 05/09/2024 Varicose veins of left lower extremity with infl ammation 05/09/2024 Vitamin D deficiency 05/09/2024 Nocturnal leg cramps 02/15/2023 SILVEIRO (obstructive sleep apnea) 02/15/2023 Leg edema, right [...] Team Description 09/26/2024 Travel 09/20/2024 Refill [facility] [place] [address] Juan Lacy MD 09/19/2024 Telephone [facility] [place] [address] Juan Lacy MD No Show 09/19/2024 Telephone [facility] [place] [address] Tesha Clemens RN 09/12/2024 10:00 AM EST Office Visit [facility] [place] [address] Juan Lacy MD Hypertension, unspecified type (Primary Dx); Acute insomnia 09/12/2024 Travel 09/11/2024 Telephone [facility] [place] [address] Chrissy Patel MA chart prep 08/22/2024 Orders Only [facility] [place] [address] Juan Lacy MD 08/21/2024 Telephone [facility] [place] [address] Juan Lacy MD 08/03/2024 Refill [facility] [place] [address] Juan Lacy MD 07/18/2024 Orders Only [facility] External Provider, [facility] 07/06/2024 Refill [facility] [place] [address] Juan Lacy MD from Last 3 Months Immunizations Name Administration Dates Next Due INFLUENZA VACCINE QUADRIVALE NT RECOMBINANT PRESERVATIVE FREE RIV4 05/04/2020 Influenza High-dose Quadriva lent Preservative Free 06/21/2023,05/18/2022,05/13/2021 Influenza injectable quadriv alent IIV4 with preservative 05/05/2017,07/27/2016 Influenza injectable quadriv alent preservative free 06/23/2019 Influenza, High Dose Seasona l, Preservative Free 05/09/2024 Influenza, IIV3, injectable 07/30/2015,0 05/15/2013,05/24/2012,2010,05/13/2010,05/23/2009,06/14/2008 MMR 04/08/2017 Moderna Covid-19 Vaccine 12+ 12/01/2020,11/10/19 21 Novel [id number], preservative-free 08/22/2009 Pneumococcal Conjugate PCV 13 02/09/2022 [...] 10/31/2024 9:00 AM EDT Medication Management [facility] [address] [place] [address] Daja Sigala, PharmD [address] [place] [address] Health Maintenance Due Date Last Done Comments CT Colonography 1955 FIT DNA/Cologuard 1955 FIT 1955 FOBT 1955 Sigmoidoscopy 1955 Alcohol/Substance Use Screening 1968 Hepatitis C Screening 1974 COVID-19 Vaccine ( season) 2024 07/18/2021, 12/01/2020, 11/09/2020 Mammogram 07/22/2024 07/22/2022, 04/2021, 06/24/2021, Additional history exists Depression Screening 01/06/2025 01/07/2024, 01/07/20 24 SDOH Screening 01/06/2025 01/07/2024 Tobacco Screening 09/12/2025 [...] included. Sodium 141 135 - 145 mmol/L [facility] Potassium 4.1 3.3 - 5.1 mmol/L [facility] Chloride 107 96 - 108 mmol/L [facility] Carbon Dioxide 31(H) 22 - 29 mmol/L [facility] Anion Gap 7(L) 12 - 20 [facility] Urea Nitrogen (BUN) 11 9 - 16 mg/dL [facility] Creatinine, Serum 0.70 0.5 - 1.4 mg/dL [facility] Estimated Glomerular Filt Rate >60 [facility] Comment:Chronic Kidney Disea se: Estimated GFR < 60 mL/min/1.56u1Fcjuvo Kidney Disease: Estimated GFR < 15 mL/min/1.73m2 Glucose 87 60 - 115 mg/dL [facility] Calcium 10.2 8.4 - 10.2 mg/dL [facility] 08/22/2024 10:0 6 AM EST 08/22/2024 11:39 AM EST us Juan Lacy MD LAB BLOOD ORDERABLES Final Resul t [facility] [address] [place] [phone] * MR Shoulder w/o Contrast Right (07/18/2024 8:51 AM EST) Anatomical Region Laterality Modality Upper Extremities, Shoulder Right Magn etic Resonance 07/18/2024 8:51 AM EST Narrative 07/27/2024 9:09 PM EST ? [place] [facility] ?[address] ?[place] [address] ? Magnetic Resonance Report ? Signed ? Patient: Anival,Ceneida ?MR#: [id number] ?? [id number] ? : 1955 ?Acct:[id number] ? Age/Sex: 69 / F ?ADM Date: 07/18/24 ? Loc: HO.MRI ? Attending Dr: Bhavesh Montiel MD ? Ordering Physician: Bhavesh Montiel MD ?? Date of Service: 07/18/24 ?? Procedure(s): MR shoulder RT wo con ?? Accession Number(s): [id number] ? cc: Name,Juan CERDA; Bhavesh Montiel MD ? EXAMINATION: ?? MR [...] ??Ulisses Rutledge MD ??07/27/2024 09:06 PM EST ?? RP ? Dictated By: ?Ulisses Rutledge MD ? Signed By: ?<Electronically signed by Ulisses Rutledge MD in OV> ?07/27/242105 ? DD/ 0851 ? TD/TT: 07/18/24 0905 ? Drug Safety Coordinator: SR ? Procedure Note Donotrenatointerpreter, Image - 07/28/2024 [place] [address] Magnetic Resonance Report Signed Patient: Kassandra Florian#: [id number] : 6Acct:[id number] Age/Sex: 69 / FADM Date: 07/18/24 Loc: HO.MRI Attending Dr: Bhavesh Montiel MD Ordering Physician: Bhavesh Montiel MD Date of Service: 07/18/24 Procedure(s): MR shoulder RT wo con Accession Number(s): [id number] cc: Juan Lacy MD; Bhavesh Montiel MD EXAMINATION: MR SHOULDER WITHOUT [...] by: Ulisses Rutledge MD 07/27/2024 09:06 PM EST Dictated By: Ulisses Rutledge MD Signed By: <Electronically signed by Ulisses Rutledge MD in OV> 07/27/242105 DD/ 0851 TD/TT: 07/18/24 0905 Drug Safety Coordinator: SR [facility] External Provider IMG MRI PROCEDURES Edited Result - Final * TSH with Reflex to Free T4 (06/27/2024 9:17 AM EST) TSH reflex Free T4 2.39 0.32 - 4.0 uIU/mL [facility] 06/27/2024 9:17 AM EST 06/27/2024 11:35 AM EST Juan Lacy MD LAB BLOOD ORDERABLES Final Resul t [facility] [address] [place] [phone] * (ABNORMAL) Hepatic Function Panel (06/27/2024 9:17 AM EST) Bilirubin, Total 0.4 0.0 - 1.0 mg/dL [facility] Bilirubin, Direct 0.1 0.0 - 0.5 mg/dL [facility] Aspartate Amino Transferase 22 5 - 31 U/L [facility] Alanine Aminotransferase 16 0 - 31 U/L [facility] Total Protein 7.2 6.5 - 8.0 g/dL [facility] Albumin Level 4.1 3.5 - 5.0 g/dL [facility] Alkaline Phosphatase 167(H) 39 - 117 U/L [facility] 06/27/2024 9:17 AM EST 06/27/2024 11:35 AM EST us Juan Name MD LAB BLOOD ORDERABLES Final Resul t [facility] [address] [place] [phone] * Lipid Panel, Standard (06/27/2024 9:17 AM EST) Triglycerides 96 <150 mg/dL [facility] Comment:Desirable Triglyceri de: less than 150 mg/dLBorderline High Triglyceride 150-199 mg/dLHigh Triglyceride: 200-499 mg/dLVery High Triglyceride: greater than or equal to 5OO mg/dL Cholesterol 151 <200 mg/dL [facility] Comment:Desirable Cholestero l: less than 200 mg/dLBorderline High Cholesterol: 200-239 mg/dLHigh Cholesterol: greater than 239 mg/dL LDL Cholesterol Calculated 87 <100 mg/dL [facility] Comment:Desirable LDL: less than 100 mg/dLNear Optimal/Above Optimal LDL: 110- 129 mg/dLBorderline High LDL: 130-159 mg/dLHigh LDL: 160-189 mg/dLVery High LDL: greater than or equal to 190 mg/dL HDL Cholesterol 45 >40 mg/dL [facility] Comment:Desirable HDL: great er than 40 mg/dL Note: This HDL assay may give artificially low results in patients with liver disease. 06/27/2024 9:17 AM EST 06/27/2024 11:35 AM EST us Juan Lacy MD LAB BLOOD ORDERABLES Final Resul t [facility] [address] [place] [phone] [phone] * (ABNORMAL) Hm Colonoscopy (12/14/2023) Colonoscopy Abnormal(A ) Normal us Juan Lacy MD HEALTH MAINTENANCE Final Result * BI Mammogram Screening Tomosynthesis Bilateral (07/22/2022 2:52 PM EST) Anatomical Region Laterality Modality Breast Bilateral Mammography 07/22/2022 2:52 PM EST Narrative 07/23/2022 1:30 PM EST ? [facility] ? [address] ?[place] [address] ? Mammography Report ? Signed ? Patient: Anival,Ceneida ?MR#: [id number] ?? [id number] ? : 1955 ?Acct:[id number] ? Age/Sex: 67 / F ?ADM Date: // ? Loc: HO.MAMMO ? Attending Dr: Juan Name MD ? Ordering Physician: Name,Juan MD ?Results: 1Negative ? Date of Service: 07/22/ ?Follow Up: 1 Year From Orig ?? inal Mammogram ? Procedure(s): MM tomosynthesis screening BI ?? Accession Number(s): [id number] ? cc: Name,Juan CERDA ? EXAMINATION: ?? MM SCREENING DIGITAL [...] signed by Judah Martínez MD in OV> ?07/23/22 1327 ? DD/ 1452 ? TD/TT: ? Drug Safety Coordinator: MARSHALL ? Procedure Note Francisco Rutherford - 07/23/2022 [facility] [address] [place] [address] Dr. [place], [place] [address] Mammography Report Signed Patient: Kassandra Florian#: [id number] : 6Acct:[id number] Age/Sex: 67 / FADM Date: 07/22/22 Loc: HO.MAMMO Attending Dr: Juan Lacy MD Ordering Physician: Juan Lacy MDResults: 1Negative Date of Service: 07/22/22Follow Up: 1 Year From Orig inal Mammogram Procedure(s): MM tomosynthesis screening BI Accession Number(s): [id number] cc: Juan Lacy MD EXAMINATION: MM SCREENING [...] in OV> 07/23/22 1327 DD/ 1452 TD/TT: Drug Safety Coordinator: MARSHALL [facility] External Provider IMG BI PROCEDURES Edited Result - Final from Last 3 Months or Most Recently Relevant to Health Maintenance Insurance STANDARD MEDICARE Care Teams Section Maintainer Relationship Specialty Start Date End Date Name, MD Juan [address] [place] [address] PCP - General Family Medicine 11/29/15 Daja Sigala PharmD [address] [place] [address] Pharmacist Internal Medicine 05/25/24
[2024-09-26 13:45] LABS: Anion Gap 8 (12-20); Blood Urea Nitrogen 19 mg/dL (9-16); Calcium 10.2 mg/dL (8.4-10.2); Carbon Dioxide 24 mmol/L (22-29); Chloride 112 mmol/L (96-108); Estimated Glomerular Filt Rate > 60; Glucose Random 94 mg/dL (60-115); Potassium 4.3 mmol/L (3.3-5.1); Sodium 140 mmol/L (135-145)
== END 2024-09-26 10:32 | disposition home or self-care (01) ==
LOC: HO.HHCL 10:31
PROVIDERS: Visit Provider Internal Medicine Geriatric Medicine
DX: I10 Essential (primary) hypertension (principal); M25.811 Other specified joint disorders, right shoulder
CPT/HCPCS: 36415; 80048; 99212

== ENCOUNTER 2024-10-10 09:26 | Outpatient (REF) | payer MEDICARE, SELFPAY ==
--- OUTSIDE RECORDS SUMMARY | 2024-10-10 10:30 | XMS_ITS | Encounter Summary ---
Author Organization [employer] Address [address] [facility] [address] [place] [address] Care Team Providers Care Furniture Upholsterer Apprentice Name Role Phone Name, Juan CERDA Primary Care Provider [phone] Daja Sigala PharmD Unavailable [phone] Reason for Visit * Reason Comments Med Refill Encounter Details Date Type Department Care Team ([facility] st Contact Info) Description 09/20/2024 Refill [facility] [address] [place], [place] [phone] Name, MD Juan [address] [place] [address] Social History Tobacco Use Types Packs/Day Years [...] 9:00 AM EDT Medication Management [facility] [address] [place] [address] Daja Sigala PharmD [address] [place] [address] documented as of this encounter Visit Diagnoses Not on filedocumented in this encounter Additional Health Concerns Assessment Noted Time PHQ-9 Depression Total Score: 2 01/07/20 24 11:51 AM EDT documented as of this encounter Care Teams Furniture Upholsterer Apprentice Relationship Specialty Start Date End Date Name, MD Juan [address] [place] [phone] PCP - General Family Medicine 11/29/15 Daja Sigala PharmD [address] [place] [id number] Pharmacist Internal Medicine 05/25/24 documented as of this encounter
--- OUTSIDE RECORDS SUMMARY | 2024-10-10 10:30 | XMS_ITS | Encounter Summary ---
Author Organization [employer] Address [address] [facility] 7[address] [place] [address] Care Team Providers Care Diabetes Educator Name Role Phone Name, Juan CERDA Primary Care Provider [phone] Daja Sigala PharmD Unavailable [phone] Reason for Visit * Reason Onset Date Comments No Show 09/19/2024 Encounter Details Date Type Department Care Team ([facility] st Contact Info) Description 09/19/2024 Telephone [facility] [address] [place], [place] [phone] Name, MD Juan [address] [place] [address] No Show Social History Tobacco Use Types [...] Description 10/31/2024 9:00 AM EDT Medication Management [facility] [address] [place] [address] Daja Sigala PharmD [address] [place] [address] documented as of this encounter Visit Diagnoses Not on filedocumented in this encounter Additional Health Concerns Assessment Noted Time PHQ-9 Depression Total Score: 2 01/07/20 24 11:51 AM EDT documented as of this encounter Care Teams Diabetes Educator Relationship Specialty Start Date End Date Name, MD Juan [address] [place], [place] [phone] PCP - General Family Medicine 11/29/15 Daja Sigala PharmD [address] [place] [phone] Pharmacist Internal Medicine 05/25/24 documented as of this encounter
--- OUTSIDE RECORDS SUMMARY | 2024-10-10 10:30 | XMS_ITS | Clinical Summary ---
Author Organization [facility] Address [address] [place] [address] Care Team Providers Care Microfilm Equipment Inspector Name Role Phone Richi Bazan MD Primary Care Provider Surgical History Surgery Date Site/Laterality Comments COLONOSCOPY 11/12/2005 PROCEDURE: AL COLONOSCOPY STOMA DX INCLUDING COLLJ SPEC SPX; COMMENT: Up to cecum, diverticulosis. [facility] at [facility], poor prep. ESOPHAGOGASTRODUODENOSCOPY 01/21/2009 PROCEDURE: AL EGD TRANSORAL BIOPSY SINGLE/MULTIPLE; COMMENT: Normal esophagus, antral ulcer-biopsy:bening ulcer(HPylori+/treated), duodenitis, SB-biopsy:Nl ESOPHAGOGASTRODUODENOSCOPY 05/12/2010 PROCEDURE: AL EGD TRANSORAL BIOPSY SINGLE/MULTIPLE; COMMENT: Esophagus normal, gastritis, gastric ulcer-biopsy:acute ulcerative gastritis (HPylori+++), normal esophagus. SB bx: normal ESOPHAGOGASTRODUODENOSCOPY 10/02/2011 PROCEDURE: AL EGD TRANSORAL BIOPSY SINGLE/MULTIPLE; COMMENT: small gastric ulcer, bx: h pylori present. COLONOSCOPY 10/02/2011 PROCEDURE: AL COLONOSCOPY FLX DX W/COLLJ SPEC WHEN PFRMD; COMMENT: diverticulosis; no polyps. good prep. OTHER SURGICAL HISTORY 06/06/2013 PROCEDURE: AL ANTERIOR COLPORRAPHY RPR CYSTOCELE W/CYSTO Medical History [...] Td Vaccines (2 - Td or Tdap) 06/14/2018 06/14/2008 COVID-19 Vaccine (1 - season) 2024 [...] age to complete this topic Care Teams Microfilm Equipment Inspector Relationship Specialty Start Date End Date Richi Bazan MD PCP - General Internal Medicine 10/03/15
--- OUTSIDE RECORDS SUMMARY | 2024-10-10 10:31 | XMS_ITS | Encounter Summary ---
Author Organization [employer] Address [address] [facility] 7t [place] [address] Care Team Providers Care Data Collection Interviewer Name Role Phone Name, Juan CERDA Primary Care Provider [phone] Daja Sigala PharmD Unavailable [phone] Reason for Visit * Reason Comments Med Refill Encounter Details Date Type Department Care Team ([facility] st Contact Info) Description 08/03/2024 Refill [facility] MEDICINE [address] [place], [place] [phone] Name, MD Juan [address] [place] [address] Social History Tobacco Use Types Packs/Day Years [...] Description 10/31/2024 9:00 AM EDT Medication Management [facility] MEDICINE [address] [place] [address] Daja Sigala PharmD [address] [place] [address] documented as of this encounter Visit Diagnoses Not on filedocumented in this encounter Additional Health Concerns Assessment Noted Time PHQ-9 Depression Total Score: 2 01/07/20 24 11:51 AM EDT documented as of this encounter Care Teams Data Collection Interviewer Relationship Specialty Start Date End Date Name, MD Juan [address] [place] [address] PCP - General Family Medicine 11/29/15 Daja Sigala PharmD [address] [place] [address] Pharmacist Internal Medicine 05/25/24 documented as of this encounter
--- OUTSIDE RECORDS SUMMARY | 2024-10-10 10:31 | XMS_ITS | Encounter Summary ---
Author Organization [employer] Address [address] [facility] 7t [place] [address] Care Team Providers Care Sample Body Builder Name Role Phone Name, Juan CERDA Primary Care Provider [phone] Daja Sigala PharmD Unavailable [phone] Encounter Details Date Type Department Care [...] Description 10/31/2024 9:00 AM EDT Medication Management [facility] MEDICINE [address] [place] [address] Daja Sigala PharmD [address] [place] [address] documented as of this encounter Visit Diagnoses Not on filedocumented in this encounter Additional Health Concerns Assessment Noted Time PHQ-9 Depression Total Score: 2 01/07/20 24 11:51 AM EDT documented as of this encounter Care Teams Sample Body Builder Relationship Specialty Start Date End Date Name, MD Juan [address] [place] [address] PCP - General Family Medicine 11/29/15 Daja Sigala PharmD [address] [place] [address] Pharmacist Internal Medicine 05/25/24 documented as of this encounter
--- OUTSIDE RECORDS SUMMARY | 2024-10-10 10:31 | XMS_ITS | Encounter Summary ---
Author Organization [employer] Address [address] [place] [address] 7t [place] [address] Care Team Providers Care Bag Machine Operator Name Role Phone Name, Juan CERDA Primary Care Provider [phone] Daja Sigala PharmD Unavailable [phone] Reason for Visit * Reason Onset Date Comments Prior Authorization 01/08/2023 Encounter Details Date Type Department Care Team (Late st Contact Info) Description 01/08/2023 Telephone [facility] MEDICINE [address] [place], [place] [phone] Name, MD Juan [address] [place] [address] Prior Authorization Social History Tobacco Use Types [...] 10:48 AM EDT Tc grupo Strong from [facility] pharmacy requesting a PA for medication elavil 50 mg . documented in this encounter Plan of Treatment Upcoming Encounters Date Type Department Care Team (Late st Contact Info) Description 10/31/2024 9:00 AM EDT Medication Management [facility] MEDICINE [address] [place] [address] Daja Sigala PharmD [address] [place] [address] documented as of this encounter Visit Diagnoses Not on filedocumented in this encounter Additional Health Concerns Assessment Noted Time PHQ-9 Depression Total Score: 6 12/10/19 23 4:19 PM EDT documented as of this encounter Care Teams Bag Machine Operator Relationship Specialty Start Date End Date Name, MD Juan [address] [place] [address] PCP - General Family Medicine 11/29/15 Daja Sigala PharmD [address] [place] [address] Pharmacist Internal Medicine 05/25/24 documented as of this encounter
--- OUTSIDE RECORDS SUMMARY | 2024-10-10 10:31 | XMS_ITS | Encounter Summary ---
Author Organization [employer] Address [address] [place] [address] 7t [place] [address] Care Team Providers Care Line Cook Name Role Phone Name, Juan CERDA Primary Care Provider [phone] Daja Sigala PharmD Unavailable [phone] Encounter Details Date Type Department Care Team (Late Contact Info) Description 01/08/2023 Abstract [facility] MEDICINE [address] [place] [address] [phone] Name, MD Juan [address] [place] [address] Social History Tobacco Use Types Packs/Day Years [...] 9:00 AM EDT Medication Management [facility] [address] [place] [address] [phone] Daja Sigala PharmD [address] [place] [address] documented as of this encounter Visit Diagnoses Not on filedocumented in this encounter Additional Health Concerns Assessment Noted Time PHQ-9 Depression Total Score: 6 12/10/19 23 4:19 PM EDT documented as of this encounter Care Teams Line Cook Relationship Specialty Start Date End Date Name, MD Juan [address] [place] [address] PCP - General Family Medicine 11/29/15 Daja Sigala PharmD [address] [place] [address] Pharmacist Internal Medicine 05/25/24 documented as of this encounter
--- OUTSIDE RECORDS SUMMARY | 2024-10-10 10:31 | XMS_ITS | Encounter Summary ---
Author Organization [employer] Address [address] [facility] 7t [place] [address] Care Team Providers Care Cotton Cleaner Name Role Phone Name, Juan CERDA Primary Care Provider [phone] Daja Sigala PharmD Unavailable [phone] Reason for Visit * Reason Onset Date Comments Nurse Triage 10/09/2024 Encounter Details Date Type Department Care Team ([facility] st Contact Info) Description 10/09/2024 Telephone [facility] MEDICINE 230 [place], [place] [phone] Name, MD Juan [address] [place] [address] Nurse Triage Social History Tobacco Use Types [...] encounter Miscellaneous Notes * Telephone Encounter - Minoo Villegas RN - 10/09/2024 1:42 PM EST Incoming call from patient, Reports BP reading below is from this morning before BP meds. Pt has not yet rechecked since taking hydrochlorothiazide, exforge, metoprolol and spironolactone. Reports 182/93 on left side. Denies any CP, SOB , EMERY or dizziness. Pt reports taking meds approx 4 hours ago. Per pt only had elevated BP today. Reports decreased appetite. Per pt having abdominal pain and diarrhea x 3 weeks. Pt having nausea and vomiting. Pt denies any green bile in vomit. No blood in stool.Pt advised of disposition, agrees to sick on site today with PCP. Reviewed home care advise, ER precautions and reasons to call back. Protocol Used: Blood Pressure - High (Adult) Protocol-Based Disposition: See in Office or Video Visit Today Future Appointments Date Time Provider Department Center 10/09/2024 4:00 PM Juan Lacy MD MEDICINE [facility] 10/31/2024 9:00 AM Daja Sigala PharmD [facility] Insurance verified as active per Real Time Eligibility in [facility]. Video visit offer not recorded Positive Triage Question: * Systolic BP >= 180 OR Diastolic >= 110 * All higher-acuity triage questions were negative Care Advice Discussed: * Reasons To Call Back - Headache, blurred vision, difficulty talking, or difficulty walking occurs - Chest pain or difficulty breathing occurs - You become worse * Telephone Encounter - Minoo Villegas RN - 10/09/2024 1:03 PM EST No latex thread machine operator needed as this scenario writer speaks Uzbek. Call returned to Catalina Florian x 2 for triage below. No answer LVM to return call to [facility] triage line [phone]. Reviewed [facility] operating hours and that wait times vary. * Telephone Encounter - Luz Marroquin - 10/09/2024 1:00 PM EST Tc from pt returning phone call. * Telephone Encounter - Shahrzad Jose RN - 10/09/2024 10:48 AM EST Triage call with [facility] Mach[place] [place] [id number]. Triage call placed x2 with out answer. Left voice message to call [facility] [phone] at Pt convenience. * Telephone Encounter - Luz Marroquin - 10/09/2024 10:18 AM EST Symptoms: High Blood Pressure - Caller Reports, Vomiting, Headache, Dizziness, Colds Outcome: Schedule an urgent appointment (within 1 hour) or talk to a nurse or provider soon Reason: Getting worse *pt states b/p reading 179/89 The caller accepted this outcome. [phone] slovenian documented in this encounter Plan of Treatment Upcoming Encounters Date Type Department Care Team (Late st Contact Info) Description 10/31/2024 9:00 AM EDT Medication Management [facility] MEDICINE [address] [place] [address] Daja Sigala PharmD [address] [place] [address] documented as of this encounter Visit Diagnoses Not on filedocumented in this encounter Additional Health Concerns Assessment Noted Time PHQ-9 Depression Total Score: 2 01/07/20 24 11:51 AM EDT documented as of this encounter Care Teams Cotton Cleaner Relationship Specialty Start Date End Date Name, MD Juan [address] [place] [address] PCP - General Family Medicine 11/29/15 Daja Sigala PharmD [address] [place] [address] Pharmacist Internal Medicine 05/25/24 documented as of this encounter
--- OUTSIDE RECORDS SUMMARY | 2024-10-10 10:31 | XMS_ITS | Encounter Summary ---
Author Organization [employer] Address [address] [facility] 7t [place] [address] Care Team Providers Care Vice President Supply Chain Name Role Phone Name, Juan CERDA Primary Care Provider [phone] Daja Sigala PharmD Unavailable [phone] Reason for Visit * Reason Onset Date Comments chart prep 09/11/2024 Encounter Details Date Type Department Care Team (Late st Contact Info) Description 09/11/2024 Telephone [facility] MEDICINE [address] [place] [address] Chrissy Patel [place] chart prep Social History [...] Description 10/31/2024 9:00 AM EDT Medication Management [facility] MEDICINE [address] [place] [address] Daja Sigala PharmD 230 [place] [address] documented as of this encounter Visit Diagnoses Not on filedocumented in this encounter Additional Health Concerns Assessment Noted Time PHQ-9 Depression Total Score: 2 01/07/20 24 11:51 AM EDT documented as of this encounter Care Teams Vice President Supply Chain Relationship Specialty Start Date End Date Name, MD Juan [address] [place] [address] PCP - General Family Medicine 11/29/15 Daja Sigala PharmD [address] [place] [address] Pharmacist Internal Medicine 05/25/24 documented as of this encounter
--- OUTSIDE RECORDS SUMMARY | 2024-10-10 10:31 | XMS_ITS | Encounter Summary ---
Author Organization [employer] Address [address] [facility] 7t [place] [address] Care Team Providers Care Wool Hat Sanding Machine Operator Name Role Phone Name, Juan CERDA Primary Care Provider [phone] Daja Sigala PharmD Unavailable [phone] Reason for Visit * Reason Comments Hypertension Encounter Details Date Type Department Care Team ([facility] Contact Info) Description 10/09/2024 4:00 PM EST Office Visit [facility] MEDICINE [address] [place], [place] [phone] Name, MD Juna [address] [place] [address] Epigastric pain (Primary Dx); Nausea without vomiting Social History Tobacco Use Types Packs/Day Years [...] Sign Reading Time Taken Comments Blood Pressure 157/89 10/09/2024 4:34 PM EST Pulse 63 10/09/2024 4:02 PM EST Temperature 35.9 ??C (96.7 ??F) 10/09/2024 4:02 PM ES T Respiratory Rate 16 10/09/2024 4:02 PM EST Oxygen Saturation 98% 10/09/2024 4:02 PM EST Inhaled Oxygen Concentration - - Weight 58.2 kg (128 lb 6.4 oz) 10/09/2024 4:02 P M EST Height - - Body Mass Index 22.04 09/12/2024 10:17 AM EST documented in this encounter Progress Notes * Juan Lacy MD - 10/09/2024 4:00 PM EST Subjective Patient ID: Catalina Florian is a 69 y.o. female who presents for Hypertension. Patient tells me that she has been sick for the past 2 weeks. About 2 weeks ago the patient had a flulike illness. She describes having bodyaches, malaise, chills, anorexia. She did not have any cough or shortness of breath. She tested herself for COVID at home and testing was negative. She did notseek medical care. The patient tells me that she does not feel the same. She describes persistent body aches and most recently she has nausea, she vomited twice this morning. She denies significant diarrhea. She also complains of epigastric burning discomfort , sensation of reflux. She has a personal history of migraines and she tells me she had a migraine this morning. Today her BP was initiallyelevated. Repeat blood pressure was better. BP numbers have improved on her current HTN medication regimen. She denies any blood in the vomit. Review of Systems Constitutional: Positive for fatigue. Negative for fever. HENT: Negative for sore throat. Respiratory: Negative for cough, shortness of breath and wheezing. Cardiovascular: Negative for chest pain. Gastrointestinal: Positive for abdominal pain, nausea and vomiting. Negative for diarrhea. Visit Vitals BP (!) 157/89 Pulse 63 Temp 96.7 ??F (35.9 ??C) (Temporal) Resp 16 Wt 128 lb 6.4 oz (58.2 kg) SpO2 98% BMI 22.04 kg/m?? Smoking Status Never BSA 1.62 m?? Objective Physical Exam Constitutional: Appearance: Normal appearance. Cardiovascular: Rate and Rhythm: Normal rate and regular rhythm. Heart sounds: No murmur heard. No gallop. Pulmonary: Effort: Pulmonary effort is normal. No respiratory distress. Breath sounds: Normal breath sounds. No wheezing. Abdominal: Comments: Mild epigastric discomfort on deep palpation. Musculoskeletal: Right lower leg: No edema. Left lower leg: No edema. Neurological: Mental Status: She is alert. Assessment/Plan Diagnoses and all orders for this visit: Epigastric pain Comments: It is possible she is having residual flu symptoms. Also she started to have migraine symptoms this morning. I will treat her symptoms of heartburn and nausea with medications listed below. I recommended to try to drink fluids, avoid spicy foods, caffeine. She does not drink alcohol. I recommend evaluation with blood work listed below. Further recommendation based on the results and response to the medication. I told her that if she has worsening vomiting and she is unable to keep liquids of her medications down she should go to the ER for IV fluids. Patient agrees with my recommendations. Orders: - CBC auto differential; Future - Comprehensive Metabolic Panel; Future - Lipase; Future - famotidine (Pepcid) 20 MG tablet; Take 1 tablet (20 mg) by mouth 2 times daily. - ondansetron (Zofran) 4 MG tablet; Take 1 tablet (4 mg) by mouth every 8 (eight) hours if needed for nausea or vomiting for up to 7 days. Nausea without vomiting - CBC auto differential; Future - Comprehensive Metabolic Panel; Future - Lipase; Future - famotidine (Pepcid) 20 MG tablet; Take 1 tablet (20 mg) by mouth 2 times daily. - ondansetron (Zofran) 4 MG tablet; Take 1 tablet (4 mg) by mouth every 8 (eight) hours if needed for nausea or vomiting for up to 7 days. documented in this encounter Plan of Treatment Upcoming Encounters Date Type Department Care Team (Late st Contact Info) Description 10/31/2024 9:00 AM EDT Medication Management [facility] MEDICINE [address] [place] [address] [phone] Daja Sigala PharmD [address] [place] [address] Scheduled Orders Name Type Priority Associated Diagnoses Orde r Schedule CBC auto differential Lab Routine Epigastric pain Nausea without vomiting Expected: 10/09/2024 (Approximate), Expires: 10/09/2025 Comprehensive Metabolic Panel Lab Routine Epigastric pain Nausea without vomiting Expected: 10/09/2024 (Approximate), Expires: 10/09/2025 Lipase Lab Routine Epigastric pain Nausea without vomiting Expected: 10/09/2024, Expires: 10/09/2025 documented as of this encounter Visit Diagnoses Diagnosis Epigastric pain- Primary Abdominal pain, epigastric Nausea without vomiting documented in this encounter Additional Health Concerns Assessment Noted Time PHQ-9 Depression Total Score: 2 01/07/20 11:51 AM EDT documented as of this encounter Care Teams Wool Hat Sanding Machine Operator Relationship Specialty Start Date End Date Juan Lacy MD [address] [place] [address] PCP - General Family Medicine 11/29/15 Daja Sigala PharmD [address] [place] [address] Pharmacist Internal Medicine 05/25/24 documented as of this encounter
--- OUTSIDE RECORDS SUMMARY | 2024-10-10 10:31 | XMS_ITS | Encounter Summary ---
Author Organization [employer] Address [address] [place] [address] 7t [place] [address] Care Team Providers Care Sports Lawyer Name Role Phone Name, Juan CERDA Primary Care Provider [phone] Daja Sigala PharmD Unavailable [phone] Reason for Visit * Reason Comments Med Refill Encounter Details Date Type Department Care Team (Late st Contact Info) Description 11/05/2022 Refill [facility] MEDICINE [address] [place], [place] [phone] NameJuan MD [address] [place] [address] Social History Tobacco Use Types Packs/Day Years [...] 9:00 AM EDT Medication Management [facility] MEDICINE [address] [place] [address] Daja Sigala, PharmD [address] [place] [address] documented as of this encounter Visit Diagnoses Not on filedocumented in this encounter Care Teams Sports Lawyer Relationship Specialty Start Date End Date Juan Lacy MD [address] [place] [address] PCP - General Family Medicine 11/29/15 Daja Sigala PharmD [address] [place] [address] Pharmacist Internal Medicine 05/25/24 documented as of this encounter
--- OUTSIDE RECORDS SUMMARY | 2024-10-10 10:31 | XMS_ITS | Encounter Summary ---
Author Organization [employer] Address [address] [facility] 7t [place] [address] Care Team Providers Care Stripe Marker Name Role Phone Name, Juan CERDA Primary Care Provider [phone] Daja Sigala PharmD Unavailable [phone] Encounter Details Date Type Department Care Team (Latest Contact Info) Description 10/09/2024 Travel Social History Tobacco Use Types Packs/Day [...] Description 10/31/2024 9:00 AM EDT Medication Management [facility] MEDICINE [address] [place] [address] Daja Sigala PharmD [address] [place] [address] documented as of this encounter Visit Diagnoses Not on filedocumented in this encounter Additional Health Concerns Assessment Noted Time PHQ-9 Depression Total Score: 2 01/07/20 24 11:51 AM EDT documented as of this encounter Care Teams Stripe Marker Relationship Specialty Start Date End Date Name, MD Juan [address] [place] [address] PCP - General Family Medicine 11/29/15 Daja Sigala PharmD [address] [place] [address] Pharmacist Internal Medicine 05/25/24 documented as of this encounter
--- OUTSIDE RECORDS SUMMARY | 2024-10-10 10:31 | XMS_ITS | Encounter Summary ---
Author Organization [employer] Address [address] [facility] 7t [place] [address] Care Team Providers Care Medical Examiner Name Role Phone Name, Juan CERDA Primary Care Provider [phone] Daja Sigala PharmD Unavailable [phone] Reason for Visit * Reason Onset Date Comments Call Back Request 10/20/2023 Encounter Details Date Type Department Care Team ([facility] st Contact Info) Description 10/20/2023 Telephone [facility] MEDICINE [address] [place], [place] [phone] Name, MD Juan [address] [place] [address] Call Back Request Social History Tobacco Use [...] Description 10/31/2024 9:00 AM EDT Medication Management [facility] MEDICINE [address] [place] [address] Daja Sigala, PharmD [address] [place] [address] documented as of this encounter Visit Diagnoses Not on filedocumented in this encounter Additional Health Concerns Assessment Noted Time PHQ-9 Depression Total Score: 6 12/10/19 23 4:19 PM EDT documented as of this encounter Care Teams Medical Examiner Relationship Specialty Start Date End Date Name, MD Juan [address] [place] [address] PCP - General Family Medicine 11/29/15 Daja Sigala, PharmD [address] [place] [address] Pharmacist Internal Medicine 05/25/24 documented as of this encounter
--- OUTSIDE RECORDS SUMMARY | 2024-10-10 10:31 | XMS_ITS | Clinical Summary ---
Author Organization [employer] Address [address] [facility] 7t [place] [address] Care Team Providers Care Alterations Manager Name Role Phone Name, Juan CERDA Primary Care Provider [phone] Daja Sigala PharmD Unavailable Allergies Active Allergy Reactions Criticality Noted Date Comments Sumatriptan Anaphylaxis High 11/29/2015 Medications alendronate (Fosamax) 70 MG tablet 022 Active hydrocortisone 2.5 % cream Mix 60g tube of Hydrocortisone 2.5% with 16oz jar of CeraVe cream. Apply by topical route 1-2 times per day after shower or bath from the neck down (not on face). 60 g 1 Active Additional Information Patient not taking.Reported on 09/26/2024 magnesium oxide (Mag-Ox) 400 mg tablet TAKE 1 TABLET BY MOUTH IN THE MORNING 30 tablet Active Additional Information Patient not taking.Reported on 09/26/2024 amitriptyline (Elavil) 10 MG tablet Take 1 tablet (10 mg) by mouth at bedtime. 30 tablet 2 Active Blood Pressure kitIndications:E ssential hypertension USE TO CHECK HOME BLOOD PRESSURE ONCE DAILY DIRECTED 1 kit Active butalbital-aceta minophen-caffein e 50-325-40 MG tablet TAKE 1 TO 2 TABLETS BY MOUTH EVERY 8 HOURS NEEDED . DO NOT EXCEED 6 TABLETS PER 24 HOURS 20 tablet Active spironolactone (Aldactone) 25 MG tablet Take [...] not crush or chew. 90 tablet Active famotidine (Pepcid) 20 MG tabletIndication s:Epigastric pain,Nausea without vomiting Take 1 tablet (20 mg) by mouth 2 times daily. 60 tablet 025 2025 Active ondansetron (Zofran) 4 MG tabletIndication s:Epigastric pain,Nausea without vomiting Take 1 tablet (4 mg) by mouth every 8 (eight) hours if needed for nausea or vomiting for up to 7 days. 20 tablet 025 2024 Active famotidine (Pepcid) 20 MG tablet Take 1 tablet (20 mg) by mouth 2 times daily. 60 tablet 023 2024 Discontinued(R eorder (will not trigger notification to Pharmacy)) amLODIPine-valsa rtan (Exforge) 10-320 MG tablet Take 1 tablet by mouth in the morning. 30 tablet 024 2024 Discontinued(R eorder (will not trigger notification to Pharmacy)) spironolactone (Aldactone) 25 MG tablet Take 0.5 tablets (12.5 mg) by mouth Once per day. 15 tablet 024 01/28/ 2025 Discontinued(D ose adjustment) atorvastatin (Lipitor) 40 MG tabletIndication s:Hyperlipidemia , unspecified hyperlipidemia type Take 1 tablet (40 mg) by mouth Once per day. 30 tablet 11 024 2024 Discontinued(R eorder (will not trigger notification to Pharmacy)) metoprolol succinate XL (Toprol XL) 25 MG 24 hr tabletIndication s:Essential hypertension Take 1 tablet (25 mg) by mouth Once per day. Do not crush or chew. 90 tablet 1 024 2024 Discontinued(R eorder (will not trigger notification to Pharmacy)) pantoprazole (ProtoNix) 20 MG EC tablet Take 20 mg by mouth if needed each day (reflux). 024 2024 Discontinued(T herapy completed) hydroCHLOROthiaz joann (HYDRODiuril) 25 MG tabletIndication s:Essential [...] Encounters Date Type Department Care Team Description 10/09/2024 4:00 PM EST Office Visit [facility] [place] [address] Juan Lacy MD Epigastric pain (Primary Dx); Nausea without vomiting 10/09/2024 Travel 10/09/2024 Telephone [facility] [place] [address] Juan Lacy MD Nurse Triage 09/26/2024 Travel 09/20/2024 Refill [facility] [place] [address] Juan Lacy MD 09/19/2024 Telephone [facility] [place] [address] Juan Lacy MD No Show 09/19/2024 Telephone [facility] [place] [address] Tesha Clemens, OREN 09/12/2024 10:00 AM EST Office Visit [facility] [place] [address] Juan Lacy MD Hypertension, unspecified type (Primary Dx); Acute insomnia 09/12/2024 Travel 09/11/2024 Telephone [facility] [place] [address] Chrissy Patel MA chart prep 08/22/2024 Orders Only [facility] [place] [address] Juna Lacy MD 08/21/2024 Telephone [facility] [address] [place] [address] Name, MD Juan 08/03/2024 Refill [facility] [address] [place] [address] Name, MD Juan 07/18/2024 Orders Only [facility] External Provider, [facility] from Last 3 Months Immunizations Name Administration Dates Next Due INFLUENZA VACCINE QUADRIVALE NT RECOMBINANT PRESERVATIVE FREE RIV4 05/04/2020 Influenza High-dose Quadriva lent Preservative Free 06/21/2023,05/18/2022,05/13/2021 Influenza injectable quadriv alent IIV4 with preservative 05/05/2017,07/27/2016 Influenza injectable quadriv alent preservative free 06/23/2019 Influenza, High Dose Seasona l, Preservative Free 05/09/2024 Influenza, IIV3, injectable 07/30/2015,0 05/15/2013,05/24/2012,2010,05/13/2010,05/23/2009,06/14/2008 MMR 04/08/2017 Moderna Covid-19 Vaccine 12+ 12/01/2020,11/10/19 21 Novel [id number], preservative-free 08/22/2009 Pneumococcal Conjugate PCV 13 02/09/2022 [...] oz) 10/09/2024 4:02 P M EST Height 162.6 cm (5' 4 ) 09/12/2024 10:17 AM EST Body Mass Index 22.04 09/12/2024 10:17 AM EST Plan of Treatment Upcoming Encounters Date Type Department Care Team (Late st Contact Info) Description 10/31/2024 9:00 AM EDT Medication Management [facility] [address] [place] [address] Daja Sigala, PharmD [address] [place], [place] [phone] Health Maintenance Due Date Last Done Comments CT Colonography 1956 FIT DNA/Cologuard 1955 FIT 1955 FOBT 1955 Sigmoidoscopy 1956 Alcohol/Substance Use Screening 1968 Hepatitis C Screening 1974 COVID-19 Vaccine ( season) 2024 07/18/2021, 12/01/2020, 11/09/2020 Mammogram 07/22/2024 07/22/2022, 1104/2021, 06/24/2021, Additional history exists Depression Screening 01/06/2025 [...] Associated Diagnosis Comments BASIC METABOLIC PANEL Routine 09/26/2024 10:33 AM EST Hypertension, unspecified type BASIC METABOLIC PANEL Routine 08/22/2024 10:06 AM EST MR SHOULDER WO CONTRAST RIGHT Routine 07/18/2024 8:51 AM EST LIPID PANEL, STANDARD Routine 06/27/2024 9:17 AM EST HM COLONOSCOPY Routine 12/14/2023 BI MAMMOGRAM SCREENING TOMOSYNTHESIS BILATERAL Routine 07/22/2022 2:52 PM EST from Last 3 Months or Most Recently Relevant to Health Maintenance Results * (ABNORMAL) Basic Metabolic Panel (09/26/2024 10:33 AM EST) Only the most recent of2 resultswithin the time period is included. Sodium 140 135 - 145 mmol/L [facility] Potassium 4.3 3.3 - 5.1 mmol/L [facility] Chloride 112(H) 96 - 108 mmol/L [facility] Carbon Dioxide 24 22 - 29 mmol/L [facility] Anion Gap 8(L) 12 - 20 [facility] Urea Nitrogen (BUN) 19(H) 9 - 16 mg/dL [facility] Creatinine, Serum 0.74 0.5 - 1.4 mg/dL [facility] Estimated Glomerular Filt Rate >60 [facility] Comment:Chronic Kidney Disea se: Estimated GFR < 60 mL/min/1.81f7Gcbsuy Kidney Disease: Estimated GFR < 15 mL/min/1.73m2 Glucose 94 60 - 115 mg/dL [facility] Calcium 10.2 8.4 - 10.2 mg/dL [facility] Blood Venous blood specimen / Unknown 09/26/2024 10:33 AM EST 09/26/2024 1:02 PM EST us Juan Name MD LAB BLOOD ORDERABLES Final Resul t [facility] [address] [place] [address] [phone] * MR Shoulder w/o Contrast Right (07/18/2024 8:51 AM EST) Anatomical Region Laterality Modality Upper Extremities, Shoulder Right Magn etic Resonance 07/18/2024 8:51 AM EST Narrative 07/27/2024 9:09 PM EST ? [facility] ?[address] ?[place] [address] ? Magnetic Resonance Report ? Signed ? Patient: Anival,Ceneida ?MR#: [id number] ?? [id number] ? : 1955 ?Acct:[id number] ? Age/Sex: 69 / F ?ADM Date: 07/18/24 ? Loc: HO.MRI ? Attending Dr: Bhavesh Montiel MD ? Ordering Physician: Bhavesh Montiel MD ?? Date of Service: 07/18/24 ?? Procedure(s): MR shoulder RT wo con ?? Accession Number(s): [id number] ? cc: Juan Lacy MD; Bhavesh Montiel [...] signed by Ulisses Rutledge MD in OV> ?07/27/246 ? DD/ 0851 ? TD/TT: 07/18/24 0905 ? Restoration Technician: SR ? Procedure Note Krish, Image - 07/28/2024 [place] [address] Magnetic Resonance Report Signed Patient: Kassandra Florian#: [id number] : 6Acct:[id number] Age/Sex: 69 / FADM Date: 07/18/24 Loc: HO.MRI Attending Dr: Bhavesh Montiel MD Ordering Physician: Bhavesh Montiel MD Date of Service: 07/18/24 Procedure(s): MR shoulder RT wo con Accession Number(s): [id number] cc: Juan Lacy MD; Bhavesh Montiel MD [...] 07/27/24 2106 DD/ 0851 TD/TT: 07/18/24 0905 Restoration Technician: [facility] External Provider IMG MRI PROCEDURES Edited Result - Final * Lipid Panel, Standard (06/27/2024 9:17 AM EST) Triglycerides 96 <150 mg/dL [facility] Comment:Desirable Triglyceri de: less than 150 mg/dLBorderline High Triglyceride 150-199 mg/dLHigh Triglyceride: 200-499 mg/dLVery High Triglyceride: greater than or equal to 5OO mg/dL Cholesterol 151 <200 mg/dL [facility] Comment:Desirable Cholestero l: less than 200 mg/dLBorderline High Cholesterol: 200-239 mg/dLHigh Cholesterol: greater than 239 mg/dL LDL Cholesterol Calculated 87 <100 mg/dL [facility] Comment:Desirable LDL: less than 100 mg/dLNear Optimal/Above Optimal LDL: 110- 129 mg/dLBorderline High LDL: 130-159 mg/dLHigh LDL: 160-189 mg/dLVery High LDL: greater than or equal to 190 mg/dL HDL Cholesterol 45 >40 mg/dL [facility] Comment:Desirable HDL: great er than 40 mg/dL Note: This HDL assay may give artificially low results in patients with liver disease. 06/27/2024 9:17 AM EST 06/27/2024 11:35 AM EST us Juan Lacy MD LAB BLOOD ORDERABLES Final Resul t [facility] [address] [place] [address] [phone] * (ABNORMAL) Hm Colonoscopy (12/14/2023) Colonoscopy Abnormal(A ) Normal us Juan Lacy MD HEALTH MAINTENANCE Final Result * BI Mammogram Screening Tomosynthesis Bilateral (07/22/2022 2:52 PM EST) Anatomical Region Laterality Modality Breast Bilateral Mammography 07/22/2022 2:52 PM EST Narrative 07/23/2022 1:30 PM EST ? [facility] ? [address] ?[place] [address] ? Mammography Report ? Signed ? Patient: Anival,Ceneida ?MR#: [id number] ?? [id number] ? : 1955 ?Acct:[id number] ? Age/Sex: 67 / F ?ADM Date: 12/07/22 ? Loc: HO.MAMMO ? Attending Dr: Juan Lacy MD ? Ordering Physician: Juan Lacy MD ?Results: 1Negative ? Date of Service: 07/22/22 ?Follow Up: 1 Year From Orig ?? inal Mammogram ? Procedure(s): MM tomosynthesis screening BI ?? Accession Number(s): [id number] ? cc: Juan Lacy MD ? EXAMINATION: ?? MM SCREENING DIGITAL BREAST [...] ?07/23/227 ? DD/ 1452 ? TD/TT: ? Restoration Technician: MARSHALL ? Procedure Note Donesvinter, Image - 07/23/2022 [facility] [address] [place], [place] [address] Mammography Report Signed Patient: Kassandra Florian#: [id number] : 6Acct:[id number] Age/Sex: 67 / FADM Date: 07/22/22 Loc: HO.MAMMO Attending Dr: Juan Lacy MD Ordering Physician: Juan Lacy MDResults: 1Negative Date of Service: 07/22/22Follow Up: 1 Year From Orig inal Mammogram Procedure(s): MM tomosynthesis screening BI Accession Number(s): [id number] cc: Juan Lacy MD EXAMINATION: MM SCREENING [...] in OV> 07/23/22 1327 DD/ 1452 TD/TT: Restoration Technician: JOANNA [facility] External Provider IMG BI PROCEDURES Edited Result - Final from Last 3 Months or Most Recently Relevant to Health Maintenance Insurance STANDARD MEDICARE * Guarantor: Catalina Florian Account Type Relation to Patient Date of Phone Billing Address Personal/Family Self [address] [id number] Care Teams Alterations Manager Relationship Specialty Start Date End Date Name, MD Juan [address] [place] [address] PCP - General Family Medicine 11/29/15 Daja Sigala, MirnaD [address] [place] [address] Pharmacist Internal Medicine 05/25/24
--- OUTSIDE RECORDS SUMMARY | 2024-10-10 10:31 | XMS_ITS | Encounter Summary ---
Author Organization [employer] Address [address] [place] [address] 7t [place] [address] Care Team Providers Care Customer Advocacy Manager Name Role Phone Name, Juan CERDA Primary Care Provider [phone] Daja Sigala PharmD Unavailable [phone] Encounter Details Date Type Department Care Team (Late st Contact Info) Description 01/07/2023 Abstract [facility] [address] [place] [address] [phone] Name, MD Juan [address] [place] [address] Social History Tobacco Use Types Packs/Day Years [...] Description 10/31/2024 9:00 AM EDT Medication Management [facility] [address] [place] [phone] Daja Sigala PharmD [address] [place] [address] documented as of this encounter Visit Diagnoses Not on filedocumented in this encounter Additional Health Concerns Assessment Noted Time PHQ-9 Depression Total Score: 6 12/10/19 23 4:19 PM EDT documented as of this encounter Care Teams Customer Advocacy Manager Relationship Specialty Start Date End Date Name, MD Juan [address] [place] [address] PCP - General Family Medicine 11/29/15 Daja Sigala PharmD [address] [place] [phone] Pharmacist Internal Medicine 05/25/24 documented as of this encounter
--- OUTSIDE RECORDS SUMMARY | 2024-10-10 10:31 | XMS_ITS | Encounter Summary ---
Author Organization [employer] Address 75 [facility] 7t [place] [address] Care Team Providers Care Stroke Program Coordinator Name Role Phone Name, Juan CERDA Primary Care Provider [phone] Daja Sigala PharmD Unavailable [phone] Encounter Details Date Type Department Care [...] Description 10/31/2024 9:00 AM EDT Medication Management [facility] [address] [place] [address] Daja Sigala PharmD [address] [place] [address] documented as of this encounter Visit Diagnoses Not on filedocumented in this encounter Additional Health Concerns Assessment Noted Time PHQ-9 Depression Total Score: 2 01/07/20 24 11:51 AM EDT documented as of this encounter Care Teams Stroke Program Coordinator Relationship Specialty Start Date End Date Name, MD Juan [address] [place] [address] PCP - General Family Medicine 11/29/15 Daja Sigala PharmD [address] [place] [address] Pharmacist Internal Medicine 05/25/24 documented as of this encounter
--- OUTSIDE RECORDS SUMMARY | 2024-10-10 10:31 | XMS_ITS | Encounter Summary ---
Author Organization [employer] Address 75 [facility] 7t [place] [address] Care Team Providers Care Raw Material Handler Name Role Phone Name, Juan CERDA Primary Care Provider [phone] Daja Sigala PharmD Unavailable [phone] Reason for Visit * Reason Comments Hypertension Encounter Details Date Type Department Care Team ([facility] Contact Info) Description 09/12/2024 10:00 AM EST Office Visit [facility] [address] [place] [address] Name, MD Juan [address] [place] [address] Hypertension, unspecified type (Primary Dx); Acute insomnia [...] PRESSURE ONCE DAILY DIRECTED 1 kit 0 grajfuynty-opjbwqspjwktz-mrjjfjhc 50-325-40 MG tablet TAKE 1 TO 2 [...] 9:00 AM EDT Medication Management [facility] [address] [place] [address] Daja Sigala, MirnaD [address] [place] [address] documented as of this encounter Procedures Procedure Name Priority Date/Time Associated Diagnosis Comments BASIC METABOLIC PANEL Routine 09/26/2024 10:33 AM EST Hypertension, unspecified type documented in this encounter Results * (ABNORMAL) Basic Metabolic Panel (09/26/2024 10:33 AM EST) Sodium 140 135 - 145 mmol/L [facility] Potassium 4.3 3.3 - 5.1 mmol/L [facility] Chloride 112(H) 96 - 108 mmol/L [facility] Carbon Dioxide 24 22 - 29 mmol/L [facility] Anion Gap 8(L) 12 - 20 [facility] Urea Nitrogen (BUN) 19(H) 9 - 16 mg/dL [facility] Creatinine, Serum 0.74 0.5 - 1.4 mg/dL [facility] Estimated Glomerular Filt Rate >60 [facility] Comment:Chronic Kidney Disea se: Estimated GFR < 60 mL/min/1.38q1Jmqjrz Kidney Disease: Estimated GFR < 15 mL/min/1.73m2 Glucose 94 60 - 115 mg/dL [facility] Calcium 10.2 8.4 - 10.2 mg/dL [facility] Blood Venous blood specimen / Unknown 09/26/2024 10:33 AM EST 09/26/2024 1:02 PM EST Juan Lacy MD LAB BLOOD ORDERABLES Final Resul t [facility] [address] [place] [address] [phone] documented in this encounter Visit Diagnoses Diagnosis Hypertension, unspecified type- Primary Acute insomnia documented in this encounter Additional Health Concerns Assessment Noted Time PHQ-9 Depression Total Score: 2 01/07/20 24 11:51 AM EDT documented as of this encounter Care Teams Raw Material Handler Relationship Specialty Start Date End Date Name, MD Juan [address] [place] [address] PCP - General Family Medicine 11/29/15 Daja Sigala, MirnaD [address] [place] [phone] Pharmacist Internal Medicine 05/25/24 documented as of this encounter
--- OUTSIDE RECORDS SUMMARY | 2024-10-10 10:31 | XMS_ITS | Encounter Summary ---
Author Organization [employer] Address 75 [facility] 7t [place] [address] Care Team Providers Care Covering Machine Tender Name Role Phone Name, Juan CERDA Primary Care Provider [phone] Daja Sigala PharmD Unavailable [phone] Encounter Details Date Type Department Care Team (Late st Contact Info) Description 09/19/2024 Telephone [facility] [address] [place], [place] [phone] Tesha Clemens RN [address] [place], [place] [phone] Social History Tobacco Use Types Packs/Day Years [...] number. V/M left to return call to [facility] team nurses. documented in this encounter Plan of Treatment Upcoming Encounters Date Type Department Care Team (Late st Contact Info) Description 10/31/2024 9:00 AM EDT Medication Management [facility] [address] [place] [address] Daja Sigala PharmD [address] [place] [address] documented as of this encounter Visit Diagnoses Not on filedocumented in this encounter Additional Health Concerns Assessment Noted Time PHQ-9 Depression Total Score: 2 01/07/20 11:51 AM EDT documented as of this encounter Care Teams Covering Machine Tender Relationship Specialty Start Date End Date Name, MD Juan [address] [place] [address] PCP - General Family Medicine 11/29/15 Daja Sigala PharmD [address] [place] [phone] Pharmacist Internal Medicine 05/25/24 documented as of this encounter
--- OUTSIDE RECORDS SUMMARY | 2024-10-10 10:31 | XMS_ITS | Encounter Summary ---
Author Organization [employer] Address [address] [place] [address] 7t [place] [address] Care Team Providers Care Director Of Catering Name Role Phone Name, Juan CERDA Primary Care Provider [phone] Daja Sigala PharmD Unavailable [phone] Encounter Details Date Type Department Care Team (Late st Contact Info) Description 10/19/2022 Orders Only [facility] [address] [place] [address] Tamara Yi LPN Social History Tobacco Use [...] Medication Management [facility] [address] [place] [address] Daja Sigala, PharmD [address] [place] [address] documented as of this encounter Visit Diagnoses Not on filedocumented in this encounter Care Teams Director Of Catering Relationship Specialty Start Date End Date Name, MD Juan [address] [place] [address] PCP - General Family Medicine 11/29/15 Daja Sigala, MirnaD [address] [place] [phone] Pharmacist Internal Medicine 05/25/24 documented as of this encounter
[2024-10-10 11:36] LABS: MANUAL DIFF FLAG NO
[2024-10-10 11:53] LABS: Basophils Absolute Auto 0.1 X10*3/uL (0.0-0.2); Basophils Percent Auto 0.6 % (0-2); Eosinophils Absolute Auto 1.3 X10*3/uL (0.0-0.4); Eosinophils Percent Auto 16.7 % (0-4); Hematocrit 38.5 % (37.0-47.0); Hemoglobin 12.9 g/dl (12.0-16.0); Imm Gran Abs Auto 0.02 X10*3/uL (0.00-0.03); Imm Gran Pct Auto 0.3 % (0.0-0.4); Lymphocytes Percent Auto 26.2 % (20-40); Mean Corpuscular HGB Conc 33.5 g/dl (31.0-35.0); Mean Corpuscular Hemoglobin 29.5 pg (27.0-33.0); Mean Corpuscular Volume 87.9 fL (80.0-98.0); Mean Platelet Volume 12.6 fL (9.4-12.3); Monocytes Absolute Auto 0.4 X10*3/uL (0.1-1.2); Monocytes Percent Auto 5.6 % (2-11); Neutrophils Absolute Auto 3.9 x10*3/uL (2.0-8.3); Neutrophils Percent Auto 50.6 % (45-73); Platelet Count 250 X10*3/uL (160-400); Red Blood Count 4.38 X10*6/uL (4.20-5.50); Red Cell Distribution Width 12.9 % (11.0-16.0); White Blood Count 7.7 X10*3/uL (4.8-10.8)
[2024-10-10 12:22] LABS: Alanine Aminotransferase 19 U/L (0-31); Albumin Level 4.4 g/dL (3.5-5.0); Alkaline Phosphatase 155 U/L (39-117); Anion Gap 11 (12-20); Aspartate Amino Transferase 28 U/L (5-31); Bilirubin Total 0.4 mg/dL (0.0-1.0); Blood Urea Nitrogen 12 mg/dL (9-16); Calcium 10.3 mg/dL (8.4-10.2); Carbon Dioxide 26 mmol/L (22-29); Chloride 106 mmol/L (96-108); Estimated Glomerular Filt Rate > 60; Glucose Random 91 mg/dL (60-115); Lipase 14 U/L (8-78); Potassium 3.1 mmol/L (3.3-5.1); Sodium 140 mmol/L (135-145); Total Protein 7.9 g/dL (6.5-8.0)
== END 2024-10-10 09:27 | disposition home or self-care (01) ==
LOC: HO.HHCL 09:26
PROVIDERS: Visit Provider Internal Medicine Geriatric Medicine
DX: R10.13 Epigastric pain (principal); R11.0 Nausea
CPT/HCPCS: 36415; 80053; 83690; 85025

== ENCOUNTER → 2024-10-10 11:02 | Outpatient (BNV) | payer MEDICARE, MEDICAID, SELFPAY | PROVIDERS: PCP Internal Medicine Geriatric Medicine; Visit Provider Internal Medicine | DX: I49.1 Atrial premature depolarization (principal) | CPT/HCPCS: 93010 ==

== ENCOUNTER 2024-10-20 10:13 | Day surgery (SDC) | payer MEDICARE, SELFPAY ==
--- NOTE | 2024-10-10 | ECG_ITS ---
Test Reason : PREOP Blood Pressure : */* mmHG Vent. Rate : 63 BPM Atrial Rate : 63 BPM P-R Int : 140 ms QRS Dur : 92 ms QT Int : 412 ms P-R-T Axes : 52 15 53 degrees QTcB Int : 421 ms Sinus rhythm with Premature atrial complexes Otherwise normal ECG When compared with ECG of 15-Oct-2005 09:58, Premature atrial complexes present Referred By: Kaylee Bravo Electronically Signed By: YESSI CHISHOLM
--- NOTE | 2024-10-10 10:28 | HO.ANESPROP2 ---
Documented by User: Kaylee Bravo NP 10/19/24 12:15 HPI - Anesthesia Eval Consult details Narrative: 69yo F for Right Shoulder Arthroscopy, acromioplasty, clavicle excision, capsulary release, 10/20/24 BP elevated at PAT 177/83. Pt reports higher readings at home with SBP >190 yesterday. Pt called PCP yesterday but unclear on instructions regarding BP meds, stating was told to stop Metoprolol d/t GERD. Recommend PCP optimize BP/rx prior to elective surgery. Pt agrees with plan. EKG ordered. Labs done 09/26/24. Optimized per PCP. BP 150/92 at visit. Note states slightly above goal but overall stable and well controlled . No changes to BP rx. PMFSH Active Problems Active Problems: All Active Problems Impingement of right shoulder (Acute) Right shoulder pain (Acute) Hemorrhoids (Acute) Diverticulosis of colon (Acute) Acid reflux (Acute) HTN (hypertension) (Acute) Encounter for screening colonoscopy (Acute) Arthritis of right knee (Acute) Arthritis of left knee (Acute) Varicose veins of left lower extremity with inflammation (Acute) Osteoporosis (Acute) Vitamin D deficiency (Acute) Hyperparathyroidism (Acute) Past Medical History Medical History GERD (gastroesophageal reflux disease) Arthritis HTN (hypertension) Osteoporosis Vitamin D deficiency Hyperparathyroidism Family History Family History Father Colon cancer Mother Cancer Surgical History Surgical History History of esophagogastroduodenoscopy (EGD) Hx of colonoscopy History of Problems with Anesthesia: No Social History Social History Household Members: None Household Members Other:: alone Housing: House Are you a primary day care supervisor to a significant other at home: No Do you presently have visiting nurse or other home services: No Alcohol intake: never Patient Tobacco Use Status: Never used Tobacco e-Cigarette/Vaping Use: Never Used Use of substances other than those prescribed or required for medical reasons: No Have you been hit, kicked, punched, or otherwise hurt by someone within the past year? If so, by whom?: No Spiritual Healthcare Practices: none Gnosticist Healthcare Practices: none Cultural Healthcare Practices: none Are you DNR?: No Advance Directives: No Advance Directives Information Provided: Yes Advance Directives on File: No Recently lost weight without trying: Yes How much weight loss: 2-13 pounds Eating poorly because of decreased appetite: Yes Nutrition screen score: 4 Poor oral hygiene: No Meds Allergies Allergy/AdvReac Type Severity Reaction Status Date / Time sumatriptan [Imitrex] Allergy Unknown anaphylaxis Verified 10/20/24 10:40 Home Medications ?Medication ?Instructions ?Recorded ?Confirmed ?Last Taken ?Type butalbital 50 mg-acetaminophen 325 1 cap PO Q4H PRN Migraine Headache 06/26/20 10/10/24 Unknown History mg-caffeine 40 mg-codeine 30 mg cap lisinopril 20 mg tablet 20 mg PO DAILY 06/26/20 10/10/24 Unknown History amitriptyline 50 mg tablet 50 mg PO BEDTIME 11/15/20 10/10/24 Unknown History amlodipine 5 mg tablet 5 mg PO DAILY 07/02/22 10/10/24 10/20/24 History metoprolol tartrate 25 mg tablet 25 mg PO BID 08/30/23 09/26/24 Unknown History spironolactone 25 mg tablet 25 mg PO DAILY 06/26/24 10/10/24 Unknown History Exam Pertinent Lab Results Pertinent Lab Results: Laboratory Tests 10/10/24 09:28 WBC 7.7 Hgb 12.9 Hct 38.5 Plt Count 250 Sodium 140 Potassium 3.1 L D Chloride 106 Carbon Dioxide 26 BUN 12 Creatinine 0.75 Narrative Narrative: EKG 09/2024 Vent. Rate : 63 BPM Atrial Rate : 63 BPM P-R Int : 140 ms QRS Dur : 92 ms QT Int : 412 ms P-R-T Axes : 52 15 53 degrees QTcB Int : 421 ms Sinus rhythm with Premature atrial complexes Otherwise normal ECG When compared with ECG of 15-Oct-2005 09:58, Premature atrial complexes present ECHO 2023 Conclusions: - The left ventricular systolic function is normal. The calculated ejection fraction is 61% by biplane method. - There is mild septal asymmetric hypertrophy. - There is mild calcification of the aortic valve. - There is mild mitral annular calcification. - There is mild tricuspid valve regurgitation. - There is mild dilatation of the ascending aorta measuring 3.80 cm. Assessment and Plan Assessment Anesthesia Assessment: Anesthesia Plan Discussed and PAT Visit Final Anesthetic Review History of Problems with Anesthesia: No Documented by User: Hortencia Hinson MD 10/20/24 10:52 ON LICENSE OF [facility] Past Medical History Medical History GERD (gastroesophageal reflux disease) Arthritis HTN (hypertension) Osteoporosis Vitamin D deficiency Hyperparathyroidism Family History Family History Father Colon cancer Mother Cancer Family history of problems with anesthesia: No Surgical History Surgical History History of esophagogastroduodenoscopy (EGD) Hx of colonoscopy Social History Social History Household Members: None Household Members Other:: alone Housing: House Are you a primary day care supervisor to a significant other at home: No Do you presently have visiting nurse or other home services: No Alcohol intake: never Patient Tobacco Use Status: Never used Tobacco e-Cigarette/Vaping Use: Never Used Use of substances other than those prescribed or required for medical reasons: No Have you been hit, kicked, punched, or otherwise hurt by someone within the past year? If so, by whom?: No Spiritual Healthcare Practices: none Gnosticist Healthcare Practices: none Cultural Healthcare Practices: none Are you DNR?: No Advance Directives: No Advance Directives Information Provided: Yes Advance Directives on File: No Recently lost weight without trying: Yes How much weight loss: 2-13 pounds Eating poorly because of decreased appetite: Yes Nutrition screen score: 4 Poor oral hygiene: No Meds Allergies Allergy/AdvReac Type Severity Reaction Status Date / Time sumatriptan [Imitrex] Allergy Unknown anaphylaxis Verified 10/20/24 10:40 Home Medications ?Medication ?Instructions ?Recorded ?Confirmed ?Last Taken ?Type butalbital 50 mg-acetaminophen 325 1 cap PO Q4H PRN Migraine Headache 06/26/20 10/10/24 Unknown History mg-caffeine 40 mg-codeine 30 mg cap lisinopril 20 mg tablet 20 mg PO DAILY 06/26/20 10/10/24 Unknown History amitriptyline 50 mg tablet 50 mg PO BEDTIME 11/15/20 10/10/24 Unknown History amlodipine 5 mg tablet 5 mg PO DAILY 07/02/22 10/10/24 10/20/24 History metoprolol tartrate 25 mg tablet 25 mg PO BID 08/30/23 09/26/24 Unknown History spironolactone 25 mg tablet 25 mg PO DAILY 06/26/24 10/10/24 Unknown History Exam Airway Mallampati Class: II TM Dist: >3cm Neck ROM: Full Heart: rrr Lungs: cta Assessment and Plan Final Anesthetic Review Family History of Problems with Anesthesia: No NPO: Yes ASA Class: III Final Preanesthetic Review: No Changes in Pt Med Stat, Meds/Allgs Chart Reviewed, Consent Obtained/Reviewed and Anes Risks/Benef Reviewed Patient Risk: Intermediate Procedure Risk: Intermediate Anesthetic Plan Anesthetic Plan: GA and Regional Block Disposition: Standard PACU
[2024-10-10 10:31] VITALS: BP 177/83; PULSE 62; RESP 16; O2SAT 99; BMI 22.1
[2024-10-20] VITALS (9 sets, daily range): BP systolic 143–159; BP diastolic 66–92; PULSE 60–67; RESP 12–16; TEMP 36.1–36.6; O2SAT 97–98
[2024-10-20] MEDS: Lactated Ringers 1,000 ML 100 ML IVCONT (10:57)
[2024-10-20] MEDS: Acetaminophen 1,000 MG/100 ML PIGGYBACK 400 MG IV (12:30)
[2024-10-20] MEDS: ceFAZolin Sodium/Dextrose,Iso 2 GM/50 ML PIGGYBACK IV (12:30)
--- NOTE | 2024-10-20 13:53 | PM.OP ---
Brief Operative Note Date of Service: 10/20/24 Pre-op diagnosis: Right shoulder impingement syndrome, right shoulder acromioclavicular joint arthritis, right shoulder adhesive capsulitis Post-op diagnosis: same Procedure: Right shoulder diagnostic arthroscopy with right shoulder arthroscopic distal clavicle excision, right shoulder arthroscopic acromioplasty, right shoulder arthroscopic anterior capsular release, right shoulder manipulation under anesthesia Implants: none Surgeon: Bhavesh Montiel MD Anesthesia: GETA and regional Was an Knowledge Manager used for this Procedure?: No Estimated blood loss (mL): 15 Pathology: none sent Condition: stable Disposition: PACU
--- NOTE | 2024-10-20 13:54 | P.OP_ITS ---
Operative Note Operative Note Date of Service: 10/20/24 Narrative: After the patient was identified as Catalina Florian and her right shoulder was initialed by myself the patient was brought to the holding area where a right shoulder interscalene regional block was performed by the anesthesiologist in routine fashion. The patient was then brought to the operating room where general anesthesia was induced by the anesthesiologist in routine fashion. The patient was given 2 g of IV Ancef preoperatively for infection prophylaxis. Examination under anesthesia of the patient's right shoulder showed decreased passive range of motion when compared to the left shoulder. The patient's right shoulder had passive forward flexion to 140 degrees compared to 170 degrees, external rotation to 40 degrees compared to 70 degrees, and internal rotation to 40 degrees compared to 50 degrees. The patient was gently positioned in the beach chair position with all bony prominences well padded. The patient's right shoulder region and upper extremity were prepped and draped in sterile fashion. A formal time-out was completed. A #11 scalpel blade was used to make a posterior portal 2 cm inferior and 1 cm medial to the posterolateral corner of the acromion. Blunt trocar technique was used to enter the glenohumeral joint in routine fashion. An anterior portal was made just lateral to the coracoid process after proper positioning was confirmed using a spinal needle. Diagnostic arthroscopy showed minimal degenerative changes of the glenoid and humeral head articular surfaces. There was no evidence of rotator cuff tearing. There was no evidence of injury to the biceps tendon or its insertion onto the glenoid. There was inflammation of the anterior joint capsule consistent with adhesive capsulitis. The ArthroCare Wand was then used to perform an anterior capsular release between the inferior border of the biceps tendon and the superior border of the subscapularis tendon. The arthroscope was then placed from the posterior portal into the subacromial space. A lateral portal was made 2 fingerbreadths lateral to the anterior lateral corner of the acromion. The ArthroCare Wand was used to ablate soft tissues along the undersurface of the acromion as well as to excise the coracoacromial ligament. There was a sharp spur along the undersurface of the acromion which was removed using the hooded bur. The arthroscope was then placed into the lateral portal and the acro mioplasty was completed with the bur in the posterior portal using the posterior aspect of the acromion as a cutting block. The ArthroCare Wand was then brought in through the anterior portal and was used to ablate soft tissues along the acromioclavicular joint and distal clavicle. The posterior and superior ligamentous structures were left intact. A distal clavicle excision of 8 mm was performed using the fluted bur. Any remaining bursal tissue was removed using the arthroscopic shaver. The subacromial space was irrigated and then drained. All arthroscopic instruments were removed. A gentle manipulation under anesthesia was then performed. Full passive range of motion was easily attained. The 3 portals were closed with 3-0 nylon interrupted suture. The subacromial space was injected with Marcaine. Dry sterile dressing was placed over all incisions. The patient's right upper extremity was placed into a sling. The patient was awoken and extubated in the operating room. The patient was transferred to the recovery room in stable condition.
[2024-10-20] MEDS: cefTRIAXone sodium 1 GM VIAL IVPUSH (14:30)
== END 2024-10-20 15:38 | disposition home or self-care (01) ==
PROVIDERS: PCP Internal Medicine Geriatric Medicine; Visit Provider Orthopaedic Surgery
PROC: (CPT 29805; principal; 2024-10-20 13:10)
DX: M75.41 Impingement syndrome of right shoulder (principal); M75.01 Adhesive capsulitis of right shoulder; M19.011 Primary osteoarthritis, right shoulder; M25.511 Pain in right shoulder; M25.611 Stiffness of right shoulder, not elsewhere classified; M81.0 Age-related osteoporosis without current pathological fracture; I10 Essential (primary) hypertension; E55.9 Vitamin D deficiency, unspecified; E21.3 Hyperparathyroidism, unspecified; Z79.899 Other long term (current) drug therapy; Z88.8 Allergy status to other drugs, medicaments and biological substances
CPT/HCPCS: 29824; 29825; 29826; 93005; J0131; J0171; J0665; J0690; J0696; J1100; J2003; J2250; J2405; J2704; J2795; J3010

== ENCOUNTER → 2024-10-20 10:13 | Outpatient (BNV) | payer MEDICARE, SELFPAY | PROVIDERS: PCP Internal Medicine Geriatric Medicine; Visit Provider Orthopaedic Surgery | DX: M75.41 Impingement syndrome of right shoulder (principal); M19.011 Primary osteoarthritis, right shoulder; M75.01 Adhesive capsulitis of right shoulder | CPT/HCPCS: 29824; 29826 ==

== ENCOUNTER 2024-11-01 10:06 | Outpatient (AMB) | payer MEDICARE, MEDICAID, SELFPAY ==
--- NOTE | 2024-11-01 10:17 | MHC.OFFVIS ---
Intake Visit Reasons: PO RT shoulder 10/20/24 Intake Note: Catalina is a 69 year old female who presents today for a post operative visit s/p right shoulder DOS: 10/20/24 w/ . Patient reports her current pain level is a 5-6 out of 10. She is questioning if sutures will be removed today. [employer] Waste Chopper Services: Waste And Batting Waste Chopper Present Waste And Batting Waste Chopper Name: Sander ID#[id number] Allergies sumatriptan [Imitrex] Allergy (Unknown, Verified 11/01/24 10:33) anaphylaxis Medication List - Last Reconciled 11/01/24 by Peter Arroyo PA-C amitriptyline 50 mg PO BEDTIME amlodipine 5 mg PO DAILY muhbfpqgew-iwzfebbuwg-iav-cod [id number] mg 1 cap PO Q4H PRN lisinopril 20 mg PO DAILY metoprolol tartrate 25 mg PO BID oxycodone 10 mg (2 x 5 mg) PO Q4H PRN pantoprazole 20 mg PO QAM PRN 30 days spironolactone 25 mg PO DAILY tramadol 50 mg PO Q12H PRN HPI HPI PO RT shoulder 10/20/24 DR: Details: 69-year-old female returns to the office today status post right shoulder arthroscopy on 10/20/[address] Montiel. [facility] Medical History GERD (gastroesophageal reflux disease) Arthritis HTN (hypertension) Osteoporosis Vitamin D deficiency Hyperparathyroidism Surgical History History of esophagogastroduodenoscopy (EGD) Hx of colonoscopy Family History Father Colon cancer Mother Cancer Social History Household Members: None Household Members Other:: alone Housing: House Are you a primary child day care center worker to a significant other at home: No Do you presently have visiting nurse or other home services: No Alcohol intake: never Patient Tobacco Use Status: Never used Tobacco e-Cigarette/Vaping Use: Never Used Review of Systems Const All systems reviewed & are unremarkable except as noted in HPI and below Physical Exam Extrem Other: Right shoulder incision clean dry and intact. No erythema no ecchymosis. Sensation intact. Results Reviewed Results Reviewed: Date of Service: 10/20/24 Pre-op diagnosis: Right shoulder impingement syndrome, right shoulder acromioclavicular joint arthritis, right shoulder adhesive capsulitis Post-op diagnosis: same Procedure: Right shoulder diagnostic arthroscopy with right shoulder arthroscopic distal clavicle excision, right shoulder arthroscopic acromioplasty, right shoulder arthroscopic anterior capsular release, right shoulder manipulation under anesthesia Implants: none Surgeon: Bhavesh Montiel MD Assessment & Plan Assessment & Plan (1) Impingement of right shoulder: Code(s): M25.811 - Other specified joint disorders, right shoulder Category: Medical Plan: Sutures removed today Steri-Strips applied. She was given an order for physical therapy to work on range of motion rotator cuff and periscapular stabilization. She will limit heavy lifting or repetitive motion for the next 4-6 weeks and she can slowly increase activities as tolerated. I did give her a refill for oxycodone to take q.h.s.. She will see us back in [address] Montiel sooner if needed. Orders: Orders PT Evaluation and Treatment Today M25.811 - Other specified joint disorders, right shoulder Coding Level of Care Code Global (79633) Diagnoses Impingement of right shoulder M25.811
--- OUTSIDE RECORDS SUMMARY | 2024-11-01 11:42 | XMS_ITS | Encounter Summary ---
Author Organization [employer] Address [address] [facility] 7t [place] [address] Care Team Providers Care Maintenance Porter Name Role Phone Name, Juan CERDA Primary Care Provider [phone] Daja Sigala PharmD Unavailable [phone] Encounter Details Date Type Department Care Team (Latest Contact Info) Description 10/31/2024 Travel Social History Tobacco Use Types Packs/Day Years Used Date Smoking Tobacco: Never Passive Smoke Exposure: Never Smokeless Tobacco: Never Alcohol Use Standard [...] Recorded Patient Health Questionnaire-2 Score 0 01/07/2024 Internet Access Answer Date Recorded Internet Access Q1 Yes 10/18/2024 Internet Access Q2 Not on file 10/18/2024 Comments Unknown Sex and Gender Information Value Date Recorded Sex Assigned at Female 06/15/2022 10:18 AM EDT Legal Sex Female 10:18 AM EDT Gender Identity Female 06/15/2022 10:18 AM EDT Sexual Orientation Don't know 06/15/2022 10 :18 AM EDT documented as of this encounter Plan of Treatment Upcoming Encounters Date Type Department Care Team (Late st Contact Info) Description 11/07/2024 9:00 AM EDT Medication Management [address] [address] JoselyniaDaja, PharmD [address] [place] [address] 12/12/2024 9:00 AM EDT Medication Management [address] [address] Daja Sigala, PharmD [address] [place] [address] 12/18/2024 10:45 AM EDT Office Visit [address] [address] NameJuan MD [address] [place] [address] documented as of this encounter Visit Diagnoses Not on filedocumented in this encounter Additional Health Concerns Assessment Noted Time PHQ-9 Depression Total Score: 2 01/07/20 24 11:51 AM EDT documented as of this encounter Care Teams Maintenance Porter Relationship Specialty Start Date End Date Juan Lacy MD [address] [place] [address] PCP - General Family Medicine 11/29/15 Daja Sigala, PharmD [address] [place] [address] Pharmacist Internal Medicine 05/25/24 documented as of this encounter
--- OUTSIDE RECORDS SUMMARY | 2024-11-01 11:42 | XMS_ITS | Encounter Summary ---
Author Organization [employer] Address [address] [place] [address] 7t [place] [address] Care Team Providers Care Clean Room Assembler Name Role Phone Name, Juan CERDA Primary Care Provider [phone] Daja Sigala PharmD Unavailable [phone] Encounter Details Date Type Department Care Team (Late Contact Info) Description 01/08/2023 Abstract [facility] [address] [place] [address] [phone] Name, MD Juan [address] [place] [address] Social History Tobacco Use Types Packs/Day Years [...] Department Care Team (Late Contact Info) Description 11/07/2024 9:00 AM EDT Medication Management [facility] [address] [place] [address] [phone] Daja Sigala PharmD [address] [place] [address] 12/12/2024 9:00 AM EDT Medication Management [facility] [address] [place] [address] Daja Sigala PharmD [address] [place] [address] 12/18/2024 10:45 AM EDT Office Visit [address] [address] NameJuan MD [address] [place] [address] documented as of this encounter Visit Diagnoses Not on filedocumented in this encounter Additional Health Concerns Assessment Noted Time PHQ-9 Depression Total Score: 6 12/10/19 23 4:19 PM EDT documented as of this encounter Care Teams Clean Room Assembler Relationship Specialty Start Date End Date NameJuan MD [address] [place] [address] PCP - General Family Medicine 11/29/15 Daja Sigala PharmD [address] [place] [address] Pharmacist Internal Medicine 05/25/24 documented as of this encounter
--- OUTSIDE RECORDS SUMMARY | 2024-11-01 11:42 | XMS_ITS | Encounter Summary ---
Author Organization [employer] Address [address] [facility] 7t [place] [address] Care Team Providers Care Telephone Claims Representative Name Role Phone Name, Juan CERDA Primary Care Provider [phone] Daja Sigala PharmD Unavailable [phone] Reason for Visit * Reason Onset Date Comments Med Refill 10/12/2024 Encounter Details Date Type Department Care Team (Late st Contact Info) Description 10/12/2024 Refill [facility] [address] [place], [place] [phone] Name, MD Juan [address] [place] [address] Social History Tobacco Use Types Packs/Day Years [...] encounter Miscellaneous Notes * Telephone Encounter - Tamara Yi LPN - 10/12/2024 9:21 AM EST METAL BUFFER checked on 10/12/24. Last seen 10/09/24. Omeprazole was discontinued. * Telephone Encounter - Horace Moore - 10/12/2024 9:13 AM EST TC from pt requesting medication refill. Medications needing refill : omeprazole (PriLOSEC) [address] capsule zolpidem (Ambien) 5 MG tablet To be sent to: [facility] [address] [place] [address] documented in this encounter Plan of Treatment Upcoming Encounters Date Type Department Care Team (Late st Contact Info) Description 11/07/2024 9:00 AM EDT Medication Management [facility] [address] [place] [address] Daja Sigala, PharmD [address] [place] [address] 12/12/2024 9:00 AM EDT Medication Management [facility] [address] [place] [address] PuDaja guzmán PharmD [address] [place] [address] 12/18/2024 10:45 AM EDT Office Visit [facility] [address] [place] [address] Name, MD Juan [address] [place] [address] documented as of this encounter Visit Diagnoses Not on filedocumented in this encounter Additional Health Concerns Assessment Noted Time PHQ-9 Depression Total Score: 2 01/07/20 11:51 AM EDT documented as of this encounter Care Teams Telephone Claims Representative Relationship Specialty Start Date End Date Name, MD Juan [address] [place] [address] PCP - General Family Medicine 11/29/15 Daja Sigala PharmD [address] [place] [address] Pharmacist Internal Medicine 05/25/24 documented as of this encounter
--- OUTSIDE RECORDS SUMMARY | 2024-11-01 11:42 | XMS_ITS | Encounter Summary ---
Author Organization [employer] Address [address] [facility] 7t [place] [address] Care Team Providers Care Windows Deployment Technician Name Role Phone Name, Juan CERDA Primary Care Provider [phone] Daja Sigala PharmD Unavailable [phone] Encounter Details Date Type Department Care Team (Late st Contact Info) Description 10/31/2024 Refill [facility] [address] [place], [place] [phone] Daja Sigala, PharmD [address] [place] [address] Migraine without aura and with status migrainosus, not intractable (Primary Dx); Epigastric pain; Nausea without vomiting; Heartburn Social History Tobacco Use Types Packs/Day Years [...] encounter Miscellaneous Notes * Telephone Encounter - Daja Sigala PharmD - 10/31/2024 12:50 PM EDT Patient to start MB with [facility] pharmacy next week. Refills needed and pended to PCP today documented in this encounter Plan of Treatment Upcoming Encounters Date Type Department Care Team (Late st Contact Info) Description 11/07/2024 9:00 AM EDT Medication Management [facility] [address] [place] [address] Daja Sigala PharmD [address] [place] [address] 12/12/2024 9:00 AM EDT Medication Management [facility] [address] [place] [address] Daja Sigala PharmD [address] [place] [address] 12/18/2024 10:45 AM EDT Office Visit [facility] [address] [place] [address] [phone] Name, MD Juan [address] [place] [address] documented as of this encounter Visit Diagnoses Diagnosis Migraine without aura and with status migrainosus, not intractable- Primary Epigastric pain Abdominal pain, epigastric Nausea without vomiting Heartburn documented in this encounter Additional Health Concerns Assessment Noted Time PHQ-9 Depression Total Score: 2 01/07/20 24 11:51 AM EDT documented as of this encounter Care Teams Windows Deployment Technician Relationship Specialty Start Date End Date Name, MD Juan [address] [place] [address] PCP - General Family Medicine 11/29/15 Daja Sigala PharmD [address] [place] [address] Pharmacist Internal Medicine 05/25/24 documented as of this encounter
--- OUTSIDE RECORDS SUMMARY | 2024-11-01 11:42 | XMS_ITS | Encounter Summary ---
Author Organization [employer] Address [address] [facility] 7t [place] [address] Care Team Providers Care Type Inspector Name Role Phone Name, Juan CERDA Primary Care Provider [phone] Daja Sigala PharmD Unavailable [phone] Reason for Visit * Reason Onset Date Comments Call Back Request 10/20/2023 Encounter Details Date Type Department Care Team ([facility] st Contact Info) Description 10/20/2023 Telephone [facility] 230 [place], [place] [phone] Name, MD Juan [address] [place] [address] Call Back Request Social History Tobacco Use [...] Description 11/07/2024 9:00 AM EDT Medication Management [facility] [address] [place] [address] Puia, Daja, PharmD [address] [place] [address] 12/12/2024 9:00 AM EDT Medication Management [address] [address] Puia, Daja, PharmD [address] [place] [address] 12/18/2024 10:45 AM EDT Office Visit [facility] [address] [place] [address] Name, MD Juan [address] [place] [address] documented as of this encounter Visit Diagnoses Not on filedocumented in this encounter Additional Health Concerns Assessment Noted Time PHQ-9 Depression Total Score: 6 12/10/19 23 4:19 PM EDT documented as of this encounter Care Teams Type Inspector Relationship Specialty Start Date End Date Name, MD Juan [address] [place] [address] PCP - General Family Medicine 11/29/15 Daja Sigala, Zachary [address] [place] [address] Pharmacist Internal Medicine 05/25/24 documented as of this encounter
--- OUTSIDE RECORDS SUMMARY | 2024-11-01 11:42 | XMS_ITS | Encounter Summary ---
Author Organization [employer] Address [address] [facility] 7t [place] [address] Care Team Providers Care Health Care Facilities Inspector Name Role Phone Name, Juan CERDA Primary Care Provider [phone] Daja Sigala PharmD Unavailable [phone] Reason for Visit * Reason Onset Date Comments Nurse Triage 10/09/2024 Encounter Details Date Type Department Care Team ([facility] st Contact Info) Description 10/09/2024 Telephone [facility] [address] [place], [place] [phone] Name, MD Juan [address] [place] [address] Nurse Triage Social History Tobacco Use Types [...] your housing situation today? I have sandhya sing 01/07/[address] you li [...] 10/09/2024 4:00 PM Juan Lacy MD MEDICINE [facility] 10/31/2024 9:00 AM Daja Sigala PharmD [facility] Insurance verified as active per Real Time Eligibility in [facility]. Video visit offer not recorded Positive Triage [...] RN - 10/09/2024 1:03 PM EST No management architect needed as this pattern chart writer speaks Kazakh. Call returned to Catalina Florian x 2 for triage below. No answer LVM to return call to [facility] triage line [phone]. Reviewed [facility] operating hours and that wait times vary. * Telephone Encounter - Luz Marroquin - 10/09/2024 1:00 PM EST Tc from pt returning phone call. * Telephone Encounter - Shahrzad Jose RN - 10/09/2024 10:48 AM EST Triage call with [facility] Construction Plant Operator [place] [id number]. Triage call placed x2 with out answer. Left voice message to call [facility] [phone] at Pt convenience. * Telephone Encounter - Luz Marroquin - 10/09/2024 10:18 AM EST Symptoms: High Blood Pressure - Caller Reports, Vomiting, Headache, Dizziness, Colds Outcome: Schedule an urgent appointment (within 1 hour) or talk to a nurse or provider soon Reason: Getting worse *pt states b/p reading 179/89 The caller accepted this outcome. [phone] chinese documented in this encounter Plan of Treatment Upcoming Encounters Date Type Department Care Team (Late st Contact Info) Description 11/07/2024 9:00 AM EDT Medication Management [facility] [address] [place] [phone] Daja Sigala PharmD [address] [facility] [place] [address] 12/12/2024 9:00 AM EDT Medication Management [facility] [address] [place], [place] [address]ir[address] [place] [address] Daja Sigala PharmVianca [address] [facility] [place] [address] 12/18/2024 10:45 AM EDT Office Visit [facility] [place] [address] Name, MD Juan [facility] [place] [address] documented as of this encounter Visit Diagnoses Not on filedocumented in this encounter Additional Health Concerns Assessment Noted Time PHQ-9 Depression Total Score: 2 01/07/20 11:51 AM EDT documented as of this encounter Care Teams Health Care Facilities Inspector Relationship Specialty Start Date End Date Name, MD Juan [facility] [place] [address] PCP - General Family Medicine 11/29/15 Daja Sigala PharmD [address] [place] [address] Pharmacist Internal Medicine 05/25/24 documented as of this encounter
--- OUTSIDE RECORDS SUMMARY | 2024-11-01 11:42 | XMS_ITS | Encounter Summary ---
Author Organization [employer] Address [address] [facility] 7t [place] [address] Care Team Providers Care Network Firewall Engineer Name Role Phone Name, Juan CERDA Primary Care Provider [phone] Daja Sigala PharmD Unavailable [phone] Reason for Visit * Reason Onset Date Comments Call Back Request 10/16/2024 Encounter Details Date Type Department Care Team ([facility] st Contact Info) Description 10/16/2024 Telephone [facility] 230 [place], [place] [phone] Name, MD Juan 230 [place] [address] Call Back Request Social History Tobacco Use [...] encounter Miscellaneous Notes * Telephone Encounter - Edyta Herman RN - 10/17/2024 11:11 AM EST front desk manager reports pt is here requesting pre-op appt with PCP for surgical clearance. Pt arrived without surgeon information and was requested to go home and bring it back to office. Pt came back with surgeon contact information and pt was asked to wait in waiting room for further updated. Pt agreed and tc was made to [facility] orthopedics in regards to this. Viri ( surgeon master scheduler) answered reports pt has has Right shoulder Arthroscopy scheduled for 10/20/24. Pt had an pre admission appt with the Nurse manager biologics who reports concerns for elevated BP and wants clearance prior to surgery. They stated they were considering canceling the surgery to reschedule if pt was not bale to get clearance. I nformed them spoke with our master scheduler who was able to give pt an appt for today at 1:30 pm with BONNIE Rogel and will call back to let them know. Viri expressed understanding and informed pt of appt. Pt reports they cannot do the appt today reports tomorrow or will be a better option for them. Discussed with Lorena again and was given another appt for tomorrow at 9 am with on of our GROUND HOST/HOSTESS resident. Pt agreed with plan and scheduled with Akilah Solis NP for pre-op. Last ov note has been faxed over to us and placed in covering provider folder on their desk for review. Date of Surgery: 10/20/24 Surgical Procedure being done: Right Shoulder Arthroscopy Surgeon name: Dr. Bhavesh Montiel Type of Anesthesia: General Surgeon office contact info: phone number [phone] fax: [phone] and Viri ( University Counselor) Labs needed: No they already have recent labs Procedures needed: No they already have recent EKG Last office note requested: Yes * Telephone Encounter - Katt Guajardo RN - 10/16/2024 2:06 PM EST TC placed to pt and LVM to call back the office regarding scheduling pre operative appt * Telephone Encounter - Justus Bruce - 10/16/2024 1:09 PM EST Pt returning call ./ pt states finding it difficult time picking up when calling with electrical engineering technician line Pt unclear if needs a pre-op or just a B/p check * Telephone Encounter - Katt Guajardo RN - 10/16/2024 12:14 PM EST TC placed to pt with S electrical engineering technician #[id number] who left a VM for the pt to call back the office * Telephone Encounter - Marline Deutsch PharmD - 10/16/2024 10:00 AM EST Please review; uncertain if they are looking for a pre-op apt? * Telephone Encounter - Luz Antonio Marroquin - 10/16/2024 9:45 AM EST Tc from pt stating she has shoulder surgery scheduled for October 23, Pt states needs an appt before 10/23 with Daja to verify that his blood pressure is okay, if not, they will cancel his surgery. Any questions contact pt. [phone] khmer documented in this encounter Plan of Treatment Upcoming Encounters Date Type Department Care Team ([facility] st Contact Info) Description 11/07/2024 9:00 AM EDT Medication Management [facility] [address] [place] [address] Daja Sigala PharmD [address] [place] [address] 12/12/2024 9:00 AM EDT Medication Management [address] [address] Daja Sigala PharmD [address] [place] [address] 12/18/2024 10:45 AM EDT Office Visit [address] [address] Name, MD Juan [address] [place] [address] documented as of this encounter Visit Diagnoses Not on filedocumented in this encounter Additional Health Concerns Assessment Noted Time PHQ-9 Depression Total Score: 2 01/07/20 24 11:51 AM EDT documented as of this encounter Care Teams Network Firewall Engineer Relationship Specialty Start Date End Date NameJuan MD [address] [place] [address] PCP - General Family Medicine 11/29/15 Daja Sigala, MirnaD [address] [place] [address] Pharmacist Internal Medicine 05/25/24 documented as of this encounter
--- OUTSIDE RECORDS SUMMARY | 2024-11-01 11:42 | XMS_ITS | Encounter Summary ---
Author Organization [employer] Address 75 [facility] 7t [place] [address] Care Team Providers Care Timber Watchman Name Role Phone Name, Juan CERDA Primary Care Provider [phone] Daja Sigala PharmD Unavailable [phone] Reason for Visit * Reason Comments Med Refill Encounter Details Date Type Department Care Team ([facility] st Contact Info) Description 08/03/2024 Refill [facility] 230 [place], [place] [phone] Name, MD Juan 230 [place] [address] Social History Tobacco Use Types Packs/Day Years [...] Description 11/07/2024 9:00 AM EDT Medication Management [facility] [address] [place] [address] Daja Sigala, PharmD [address] [place] [address] 12/12/2024 9:00 AM EDT Medication Management [address] [address] JoselyniaDaja, PharmD [address] [place] [address] 12/18/2024 10:45 AM EDT Office Visit [address] [address] NameJuan MD [address] [place] [address] documented as of this encounter Visit Diagnoses Not on filedocumented in this encounter Additional Health Concerns Assessment Noted Time PHQ-9 Depression Total Score: 2 01/07/20 24 11:51 AM EDT documented as of this encounter Care Teams Timber Watchman Relationship Specialty Start Date End Date Juan Lacy MD [address] [place] [address] PCP - General Family Medicine 11/29/15 Daja Sigala, PharmD [address] [place] [address] Pharmacist Internal Medicine 05/25/24 documented as of this encounter
--- OUTSIDE RECORDS SUMMARY | 2024-11-01 11:42 | XMS_ITS | Encounter Summary ---
Author Organization [employer] Address [address] [facility] 7t [place] [address] Care Team Providers Care Phlebotomy Lab Assistant Name Role Phone Name, Juan CERDA Primary Care Provider [phone] Daja Sigala PharmD Unavailable [phone] Encounter Details Date Type Department Care Team (Latest Contact Info) Description 10/18/2024 Travel Social History Tobacco Use Types Packs/Day [...] Description 11/07/2024 9:00 AM EDT Medication Management [address] [address] JoselyniaDaja, PharmD [address] [place] [address] 12/12/2024 9:00 AM EDT Medication Management [address] [address] Daja Sigala, PharmD [address] [place] [address] 12/18/2024 10:45 AM EDT Office Visit [address] [address] NameJuan MD [address] [place] [address] documented as of this encounter Visit Diagnoses Not on filedocumented in this encounter Additional Health Concerns Assessment Noted Time PHQ-9 Depression Total Score: 2 01/07/20 24 11:51 AM EDT documented as of this encounter Care Teams Phlebotomy Lab Assistant Relationship Specialty Start Date End Date Juan Lacy MD [address] [place] [address] PCP - General Family Medicine 11/29/15 Daja Sigala, PharmD [address] [place] [address] Pharmacist Internal Medicine 05/25/24 documented as of this encounter
--- OUTSIDE RECORDS SUMMARY | 2024-11-01 11:42 | XMS_ITS | Encounter Summary ---
Author Organization [employer] Address [address] [place] [address] 7t [place] [address] Care Team Providers Care Guzzler Builder Name Role Phone Name, Juan CERDA Primary Care Provider Daja Sigala PharmD Unavailable [phone] Reason for Visit * Reason Onset Date Comments Prior Authorization 01/08/2023 Encounter Details Date Type Department Care Team (Late st Contact Info) Description 01/08/2023 Telephone [facility] [address] [place], [place] [phone] Name, MD Juan [address] [place] [address] Prior Authorization Social History Tobacco Use Types [...] 10:48 AM EDT Tc grupo Strong from [facility] pharmacy requesting a PA for medication elavil 50 mg . documented in this encounter Plan of Treatment Upcoming Encounters Date Type Department Care Team (Late st Contact Info) Description 11/07/2024 9:00 AM EDT Medication Management [address] [address] Daja Sigala PharmD [address] [place] [address] 12/12/2024 9:00 AM EDT Medication Management [address] [address] Daja Sigala PharmD [address] [place] [address] 12/18/2024 10:45 AM EDT Office Visit [address] [address] Name, MD Juan [address] [place] [address] documented as of this encounter Visit Diagnoses Not on filedocumented in this encounter Additional Health Concerns Assessment Noted Time PHQ-9 Depression Total Score: 6 12/10/19 23 4:19 PM EDT documented as of this encounter Care Teams Guzzler Builder Relationship Specialty Start Date End Date Name, MD Juan [address] [place] [address] PCP - General Family Medicine 11/29/15 Daja Sigala, PharmD [address] [place] [address] Pharmacist Internal Medicine 05/25/24 documented as of this encounter
--- OUTSIDE RECORDS SUMMARY | 2024-11-01 11:42 | XMS_ITS | Encounter Summary ---
Author Organization [employer] Address [address] [facility] 7t [place] [address] Care Team Providers Care Golf Cart Mechanic Name Role Phone Name, Juan CERDA Primary Care Provider [phone] aDja Sigala PharmD Unavailable [phone] Reason for Visit * Reason Onset Date Comments Error (VOID this visit) 10/17/2024 Encounter Details Date Type Department Care Team ([facility] st Contact Info) Description 10/17/2024 Telephone [facility] MEDICINE [address] [place] [address] Edyta Herman, OREN Error (VOID this visit) Social History Tobacco Use Types Packs/Day Years [...] Description 11/07/2024 9:00 AM EDT Medication Management [address] [address] Daja Sigala PharmD [address] [place] [address] 12/12/2024 9:00 AM EDT Medication Management [address] [address] Daja Sigala, PharmD [address] [place] [address] 12/18/2024 10:45 AM EDT Office Visit [facility] MEDICINE [address] [place] [address] Juan Lacy MD [address] [place] [address] documented as of this encounter Visit Diagnoses Not on filedocumented in this encounter Additional Health Concerns Assessment Noted Time PHQ-9 Depression Total Score: 2 01/07/20 24 11:51 AM EDT documented as of this encounter Care Teams Golf Cart Mechanic Relationship Specialty Start Date End Date Juan Lacy MD [address] [place] [address] PCP - General Family Medicine 11/29/15 Daja Sigala, Zachary [address] [place] [address] Pharmacist Internal Medicine 05/25/24 documented as of this encounter
--- OUTSIDE RECORDS SUMMARY | 2024-11-01 11:42 | XMS_ITS | Encounter Summary ---
Author Organization [employer] Address [address] [facility] 7t [place] [address] Care Team Providers Care Tool Grinder Operator External Name Role Phone Name, Juan CERDA Primary Care Provider [phone] Daja Sigala PharmD Unavailable [phone] Encounter Details Date Type Department Care [...] Description 11/07/2024 9:00 AM EDT Medication Management [facility] [address] JoselyniaDaja, PharmD [facility] [place] [address] 12/12/2024 9:00 AM EDT Medication Management [place] [place] [address] D[place] [address] 12/18/2024 10:45 AM EDT Office Visit [facility] [place] [address] Name, [place] [address] documented as of this encounter Visit Diagnoses Not on filedocumented in this encounter Additional Health Concerns Assessment Noted Time PHQ-9 Depression Total Score: 2 01/07/20 11:51 AM EDT documented as of this encounter Care Teams Tool Grinder Operator External Relationship Specialty Start Date End Date Name, [place] [address] PCP - General Family Medicine 11/29/15 Daja Sigala, [place] [address] Pharmacist Internal Medicine 05/25/24 documented as of this encounter
--- OUTSIDE RECORDS SUMMARY | 2024-11-01 11:42 | XMS_ITS | Encounter Summary ---
Author Organization [employer] Address [address] [facility] 7t [place] [address] Care Team Providers Care Web Interface Developer Name Role Phone Name, Juan CERDA Primary Care Provider [phone] Daja Sigala PharmD Unavailable [phone] Reason for Visit * Reason Comments Pre-op Exam Encounter Details Date Type Department Care Team ([facility] st Contact Info) Description 10/18/2024 9:00 AM EST Office Visit [facility] MEDICINE [address] [place], [place] [phone] Akilah Solis FNP [address] [place], [place] [phone] Preop examination (Primary Dx); Essential hypertension; SILVERIO (obstructive sleep apnea); Hypertension, unspecified type Social History Tobacco Use Types Packs/Day Years Used Date Smoking Tobacco: Never Passive Smoke Exposure: Never Smokeless Tobacco: Never Tobacco Cessation:Counseling Given: [...] Sign Reading Time Taken Comments Blood Pressure 150/92 10/18/2024 9:09 AM EST Pulse 54 10/18/2024 8:52 AM EST Temperature 36.5 ??C (97.7 ??F) 10/18/2024 8:52 AM ES T Respiratory Rate 19 10/18/2024 8:52 AM EST Oxygen Saturation - - Inhaled Oxygen Concentration - - Weight 56.8 kg (125 lb 4 oz) 10/18/2024 8:52 AM EST Height 162.6 cm (5' 4 ) 10/18/2024 8:52 AM EST Body Mass Index 21.5 10/18/2024 8:52 AM EST documented in this encounter Progress Notes * Akilah Solis, RIC - 10/18/2024 9:00 AM EST Catalina Florian is a 69 y.o. year old female patient who presents for preop evaluation' Date of Surgery: 10/20/24 Surgical Procedure being done: Right Shoulder Orthoroscopy Surgeon name: Dr. Bhavesh Montiel Type of Anesthesia: General Surgeon office contact info: phone number [phone] fax: [phone] and Viri ( Suspect Artist Supervisor) Labs needed: No Procedures needed: No Cardiac Risk History of ischemic heart disease: NO (history of myocardial infarction or a positive exercise test, current complaint of chest pain considered to be secondary to myocardial ischemia, use of nitrate therapy, or ECG with pathological Q waves): History of heart failure: NO History of cerebrovascular disease: NO Diabetes mellitus requiring treatment with insulin: NO Preoperative serum creatinine >2.0 mg/dL : NO Activity tolerance >4 METS: YES climb up a flight of stairs, walk up a hill, walk at ground level at 4 miles per hour, or perform heavy work around the house. Bleeding Risk: Chronic anticoagulation: NO Daily aspirin: NO Blood clotting disorder: NO Pulmonary History: Negative BMI > 40: NO Smoking History: Denies current/former tobacco use ETOH: None Substance Use: None Personal or family history of anesthesia reaction: NO Chronic Medical Conditions: SILVERIO - Underwent sleep study not tolerating CPAP. To under go another sleep study thoughts to try a mandibular advancement device Hypertension BP: (!) 150/92 On multiple medication regimen. Stable Review of Systems Constitutional: Negative for activity change, appetite change, fatigue and fever. HENT: Negative for congestion, ear discharge, ear pain, rhinorrhea and sore throat. Eyes: Negative for discharge, redness and itching. Respiratory: Negative for cough, shortness of breath and wheezing. Cardiovascular: Negative for chest pain. Gastrointestinal: Negative for abdominal pain, blood in stool, constipation, diarrhea, nausea and vomiting. Endocrine: Negative for polydipsia and polyuria. Genitourinary: Negative for decreased urine volume, difficulty urinating, dyspareunia, hematuria and menstrual problem. Musculoskeletal: Negative for arthralgias, gait problem and joint swelling. Skin: Negative for rash. Allergic/Immunologic: Negative for environmental allergies and food allergies. Neurological: Negative for dizziness, weakness and headaches. Hematological: Does not bruise/bleed easily. Psychiatric/Behavioral: Negative for behavioral problems, sleep disturbance and suicidal ideas. OBJECTIVE Visit Vitals BP (!) 150/92 Pulse 54 Temp 97.7 ??F (36.5 ??C) (Oral) Resp 19 Ht 5' 4 (1.626 m) Wt 125 lb 4 oz (56.8 kg) BMI 21.50 kg/m?? Smoking Status Never BSA 1.6 m?? Physical Exam Constitutional: Appearance: Normal appearance. HENT: Head: Normocephalic and atraumatic. Right Ear: Tympanic membrane, ear canal and external ear normal. Left Ear: Tympanic membrane, ear canal and external ear normal. Nose: Nose normal. No congestion. Mouth/Throat: Mouth: Mucous membranes are moist. Pharynx: Oropharynx is clear. Eyes: Extraocular Movements: Extraocular movements intact. Pupils: Pupils are equal, round, and reactive to light. Cardiovascular: Rate and Rhythm: Normal rate and regular rhythm. Pulses: Normal pulses. Heart sounds: Normal heart sounds. No murmur heard. Pulmonary: Effort: Pulmonary effort is normal. Breath sounds: Normal breath sounds. No wheezing. Chest: Chest wall: No tenderness. Abdominal: General: Abdomen is flat. Bowel sounds are normal. Palpations: Abdomen is soft. Tenderness: There is no guarding or rebound. Musculoskeletal: General: Normal range of motion. Cervical back: Normal range of motion. Right lower leg: No edema. Left lower leg: No edema. Skin: General: Skin is warm and dry. Capillary Refill: Capillary refill takes less than 2 seconds. Findings: No bruising. Neurological: General: No focal deficit present. Mental Status: She is alert and oriented to person, place, and time. Cranial Nerves: No cranial nerve deficit. Sensory: No sensory deficit. Psychiatric: Mood and Affect: Mood normal. Behavior: Behavior normal. Thought Content: Thought content normal. Judgment: Judgment normal. Current Outpatient Medications: alendronate (Fosamax) 70 MG tablet, , Disp: , Rfl: amitriptyline (Elavil) 10 MG tablet, Take 1 tablet (10 mg) by mouth at bedtime., Disp: 30 tablet, Rfl: 2 amLODIPine-valsartan (Exforge) 10-320 MG tablet, Take 1 tablet by mouth Once per day., Disp: 90 tablet, Rfl: 3 atorvastatin (Lipitor) 40 MG tablet, Take 1 tablet (40 mg) by mouth Once per day., Disp: 90 tablet,Rfl: 3 Blood Pressure kit, USE TO CHECK HOME BLOOD PRESSURE ONCE DAILY DIRECTED, Disp: 1 kit, Rfl: 0 xcyvkqdmjd-rmdqwkntpfvbl-kcwdlcfm 50-325-40 MG tablet, TAKE 1 TO 2 TABLETS BY MOUTH EVERY 8 HOURS NEEDED . DO NOT EXCEED 6 TABLETS PER 24 HOURS, Disp: 20 tablet, Rfl: 0 famotidine (Pepcid) 20 MG tablet, Take 1 tablet (20 mg) by mouth 2 times daily., Disp: 60 tablet, Rfl: 11 hydroCHLOROthiazide (HYDRODiuril) 25 MG tablet, Take 1 tablet (25 mg) by mouth Once per day., Disp:90 tablet, Rfl: 3 hydrocortisone 2.5 % cream, Mix 60g tube of Hydrocortisone 2.5% with 16oz jar of CeraVe cream. Apply by topical route 1-2 times per day after shower or bath from the neck down (not on face)., Disp: 60 g, Rfl: 1 magnesium oxide (Mag-Ox) 400 mg tablet, TAKE 1 TABLET BY MOUTH IN THE MORNING, Disp: 30 tablet, Rfl: 0 metoprolol succinate XL (Toprol XL) 25 MG 24 hr tablet, Take 1 tablet (25 mg) by mouth Once per day. Do not crush or chew., Disp: 90 tablet, Rfl: 3 spironolactone (Aldactone) 25 MG tablet, Take 1 tablet (25 mg) by mouth Once per day., Disp: 30 tablet, Rfl: 11 zolpidem (Ambien) 5 MG tablet, TAKE 1 TABLET BY MOUTH AT BEDTIME NEEDED FOR SLEEP, Disp: 30 tablet, Rfl: 0 PREOPERATIVE ASSESSMENT AND PLAN: - Provider considers procedure to be low -Reviewed cardiac risk factors based on RCRI. Patient has 0 risk factors corresponding to 0.4% riskof a major cardiac event during surgery. - Patient may proceed with surgery and anesthesia without further risk stratification at this time - Pt will contact health center with questions or concerns Problem List Items Addressed This Visit HTN (hypertension) Slightly above goal today of <140/<90 but overall stable and well controlled. Continue current med regimen SILVERIO (obstructive sleep apnea) well controlled Preop examination - Primary Essential hypertension PRACTICE CLINICIAN Resident Attestation: Patient was seen and evaluated by Akilah LARIOS in collaboration with Yasmin LARIOS who has reviewed my assessment and plan. I, Yasmin LARIOS, have reviewed the resident's note and agree with the assessment & plan of care as documented above. documented in this encounter Miscellaneous Notes * Assessment & Plan Note - Yasmin aMrks NP - 10/19/2024 11:39 AM ESTAssociated Problem(s): SILVERIO (obstructive sleep apnea) well controlled * Assessment & Plan Note - Yasmin Marks NP - 10/19/2024 11:38 AM ESTAssociated Problem(s): HTN (hypertension) Slightly above goal today of <140/<90 but overall stable and well controlled. Continue current med regimen documented in this encounter Plan of Treatment Upcoming Encounters Date Type Department Care Team (Late st Contact Info) Description 11/07/2024 9:00 AM EDT Medication Management [address] [address] PuiaDaja, PharmD [address] [place] [address] 12/12/2024 9:00 AM EDT Medication Management [address] [address] JoselyniaElodiasa, PharmD [address] [place] [address] 12/18/2024 10:45 AM EDT Office Visit [address] [address] Name, MD Juan [address] [place] [address] documented as of this encounter Visit Diagnoses Diagnosis Preop examination- Primary Unspecified pre-operative examination Essential hypertension Unspecified essential hypertension SILVERIO (obstructive sleep apnea) Obstructive sleep apnea (adult) (pediatric) Hypertension, unspecified type documented in this encounter Additional Health Concerns Assessment Noted Time PHQ-9 Depression Total Score: 2 01/07/20 11:51 AM EDT documented as of this encounter Care Teams Web Interface Developer Relationship Specialty Start Date End Date Name, MD Juan [address] [place] [address] PCP - General Family Medicine 11/29/15 Daja Sigala, Zachary [address] [place] [address] Pharmacist Internal Medicine 05/25/24 documented as of this encounter
--- OUTSIDE RECORDS SUMMARY | 2024-11-01 11:42 | XMS_ITS | Encounter Summary ---
Author Organization [employer] Address [address] [place] [address] 7t [place] [address] Care Team Providers Care Financial Foundations Associate Name Role Phone Name, Juan CERDA Primary Care Provider [phone] Daja Sigala PharmD Unavailable [phone] Encounter Details Date Type Department Care Team (Late Contact Info) Description 01/07/2023 Abstract [facility] MEDICINE [address] [place] [phone] Name, MD Juan [address] [place] [phone] Social History Tobacco Use Types Packs/Day Years [...] [facility] MEDICINE [address] [place] [address] [phone] Daja Sigala PharmD [address] [place] [address] 12/12/2024 9:00 AM EDT Medication Management [facility] MEDICINE [address] [place] [address] Daja Sigala PharmD [address] [place] [address] 12/18/2024 10:45 AM EDT Office Visit [address] [address] NameJuan MD [address] [place] [address] documented as of this encounter Visit Diagnoses Not on filedocumented in this encounter Additional Health Concerns Assessment Noted Time PHQ-9 Depression Total Score: 6 12/10/19 23 4:19 PM EDT documented as of this encounter Care Teams Financial Foundations Associate Relationship Specialty Start Date End Date NameJuan MD [address] [place] [address] PCP - General Family Medicine 11/29/15 Daja Sigala PharmD [address] [place] [address] Pharmacist Internal Medicine 05/25/24 documented as of this encounter
--- OUTSIDE RECORDS SUMMARY | 2024-11-01 11:42 | XMS_ITS | Clinical Summary ---
Author Organization [facility] Address [address] [place] [address] Care Team Providers Care Hat Conditioner Name Role Phone Richi Bazan MD Primary Care Provider Surgical History Surgery Date Site/Laterality Comments COLONOSCOPY 11/12/2005 PROCEDURE: [place] COLONOSCOPY STOMA DX INCLUDING COLLJ SPEC SPX; COMMENT: Up to cecum, diverticulosis. [facility] at [facility], poor prep. ESOPHAGOGASTRODUODENOSCOPY 01/21/2009 PROCEDURE: [place] EGD TRANSORAL BIOPSY SINGLE/MULTIPLE; COMMENT: Normal esophagus, antral ulcer-biopsy:bening ulcer(HPylori+/treated), duodenitis, SB-biopsy:Nl ESOPHAGOGASTRODUODENOSCOPY 05/12/2010 PROCEDURE: [place] EGD TRANSORAL BIOPSY SINGLE/MULTIPLE; COMMENT: Esophagus normal, gastritis, gastric ulcer-biopsy:acute ulcerative gastritis (HPylori+++), normal esophagus. SB bx: normal ESOPHAGOGASTRODUODENOSCOPY 10/02/2011 PROCEDURE: [place] EGD TRANSORAL BIOPSY SINGLE/MULTIPLE; COMMENT: small gastric ulcer, bx: h pylori present. COLONOSCOPY 10/02/2011 PROCEDURE: [place] COLONOSCOPY FLX DX W/COLLJ SPEC WHEN PFRMD; COMMENT: diverticulosis; no polyps. good prep. OTHER SURGICAL HISTORY 06/06/2013 PROCEDURE: [place] ANTERIOR COLPORRAPHY RPR CYSTOCELE W/CYSTO Medical History [...] age to complete this topic Care Teams Hat Conditioner Relationship Specialty Start Date End Date Richi Bazan MD PCP - General Internal Medicine 10/03/15
--- OUTSIDE RECORDS SUMMARY | 2024-11-01 11:42 | XMS_ITS | Encounter Summary ---
Author Organization [employer] Address [address] [facility] 7t [place] [address] Care Team Providers Care Projection Printer Name Role Phone Name, Juan CERDA Primary Care Provider [phone] Daja Sigala PharmD Unavailable [phone] Reason for Visit * Reason Comments Hypertension Encounter Details Date Type Department Care Team ([facility] Contact Info) Description 10/09/2024 4:00 PM EST Office Visit [facility] [address] [place], [place] [phone] Name, MD Juan [address] [place] [address] Epigastric pain (Primary Dx); Nausea without vomiting [...] Description 11/07/2024 9:00 AM EDT Medication Management [address] [address] Daja Sigala PharmD [address] [place] [address] 12/12/2024 9:00 AM EDT Medication Management [address] [address] Daja Sigala PharmD [address] [place] [address] 12/18/2024 10:45 AM EDT Office Visit [address] [address] Juan Lacy MD [address] [place] [address] documented as of this encounter Procedures Procedure Name Priority Date/Time Associated Diagnosis Comments CBC WITH AUTO DIFFERENTIAL Routine 10/10/2024 9:28 AM EST Epigastric pain Nausea without vomiting LIPASE Routine 10/10/2024 9:28 AM EST Epigastric pain Nausea without vomiting COMPREHENSIVE METABOLIC PANEL Routine 10/10/2024 9:28 AM EST Epigastric pain Nausea without vomiting documented in this encounter Results * Lipase (10/10/2024 9:28 AM EST) Lipase 14 8 - 78 U/L [facility] Blood Venous blood specimen / Unknown 10/10/2024 9:28 AM EST 10/10/2024 11:33 AM EST us Juan Name LAB BLOOD ORDERABLES Final Resul t [facility] [address] [place] [address] [phone] * (ABNORMAL) Comprehensive Metabolic Panel (10/10/2024 9:28 AM EST) Sodium 140 135 - 145 mmol/L [facility] Potassium 3.1(L) 3.3 - 5.1 mmol/L [facility] Chloride 106 96 - 108 mmol/L [facility] Carbon Dioxide 26 22 - 29 mmol/L [facility] Anion Gap 11(L) 12 - 20 [facility] Urea Nitrogen (BUN) 12 9 - 16 mg/dL [facility] Creatinine, Serum 0.75 0.5 - 1.4 mg/dL [facility] Estimated Glomerular Filt Rate >60 [facility] Comment:Chronic Kidney Disea se: Estimated GFR < 60 mL/min/1.20v7Ffogwy Kidney Disease: Estimated GFR < 15 mL/min/1.73m2 Glucose 91 60 - 115 mg/dL [facility] Calcium 10.3(H) 8.4 - 10.2 mg/dL [facility] Bilirubin, Total 0.4 0.0 - 1.0 mg/dL [facility] Aspartate Amino Transferase 28 5 - 31 U/L [facility] Alanine Aminotransferase 19 0 - 31 U/L [facility] Total Protein 7.9 6.5 - 8.0 g/dL [facility] Albumin Level 4.4 3.5 - 5.0 g/dL [facility] Alkaline Phosphatase 155(H) 39 - 117 U/L [facility] Blood Venous blood specimen / Unknown 10/10/2024 9:28 AM EST 10/10/2024 11:33 AM EST us Juan Name MD LAB BLOOD ORDERABLES Final Resul t [facility] [address] [place] [address] [phone] * (ABNORMAL) CBC auto differential (10/10/2024 9:28 AM EST) White Blood Count 7.7 4.8 - 10.8 X10*3/uL [facility] Red Blood Count 4.38 4.20 - 5.50 X10*6/uL [facility] Hemoglobin 12.9 12.0 - 16.0 g/dl [facility] Hematocrit 38.5 37.0 - 47.0 % [facility] Mean Corpuscular Volume 87.9 80.0 - 98.0 fL [facility] Mean Corpuscular Hemoglobin 29.5 27.0 - 33.0 pg [facility] Mean Corpuscular HGB Conc 33.5 31.0 - 35.0 g/dl [facility] Red Cell Distribution Width 12.9 11.0 - 16.0 % [facility] Platelet Count 250 160 - 400 X10*3/uL [facility] Mean Platelet Volume 12.6(H) 9.4 - 12.3 fL [facility] Neutrophils Percent Auto 50.6 45 - 73 % [facility] Imm Gran Pct Auto 0.3 0.0 - 0.4 % [facility] Lymphocytes Percent Auto 26.2 20 - 40 % [facility] Monocytes Percent Auto 5.6 2 - 11 % [facility] Eosinophils Percent Auto 16.7(H) 0 - 4 % [facility] Basophils Percent Auto 0.6 0 - 2 % [facility] NRBC Pct Auto 0.0 0.0 - 0.2 /100WBC [facility] Neutrophils Absolute Auto 3.9 2.0 - 8.3 x10*3/uL [facility] Imm Gran Abs Auto 0.02 0.00 - 0.03 X10*3/uL [facility] Lymphocytes Absolute Auto 2.0 1.2 - 4.9 X10*3/uL [facility] Monocytes Absolute Auto 0.4 0.1 - 1.2 X10*3/uL [facility] Eosinophils Absolute Auto 1.3(H) 0.0 - 0.4 X10*3/uL [facility] Basophils Absolute Auto 0.1 0.0 - 0.2 X10*3/uL [facility] NRBC Abs Auto 0.000 0.0 - 0.012 X10*3/uL [facility] Blood Venous blood specimen / Unknown 10/10/2024 9:28 AM EST 10/10/2024 11:33 AM EST Juan Lacy MD LAB BLOOD ORDERABLES Final Resul t [facility] [address] [place] [address] [phone] documented in this encounter Visit Diagnoses Diagnosis Epigastric pain- Primary Abdominal pain, epigastric Nausea without vomiting documented in this encounter Additional Health Concerns Assessment Noted Time PHQ-9 Depression Total Score: 2 01/07/20 24 11:51 AM EDT documented as of this encounter Care Teams Projection Printer Relationship Specialty Start Date End Date Name, MD Juan [address] [place] [address] PCP - General Family Medicine 11/29/15 Daja Sigala PharmD [address] [place] [address] Pharmacist Internal Medicine 05/25/24 documented as of this encounter
--- OUTSIDE RECORDS SUMMARY | 2024-11-01 11:42 | XMS_ITS | Encounter Summary ---
Author Organization [employer] Address [address] [facility] 7t [place] [address] Care Team Providers Care Unit Coordinator Name Role Phone Name, Juan CERDA Primary Care Provider [phone] Daja Sigala PharmD Unavailable [phone] Encounter Details Date Type Department Care Team (Late st Contact Info) Description 10/10/2024 Telephone [facility] [address] [place], [place] [phone] Name, MD Juan [address] [place] [address] Social History Tobacco Use Types Packs/Day Years [...] encounter Miscellaneous Notes * Telephone Encounter - Mayra Tellez RN - 10/10/2024 1:28 PM EST TC x 2 placed to pt via [employer] biometric technician ([employer] ID#[id number]) to do a status check and inform of labs. No answer, LVM to call office back and ask to speak to [facility] team nurses. ----- Message from Juan Lacy MD sent at 10/10/2024 12:27 PM EST ----- Please call the patient. Her labs are good. Potassium is a little low probably because of her vomiting. Call her to see how she is doing today and remind her to drink plenty of fluids. If she continues to have vomiting and she is unable to keep p.o. liquids down I would suggest going to the ER for IV fluids. documented in this encounter Plan of Treatment Upcoming Encounters Date Type Department Care Team (Late st Contact Info) Description 11/07/2024 9:00 AM EDT Medication Management [facility] [address] [place] [address] Daja Sigala, PharmD [address] [place] [address] 12/12/2024 9:00 AM EDT Medication Management [facility] [address] [place] [address] Daja Sigala PharmD [address] [facility] [place] [address] 12/18/2024 10:45 AM EDT Office Visit [facility] [address] [facility] [place] [address] Name, [place] [address] documented as of this encounter Visit Diagnoses Not on filedocumented in this encounter Additional Health Concerns Assessment Noted Time PHQ-9 Depression Total Score: 2 01/07/20 11:51 AM EDT documented as of this encounter Care Teams Unit Coordinator Relationship Specialty Start Date End Date NameJuan MD [facility] [place] [address] PCP - General Family Medicine 11/29/15 Daja Sigala PharmD [address] [place] [phone] Pharmacist Internal Medicine 05/25/24 documented as of this encounter
--- OUTSIDE RECORDS SUMMARY | 2024-11-01 11:42 | XMS_ITS | Encounter Summary ---
Author Organization [employer] Address [address] [facility] 7t [place] [address] Care Team Providers Care Draw String Knotter Name Role Phone Name, Juan CERDA Primary Care Provider [phone] Daja Sigala PharmD Unavailable [phone] Encounter Details Date Type Department Care Team (Late st Contact Info) Description 10/19/2022 Orders Only [facility] [address] [place] [address] Tamara Yi LPN Social History Tobacco Use [...] Description 11/07/2024 9:00 AM EDT Medication Management [facility] [address] [place] [address] Puia, Daja, PharmD [address] [place] [address] 12/12/2024 9:00 AM EDT Medication Management [facility] [address] [place] [address] Puia, Daja, PharmD [address] [place] [address] 12/18/2024 10:45 AM EDT Office Visit [facility] [address] [place] [address] Name, MD Juan [address] [place] [address] documented as of this encounter Visit Diagnoses Not on filedocumented in this encounter Care Teams Draw String Knotter Relationship Specialty Start Date End Date Name, MD Juan [address] [place] [address] PCP - General Family Medicine 11/29/15 Daja Sigala PharmD [address] [place] [phone] Pharmacist Internal Medicine 05/25/24 documented as of this encounter
--- OUTSIDE RECORDS SUMMARY | 2024-11-01 11:42 | XMS_ITS | Encounter Summary ---
Author Organization [employer] Address [address] [place] [address] 7t [place] [address] Care Team Providers Care Internet Researcher Name Role Phone Name, Juan CERDA Primary Care Provider [phone] PuDaja guzmán PharmD Unavailable [phone] Reason for Visit * Reason Comments Med Refill Encounter Details Date Type Department Care Team (Late st Contact Info) Description 11/05/2022 Refill [facility] [address] [place] [address] Name, MD Juan [address] [place] [address] Social History Tobacco Use Types Packs/Day Years [...] 9:00 AM EDT Medication Management [facility] [address] [place] [address] Puia, Daja, PharmD [address] [place] [address] 12/12/2024 9:00 AM EDT Medication Management [facility] [address] [place] [address] Puia, Daja, PharmD [address] [place] [address] 12/18/2024 10:45 AM EDT Office Visit [facility] [address] [place] [address] Name, [place] [address] documented as of this encounter Visit Diagnoses Not on filedocumented in this encounter Care Teams Internet Researcher Relationship Specialty Start Date End Date Name, MD Juan [address] [place] [address] PCP - General Family Medicine 11/29/15 Daja Siglaa, MirnaD [address] [place] [address] Pharmacist Internal Medicine 05/25/24 documented as of this encounter
--- OUTSIDE RECORDS SUMMARY | 2024-11-01 11:42 | XMS_ITS | Encounter Summary ---
Author Organization [employer] Address [address] [facility] 7t [place] [address] Care Team Providers Care Pin Cleaner Name Role Phone Name, Juan CERDA Primary Care Provider [phone] Daja Sigala PharmD Unavailable [phone] Encounter Details Date Type Department Care Team (Late st Contact Info) Description 10/19/2024 Telephone [facility] [address] [place] [address] Edyta Herman RN Social History Tobacco Use Types Packs/Day Years [...] Telephone Encounter - Edyta Herman RN - 10/19/2024 12:05 PM EST Received message from provider stating Pre op note closed. Please fax to surgical team thank you . Pre-op notes, med list/allergies, face sheet and problem list were faxed to [facility], confirmation received and placed into HIM bin. Surgical center already has recent labs and EKG. Tc to [facility] to let them know we faxed over the pre-op notes and wanted to see if they received them. Viri confirmed they did receive the notes and see that pt is cleared to have the surgery. Viri reports they will call our office back for any further questions or concerns. documented in this encounter Plan of Treatment Upcoming Encounters Date Type Department Care Team (Late st Contact Info) Description 11/07/2024 9:00 AM EDT Medication Management [facility] [address] [place] [address] JoselyniaDaja, PharmD [address] [place] [address] 12/12/2024 9:00 AM EDT Medication Management [facility] [address] [place] [address] PuiaDaja, PharmD [address] [place] [address] 12/18/2024 10:45 AM EDT Office Visit [facility] [address] [place] [address] Name, MD Juan [address] [place] [address] documented as of this encounter Visit Diagnoses Not on filedocumented in this encounter Additional Health Concerns Assessment Noted Time PHQ-9 Depression Total Score: 2 01/07/20 11:51 AM EDT documented as of this encounter Care Teams Pin Cleaner Relationship Specialty Start Date End Date Name, [place] [address] PCP - General Family Medicine 11/29/15 Daja Sigala PharmD [address] [place] [phone] Pharmacist Internal Medicine 05/25/24 documented as of this encounter
--- OUTSIDE RECORDS SUMMARY | 2024-11-01 11:42 | XMS_ITS | Encounter Summary ---
Author Organization [employer] Address [address] [facility] 7t [place] [address] Care Team Providers Care Web Offset Press Feeder Name Role Phone Name, Juan CERDA Primary Care Provider [phone] Daja Sigaal PharmD Unavailable [phone] Encounter Details Date Type Department Care Team (Late st Contact Info) Description 10/17/2024 Telephone [facility] [address] [place], [place] [phone] Name, MD Juan [address] [place] [address] Social History Tobacco Use Types Packs/Day Years [...] Upcoming Encounters Date Type Department Care Team ([facility] st Contact Info) Description 11/07/2024 9:00 AM EDT Medication Management [address] [address] JoselyniaDaja, PharmD [address] [place] [address] 12/12/2024 9:00 AM EDT Medication Management [address] [address] JoselyniaDaja, PharmD [address] [place] [address] 12/18/2024 10:45 AM EDT Office Visit [facility] [address] [place] [address] Juan Lacy MD [address] [place] [address] documented as of this encounter Visit Diagnoses Not on filedocumented in this encounter Additional Health Concerns Assessment Noted Time PHQ-9 Depression Total Score: 2 01/07/20 24 11:51 AM EDT documented as of this encounter Care Teams Web Offset Press Feeder Relationship Specialty Start Date End Date Juan Lacy MD [address] [place] [address] PCP - General Family Medicine 11/29/15 Daja Sigala, Zachary [address] [place] [address] Pharmacist Internal Medicine 05/25/24 documented as of this encounter
--- OUTSIDE RECORDS SUMMARY | 2024-11-01 11:42 | XMS_ITS | Clinical Summary ---
Author Organization [employer] Address [address] [facility] 7[address] [place] [address] Care Team Providers Care Multimedia Production Assistant Name Role Phone Name, Juan CERDA Primary Care Provider Daja Sigala PharmD Unavailable [phone] Allergies Active Allergy Reactions Criticality Noted Date Comments Sumatriptan Anaphylaxis High 11/29/2015 Medications alendronate (Fosamax) 70 MG tablet 022 Active Blood Pressure kitIndications:E ssential hypertension USE TO CHECK HOME BLOOD PRESSURE ONCE DAILY DIRECTED 1 kit 024 Active zolpidem (Ambien) 5 MG tablet TAKE 1 TABLET BY MOUTH AT BEDTIME NEEDED FOR SLEEP 30 tablet 025 Active traMADol (Ultram) 50 MG tablet Take 1 tablet by mouth if needed in the morning and at bedtime for pain. 025 Active amLODIPine-valsa rtan (Exforge) 10-320 MG tabletIndication s:Essential hypertension Take 1 tablet by mouth Once per day. 90 tablet 3 025 Active atorvastatin (Lipitor) 40 MG tabletIndication s:Hyperlipidemia , unspecified hyperlipidemia type Take 1 tablet (40 mg) by mouth Once per day. 90 tablet 3 025 2025 Active hydroCHLOROthiaz joann (HYDRODiuril) 25 MG tabletIndication s:Essential hypertension Take 1 tablet (25 mg) by mouth Once per day. 90 tablet 3 025 Active metoprolol succinate XL (Toprol XL) 25 MG 24 hr tabletIndication s:Essential hypertension Take 1 tablet (25 mg) by mouth Once per day. Do not crush or chew. 90 tablet 3 Active spironolactone (Aldactone) 25 MG tabletIndication s:Essential hypertension Take 1 tablet (25 mg) by mouth Once per day. 90 tablet 3 025 2025 Active amitriptyline (Elavil) 10 MG tabletIndication s:Migraine without aura and with status migrainosus, not intractable Take 1 tablet (10 mg) by mouth at bedtime. 30 tablet 2 025 2024 Active butalbital-aceta minophen-caffein e 50-325-40 MG tabletIndication s:Migraine without aura and with status migrainosus, not intractable TAKE 1 TO 2 TABLETS BY MOUTH EVERY 8 HOURS NEEDED . DO NOT EXCEED 6 TABLETS PER 24 HOURS 20 tablet Active famotidine (Pepcid) 20 MG tabletIndication s:Epigastric pain,Nausea without vomiting,Heartbu rn Take 1 tablet (20 mg) by mouth 2 times daily. 60 tablet 11 025 2025 Active magnesium oxide (Mag-Ox) 400 mg tabletIndication s:Migraine without aura and with status migrainosus, not intractable Take 1 tablet (400 mg) by mouth in the morning. 30 tablet 2 Active famotidine (Pepcid) 20 MG tablet Take 1 tablet (20 mg) by mouth 2 times daily. 60 tablet 11 023 2024 Discontinued(R eorder (will not trigger notification to Pharmacy)) hydrocortisone 2.5 % cream Mix 60g tube of Hydrocortisone 2.5% with 16oz jar of CeraVe cream. Apply by topical route 1-2 times per day after shower or bath from the neck down (not on face). 60 g 1 024 2024 Discontinued(M ed list cleanup (will not trigger notification to Pharmacy)) magnesium oxide (Mag-Ox) 400 mg tablet TAKE 1 TABLET BY MOUTH IN THE MORNING 30 tablet 024 2024 Discontinued(R eorder (will not trigger notification to Pharmacy)) amitriptyline (Elavil) 10 MG tablet Take 1 tablet (10 mg) by mouth at bedtime. 30 tablet 2 092024 Discontinued(R eorder (will not trigger notification to Pharmacy)) butalbital-aceta minophen-caffein e 50-325-40 MG tablet TAKE 1 TO 2 TABLETS BY MOUTH EVERY 8 HOURS NEEDED . DO NOT EXCEED 6 TABLETS PER 24 HOURS 20 tablet 2024 Discontinued(R eorder (will not trigger notification to Pharmacy)) pantoprazole (ProtoNix) 20 MG EC tablet Take 20 mg by mouth if needed each day (reflux). 2024 Discontinued(T herapy completed) spironolactone (Aldactone) 25 MG tablet Take 1 tablet (25 mg) by mouth Once per day. 30 tablet 2024 Discontinued(R eorder (will not trigger notification to Pharmacy)) zolpidem (Ambien) 5 MG tablet Take 1 tablet (5 mg) by mouth if needed at bedtime for sleep. 30 tablet 2024 Discontinued(R eorder (will not trigger notification to Pharmacy)) amLODIPine-valsa rtan (Exforge) 10-320 MG tabletIndication s:Essential hypertension Take 1 tablet by mouth Once per day. 90 tablet 2024 Discontinued(R eorder (will not trigger notification to Pharmacy)) atorvastatin (Lipitor) 40 MG tabletIndication s:Hyperlipidemia , unspecified hyperlipidemia type Take 1 tablet (40 mg) by mouth Once per day. 90 tablet 2024 Discontinued(R eorder (will not trigger notification to Pharmacy)) hydroCHLOROthiaz joann (HYDRODiuril) 25 MG tabletIndication s:Essential hypertension Take 1 tablet (25 mg) by mouth Once per day. 90 tablet 2024 Discontinued(R eorder (will not trigger notification to Pharmacy)) metoprolol succinate XL (Toprol XL) 25 MG 24 hr tabletIndication s:Essential hypertension Take 1 tablet (25 mg) by mouth Once per day. Do not crush or chew. 90 tablet 2024 Discontinued(R eorder (will not trigger notification to Pharmacy)) famotidine (Pepcid) 20 MG tabletIndication s:Epigastric pain,Nausea without vomiting Take 1 tablet (20 mg) by mouth 2 times daily. 60 tablet 11 025 2024 Discontinued(R eorder (will not trigger notification to Pharmacy)) ondansetron (Zofran) 4 MG tabletIndication s:Epigastric pain,Nausea without vomiting Take 1 tablet (4 mg) by mouth every 8 (eight) hours if needed for nausea or vomiting for up to 7 days. 20 tablet 025 2024 Active Problems Problem Noted Date Diagnosed Date Preop examination 10/19/2024 Essential hypertension 10/19/2024 Acid reflux 05/09/2024 Arthritis of right knee 05/09/2024 Diverticulosis of colon 05/09/2024 Encounter for screening colonoscopy 05/09/2024 Hemorrhoids 05/09/2024 Varicose veins of left lower extremity with infl ammation 05/09/2024 Vitamin D deficiency 05/09/2024 Nocturnal leg cramps 02/15/2023 SILVERIO (obstructive sleep apnea) 02/15/2023 Assessment & Plan (10/19/2024 11:39 AM EST): well controlled Leg edema, right 02/02/2023 Assessment & Plan [...] 11/29/2015 HTN (hypertension) 11/29/2015 Assessment & Plan (10/19/2024 11:38 AM EST): Slightly above goal today of <140/<90 but overall stable and well controlled. Continue current med regimen Assessment & Plan (02/02/2023 5:48 PM EDT): Uncontrolled. Continue amlodipine, lisinopril and fu w PCP next week Encounters Date Type Department Care Team Description 10/31/2024 Refill [facility] [place] [address] Daja Sigala, Zachary Migraine without aura and with status migrainosus, not intractable (Primary Dx); Epigastric pain; Nausea without vomiting; Heartburn 10/31/2024 Travel 10/19/2024 Telephone [facility] [place] [address] Edyta Herman RN 10/18/2024 9:00 AM EST Office Visit [facility] [place] [address] Akilah Solis FNP Preop examination (Primary Dx); Essential hypertension; SILVEROI (obstructive sleep apnea); Hypertension, unspecified type 10/18/2024 Travel 10/17/2024 Telephone [facility] [place] [address] Edyta Herman, OREN Error (VOID this visit) 10/17/2024 Telephone [facility] [place] [address] Juan Lacy MD 10/16/2024 Telephone [facility] [place] [address] Juan Lacy MD Call Back Request 10/12/2024 Refill [facility] [place] [address] Juan Lacy MD 10/10/2024 Telephone [facility] [place] [address] Juan Lacy MD 10/09/2024 4:00 PM EST [facility] [place] [address] NameJuan MD Epigastric pain (Primary Dx); Nausea without vomiting 10/09/2024 Travel 10/09/2024 Telephone [facility] [place] [address] NameJuan MD Nurse Triage 09/26/2024 Travel 09/20/2024 Refill [facility] [place] [address] Juan Lacy MD 09/19/2024 Telephone [facility] [place] [address] NameJuan MD No Show 09/19/2024 Telephone [facility] [place] [address] Tesha Clemens RN 09/12/2024 10:00 AM EST Office Visit [facility] [place] [address] NameJuan MD Hypertension, unspecified type (Primary Dx); Acute insomnia 09/12/2024 Travel 09/11/2024 Telephone [facility] [place] [address] Chrissy Patel MA chart prep 08/22/2024 Orders Only [facility] [place] [address] NameJuan MD 08/21/2024 Telephone [facility] [place] [address] Juan Lacy MD 08/03/2024 Refill [facility] [place] [address] Juan Lacy MD from Last 3 Months [...] Moderna Covid-19 Vaccine 12+ 12/01/2020,11/10/19 21 Novel [id number], preservative-free 08/22/2009 Pneumococcal Conjugate PCV 13 02/09/2022 [...] Sign Reading Time Taken Comments Blood Pressure 140/82 10/31/2024 9:20 AM EDT Pulse 60 10/31/2024 9:20 AM EDT Temperature 36.5 ??C (97.7 ??F) 10/18/2024 8:52 AM ES T Respiratory Rate 19 10/18/2024 8:52 AM EST Oxygen Saturation 98% 10/09/2024 4:02 PM EST Inhaled Oxygen Concentration - - Weight 56.8 kg (125 lb 4 oz) 10/18/2024 8:52 AM EST Height 162.6 cm (5' 4 ) 10/18/2024 8:52 AM EST Body Mass Index 21.5 10/18/2024 8:52 AM EST Plan of Treatment Upcoming Encounters Date Type Department Care Team (Late st Contact Info) Description 11/07/2024 9:00 AM EDT Medication Management [address] [address] PuiaDaja, PharmD [address] [place] [address] 12/12/2024 9:00 AM EDT Medication Management [address] [address] Puia, Daja, PharmD [address] [place] [address] 12/18/2024 10:45 AM EDT Office Visit [address] [address] Name, MD Juan [address] [place] [phone] Health Maintenance Due Date Last Done Comments CT Colonography 1955 FIT DNA/Cologuard 1955 FIT 1955 FOBT 1955 Sigmoidoscopy 1955 Hepatitis C Screening 1974 COVID-19 Vaccine ( season) 2024 07/18/2021, 12/01/2020, 11/09/2020 Mammogram 07/22/2024 07/22/2022, 1104/2021, 06/24/2021, Additional history exists Depression Screening 01/06/2025 01/07/2024, 01/07/20 Alcohol/Substance Use Screening 10/18/2025 10/18/2024 SDOH Screening 10/18/2025 10/18/2024 Tobacco Screening 10/18/2025 10/18/2024 Colonoscopy 12/13/2028 12/14/2023 Colorectal Cancer Screening 12/13/2028 [...] Procedure Name Priority Date/Time Associated Diagnosis Comments LIPASE Routine 10/10/2024 9:28 AM EST Epigastric pain Nausea without vomiting COMPREHENSIVE METABOLIC PANEL Routine 10/10/2024 9:28 AM EST Epigastric pain Nausea without vomiting CBC WITH AUTO DIFFERENTIAL Routine 10/10/2024 9:28 AM EST Epigastric pain Nausea without vomiting BASIC METABOLIC PANEL Routine 09/26/2024 10:33 AM EST Hypertension, unspecified type BASIC METABOLIC PANEL Routine 08/22/2024 10:06 AM EST LIPID PANEL, STANDARD Routine 06/27/2024 9:17 AM EST HM COLONOSCOPY Routine 12/14/2023 BI MAMMOGRAM SCREENING TOMOSYNTHESIS BILATERAL Routine 07/22/2022 2:52 PM EST from Last 3 Months or Most Recently Relevant to Health Maintenance Results * (ABNORMAL) CBC auto differential (10/10/2024 9:28 AM EST) White Blood Count 7.7 4.8 - 10.8 X10*3/uL [facility] Red Blood Count 4.38 4.20 - 5.50 X10*6/uL [facility] Hemoglobin 12.9 12.0 - 16.0 g/dl [facility] Hematocrit 38.5 37.0 - 47.0 % [facility] Mean Corpuscular Volume 87.9 80.0 - 98.0 fL [facility] Mean Corpuscular Hemoglobin 29.5 27.0 - 33.0 pg [facility] Mean Corpuscular HGB Conc 33.5 31.0 - 35.0 g/dl [facility] Red Cell Distribution Width 12.9 11.0 - 16.0 % [facility] Platelet Count 250 160 - 400 X10*3/uL [facility] Mean Platelet Volume 12.6(H) 9.4 - 12.3 fL [facility] Neutrophils Percent Auto 50.6 45 - 73 % [facility] Imm Gran Pct Auto 0.3 0.0 - 0.4 % [facility] Lymphocytes Percent Auto 26.2 20 - 40 % [facility] Monocytes Percent Auto 5.6 2 - 11 % [facility] Eosinophils Percent Auto 16.7(H) 0 - 4 % [facility] Basophils Percent Auto 0.6 0 - 2 % [facility] NRBC Pct Auto 0.0 0.0 - 0.2 /100WBC [facility] Neutrophils Absolute Auto 3.9 2.0 - 8.3 x10*3/uL [facility] Imm Gran Abs Auto 0.02 0.00 - 0.03 X10*3/uL [facility] Lymphocytes Absolute Auto 2.0 1.2 - 4.9 X10*3/uL [facility] Monocytes Absolute Auto 0.4 0.1 - 1.2 X10*3/uL [facility] Eosinophils Absolute Auto 1.3(H) 0.0 - 0.4 X10*3/uL [facility] Basophils Absolute Auto 0.1 0.0 - 0.2 X10*3/uL [facility] NRBC Abs Auto 0.000 0.0 - 0.012 X10*3/uL [facility] Blood Venous blood specimen / Unknown 10/10/2024 9:28 AM EST 10/10/2024 11:33 AM EST us Juan Name MD LAB BLOOD ORDERABLES Final Resul t [facility] [address] [place] [phone] * Lipase (10/10/2024 9:28 AM EST) Lipase 14 8 - 78 U/L [facility] Blood Venous blood specimen / Unknown 10/10/2024 9:28 AM EST 10/10/2024 11:33 AM EST us Juan Lacy MD LAB BLOOD ORDERABLES Final Resul t [facility] [address] [place] [address] [phone] * (ABNORMAL) Comprehensive Metabolic Panel (10/10/2024 9:28 AM EST) Sodium 140 135 - 145 mmol/L [facility] Potassium 3.1(L) 3.3 - 5.1 mmol/L [facility] Chloride 106 96 - 108 mmol/L [facility] Carbon Dioxide 26 22 - 29 mmol/L [facility] Anion Gap 11(L) 12 - 20 [facility] Urea Nitrogen (BUN) 12 9 - 16 mg/dL [facility] Creatinine, Serum 0.75 0.5 - 1.4 mg/dL [facility] Estimated Glomerular Filt Rate >60 [facility] Comment:Chronic Kidney Disea se: Estimated GFR < 60 mL/min/1.37m4Uumnew Kidney Disease: Estimated GFR < 15 mL/min/1.73m2 Glucose 91 60 - 115 mg/dL [facility] Calcium 10.3(H) 8.4 - 10.2 mg/dL [facility] Bilirubin, Total 0.4 0.0 - 1.0 mg/dL [facility] Aspartate Amino Transferase 28 5 - 31 U/L [facility] Alanine Aminotransferase 19 0 - 31 U/L [facility] Total Protein 7.9 6.5 - 8.0 g/dL [facility] Albumin Level 4.4 3.5 - 5.0 g/dL [facility] Alkaline Phosphatase 155(H) 39 - 117 U/L [facility] Blood Venous blood specimen / Unknown 10/10/2024 9:28 AM EST 10/10/2024 11:33 AM EST us Juan Lacy MD LAB BLOOD ORDERABLES Final Resul t Performing Organization Address [facility] de Phone Number [facility] [address] [place] [address] [phone] * (ABNORMAL) Basic Metabolic Panel (09/26/2024 10:33 AM EST) Only the most recent of2 resultswithin the time period is included. Sodium 140 135 - 145 mmol/L [facility] Potassium 4.3 3.3 - 5.1 mmol/L [facility] Chloride 112(H) 96 - 108 mmol/L [facility] Carbon Dioxide 24 22 - 29 mmol/L [facility] Anion Gap 8(L) 12 - 20 [facility] Urea Nitrogen (BUN) 19(H) 9 - 16 mg/dL [facility] Creatinine, Serum 0.74 0.5 - 1.4 mg/dL [facility] Estimated Glomerular Filt Rate >60 [facility] Comment:Chronic Kidney Disea se: Estimated GFR < 60 mL/min/1.20a7Iswqdh Kidney Disease: Estimated GFR < 15 mL/min/1.73m2 Glucose 94 60 - 115 mg/dL [facility] Calcium 10.2 8.4 - 10.2 mg/dL [facility] Blood Venous blood specimen / Unknown 09/26/2024 10:33 AM EST 09/26/2024 1:02 PM EST us Juan Lacy MD LAB BLOOD ORDERABLES Final Resul t Performing Organization Address [facility] Co de Phone Number [facility] [address] [place] [address] [phone] * Lipid Panel, Standard (06/27/2024 9:17 AM EST) Triglycerides 96 <150 mg/dL [facility] Comment:Desirable Triglyceri de: less than 150 mg/dLBorderline High Triglyceride 150-199 mg/dLHigh Triglyceride: 200-499 mg/dLVery High Triglyceride: greater than or equal to 5OO mg/dL Cholesterol 151 <200 mg/dL [facility] Comment:Desirable Cholestero l: less than 200 mg/dLBorderline High Cholesterol: 200-239 mg/dLHigh Cholesterol: greater than 239 mg/dL LDL Cholesterol Calculated 87 <100 mg/dL [facility] Comment:Desirable LDL: less than 100 mg/dLNear Optimal/Above Optimal LDL: 110- 129 mg/dLBorderline High LDL: 130-159 mg/dLHigh LDL: 160-189 mg/dLVery High LDL: greater than or equal to 190 mg/dL HDL Cholesterol 45 >40 mg/dL [facility] Comment:Desirable HDL: great er than 40 mg/dL Note: This HDL assay may give artificially low results in patients with liver disease. 06/27/2024 9:17 AM EST 06/27/2024 11:35 AM EST us Juan Lacy MD LAB BLOOD ORDERABLES Final Resul t Performing Organization Address City/State/[facility] Co de Phone Number [facility] [address] [place] [phone] * (ABNORMAL) Hm Colonoscopy (12/14/2023) Colonoscopy Abnormal(A ) Normal us Juan Lacy MD HEALTH MAINTENANCE Final Result * BI Mammogram Screening Tomosynthesis Bilateral (07/22/2022 2:52 PM EST) Anatomical Region Laterality Modality Breast Bilateral Mammography 07/22/2022 2:52 PM EST Narrative 07/23/2022 1:30 PM EST ? [facility] ? [address] ?[place] [address] ? Mammography Report ? Signed ? Patient: Anival,Ceneida ?MR#: [id number] ?? [id number] ? : 1955 ?Acct:[id number] ? Age/Sex: 67 / F ?ADM Date: 12/07/22 ? Loc: HO.MAMMO ? Attending Dr: Juan Lacy MD ? Ordering Physician: Juan Lacy MD ?Results: 1Negative ? Date of Service: 07/22/22 ?Follow Up: 1 Year From Orig ?? inal Mammogram ? Procedure(s): MM tomosynthesis screening BI ?? Accession Number(s): [id number] ? cc: Bambi,Juan CERDA ? EXAMINATION: ?? [...] Martínez MD in OV> ?07/23/227 ? DD/ [facility] ? TD/TT: ? Bottle Dealer: MRASHALL ? Procedure Note Donotuseinterpreter, Image - 07/23/2022 [facility] [address] [place] [address] Mammography Report Signed Patient: Kassandra Florian#: [id number] : 6Acct:[id number] Age/Sex: 67 / FADM Date: 07/22/22 Loc: HO.MAMMO Attending Dr: Juan Lacy MD Ordering Physician: Juan Lacy MDResults: 1Negative Date of Service: 07/22/22Follow Up: 1 Year From Orig inal Mammogram Procedure(s): MM tomosynthesis screening BI Accession Number(s): [id number] cc: Juan Lacy MD EXAMINATION: MM SCREENING [...] in OV> 07/23/22 1327 DD/ 1452 TD/TT: Bottle Dealer: JOANNA [facility] External Provider IMG BI PROCEDURES Edited Result - Final from Last 3 Months or Most Recently Relevant to Health Maintenance [place] [address] [address] [place] [address] [place] [place] [id number] Care Teams Multimedia Production Assistant Relationship Specialty Start Date End Date Name, MD Juan [address] [place] [address] PCP - General Family Medicine 11/29/15 Daja Sigala PharmD [address] [place] [address] Pharmacist Internal Medicine 05/25/24
--- OUTSIDE RECORDS SUMMARY | 2024-11-01 11:42 | XMS_ITS | Encounter Summary ---
Author Organization [employer] Address [address] [facility] [address] [place] [address] Care Team Providers Care Hose Wrapper Name Role Phone Name, Juan CERDA Primary Care Provider [phone] Daja Sigala PharmD Unavailable [phone] Reason for Visit * Reason Comments Med Refill Encounter Details Date Type Department Care Team ([facility] st Contact Info) Description 09/20/2024 Refill [facility] [address] [place], [place] [phone] Name, MD Juan [address] [place] [address] Social History Tobacco Use Types Packs/Day Years [...] Description 11/07/2024 9:00 AM EDT Medication Management [facility] [address] [place] [address] Daja Sigala, PharmD [address] [place] [address] 12/12/2024 9:00 AM EDT Medication Management [address] [address] JoselyniaDaja, PharmD [address] [place] [address] 12/18/2024 10:45 AM EDT Office Visit [address] [address] NameJuan MD [address] [place] [phone] documented as of this encounter Visit Diagnoses Not on filedocumented in this encounter Additional Health Concerns Assessment Noted Time PHQ-9 Depression Total Score: 2 01/07/20 24 11:51 AM EDT documented as of this encounter Care Teams Hose Wrapper Relationship Specialty Start Date End Date Juan Lacy MD [address] [place] [phone] PCP - General Family Medicine 11/29/15 Daja Sigala, PharmD [address] [place] [phone] Pharmacist Internal Medicine 05/25/24 documented as of this encounter
== END 2024-11-01 11:35 | disposition home or self-care (01) ==
LOC: HO.HOS 10:07
PROVIDERS: PCP Internal Medicine Geriatric Medicine; Visit Provider Physician Assistant
DX: M25.811 Other specified joint disorders, right shoulder (principal)
CPT/HCPCS: 99024

== ENCOUNTER → 2024-11-01 10:06 | Outpatient (BNVA) | payer MEDICARE, MEDICAID, SELFPAY | PROVIDERS: PCP Internal Medicine Geriatric Medicine; Visit Provider Physician Assistant | DX: M25.811 Other specified joint disorders, right shoulder (principal) | CPT/HCPCS: 99212 ==

== ENCOUNTER 2024-11-24 08:40 | Outpatient (AMB) | payer MEDICARE, MEDICAID, SELFPAY ==
--- NOTE | 2024-11-24 08:44 | MHC.OFFVIS ---
Intake Visit Reasons: PO RT shoulder 10/20/24 Intake Note: Catalina is a 69 year old female who presents today for a post operative visit s/p right shoulder DOS: 10/20/24 w/ . Patient reports she has concerns, stated it been a month since surgery and has had no improvement. States she still is not able to sleep on her right side, ROM is good but painful at times. Also states she has a feeling as if she has something on top of her shoulder that limited her from lifting arm at times and has radiating pain from her shoulder down her arm. Hand Stapler Name: Flakita CCMA/ LM Allergies sumatriptan [Imitrex] Allergy (Unknown, Verified 11/01/24 10:33) anaphylaxis Medication List - Last Reconciled 11/24/24 by Peter Arroyo PA-C amitriptyline 50 mg PO BEDTIME amlodipine 5 mg PO DAILY hpqrjdwkzl-fexatnaqiw-jvp-cod [id number] mg 1 cap PO Q4H PRN lisinopril 20 mg PO DAILY metoprolol tartrate 25 mg PO BID oxycodone 5 mg PO .QHS PRN 7 days pantoprazole 20 mg PO QAM PRN 30 days spironolactone 25 mg PO DAILY tramadol 50 mg PO Q12H PRN HPI HPI PO RT shoulder 10/20/24 DR: Details: 69-year-old female returns to the office today status post right shoulder arthroscopy with Dr. Montiel on 10/20/2024. At our last appointment she was referred to physical therapy which she states she did not receive an appointment for. She continues to have discomfort with reaching overhead and sleeping at night. [facility] Medical History GERD (gastroesophageal reflux disease) Arthritis HTN (hypertension) Osteoporosis Vitamin D deficiency Hyperparathyroidism Surgical History History of esophagogastroduodenoscopy (EGD) Hx of colonoscopy Family History Father Colon cancer Mother Cancer Social History Household Members: None Household Members Other:: alone Housing: House Are you a primary critical care clinical nurse specialist to a significant other at home: No Do you presently have visiting nurse or other home services: No Alcohol intake: never Patient Tobacco Use Status: Never used Tobacco e-Cigarette/Vaping Use: Never Used Review of Systems Const All systems reviewed & are unremarkable except as noted in HPI and below Physical Exam Extrem Other: Right shoulder incisions are well healed. Forward flexion to 170 degrees. Assessment & Plan Assessment & Plan (1) Impingement of right shoulder: Code(s): M25.811 - Other specified joint disorders, right shoulder Category: Medical Plan: I stressed the importance of physical therapy and gave her their phone number so she can contact them directly. I also stressed the importance of working on her posture as she sits with her back rounded over and this is causing more tension to the shoulder region. I recommend Tylenol and Motrin throughout the day to help with her pain and discomfort. We will hold on any refills for oxycodone. She will see Dr. Montiel in 6 weeks for re-evaluation sooner if needed. Coding Level of Care Code Global (99192) Diagnoses Impingement of right shoulder M25.811
--- OUTSIDE RECORDS SUMMARY | 2024-11-24 08:45 | XMS_ITS | Encounter Summary ---
Author Organization [employer] Address [address] [facility] 7t [place] [address] Care Team Providers Care Menswear Salesperson Name Role Phone Name, Juan CERDA Primary Care Provider [phone] Daja Sigala PharmD Unavailable [phone] Reason for Visit * Reason Comments Med Refill Encounter Details Date Type Department Care Team ([facility] st Contact Info) Description 08/03/2024 Refill [facility] [address] [place], [place] [phone] Name, MD Juan [address] [place] [address] Social History Tobacco Use Types Packs/Day Years [...] Care Team (Late st Contact Info) Description 12/12/2024 9:00 AM EDT Medication Management [facility] [address] [place] [phone] Daja Sigala PharmD [address] [place] [address] 12/18/2024 10:45 AM EDT Office Visit [facility] [address] [place] [address] Name, MD Juan [address] [place] [address] documented as of this encounter Visit Diagnoses Not on filedocumented in this encounter Additional Health Concerns Assessment Noted Time PHQ-9 Depression Total Score: 2 01/07/20 11:51 AM EDT documented as of this encounter Care Teams Menswear Salesperson Relationship Specialty Start Date End Date Name, MD Juan [address] [place] [address] PCP - General Family Medicine 11/29/15 Daja Sigala PharmD [address] [place] [address] 23617 Pharmacist Internal Medicine 05/25/24 documented as of this encounter
--- OUTSIDE RECORDS SUMMARY | 2024-11-24 08:45 | XMS_ITS | Encounter Summary ---
Author Organization [employer] Address [address] [facility] 7t [place] [address] Care Team Providers Care Department Chair Name Role Phone Name, Juan CERDA Primary Care Provider [phone] Daja Sigala PharmD Unavailable [phone] Reason for Visit * Reason Comments Med Refill Encounter Details Date Type Department Care Team ([facility] st Contact Info) Description 09/20/2024 Refill [facility] [address] [place], [place] [phone] Name, MD Juan [address] [place] [address] Social History Tobacco Use Types Packs/Day Years [...] Description 12/12/2024 9:00 AM EDT Medication Management [facility] [address] [place] [address] aDja Sigala PharmD [address] [place] [address] 12/18/2024 10:45 AM EDT Office Visit [facility] [address] [place] [address] Name, MD Juan [address] [place] [address] 312[address] documented as of this encounter Visit Diagnoses Not on filedocumented in this encounter Additional Health Concerns Assessment Noted Time PHQ-9 Depression Total Score: 2 01/07/20 11:51 AM EDT documented as of this encounter Care Teams Department Chair Relationship Specialty Start Date End Date Name, MD Juan [address] [place] [address] PCP - General Family Medicine 11/29/15 Daja Sigala PharmD [address] [place] [address] Pharmacist Internal Medicine 05/25/24 documented as of this encounter
--- OUTSIDE RECORDS SUMMARY | 2024-11-24 08:45 | XMS_ITS | Clinical Summary ---
Author Organization [facility] Address [address] [place] [address] Care Team Providers Care Flue Tile Press Operator Name Role Phone Richi Bazan MD Primary Care Provider Surgical History Surgery Date Site/Laterality Comments COLONOSCOPY 11/12/2005 PROCEDURE: SD COLONOSCOPY STOMA DX INCLUDING COLLJ SPEC SPX; COMMENT: Up to cecum, diverticulosis. [facility] at [facility], poor prep. ESOPHAGOGASTRODUODENOSCOPY 01/21/2009 PROCEDURE: SD EGD TRANSORAL BIOPSY SINGLE/MULTIPLE; COMMENT: Normal esophagus, antral ulcer-biopsy:bening ulcer(HPylori+/treated), duodenitis, SB-biopsy:Nl ESOPHAGOGASTRODUODENOSCOPY 05/12/2010 PROCEDURE: SD EGD TRANSORAL BIOPSY SINGLE/MULTIPLE; COMMENT: Esophagus normal, gastritis, gastric ulcer-biopsy:acute ulcerative gastritis (HPylori+++), normal esophagus. SB bx: normal ESOPHAGOGASTRODUODENOSCOPY 10/02/2011 PROCEDURE: SD EGD TRANSORAL BIOPSY SINGLE/MULTIPLE; COMMENT: small gastric ulcer, bx: h pylori present. COLONOSCOPY 10/02/2011 PROCEDURE: SD COLONOSCOPY FLX DX W/COLLJ SPEC WHEN PFRMD; COMMENT: diverticulosis; no polyps. good prep. OTHER SURGICAL HISTORY 06/06/2013 PROCEDURE: SD ANTERIOR COLPORRAPHY RPR CYSTOCELE W/CYSTO Medical History [...] Td or Tdap) 06/14/2018 06/14/2008 COVID-19 Vaccine ( - season) 2024 Influenza Vaccine (Season Ended) 2025 07/30/2015, 05/15/2013, 05/24/2012, Additional history exists RSV Immunization Adult Patients (1 - 1-dose 75+ series) 2031 HIB [...] age to complete this topic Meningococcal B Vaccine Aged Out No l onger eligible based on patient's age to complete this topic RSV Immunization Patients Under 20 months Aged Out No longer eligible based on patient's age to complete this topic Varicella Vaccines Aged Out No longer eligible based on patient's age to complete this topic Care Teams Flue Tile Press Operator Relationship Specialty Start Date End Date Richi Bazan MD PCP - General Internal Medicine 10/03/15
--- OUTSIDE RECORDS SUMMARY | 2024-11-24 08:45 | XMS_ITS | Encounter Summary ---
Author Organization [employer] Address [address] [place] [address] 7t [place] [address] Care Team Providers Care Stereotype Caster Name Role Phone Name, Juan CERDA Primary Care Provider Daja Sigala PharmD Unavailable [phone] Reason for Visit * Reason Onset Date Comments Prior Authorization 01/08/2023 Encounter Details Date Type Department Care Team (Late st Contact Info) Description 01/08/2023 Telephone [facility] [address] [place], [place] [phone] Name, MD Juan [address] [place] [address] Prior Authorization Social History Tobacco Use Types [...] Martinez - 01/08/2023 10:48 AM EDT Tc from Ligia from [facility] pharmacy requesting a PA for medication elavil 50 mg . documented in this encounter Plan of Treatment Upcoming Encounters Date Type Department Care Team (Late st Contact Info) Description 12/12/2024 9:00 AM EDT Medication Management [facility] [address] [place] [address] Daja Sigala PharmD [address] [place] [address] 12/18/2024 10:45 AM EDT Office Visit [facility] [address] [place] [address] Name, MD Juan [address] [place] [address] documented as of this encounter Visit Diagnoses Not on filedocumented in this encounter Additional Health Concerns Assessment Noted Time PHQ-9 Depression Total Score: 6 12/10/19 23 4:19 PM EDT documented as of this encounter Care Teams Stereotype Caster Relationship Specialty Start Date End Date Name, MD Juan [address] [place] [address] PCP - General Family Medicine 11/29/15 Daja Sigala PharmD [address] [place] [address] 24054 Pharmacist Internal Medicine 05/25/24 documented as of this encounter
--- OUTSIDE RECORDS SUMMARY | 2024-11-24 08:46 | XMS_ITS | Encounter Summary ---
Author Organization [employer] Address [address] [place] [address] 7t [place] [address] Care Team Providers Care Retail Salesperson Name Role Phone Name, Juan CERDA Primary Care Provider [phone] Daja Sigala PharmD Unavailable [phone] Encounter Details Date Type Department Care Team (Late st Contact Info) Description 10/19/2022 Orders Only [facility] [address] [place] [address] Tamara Yi LPN Social History Tobacco Use [...] Description 12/12/2024 9:00 AM EDT Medication Management [facility] [address] [place] [address] Daja Sigala, PharmD [address] [place] [address] 12/18/2024 10:45 AM EDT Office Visit [facility] [address] [place] [address] 15597 Name, MD Juan [address] [place] [address]21 documented as of this encounter Visit Diagnoses Not on filedocumented in this encounter Care Teams Retail Salesperson Relationship Specialty Start Date End Date Name, MD Juan [address] [place] [address] PCP - General Family Medicine 11/29/15 Daja Sigala PharmD [address] [place] [address] Pharmacist Internal Medicine 05/25/24 documented as of this encounter
--- OUTSIDE RECORDS SUMMARY | 2024-11-24 08:46 | XMS_ITS | Encounter Summary ---
Author Organization [employer] Address [address] [place] [address] 7t [place] [address] Care Team Providers Care Him Coder Name Role Phone NameJuan MD Primary Care Provider [phone] Daja Sigala PharmD Unavailable [phone] Reason for Visit * Reason Comments Med Refill Encounter Details Date Type Department Care Team (Late st Contact Info) Description 11/05/2022 Refill [facility] [address] [place] [phone] Juan Lacy MD [address] [place] [address] Social History Tobacco Use Types Packs/Day Years [...] Description 12/12/2024 9:00 AM EDT Medication Management [facility] [address] [place] [address] Daja Sigala, PharmD [address] [place] [address] 12/18/2024 10:45 AM EDT Office Visit [facility] [address] [place] [address] Juan Lacy MD [address] [place] [address] documented as of this encounter Visit Diagnoses Not on filedocumented in this encounter Care Teams Him Coder Relationship Specialty Start Date End Date Name, MD Juan [address] [place] [address] PCP - General Family Medicine 11/29/15 Daja Sigala PharmD [address] [place] [address]00 Pharmacist Internal Medicine 05/25/24 documented as of this encounter
--- OUTSIDE RECORDS SUMMARY | 2024-11-24 08:46 | XMS_ITS | Encounter Summary ---
Author Organization [employer] Address [address] [place] [address] 7t [place] [address] Care Team Providers Care Bonderite Operator Name Role Phone Name, Juan CERDA Primary Care Provider [phone] Daja Sigala PharmD Unavailable [phone] Encounter Details Date Type Department Care Team (Late Contact Info) Description 01/07/2023 Abstract [facility] [address] [place] [address] [phone] Name, MD Juan [address] [place] [phone] Social History Tobacco Use Types Packs/Day Years [...] Department Care Team (Late Contact Info) Description 12/12/2024 9:00 AM EDT Medication Management [facility] [address] [place] [address] [phone] Daja Sigala PharmD [address] [place] [address] 12/18/2024 10:45 AM EDT Office Visit [facility] [address] [place] [address] 48868 Name, MD Juan [address] [place] [address] 81935 documented as of this encounter Visit Diagnoses Not on filedocumented in this encounter Additional Health Concerns Assessment Noted Time PHQ-9 Depression Total Score: 6 12/10/19 23 4:19 PM EDT documented as of this encounter Care Teams Bonderite Operator Relationship Specialty Start Date End Date Name, MD Juan [address] [place] [address] PCP - General Family Medicine 11/29/15 Daja Sigala, MirnaD [address] [place] [address] 42551 Pharmacist Internal Medicine 05/25/24 documented as of this encounter
--- OUTSIDE RECORDS SUMMARY | 2024-11-24 08:46 | XMS_ITS | Encounter Summary ---
Author Organization [employer] Address [address] [place] [address] 7t [place] [address] Care Team Providers Care Brand Mgr Name Role Phone Name, Juan CERDA Primary Care Provider [phone] Daja Sigala PharmD Unavailable [phone] Encounter Details Date Type Department Care Team (Late Contact Info) Description 01/08/2023 Abstract [facility] [address] [place] [address] [phone] Name, MD Juan [address] [place] [address]68 Social History Tobacco Use Types Packs/Day Years [...] Description 12/12/2024 9:00 AM EDT Medication Management [facility] [address] [place] [address] [phone] Daja Sigala PharmD [address] [place] [address] 12/18/2024 10:45 AM EDT Office Visit [facility] [address] [place] [address] 17934 Name, MD Juan [address] [place] [address] 14924 documented as of this encounter Visit Diagnoses Not on filedocumented in this encounter Additional Health Concerns Assessment Noted Time PHQ-9 Depression Total Score: 6 12/10/19 23 4:19 PM EDT documented as of this encounter Care Teams Brand Mgr Relationship Specialty Start Date End Date Name, MD Juan [address] [place] [address] 15727 PCP - General Family Medicine 11/29/15 Daja Sigala, MirnaD [address] [place] [address] 75657 Pharmacist Internal Medicine 05/25/24 documented as of this encounter
--- OUTSIDE RECORDS SUMMARY | 2024-11-24 08:46 | XMS_ITS | Encounter Summary ---
Author Organization [employer] Address [address] [facility] 7t [place] [address] Care Team Providers Care Cpa Tax Name Role Phone Name, Juan CERDA Primary Care Provider [phone] Daja Sigala PharmD Unavailable [phone] Reason for Visit * Reason Onset Date Comments Call Back Request 10/20/2023 Encounter Details Date Type Department Care Team ([facility] st Contact Info) Description 10/20/[address] [facility] [address] [place], [place] [phone] Name, MD Juan [address] [place] [address] Call Back Request Social History Tobacco Use [...] Description 12/12/2024 9:00 AM EDT Medication Management [facility] [address] [place] [address] Daja Sigala, PharmD [address] [place] [address] 232[address] 12/18/2024 10:45 AM EDT Office Visit [facility] [address] [place] [address] Name, MD Juan [address] [place] [address] 79733 documented as of this encounter Visit Diagnoses Not on filedocumented in this encounter Additional Health Concerns Assessment Noted Time PHQ-9 Depression Total Score: 6 12/10/19 23 4:19 PM EDT documented as of this encounter Care Teams Cpa Tax Relationship Specialty Start Date End Date NameJuan MD [address] [place] [address] 88945 PCP - General Family Medicine 11/29/15 Daja Sigala, PharmD [address] [place] [address] Pharmacist Internal Medicine 05/25/24 documented as of this encounter
--- OUTSIDE RECORDS SUMMARY | 2024-11-24 08:46 | XMS_ITS | Clinical Summary ---
Author Organization [employer] Address [address] [facility] 7t [place] [address] Care Team Providers Care Data Integrity Analyst Name Role Phone Name, Juan CERDA Primary Care Provider Daja Sigala PharmD Unavailable [phone] Allergies Active Allergy Reactions Criticality Noted Date Comments Sumatriptan Anaphylaxis High 11/29/2015 Medications Blood Pressure kitIndications:E ssential hypertension USE TO CHECK HOME BLOOD PRESSURE ONCE DAILY DIRECTED 1 kit 024 Active amLODIPine-valsa rtan (Exforge) 10-320 MG tabletIndication [...] not crush or chew. 90 tablet 3 025 Active spironolactone (Aldactone) 25 MG tabletIndication s:Essential [...] in the morning. 30 tablet 2 Active oxyCODONE (Roxicodone) 5 MG immediate release tablet Take 5 mg by mouth if needed at bedtime. Active zolpidem (Ambien) 5 MG tablet TAKE 1 TABLET BY MOUTH AT BEDTIME NEEDED FOR SLEEP Do not start before November 14, 2024. 30 tablet Active alendronate (Fosamax) 70 MG tablet 022 2024 Discontinued(T herapy completed) hydrocortisone 2.5 % cream Mix 60g tube [...] mouth at bedtime. 30 tablet 2 024 2024 Discontinued(R eorder (will not trigger notification to Pharmacy)) butalbital-aceta minophen-caffein e 50-325-40 MG tablet TAKE 1 TO 2 TABLETS BY MOUTH EVERY 8 HOURS NEEDED . DO NOT EXCEED 6 TABLETS PER 24 HOURS 20 tablet 024 2024 Discontinued(R eorder (will not trigger notification to Pharmacy)) spironolactone (Aldactone) 25 MG tablet Take 1 [...] by mouth 2 times daily. 60 tablet 2024 Discontinued(R eorder (will not trigger notification to Pharmacy)) zolpidem (Ambien) 5 MG tablet TAKE 1 TABLET BY MOUTH AT BEDTIME NEEDED FOR SLEEP 30 tablet 025 2024 Discontinued(R eorder (will not trigger notification to Pharmacy)) traMADol (Ultram) 50 MG tablet Take 1 tablet by mouth if needed in the morning and at bedtime for pain. 025 2024 Discontinued(A lternate therapy) Active Problems Problem Noted Date Diagnosed Date [...] Encounters Date Type Department Care Team Description 11/07/2024 Telephone [facility] [place] [address] Juan Lacy MD 11/07/2024 Refill [facility] [place] [address] Juan Lacy MD 11/07/2024 Travel 10/31/2024 Refill [facility] [place] [place] [address] Daja Sigala, Zachary Migraine without aura and with status migrainosus, not intractable (Primary Dx); Epigastric pain; Nausea without vomiting; Heartburn 10/31/2024 Travel 10/19/2024 Telephone [facility] [place] [address] Edyta Herman RN 10/18/2024 9:00 AM EST Office Visit [facility] [place] [address] Akilah Solis FNP Preop examination (Primary Dx); Essential hypertension; SILVERIO (obstructive sleep apnea); Hypertension, unspecified type 10/18/2024 Travel 10/17/2024 Telephone [facility] [place] [address] Edyta Herman RN Error (VOID this visit) 10/17/2024 Telephone [facility] [place] [address] Juan Lacy MD 10/16/2024 Telephone [facility] [place] [address] Juan Lacy MD Call Back Request 10/12/2024 Refill [facility] [place] [address] Juan Lacy MD 10/10/2024 Telephone [facility] [place] [address] Juan Lacy MD 10/09/2024 4:00 PM EST Office Visit [facility] [place] [place] [address] Juan Lacy MD Epigastric pain (Primary Dx); Nausea without vomiting 10/09/2024 Travel 10/09/[address] [address] Juan Lacy MD Nurse Triage 09/26/2024 Travel 09/20/[address] [address] Juan Lacy MD 09/19/[address] [address] Juan Lacy MD No Show 09/19/[address] [phone] Tesha Clemens RN 09/12/2024 10:00 AM EST Office Visit [address] [address] Juan Lacy MD Hypertension, unspecified type (Primary Dx); Acute insomnia 09/12/2024 Travel 09/11/[address] [address] Chrissy Patel MA chart prep from Last 3 Months Immunizations Name Administration Dates Next Due INFLUENZA VACCINE QUADRIVALE NT RECOMBINANT PRESERVATIVE FREE RIV4 05/04/2020 Influenza High-dose Quadriva lent Preservative Free 06/21/2023,05/18/2022,05/13/2021 Influenza injectable quadriv alent IIV4 with preservative 05/05/2017,07/27/2016 Influenza injectable quadriv alent preservative free 06/23/2019 Influenza, High Dose Seasona l, Preservative Free 05/09/2024 Influenza, IIV3, injectable 07/30/2015,0 05/15/2013,05/24/2012,2010,05/13/2010,05/23/2009,06/14/2008 MMR 04/08/2017 Moderna Covid-19 Vaccine 12+ 12/01/2020,11/10/19 21 Novel [id number], preservative-free 08/22/2009 Pneumococcal Conjugate PCV 13 02/09/2022 [...] Sign Reading Time Taken Comments Blood Pressure 118/62 11/07/2024 9:13 AM EDT Pulse 60 10/31/2024 9:20 AM [...] Description 12/12/2024 9:00 AM EDT Medication Management [facility] [address] [place] [address] Daja Sigala, PharmD [address] [place] [address] 12/18/2024 10:45 AM EDT Office Visit [facility] [address] [place] [address] Name, MD Juan [address] [place] [address] Health Maintenance Due Date Last Done Comments [...] 09/26/2024 10:33 AM EST Hypertension, unspecified type LIPID PANEL, STANDARD Routine 06/27/2024 9:17 AM EST HM COLONOSCOPY Routine 12/14/2023 BI MAMMOGRAM SCREENING TOMOSYNTHESIS BILATERAL Routine 07/22/2022 2:52 PM EST from Last 3 Months or Most Recently Relevant to Health Maintenance Results * (ABNORMAL) CBC auto differential (10/10/2024 9:28 AM EST) White Blood Count 7.7 4.8 - 10.8 X10*3/uL [facility] Red Blood Count 4.38 4.20 - 5.50 X10*6/uL [facility] Hemoglobin 12.9 12.0 - 16.0 g/dl [facility] Hematocrit 38.5 37.0 - 47.0 % [facility] Mean Corpuscular Volume 87.9 80.0 - 98.0 fL [facility] Mean Corpuscular Hemoglobin 29.5 27.0 - 33.0 pg [facility] Mean Corpuscular HGB Conc 33.5 31.0 - 35.0 g/dl [facility] Red Cell Distribution Width 12.9 11.0 - 16.0 % [facility] Platelet Count 250 160 - 400 X10*3/uL [facility] Mean Platelet Volume 12.6(H) 9.4 - 12.3 fL [facility] Neutrophils Percent Auto 50.6 45 - 73 % [facility] Imm Gran Pct Auto 0.3 0.0 - 0.4 % [facility] Lymphocytes Percent Auto 26.2 20 - 40 % [facility] Monocytes Percent Auto 5.6 2 - 11 % [facility] Eosinophils Percent Auto 16.7(H) 0 - 4 % [facility] Basophils Percent Auto 0.6 0 - 2 % [facility] NRBC Pct Auto 0.0 0.0 - 0.2 /100WBC [facility] Neutrophils Absolute Auto 3.9 2.0 - 8.3 x10*3/uL [facility] Imm Gran Abs Auto 0.02 0.00 - 0.03 X10*3/uL [facility] Lymphocytes Absolute Auto 2.0 1.2 - 4.9 X10*3/uL [facility] Monocytes Absolute Auto 0.4 0.1 - 1.2 X10*3/uL [facility] Eosinophils Absolute Auto 1.3(H) 0.0 - 0.4 X10*3/uL [facility] Basophils Absolute Auto 0.1 0.0 - 0.2 X10*3/uL [facility] NRBC Abs Auto 0.000 0.0 - 0.012 X10*3/uL [facility] Blood Venous blood specimen / Unknown 10/10/2024 9:28 AM EST 10/10/2024 11:33 AM EST us Juan Lacy MD LAB BLOOD ORDERABLES Final Resul t Performing Organization Address City/[facility]/ZIP Co de Phone Number [facility] [address] [place] [phone] * Lipase (10/10/2024 9:28 AM EST) Pathologist [facility] Lipase 14 8 - 78 U/L [facility] Blood Venous blood specimen / Unknown 10/10/2024 9:28 AM EST 10/10/2024 11:33 AM EST us Juan Lacy MD LAB BLOOD ORDERABLES Final Resul t Performing Organization Address City/[facility]/ZIP Co de Phone Number [facility] [address] [place] [phone] * (ABNORMAL) Comprehensive Metabolic Panel (10/10/2024 9:28 AM EST) Sodium 140 135 - 145 mmol/L [facility] Potassium 3.1(L) 3.3 - 5.1 mmol/L [facility] Chloride 106 96 - 108 mmol/L [facility] Carbon Dioxide 26 22 - 29 mmol/L [facility] Anion Gap 11(L) 12 - 20 [facility] Urea Nitrogen (BUN) 12 9 - 16 mg/dL [facility] Creatinine, Serum 0.75 0.5 - 1.4 mg/dL [facility] Estimated Glomerular Filt Rate >60 [facility] Comment:Chronic Kidney Disea se: Estimated GFR < 60 mL/min/[id number] Kidney Disease: Estimated GFR < 15 mL/min/1.73m2 Glucose 91 60 - 115 mg/dL [facility] Calcium 10.3(H) 8.4 - 10.2 mg/dL [facility] Bilirubin, Total 0.4 0.0 - 1.0 mg/dL [facility] Aspartate Amino Transferase 28 5 - 31 U/L [facility] Alanine Aminotransferase 19 0 - 31 U/L [facility] Total Protein 7.9 6.5 - 8.0 g/dL [facility] Albumin Level 4.4 3.5 - 5.0 g/dL [facility] Alkaline Phosphatase 155(H) 39 - 117 U/L [facility] Blood Venous blood specimen / Unknown 10/10/2024 9:28 AM EST 10/10/2024 11:33 AM EST us Juan Name MD LAB BLOOD ORDERABLES Final Resul t [facility] [address] [place] [phone] * (ABNORMAL) Basic Metabolic Panel (09/26/2024 10:33 AM EST) Sodium 140 135 - 145 mmol/L [facility] Potassium 4.3 3.3 - 5.1 mmol/L [facility] Chloride 112(H) 96 - 108 mmol/L [facility] Carbon Dioxide 24 22 - 29 mmol/L [facility] Anion Gap 8(L) 12 - 20 [facility] Urea Nitrogen (BUN) 19(H) 9 - 16 mg/dL [facility] Creatinine, Serum 0.74 0.5 - 1.4 mg/dL [facility] Estimated Glomerular Filt Rate >60 [facility] Comment:Chronic Kidney Disea se: Estimated GFR < 60 mL/min/1.87j1Biecsk Kidney Disease: Estimated GFR < 15 mL/min/1.73m2 Glucose 94 60 - 115 mg/dL [facility] Calcium 10.2 8.4 - 10.2 mg/dL [facility] Blood Venous blood specimen / Unknown 09/26/2024 10:33 AM EST 09/26/2024 1:02 PM EST us Juan Lacy MD LAB BLOOD ORDERABLES Final Resul t Performing Organization Address [facility] Co de Phone Number [facility] [address] [place] [address] [phone] * Lipid Panel, Standard (06/27/2024 9:17 AM EST) Triglycerides 96 <150 mg/dL [facility] Comment:Desirable Triglyceri de: less than 150 mg/dLBorderline High Triglyceride 150-199 mg/dLHigh Triglyceride: 200-499 mg/dLVery High Triglyceride: greater than or equal to 5OO mg/dL Cholesterol 151 <200 mg/dL [facility] Comment:Desirable Cholestero l: less than 200 mg/dLBorderline High Cholesterol: 200-239 mg/dLHigh Cholesterol: greater than 239 mg/dL LDL Cholesterol Calculated 87 <100 mg/dL [facility] Comment:Desirable LDL: less than 100 mg/dLNear Optimal/Above Optimal LDL: 110- 129 mg/dLBorderline High LDL: 130-159 mg/dLHigh LDL: 160-189 mg/dLVery High LDL: greater than or equal to 190 mg/dL HDL Cholesterol 45 >40 mg/dL [facility] Comment:Desirable HDL: great er than 40 mg/dL Note: This HDL assay may give artificially low results in patients with liver disease. 06/27/2024 9:17 AM EST 06/27/2024 11:35 AM EST us Juan Lacy MD LAB BLOOD ORDERABLES Final Resul t Performing Organization Address City/[facility] Co de Phone Number [facility] [address] [place] [phone] * (ABNORMAL) Hm Colonoscopy (12/14/2023) Colonoscopy Abnormal(A ) Normal us Juan Lacy MD HEALTH MAINTENANCE Final Result * BI Mammogram Screening Tomosynthesis Bilateral (07/22/2022 2:52 PM EST) Anatomical Region Laterality Modality Breast Bilateral Mammography 07/22/2022 2:52 PM EST Narrative 07/23/2022 1:30 PM EST ? Juan [facility] ? [address] ?[place] [id number] ? Mammography Report ? Signed ? Patient: Catalina Florian ?MR#: [id number] ?? [id number] ? : 1955 ?Acct:[id number] ? Age/Sex: 67 / F ?ADM Date: 07/22/22 ? Loc: HO.MAMMO ? Attending Dr: Juan Name MD ? Ordering Physician: Name,Juan MD ?Results: 1Negative ? Date of Service: 07/22/22 ?Follow Up: 1 Year From Orig ?? inal Mammogram ? Procedure(s): MM tomosynthesis screening BI ?? Accession Number(s): [id number] ? cc: Name,Juan CERDA ? EXAMINATION: ?? [...] 1327 ? DD/ 1452 ? TD/TT: ? Regional Sales Leader: MARSHALL ? Procedure Note Krish, Image - 07/23/2022 [facility] [address] [place] [address] [place] [address] Mammography Report Signed Patient: Kassandra Florian#: [id number] : 6Acct:[id number] Age/Sex: 67 / FADM Date: 07/22/22 Loc: [facility] Attending Dr: Juan Lacy MD Ordering Physician: Juan Lacyesults: 1Negative Date of Service: 07/22/22Follow Up: 1 Year From Orig inal Mammogram Procedure(s): MM tomosynthesis screening BI Accession Number(s): [id number] cc: Juan Lacy MD EXAMINATION: MM SCREENING [...] in OV> 07/23/22 1327 DD/ 1452 TD/TT: Regional Sales Leader: MARSHALL [facility] External Provider IMG BI PROCEDURES Edited Result - Final from Last 3 Months or Most Recently Relevant to Health Maintenance Insurance [employer] STANDARD MEDICARE Care Teams Data Integrity Analyst Relationship Specialty Start Date End Date Name, MD Juan [address] [place] [address] PCP - General Family Medicine 11/29/15 Daja Sigala PharmD [address] [place] [address] Pharmacist Internal Medicine 05/25/24
== END 2024-11-24 09:00 | disposition home or self-care (01) ==
LOC: HO.HOS 08:41
PROVIDERS: PCP Internal Medicine Geriatric Medicine; Visit Provider Physician Assistant
DX: M25.811 Other specified joint disorders, right shoulder (principal)
CPT/HCPCS: 99024

== ENCOUNTER → 2024-11-24 08:40 | Outpatient (BNVA) | payer MEDICARE, MEDICAID, SELFPAY | PROVIDERS: PCP Internal Medicine Geriatric Medicine; Visit Provider Physician Assistant | DX: M25.811 Other specified joint disorders, right shoulder (principal) | CPT/HCPCS: 99212 ==

== ENCOUNTER 2024-12-28 13:31 | Outpatient (AMB) | payer MEDICARE, MEDICAID, SELFPAY ==
--- NOTE | 2024-12-28 13:35 | A.OFFVIS_ITS ---
Vital Signs 12/28/24 13:38 Height 5 ft 4 in Weight 128 lb BMI 22.0 Intake Visit Reasons: PO RT shoulder 10/20/24 DR-6 WK follow up Intake Note: Catalina is a 69 year old female who presents with complaints of intermittent pain in her right shoulder after undergoing right shoulder arthroscopic surgery on 10/20/2024. She denies any fevers or chills. She continues with her home stretching program. She is no longer taking narcotics for her discomfort. Vulcan Crewmember Required: Yes Vulcan Crewmember Language: Head Piece Assembler Services: Vulcan Crewmember Present Vulcan Crewmember Name: CHRISTAL Pain[employer]/ISAIAH Allergies sumatriptan [Imitrex] Allergy (Unknown, Verified 12/28/24 13:42) anaphylaxis Medication List - Last Reconciled 12/28/24 by Bhavesh Montiel MD amitriptyline 50 mg PO BEDTIME amlodipine 5 mg PO DAILY xjchkqvyoy-flzlanrogk-ukg-cod [id number] mg 1 cap PO Q4H PRN lisinopril 20 mg PO DAILY metoprolol tartrate 25 mg PO BID oxycodone 5 mg PO .QHS PRN 7 days pantoprazole 20 mg PO QAM PRN 30 days spironolactone 25 mg PO DAILY tramadol 50 mg PO Q12H PRN PFSH Medical History GERD (gastroesophageal reflux disease) Arthritis HTN (hypertension) Osteoporosis Vitamin D deficiency Hyperparathyroidism Surgical History History of esophagogastroduodenoscopy (EGD) Hx of colonoscopy Family History Father Colon cancer Mother Cancer Social History Household Members: None Household Members Other:: alone Housing: House Are you a primary manager urgent care to a significant other at home: No Do you presently have visiting nurse or other home services: No Alcohol intake: never Patient Tobacco Use Status: Never used Tobacco e-Cigarette/Vaping Use: Never Used Physical Exam Vital Signs: BMI result Body Mass Index 22.0 Extrem Other: Right shoulder examination shows that the surgical incisions are well healed, no erythema, slightly decreased range of motion when compared to her left shoulder, mild to moderate discomfort with resisted forward flexion, no instability Assessment & Plan Assessment & Plan (1) Right shoulder pain: Code(s): M25.511 - Pain in right shoulder Category: Medical Plan Ms. Florian is doing fairly well after undergoing right shoulder arthroscopic surgery on 10/20/2024. She will continue with her home stretching program. I did give her a prescription for a Medrol Dosepak. She will contact me prior to her follow-up appointment in 2-3 months should any questions or concerns arise. Feel free to call me at any time should questions regarding her orthopedic management arise. Medications: New methylprednisolone (Medrol ([place])) PO PER PKG DIR 21 ea 0RF Coding Level of Care Code Global (73230) Diagnoses Right shoulder pain M25.511
[2024-12-28 13:38] VITALS: BMI 22.0
--- OUTSIDE RECORDS SUMMARY | 2024-12-28 14:06 | XMS_ITS | Encounter Summary ---
Author Organization [employer] Address [address] [facility] 7t [place] [address] Care Team Providers Care Manager File Name Role Phone Name, Juan CERDA Primary Care Provider [phone] Daja Sigala PharmD Unavailable [phone] Reason for Visit * Reason Comments Med Refill Encounter Details Date Type Department Care Team ([facility] Contact Info) Description 08/03/2024 Refill [facility] [address], [place] [phone] Name, MD Juan [address] [place] [address] Social History Tobacco Use Types Packs/Day Years [...] Care Team (Late st Contact Info) Description 01/16/2025 9:30 AM EDT Medication Management [facility] [address] [place] [phone] Daja Sigala PharmD [address] [place] [address] 03/30/2025 10:15 AM EDT Office Visit [facility] [address] [place] [address] Name, MD Juan [address] [place] [address] documented as of this encounter Visit Diagnoses Not on filedocumented in this encounter Additional Health Concerns Assessment Noted Time PHQ-9 Depression Total Score: 2 01/07/20 11:51 AM EDT documented as of this encounter Care Teams Manager File Relationship Specialty Start Date End Date Name, MD Juan [address] [place] [phone] PCP - General Family Medicine 11/29/15 Daja Sigala PharmD [address] [place] [phone] Pharmacist Internal Medicine 05/25/24 documented as of this encounter
--- OUTSIDE RECORDS SUMMARY | 2024-12-28 14:06 | XMS_ITS | Encounter Summary ---
Author Organization [employer] Address [address] [facility] 7t [place] [address] Care Team Providers Care Visitor Information Assistant Name Role Phone Name, Juan CERDA Primary Care Provider [phone] Daja Sigala PharmD Unavailable [phone] Reason for Visit * Reason Onset Date Comments Prior Authorization 01/08/2023 Encounter Details Date Type Department Care Team ([facility] st Contact Info) Description 01/08/2023 Telephone [facility] [address] [place], [place] [phone] Name, MD Juan [address] [place] [address] Prior Authorization Social History Tobacco Use Types [...] 10:48 AM EDT Tc from [facility] from [facility] pharmacy requesting a PA for medication elavil 50 mg . documented in this encounter Plan of Treatment Upcoming Encounters Date Type Department Care Team (Late st Contact Info) Description 01/16/2025 9:30 AM EDT Medication Management [facility] [address] [place] [phone] Daja Sigala PharmD [address] [place] [phone] 03/30/2025 10:15 AM EDT Office Visit [facility] [address] [place] [phone] Name, MD Juan [address] [place] [address] documented as of this encounter Visit Diagnoses Not on filedocumented in this encounter Additional Health Concerns Assessment Noted Time PHQ-9 Depression Total Score: 6 12/10/19 23 4:19 PM EDT documented as of this encounter Care Teams Visitor Information Assistant Relationship Specialty Start Date End Date Name, MD Juan [address] [place] [address] PCP - General Family Medicine 11/29/15 Daja Sigala PharmD [address] [place] [address] Pharmacist Internal Medicine 05/25/24 documented as of this encounter
--- OUTSIDE RECORDS SUMMARY | 2024-12-28 14:06 | XMS_ITS | Clinical Summary ---
Author Organization [facility] Address [address] [place] [address] Care Team Providers Care Absorption And Adsorption Engineer Name Role Phone Richi Bzaan MD Primary Care Provider Surgical History Surgery Date Site/Laterality Comments COLONOSCOPY 11/12/2005 PROCEDURE: MS COLONOSCOPY STOMA DX INCLUDING COLLJ SPEC SPX; COMMENT: Up to cecum, diverticulosis[place] [facility] [place]. ESOPHAGOGASTRODUODENOSCOPY 01/21/2009 PROCEDURE: MS EGD TRANSORAL BIOPSY SINGLE/MULTIPLE; COMMENT: Normal esophagus, antral ulcer-biopsy:bening ulcer(HPylori+/treated), duodenitis, SB-biopsy:Nl ESOPHAGOGASTRODUODENOSCOPY 05/12/2010 PROCEDURE: MS EGD TRANSORAL BIOPSY SINGLE/MULTIPLE; COMMENT: Esophagus normal, gastritis, gastric ulcer-biopsy:acute ulcerative gastritis (HPylori+++), normal esophagus. SB bx: normal ESOPHAGOGASTRODUODENOSCOPY 10/02/2011 PROCEDURE: MS EGD TRANSORAL BIOPSY SINGLE/MULTIPLE; COMMENT: small gastric ulcer, bx: h pylori present. COLONOSCOPY 10/02/2011 PROCEDURE: MS COLONOSCOPY FLX DX W/COLLJ SPEC WHEN PFRMD; COMMENT: diverticulosis; no polyps. good prep. OTHER SURGICAL HISTORY 06/06/2013 PROCEDURE: MS ANTERIOR COLPORRAPHY RPR CYSTOCELE W/CYSTO Medical History [...] age to complete this topic Care Teams Absorption And Adsorption Engineer Relationship Specialty Start Date End Date Richi Bazan MD PCP - General Internal Medicine 10/03/15
--- OUTSIDE RECORDS SUMMARY | 2024-12-28 14:06 | XMS_ITS | Encounter Summary ---
Author Organization [employer] Address [address] [facility] 7t [place] [address] Care Team Providers Care Malted Milk Masher Name Role Phone Name, Juan CERDA Primary Care Provider [phone] Daja Sigala PharmD Unavailable [phone] Reason for Visit * Reason Comments Med Refill Encounter Details Date Type Department Care Team ([facility] st Contact Info) Description 09/20/2024 Refill [facility] [address] [place], [place] [phone] Name, MD Juan [address] [place] [address] Social History Tobacco Use Types Packs/Day Years [...] Description 01/16/2025 9:30 AM EDT Medication Management [facility] [address] [place] [address] Daja Sigala PharmD [address] [place] [phone] 03/30/2025 10:15 AM EDT Office Visit [facility] [address] [place] [address] Name, MD Juan [address] [place] [address] documented as of this encounter Visit Diagnoses Not on filedocumented in this encounter Additional Health Concerns Assessment Noted Time PHQ-9 Depression Total Score: 2 01/07/20 11:51 AM EDT documented as of this encounter Care Teams Malted Milk Masher Relationship Specialty Start Date End Date Name, MD Juan [address] [place] [address] PCP - General Family Medicine 11/29/15 Daja Sigala PharmD [address] [place] [phone] Pharmacist Internal Medicine 05/25/24 documented as of this encounter
--- OUTSIDE RECORDS SUMMARY | 2024-12-28 14:07 | XMS_ITS | Encounter Summary ---
Author Organization [employer] Address [address] [place] [address] 7t [place] [address] Care Team Providers Care Computer Sciences Professor Name Role Phone NameJuan MD Primary Care Provider [phone] Daja Sigala PharmD Unavailable [phone] Reason for Visit * Reason Comments Med Refill Encounter Details Date Type Department Care Team (Late st Contact Info) Description 11/05/2022 Refill [facility] [address] [place] [address] Juan Lacy MD [address] [place] [phone] Social History Tobacco Use Types Packs/Day Years [...] Description 01/16/2025 9:30 AM EDT Medication Management [facility] [address] [place] [address] Daja Sigala, PharmD [address] [place] [address] 03/30/2025 10:15 AM EDT Office Visit [facility] [address] [place] [address] Juan Lacy MD [address] [place] [address] documented as of this encounter Visit Diagnoses Not on filedocumented in this encounter Care Teams Computer Sciences Professor Relationship Specialty Start Date End Date Name, MD Juan [address] [place] [address] PCP - General Family Medicine 11/29/15 Daja Sigala PharmD [address] [place] [address] Pharmacist Internal Medicine 05/25/24 documented as of this encounter
--- OUTSIDE RECORDS SUMMARY | 2024-12-28 14:07 | XMS_ITS | Encounter Summary ---
Author Organization [employer] Address [address] [facility] 7t [place] [address] Care Team Providers Care Traffic Signal Repairer Name Role Phone Name, Juan CERDA Primary Care Provider [phone] Daja Sigala PharmD Unavailable [phone] Encounter Details Date Type Department Care Team (Late st Contact Info) Description 01/08/2023 Abstract [facility] [address] [place] [address] [phone] Name, MD Juan [address] [place], [place] [phone] Social History Tobacco Use Types Packs/Day Years [...] Description 01/16/2025 9:30 AM EDT Medication Management [facility] [address] [place] [phone] Puia, Daja, PharmD [address] [place] [address] 03/30/2025 10:15 AM EDT Office Visit [facility] [address] [place] [address] Name, MD Juan [address] [place] [address] documented as of this encounter Visit Diagnoses Not on filedocumented in this encounter Additional Health Concerns Assessment Noted Time PHQ-9 Depression Total Score: 6 12/10/19 23 4:19 PM EDT documented as of this encounter Care Teams Traffic Signal Repairer Relationship Specialty Start Date End Date Name, MD Juan [address] [place] [address] PCP - General Family Medicine 11/29/15 Daja Sigala PharmD [address] [place] [address] Pharmacist Internal Medicine 05/25/24 documented as of this encounter
--- OUTSIDE RECORDS SUMMARY | 2024-12-28 14:07 | XMS_ITS | Clinical Summary ---
Author Organization [employer] Address 75 [facility] 7t [place] [address] Care Team Providers Care Licensing Director Name Role Phone Name, Juan CERDA Primary Care Provider [phone] Daja Sigala PharmD Unavailable [phone] Allergies Active Allergy Reactions Criticality Noted Date Comments Sumatriptan Anaphylaxis High 11/29/2015 Medications Blood Pressure kitIndications:Es sential hypertension USE TO CHECK HOME BLOOD PRESSURE ONCE DAILY DIRECTED 1 kit 06/20/20 24 Active amLODIPine-valsar king (Exforge) 10-320 MG tabletIndications :Essential hypertension Take 1 tablet by mouth Once per day. 90 tablet 3 11/01/19 25 Active atorvastatin (Lipitor) 40 MG tabletIndications :Hyperlipidemia, unspecified hyperlipidemia type Take 1 tablet (40 mg) by mouth Once per day. 90 tablet 3 11/01/19 25 026 Active hydroCHLOROthiazi de (HYDRODiuril) 25 MG tabletIndications :Essential hypertension Take 1 tablet (25 mg) by mouth Once per day. 90 tablet 3 11/01/19 25 Active metoprolol succinate XL (Toprol XL) 25 MG 24 hr tabletIndications :Essential hypertension Take 1 tablet (25 mg) by mouth Once per day. Do not crush or chew. 90 tablet 3 11/01/19 25 Active spironolactone (Aldactone) 25 MG tabletIndications :Essential hypertension Take 1 tablet (25 mg) by mouth Once per day. 90 tablet 3 11/01/19 25 026 Active amitriptyline (Elavil) 10 MG tabletIndications :Migraine without aura and with status migrainosus, not intractable Take 1 tablet (10 mg) by mouth at bedtime. 30 tablet 2 11/01/19 25 025 Active famotidine (Pepcid) 20 MG tabletIndications :Epigastric pain,Nausea without vomiting,Heartbur n Take 1 tablet (20 mg) by mouth 2 times daily. 60 tablet 11 11/01/19 25 026 Active zolpidem (Ambien) 5 MG tablet TAKE 1 TABLET BY MOUTH AT BEDTIME NEEDED FOR SLEEP 30 tablet 12/09/19 25 Active magnesium oxide (Mag-Ox) 400 MG tablet Take 1 tablet by mouth in the morning. 11/11/19 25 Active butalbital-acetam inophen-caffeine 50-325-40 MG tabletIndications :Migraine without aura and with status migrainosus, not intractable TAKE 1 TO 2 TABLETS BY MOUTH EVERY 8 HOURS NEEDED . DO NOT EXCEED 6 TABLETS PER 24 HOURS 20 tablet 12/19/19 25 Active butalbital-acetam inophen-caffeine 50-325-40 MG tabletIndications :Migraine without aura and with status migrainosus, not intractable TAKE 1 TO 2 TABLETS BY MOUTH EVERY 8 HOURS NEEDED . DO NOT EXCEED 6 TABLETS PER 24 HOURS 20 tablet 11/01/19 25 025 Discontinued magnesium oxide (Mag-Ox) 400 mg tabletIndications :Migraine without aura and with status migrainosus, not intractable Take 1 tablet (400 mg) by mouth in the morning. 30 tablet 2 11/01/19 25 025 Discontinued(M ed list cleanup (will not trigger notification to Pharmacy)) oxyCODONE (Roxicodone) 5 MG immediate release tablet Take 5 mg by mouth if needed at bedtime. 11/02/19 25 025 Discontinued(M ed list cleanup (will not trigger notification to Pharmacy)) zolpidem (Ambien) 5 MG tablet TAKE 1 TABLET BY MOUTH AT BEDTIME NEEDED FOR SLEEP Do not start before November 14, 2024. 30 tablet 11/15/19 25 025 Discontinued butalbital-acetam inophen-caffeine 50-325-40 MG tabletIndications :Migraine without aura and with status migrainosus, not intractable TAKE 1 TO 2 TABLETS BY MOUTH EVERY 8 HOURS NEEDED. DO NOT EXCEED 6 TABLETS PER 24 HOURS. 20 tablet 12/14/19 25 025 Discontinued(R eorder (will not trigger notification to Pharmacy)) Active Problems Problem Noted Date Diagnosed Date Impingement of right shoulder 12/13/2024 Right shoulder pain 12/13/2024 Preop examination 10/19/2024 Essential hypertension 10/19/2024 Acid reflux 05/09/2024 Overview (12/13/2024): Omeprazole for years without much improvement will switch to pantoprazole for better coverage Arthritis of right knee 05/09/2024 Diverticulosis of colon 05/09/2024 Overview (12/13/2024): reviewed procedure report, path and recommendation Encounter for screening colonoscopy 05/09/2024 Overview (12/13/2024): Screening colonoscopy and EGD discussed procedure, rare risks need for escorted due to anesthesia Hemorrhoids 05/09/2024 Varicose veins of left lower [...] pain 02/19/2016 Migraine 11/29/2015 HTN (hypertension) 11/29/2015 Overview (12/13/2024): Recheck BP improved Assessment & Plan (10/19/2024 11:38 AM EST): Slightly above goal today of <140/<90 but overall stable and well controlled. Continue current med regimen Assessment & Plan (02/02/2023 5:48 PM EDT): Uncontrolled. Continue amlodipine, lisinopril and fu w PCP next week Encounters Date Type Department Care Team Description 12/18/2024 10:45 AM EDT Office Visit [facility] [address] [facility] [place] [address] NameJuan MD Essential hypertension (Primary Dx); Encounter for screening mammogram for malignant neoplasm of breast; Migraine without aura and with status migrainosus, not intractable 12/18/2024 Travel 12/13/2024 Telephone [facility] [address] [place] [address] Chrissy Patel MA chart prep 12/12/2024 Refill [facility] [address] [facility] [place] [address] Juan Lacy MD Migraine without aura and with status migrainosus, not intractable 12/12/2024 Travel 12/07/2024 Refill [facility] [address] [facility] [place] [address] Juan Lacy MD 11/07/2024 Telephone [facility] [address] [place] [address] Juan Lacy MD 11/07/2024 Refill [facility] [address] [facility] [place] [address] Juan Lacy MD 11/07/2024 Travel 10/31/2024 Refill [facility] [address] [facility] [place] [address] Daja Sigala PharmD Migraine without aura and with status migrainosus, not intractable (Primary Dx); Epigastric pain; Nausea without vomiting; Heartburn 10/31/2024 Travel 10/19/2024 Telephone [facility] [place] [address] Edyta Herman RN 10/18/2024 9:00 AM EST Office Visit [facility] [place] [address] Akilah Solis FNP Preop examination (Primary Dx); Essential hypertension; SILVERIO (obstructive sleep apnea); Hypertension, unspecified type 10/18/2024 Travel 10/17/2024 Telephone [facility] [place] [address] Edyta Herman RN Error (VOID this visit) 10/17/2024 Telephone [facility] [place] [address] Juan Lacy MD 10/16/2024 Telephone [facility] [place] [address] Juan Lacy MD Call Back Request 10/12/2024 Refill [facility] [place] [address] Juan Lacy MD 10/10/2024 Telephone [facility] [place] [address] Juan Lacy MD 10/09/2024 4:00 PM EST Office Visit [facility] [place] [address] Juan Lacy MD Epigastric pain (Primary Dx); Nausea without vomiting 10/09/2024 Travel 10/09/2024 Telephone [facility] [place] [address] Juan Lacy MD Nurse Triage from Last 3 Months Immunizations Immunization Administration Dates Next Due INFLUENZA VACCINE QUADRIVALE NT RECOMBINANT PRESERVATIVE FREE RIV4 05/04/2020 Influenza High-dose Quadriva lent Preservative Free 06/21/2023,05/18/2022,05/13/2021 Influenza injectable quadriv alent IIV4 with preservative 05/05/2017,07/27/2016 Influenza injectable quadriv alent preservative free 06/23/2019 Influenza, High Dose Seasona l, Preservative Free 05/09/2024 Influenza, IIV3, injectable 07/30/2015,0 05/15/2013,05/24/2012,2010,05/13/2010,05/23/2009,06/14/2008 MMR 04/08/2017 Moderna Covid-19 Vaccine 12+ 12/01/2020,11/10/19 21 Novel [id number], preservative-free 08/22/2009 Pneumococcal Conjugate PCV 13 02/09/2022 [...] Answer Date Recorded Patient Health Questionnaire-9 Score 8 12/18/2024 Patient Health Questionnaire-9 Score 8 12/18/2024 Last PHQ-9: Questionnaire Data Not on file 0 12/18/2024 Housing Stability Answer Date Recorded What is your housing situation today? I have sandhyamelva perea 01/07/[address] you [...] Answer Date Recorded Patient Health Questionnaire-2 Score 3 12/18/2024 Internet Access Answer Date Recorded Internet Access [...] Sign Reading Time Taken Comments Blood Pressure 134/88 12/18/2024 10:52 AM EDT Pulse 86 12/18/2024 10:52 AM EDT Temperature 36.5 ??C (97.7 ??F) 12/18/2024 1 0:52 AM EDT Respiratory Rate 14 12/18/2024 10:5 2 AM EDT Oxygen Saturation 98% 12/18/2024 10: 52 AM EDT Inhaled Oxygen Concentration - - Weight 58.4 kg (128 lb 12.8 oz) 025 10:52 AM EDT Height 160 cm (5' 3 ) 12/18/2024 10:52 AM EDT Body Mass Index 22.82 12/18/2024 10:52 AM EDT Plan of Treatment Upcoming Encounters Date Type Department Care Team (Late st Contact Info) Description 01/16/2025 9:30 AM EDT Medication Management [facility] [address] [place] [address] Daja Sigala, PharmD [address] [place] [address] 03/30/2025 10:15 AM EDT Office Visit [facility] [address] [place] [address] 18674 Name, MD Juan [address] [place] [address] Health Maintenance Due Date Last Done Comments CT Colonography 1955 FIT DNA/Cologuard 1955 FIT 1955 FOBT 1955 Sigmoidoscopy 1955 Hepatitis C Screening 1974 COVID-19 Vaccine ( season) 2024 07/18/2021, 12/01/2020, 11/09/2020 Mammogram 07/22/2024 07/22/2022, 11/0 04/2021, 06/24/2021, Additional history exists Alcohol/Substance Use Screening 10/18/2025 10/18/2024 SDOH Screening 10/18/2025 10/18/2024 Depression Screening 12/18/2025 12/18/2024, 12/19/19 Tobacco Screening 12/18/2025 12/18/2024 Colonoscopy 12/13/2028 12/14/2023 Colorectal Cancer Screening 12/13/2028 [...] AM EST Epigastric pain Nausea without vomiting LIPID PANEL, STANDARD Routine 06/27/2024 9:17 AM EST HM COLONOSCOPY Routine 12/14/2023 BI MAMMOGRAM SCREENING TOMOSYNTHESIS BILATERAL Routine 07/22/2022 2:52 PM EST from Last 3 Months or Most Recently Relevant to Health Maintenance Results * (ABNORMAL) CBC auto differential (10/10/2024 9:28 AM EST) White Blood Count 7.7 4.8 - 10.8 X10*3/uL [facility] Red Blood Count 4.38 4.20 - 5.50 X10*6/uL [facility] Hemoglobin 12.9 12.0 - 16.0 g/dl [facility] Hematocrit 38.5 37.0 - 47.0 % [facility] Mean Corpuscular Volume 87.9 80.0 - 98.0 fL [facility] Mean Corpuscular Hemoglobin 29.5 27.0 - 33.0 pg [facility] Mean Corpuscular HGB Conc 33.5 31.0 - 35.0 g/dl [facility] Red Cell Distribution Width 12.9 11.0 - 16.0 % [facility] Platelet Count 250 160 - 400 X10*3/uL [facility] Mean Platelet Volume 12.6(H) 9.4 - 12.3 fL [facility] Neutrophils Percent Auto 50.6 45 - 73 % [facility] Imm Gran Pct Auto 0.3 0.0 - 0.4 % [facility] Lymphocytes Percent Auto 26.2 20 - 40 % [facility] Monocytes Percent Auto 5.6 2 - 11 % [facility] Eosinophils Percent Auto 16.7(H) 0 - 4 % [facility] Basophils Percent Auto 0.6 0 - 2 % [facility] NRBC Pct Auto 0.0 0.0 - 0.2 /100WBC [facility] Neutrophils Absolute Auto 3.9 2.0 - 8.3 x10*3/uL [facility] Imm Gran Abs Auto 0.02 0.00 - 0.03 X10*3/uL [facility] Lymphocytes Absolute Auto 2.0 1.2 - 4.9 X10*3/uL [facility] Monocytes Absolute Auto 0.4 0.1 - 1.2 X10*3/uL [facility] Eosinophils Absolute Auto 1.3(H) 0.0 - 0.4 X10*3/uL [facility] Basophils Absolute Auto 0.1 0.0 - 0.2 X10*3/uL [facility] NRBC Abs Auto 0.000 0.0 - 0.012 X10*3/uL [facility] Blood Venous blood specimen / Unknown 10/10/2024 9:28 AM EST 10/10/2024 11:33 AM EST us Juan Lacy MD LAB BLOOD ORDERABLES Final Resul t Performing Organization Address City/[facility]/ZIP Co de Phone Number [facility] [address] [place] [phone] * Lipase (10/10/2024 9:28 AM EST) Lipase 14 8 - 78 U/L [facility] Blood Venous blood specimen / Unknown 10/10/2024 9:28 AM EST 10/10/2024 11:33 AM EST us Juan Lacy MD LAB BLOOD ORDERABLES Final Resul t Performing Organization Address [facility]/ZIP Co de Phone Number [facility] [address] [place] [address] [phone] * (ABNORMAL) Comprehensive Metabolic Panel (10/10/2024 9:28 AM EST) Sodium 140 135 - 145 mmol/L [facility] Potassium 3.1(L) 3.3 - 5.1 mmol/L [facility] Chloride 106 96 - 108 mmol/L [facility] Carbon Dioxide 26 22 - 29 mmol/L [facility] Anion Gap 11(L) 12 - 20 [facility] Urea Nitrogen (BUN) 12 9 - 16 mg/dL [facility] Creatinine, Serum 0.75 0.5 - 1.4 mg/dL [facility] Estimated Glomerular Filt Rate >60 [facility] Comment:Chronic Kidney Disea se: Estimated GFR < 60 mL/min/1.10x6Pfotfi Kidney Disease: Estimated GFR < 15 mL/min/1.73m2 Glucose 91 60 - 115 mg/dL [facility] Calcium 10.3(H) 8.4 - 10.2 mg/dL [facility] Bilirubin, Total 0.4 0.0 - 1.0 mg/dL [facility] Aspartate Amino Transferase 28 5 - 31 U/L [facility] Alanine Aminotransferase 19 0 - 31 U/L [facility] Total Protein 7.9 6.5 - 8.0 g/dL [facility] Albumin Level 4.4 3.5 - 5.0 g/dL [facility] Alkaline Phosphatase 155(H) 39 - 117 U/L [facility] Blood Venous blood specimen / Unknown 10/10/2024 9:28 AM EST 10/10/2024 11:33 AM EST us Juan Name LAB BLOOD ORDERABLES Final Resul t [facility] [address] [place] [phone] * Lipid Panel, Standard (06/27/2024 9:17 AM EST) Triglycerides 96 <150 mg/dL [facility] Comment:Desirable Triglyceri de: less than 150 mg/dLBorderline High Triglyceride 150-199 mg/dLHigh Triglyceride: 200-499 mg/dLVery High Triglyceride: greater than or equal to 5OO mg/dL Cholesterol 151 <200 mg/dL [facility] Comment:Desirable Cholestero l: less than 200 mg/dLBorderline High Cholesterol: 200-239 mg/dLHigh Cholesterol: greater than 239 mg/dL LDL Cholesterol Calculated 87 <100 mg/dL [facility] Comment:Desirable LDL: less than 100 mg/dLNear Optimal/Above Optimal LDL: 110- 129 mg/dLBorderline High LDL: 130-159 mg/dLHigh LDL: 160-189 mg/dLVery High LDL: greater than or equal to 190 mg/dL HDL Cholesterol 45 >40 mg/dL [facility] Comment:Desirable HDL: great er than 40 mg/dL Note: This HDL assay may give artificially low results in patients with liver disease. 06/27/2024 9:17 AM EST 06/27/2024 11:35 AM EST us Juan Lacy MD LAB BLOOD ORDERABLES Final Resul t [facility] [address] [place] [phone] * (ABNORMAL) Hm Colonoscopy (12/14/2023) Colonoscopy Abnormal(A ) Normal us Juan Lacy MD HEALTH MAINTENANCE Final Result * BI Mammogram Screening Tomosynthesis Bilateral (07/22/2022 2:52 PM EST) Anatomical Region Laterality Modality Breast Bilateral Mammography 07/22/2022 2:52 PM EST Narrative 07/23/2022 1:30 PM EST ? [facility] [address] ? [address] ?[place] [address] ? Mammography Report ? Signed ? Patient: Anival,Ceneida ?MR#: [id number] ?? [id number] ? : 1955 ?Acct:[id number] ? Age/Sex: 67 / F ?ADM Date: 12//22 ? Loc: HO.MAMMO ? Attending Dr: Juan Lacy MD ? Ordering Physician: Juan Lacy MD ?Results: 1Negative ? Date of Service: 07/22/22 ?Follow Up: 1 Year From Orig ?? inal Mammogram ? Procedure(s): MM tomosynthesis screening BI ?? Accession Number(s): [id number] ? cc: Juan Lacy MD ? EXAMINATION: [...] 1327 ? DD/ 1452 ? TD/TT: ? Ash Handler: MARSHALL ? Procedure Note Donotmarceloter, Image - 07/23/2022 [facility] [address] [place], [place] [address] Mammography Report Signed Patient: Kassandra Florian#: [id number] : 6Acct:[id number] Age/Sex: 67 / FADM Date: 07/22/22 Loc: HO.MAMMO Attending Dr: Juan Lacy MD Ordering Physician: Juan Lacyesults: 1Negative Date of Service: 07/22/22Follow Up: 1 Year From Orig inal Mammogram Procedure(s): MM tomosynthesis screening BI Accession Number(s): [id number] cc: Juan Lacy MD EXAMINATION: MM SCREENING [...] in OV> 07/23/22 1327 DD/ 1452 TD/TT: Ash Handler: JOAN[facility] External Provider IMG BI PROCEDURES Edited Result - Final from Last 3 Months or Most Recently Relevant to Health Maintenance Insurance STANDARD MEDICARE Care Teams Licensing Director Relationship Specialty Start Date End Date Name, MD Juan [address] [place] [address] PCP - General Family Medicine 11/29/15 Daja Sigala, MirnaD [address] [place] [address] Pharmacist Internal Medicine 05/25/24
--- OUTSIDE RECORDS SUMMARY | 2024-12-28 14:07 | XMS_ITS | Encounter Summary ---
Author Organization [employer] Address [address] [facility] 7t [place] [address] Care Team Providers Care Delinquent Tax Collector Name Role Phone Name, Juan CERDA Primary Care Provider [phone] Daja Sigala PharmD Unavailable [phone] Encounter Details Date Type Department Care Team (Late st Contact Info) Description 01/07/2023 Abstract [facility] [address] [place] [address] [phone] Name, MD Juan [address] [place], [place] [phone] Social History Tobacco Use Types Packs/Day Years [...] Description 01/16/2025 9:30 AM EDT Medication Management [facility] [address] [place] [address] Puia, Daja, PharmD [address] [place] [address] 03/30/2025 10:15 AM EDT Office Visit [facility] [address] [place] [address] Name, MD Juan [address] [place] [address] documented as of this encounter Visit Diagnoses Not on filedocumented in this encounter Additional Health Concerns Assessment Noted Time PHQ-9 Depression Total Score: 6 12/10/19 23 4:19 PM EDT documented as of this encounter Care Teams Delinquent Tax Collector Relationship Specialty Start Date End Date Name, MD Juan [address] [place] [address] PCP - General Family Medicine 11/29/15 Daja Sigala PharmD [address] [place] [address] Pharmacist Internal Medicine 05/25/24 documented as of this encounter
--- OUTSIDE RECORDS SUMMARY | 2024-12-28 14:07 | XMS_ITS | Encounter Summary ---
Author Organization [employer] Address 75 [facility] 7t [place] [address] Care Team Providers Care System Auditor Name Role Phone Name, Juan CERDA Primary Care Provider [phone] Daja Sigala PharmD Unavailable [phone] Reason for Visit * Reason Onset Date Comments Call Back Request 10/20/2023 Encounter Details Date Type Department Care Team ([facility] st Contact Info) Description 10/20/2023 Telephone [facility] [address] [place], [place] [phone] Name, MD Juan [address] [place] [address] Call Back Request Social History Tobacco Use [...] Description 01/16/2025 9:30 AM EDT Medication Management [facility] [address] [place] [phone] Daja Sigala, PharmD [address] [place] [phone] 03/30/2025 10:15 AM EDT Office Visit [facility] [address] [place] [phone] Name, MD Juan [address] [place] [address] documented as of this encounter Visit Diagnoses Not on filedocumented in this encounter Additional Health Concerns Assessment Noted Time PHQ-9 Depression Total Score: 6 12/10/19 23 4:19 PM EDT documented as of this encounter Care Teams System Auditor Relationship Specialty Start Date End Date Name, MD Juan [address] [place] [address] PCP - General Family Medicine 11/29/15 Daja Sigala, PharmD [address] [place] [address] Pharmacist Internal Medicine 05/25/24 documented as of this encounter
--- OUTSIDE RECORDS SUMMARY | 2024-12-28 14:07 | XMS_ITS | Encounter Summary ---
Author Organization [employer] Address [address] [facility] 7t [place] [address] Care Team Providers Care Boom Stick Man Name Role Phone Name, Juan CERDA Primary Care Provider [phone] Daja Sigala PharmD Unavailable [phone] Encounter Details Date Type Department Care Team (Late st Contact Info) Description 10/19/2022 Orders Only [facility] [address] [place], [place] [phone] Tamara Yi LPN Social History Tobacco Use [...] Description 01/16/2025 9:30 AM EDT Medication Management [address] [address] JoselyniaDaja, PharmD [address] [place] [address] 03/30/2025 10:15 AM EDT Office Visit [facility] [address] [place] [address] Name, MD Juan [address] [place] [address] documented as of this encounter Visit Diagnoses Not on filedocumented in this encounter Care Teams Boom Stick Man Relationship Specialty Start Date End Date Name, MD Juan [address] [place] [address] PCP - General Family Medicine 11/29/15 Daja Sigala, Zachary [address] [place] [address] Pharmacist Internal Medicine 05/25/24 documented as of this encounter
== END 2024-12-28 14:01 | disposition home or self-care (01) ==
LOC: HO.HOS 13:32
PROVIDERS: PCP Internal Medicine Geriatric Medicine; Visit Provider Orthopaedic Surgery
DX: M25.511 Pain in right shoulder (principal)
CPT/HCPCS: 99024

== ENCOUNTER → 2024-12-28 13:31 | Outpatient (BNVA) | payer MEDICARE, MEDICAID, SELFPAY | PROVIDERS: PCP Internal Medicine Geriatric Medicine; Visit Provider Orthopaedic Surgery | DX: Z47.89 Encounter for other orthopedic aftercare (principal); M25.511 Pain in right shoulder; Z98.890 Other specified postprocedural states | CPT/HCPCS: 99212 ==

== ENCOUNTER 2025-02-28 09:25 | Outpatient (AMB) | payer MEDICARE, MEDICAID, SELFPAY ==
--- NOTE | 2025-02-28 09:26 | A.OFFVIS_ITS ---
Intake Visit Reasons: OV- RT shoulder 10/20/24 DR-6 WK follow up Intake Note: Catalina is a 69 year old female who presents today for follow up after undergoing a right shoulder arthroscopy on 10/20/2024. The patient reports mild to moderate discomfort in her right shoulder. She notices the discomfort most when she is trying to sleep. She denies any fevers or chills. She has tried Tylenol and ibuprofen which gave her minimal relief. 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 Name: Silvia Gupta [id number] Allergies sumatriptan (Imitrex) Allergy (Unknown, Verified 12/28/24 13:42) anaphylaxis Medication List - Last Reviewed 02/28/25 by Oly Horan, MANAGEMENT RETAIL INTERN owhqscromf-pmwjuscoft-blu-cod [id number] mg 1 cap PO Q4H PRN lisinopril 20 mg PO DAILY metoprolol tartrate 25 mg PO BID pantoprazole 20 mg PO QAM PRN 30 days spironolactone 25 mg PO DAILY PFSH Medical History GERD (gastroesophageal reflux disease) Arthritis HTN (hypertension) Osteoporosis Vitamin D deficiency Hyperparathyroidism Surgical History History of esophagogastroduodenoscopy (EGD) Hx of colonoscopy Family History Father Colon cancer Mother Cancer Social History Household Members: None Household Members Other:: alone Housing: House Are you a primary childbirth and infant care teacher to a significant other at home: No Do you presently have visiting nurse or other home services: No Alcohol intake: never Patient Tobacco Use Status: Never used Tobacco e-Cigarette/Vaping Use: Never Used Physical Exam Const Other: Well-nourished well-developed very friendly female awake alert and oriented x3 in no acute distress Extrem Other: Bilateral upper extremity examination shows good capillary refill, no skin lesions noted, normal sensation light touch Right shoulder examination shows almost full range of motion when compared to her left shoulder, mild discomfort with resisted forward flexion, 5/5 strength with supraspinatus testing, no instability Assessment & Plan Assessment & Plan (1) Right shoulder pain: Code(s): M25.511 - Pain in right shoulder Category: Medical Plan Ms. Florian continues to do fairly well after undergoing right shoulder arthroscopic surgery on 10/20/2024. I did give her a prescription for Celebrex to help with her discomfort. She will continue with her home stretching program. I discussed with the patient the fact that her symptoms should continue to improve over the next few months. We will hold off on a cortisone injection for now. She will contact me prior to her follow-up appointment in 3 months should any questions or concerns arise. Feel free to call me at any time should questions regarding her orthopedic management arise. I spent 21 minutes in reviewing the patient's records and imaging studies, seeing the patient and documenting in the medical record. Medications: New celecoxib (Celebrex) 200 mg PO DAILY PRN 30 caps 3RF pain Coding Level of Care Code Est Pt Level 3 (35414) Complex EM visit Add On G2211 Diagnoses Right shoulder pain M25.511
--- OUTSIDE RECORDS SUMMARY | 2025-02-28 09:47 | XMS_ITS | Encounter Summary ---
Author Organization [employer] Address [address] [facility] 7t [place] [address] Care Team Providers Care Irrigation Flume Layer Name Role Phone Name, Juan CERDA Primary Care Provider Daja Sigala PharmD Unavailable [phone] Reason for Visit * Reason Comments Med Refill Encounter Details Date Type Department Care Team ([facility] st Contact Info) Description 09/20/2024 Refill [facility] [address] [place], [place] [phone] Name, MD Juan [address] [place] [address] Social History Tobacco Use Types Packs/Day Years [...] Care Team (Late st Contact Info) Description 03/30/2025 10:15 AM EDT Office Visit [facility] [address] [place] [address] Name, MD Juan [address] [place] [address]687 documented as of this encounter Visit Diagnoses Not on filedocumented in this encounter Additional Health Concerns Assessment Noted Time PHQ-9 Depression Total Score: 2 01/07/20 24 11:51 AM EDT documented as of this encounter Care Teams Irrigation Flume Layer Relationship Specialty Start Date End Date NameJuan MD [address] [place] [address] 77137 PCP - General Family Medicine 11/29/15 Daja Sigala PharmD [address] [place] [address] 79175 Pharmacist Internal Medicine 05/25/24 01/15/25 documented as of this encounter
--- OUTSIDE RECORDS SUMMARY | 2025-02-28 09:47 | XMS_ITS | Clinical Summary ---
Author Organization [facility] Address [address] [place] [address] Care Team Providers Care Mobility Specialist Name Role Phone Richi Bazan MD Primary Care Provider Surgical History Surgery Date Site/Laterality Comments COLONOSCOPY 11/12/2005 PROCEDURE: [place] COLONOSCOPY STOMA DX INCLUDING COLLJ SPEC SPX; COMMENT: Up to cecum, diverticulosis. [place] at [facility] poor prep. ESOPHAGOGASTRODUODENOSCOPY 01/21/2009 PROCEDURE: [place] EGD TRANSORAL BIOPSY SINGLE/MULTIPLE; COMMENT: Normal esophagus, antral ulcer-biopsy:bening ulcer(HPylori+/treated), duodenitis, SB-biopsy:Nl ESOPHAGOGASTRODUODENOSCOPY 05/12/2010 PROCEDURE: [place] EGD TRANSORAL BIOPSY SINGLE/MULTIPLE; COMMENT: Esophagus normal, gastritis, gastric ulcer-biopsy:acute ulcerative gastritis (HPylori+++), normal esophagus. SB bx: normal ESOPHAGOGASTRODUODENOSCOPY 10/02/2011 PROCEDURE: [place] EGD TRANSORAL BIOPSY SINGLE/MULTIPLE; COMMENT: small gastric ulcer, bx: h pylori present. COLONOSCOPY 10/02/2011 PROCEDURE: [place] COLONOSCOPY FLX DX W/COLLJ SPEC WHEN PFRMD; COMMENT: diverticulosis; no polyps. good prep. OTHER SURGICAL HISTORY 06/06/2013 PROCEDURE: [place] ANTERIOR COLPORRAPHY RPR CYSTOCELE W/CYSTO Medical History [...] (1 - season) 2024 Influenza Vaccine (#1) 2025 5, 05/15/2013, 05/24/2012, Additional history exists RSV [...] age to complete this topic Care Teams Mobility Specialist Relationship Specialty Start Date End Date Richi Bazan MD PCP - General Internal Medicine 10/03/15
== END 2025-02-28 09:59 | disposition home or self-care (01) ==
LOC: HO.HOS 09:25
PROVIDERS: PCP Internal Medicine Geriatric Medicine; Visit Provider Orthopaedic Surgery
DX: M25.511 Pain in right shoulder (principal)
CPT/HCPCS: 99213; G2211

== ENCOUNTER → 2025-02-28 09:25 | Outpatient (BNVA) | payer MEDICARE, MEDICAID, SELFPAY | PROVIDERS: PCP Internal Medicine Geriatric Medicine; Visit Provider Orthopaedic Surgery | DX: M25.511 Pain in right shoulder (principal); Z79.1 Long term (current) use of non-steroidal anti-inflammatories (NSAID) | CPT/HCPCS: 99212 ==

== ENCOUNTER 2025-03-05 09:02 | Outpatient (RCR) | payer MEDICARE, MEDICAID, OTHER, SELFPAY | END 2025-06-08 07:45 | disposition home or self-care (01) | LOC: HO.PT 09:02 | PROVIDERS: PCP Internal Medicine Geriatric Medicine; Visit Provider Physician Assistant | DX: M25.811 Other specified joint disorders, right shoulder (principal) | CPT/HCPCS: 97033; 97110; 97161; 97530; 97535 ==

== ENCOUNTER 2025-03-06 08:46 | Outpatient (REF) | payer MEDICARE, MEDICAID, OTHER, SELFPAY ==
--- OUTSIDE RECORDS SUMMARY | 2025-03-06 09:06 | XMS_ITS | Encounter Summary ---
Author Organization [employer] Address [address] [facility] 7t [place] [address] Care Team Providers Care Evaluation Assistant Name Role Phone Name, Juan CERDA Primary Care Provider [phone] Daja Sigala PharmD Unavailable [phone] Reason for Visit * Reason Comments Med Refill Encounter Details Date Type Department Care Team ([facility] st Contact Info) Description 09/20/2024 Refill [facility] [address] [place], [place] [phone] Name, MD Juan [address] [place] [address] Social History Tobacco Use Types Packs/Day Years [...] Description 03/30/2025 10:15 AM EDT Office Visit [facility] [address] [place] [address] 27[address] Name, MD Juan [address] [place] [address] 60900 documented as of this encounter Visit Diagnoses Not on filedocumented in this encounter Additional Health Concerns Assessment Noted Time PHQ-9 Depression Total Score: 2 01/07/20 24 11:51 AM EDT documented as of this encounter Care Teams Evaluation Assistant Relationship Specialty Start Date End Date NameJuan MD [address] [place] [address] 11170 PCP - General Family Medicine 11/29/15 Daja Sigala PharmD [address] [place] [address] 26508 Pharmacist Internal Medicine 05/25/24 01/15/25 documented as of this encounter
--- OUTSIDE RECORDS SUMMARY | 2025-03-06 09:06 | XMS_ITS | Clinical Summary ---
Author Organization [facility] Address [address] [place] [address] Care Team Providers Care Local Superintendent Name Role Phone Richi Bazan MD Primary Care Provider Surgical History Surgery Date Site/Laterality Comments COLONOSCOPY 11/12/2005 PROCEDURE: [place] COLONOSCOPY STOMA DX INCLUDING COLLJ SPEC SPX; COMMENT: Up to cecum, diverticulosis. [place] [facility]. ESOPHAGOGASTRODUODENOSCOPY 01/21/2009 PROCEDURE: [place] EGD TRANSORAL BIOPSY SINGLE/MULTIPLE; COMMENT: Normal esophagus, antral ulcer-biopsy:bening ulcer(HPylori+/treated), duodenitis, SB-biopsy:Nl ESOPHAGOGASTRODUODENOSCOPY 05/12/2010 PROCEDURE: [place] EGD TRANSORAL BIOPSY SINGLE/MULTIPLE; COMMENT: Esophagus normal, gastritis, gastric ulcer-biopsy:acute ulcerative gastritis (HPylori+++), normal esophagus. SB bx: normal ESOPHAGOGASTRODUODENOSCOPY 10/02/2011 PROCEDURE: [place] EGD TRANSORAL BIOPSY SINGLE/MULTIPLE; COMMENT: small gastric ulcer, bx: h pylori present. COLONOSCOPY 10/02/2011 PROCEDURE: [place] COLONOSCOPY FLX DX W/COLLJ SPEC WHEN PFRMD; COMMENT: diverticulosis; no polyps. good prep. OTHER SURGICAL HISTORY 06/06/2013 PROCEDURE: [place] ANTERIOR COLPORRAPHY RPR CYSTOCELE W/CYSTO Medical History [...] 06/14/2008 COVID-19 Vaccine (1 - season) 2024 Depression Screening 08/16/2024 Influenza Vaccine (#1) 2025 5, 05/15/2013, 05/24/2012, [...] age to complete this topic Care Teams Local Superintendent Relationship Specialty Start Date End Date Richi Bazan MD PCP - General Internal Medicine 10/03/15
== END 2025-03-06 08:47 | disposition home or self-care (01) ==
LOC: HO.MAMMO 08:46
PROVIDERS: PCP Internal Medicine Geriatric Medicine; Visit Provider Internal Medicine Geriatric Medicine
DX: Z12.31 Encounter for screening mammogram for malignant neoplasm of breast (principal)
CPT/HCPCS: 77063; 77067

== ENCOUNTER → 2025-03-06 09:00 | Outpatient (BNV) | payer MEDICARE, MEDICAID, SELFPAY | PROVIDERS: PCP Internal Medicine Geriatric Medicine; Visit Provider Internal Medicine | DX: Z12.31 Encounter for screening mammogram for malignant neoplasm of breast (principal) | CPT/HCPCS: 77063; 77067 ==

== ENCOUNTER 2025-04-05 10:22 | Outpatient (REF) | payer MEDICARE, MEDICAID, SELFPAY ==
--- OUTSIDE RECORDS SUMMARY | 2025-04-05 11:52 | XMS_ITS | Clinical Summary ---
Author Organization [facility] Address [address] [place] [address] Care Team Providers Care Director Product Name Role Phone Richi Bazan MD Primary Care Provider Surgical History Surgery Date Site/Laterality Comments COLONOSCOPY 11/12/2005 PROCEDURE: [place] COLONOSCOPY STOMA DX INCLUDING COLLJ SPEC SPX; COMMENT: Up to cecum, diverticulosis. [place] [facility] poor [place]. ESOPHAGOGASTRODUODENOSCOPY 01/21/2009 PROCEDURE: [place] EGD TRANSORAL BIOPSY SINGLE/MULTIPLE; COMMENT: Normal esophagus, antral ulcer-biopsy:bening ulcer(HPylori+/treated), duodenitis, SB-biopsy:Nl ESOPHAGOGASTRODUODENOSCOPY 05/12/2010 PROCEDURE: [place] EGD TRANSORAL BIOPSY SINGLE/MULTIPLE; COMMENT: Esophagus normal, gastritis, gastric ulcer-biopsy:acute ulcerative gastritis (HPylori+++), normal esophagus. SB bx: normal ESOPHAGOGASTRODUODENOSCOPY 10/02/2011 PROCEDURE: [place] EGD TRANSORAL BIOPSY SINGLE/MULTIPLE; COMMENT: small gastric ulcer, bx: h pylori present. COLONOSCOPY 10/02/2011 PROCEDURE: [place] COLONOSCOPY FLX DX W/COLLJ SPEC WHEN PFRMD; COMMENT: diverticulosis; no polyps. good prep. OTHER SURGICAL HISTORY 06/06/2013 PROCEDURE: [place] ANTERIOR COLPORRAPHY RPR CYSTOCELE W/CYSTO Medical History [...] age to complete this topic Care Teams Director Product Relationship Specialty Start Date End Date Richi Bzaan MD PCP - General Internal Medicine 10/03/15
--- OUTSIDE RECORDS SUMMARY | 2025-04-05 11:52 | XMS_ITS | Encounter Summary ---
Author Organization [employer] Address [address] [facility] 7t [place] [address] Care Team Providers Care Boiler Cleaner Name Role Phone Name, Juan CERDA Primary Care Provider [phone] Daja Sigala PharmD Unavailable [phone] Reason for Visit * Reason Comments Med Refill Encounter Details Date Type Department Care Team ([facility] st Contact Info) Description 09/20/2024 Refill [facility] [address] [place], [place] [phone] Name, MD Juan [address] [place] [address] Social History Tobacco Use Types Packs/Day Years [...] Care Team (Late st Contact Info) Description 06/29/2025 10:00 AM EST Office Visit [facility] [address] [place] [address] 13751 Name, MD Juan [address] [place] [address] 12655 documented as of this encounter Visit Diagnoses Not on filedocumented in this encounter Additional Health Concerns Assessment Noted Time PHQ-9 Depression Total Score: 2 01/07/20 24 11:51 AM EDT documented as of this encounter Care Teams Boiler Cleaner Relationship Specialty Start Date End Date NameJuan MD [address] [place] [address]153 PCP - General Family Medicine 11/29/15 Daja Sigala PharmD [address] [place] [address] 41181 Pharmacist Internal Medicine 05/25/24 01/15/25 documented as of this encounter
[2025-04-05 11:55] LABS: Anion Gap 11 (12-20); Blood Urea Nitrogen 12 mg/dL (9-16); Calcium 10.6 mg/dL (8.4-10.2); Carbon Dioxide 28 mmol/L (22-29); Chloride 106 mmol/L (96-108); Estimated Glomerular Filt Rate > 60; Potassium 4.6 mmol/L (3.3-5.1); Sodium 140 mmol/L (135-145)
== END 2025-04-05 10:23 | disposition home or self-care (01) ==
LOC: HO.HHCL 10:22
PROVIDERS: PCP Internal Medicine Geriatric Medicine; Visit Provider Internal Medicine Geriatric Medicine
DX: I10 Essential (primary) hypertension (principal)
CPT/HCPCS: 36415; 80048

== ENCOUNTER 2025-05-31 09:33 | Outpatient (AMB) | payer MEDICARE, MEDICAID, SELFPAY ==
--- NOTE | 2025-05-31 09:41 | A.OFFVIS_ITS ---
Intake Visit Reasons: RT shoulder 10/20/24 follow up Intake Note: Catalina is a 70 year old woman who presents today in office for her right shoulder pain. Patient had right shoulder arthroscopic surgery on 10/20/2024. States she is recovery very well. Reports she is at 90% better however she is getting sorness on cold morning but gets better through out the day. She continues with her home stretching program. She denies any fevers or chills. Podiatry Doctor Name: Dominique Bedoya [id number] Allergies sumatriptan (Imitrex) Allergy (Unknown, Verified 05/31/25 09:48) anaphylaxis Medication List - Last Reconciled 05/31/25 by Bhavesh Montiel MD ucueiqlzqg-dwniippjlx-qfq-cod [id number] mg 1 cap PO Q4H PRN celecoxib (Celebrex) 200 mg PO DAILY PRN lisinopril 20 mg PO DAILY metoprolol tartrate 25 mg PO BID pantoprazole 20 mg PO QAM PRN 30 days spironolactone 25 mg PO DAILY PFSH Medical History GERD (gastroesophageal reflux disease) Arthritis HTN (hypertension) Osteoporosis Vitamin D deficiency Hyperparathyroidism Surgical History History of esophagogastroduodenoscopy (EGD) Hx of colonoscopy Family History Father Colon cancer Mother Cancer Social History Household Members: None Household Members Other:: alone Housing: House Are you a primary senior caregiver to a significant other at home: No Do you presently have visiting nurse or other home services: No Alcohol intake: never Patient Tobacco Use Status: Never used Tobacco e-Cigarette/Vaping Use: Never Used Physical Exam Const Other: Well-nourished well-developed very friendly female awake alert and oriented x3 in no acute distress Extrem Other: Right shoulder examination shows that the surgical incisions are well healed, no erythema, almost full range of motion when compared to her left shoulder, 5/5 strength with supraspinatus testing, no instability Assessment & Plan Assessment & Plan (1) Right shoulder pain: Code(s): M25.511 - Pain in right shoulder Category: Medical Plan Ms. Florian continues to do very well after undergoing right shoulder arthroscopic surgery on 10/20/2024. She will continue with her home stretching program. The do's and don'ts of lifting were discussed at length with the patient. She will contact me prior to her follow-up appointment in 3 months should any questions or concerns arise. Feel free to call me at any time should questions regarding her orthopedic management arise. I spent 22 minutes in reviewing the patient's records and imaging studies, seeing the patient and documenting in the medical record. Coding Level of Care Code Est Pt Level 3 (64507) Complex EM visit Add On G2211 Diagnoses Right shoulder pain M25.511
--- OUTSIDE RECORDS SUMMARY | 2025-05-31 10:58 | XMS_ITS | Encounter Summary ---
Author Organization [employer] Address [address] [facility] 7t [place] [address] Care Team Providers Care Rough And Trueing Machine Operator Name Role Phone Name, Juan CERDA Primary Care Provider [phone] Daja Sigala PharmD Unavailable [phone] Reason for Visit * Reason Comments Med Refill Encounter Details Date Type Department Care Team ([facility] st Contact Info) Description 09/20/2024 Refill [facility] [address] [place], [place] [phone] Name, MD Juan [address] [place] [address] Social History Tobacco Use Types Packs/Day Years [...] Description 06/29/2025 10:00 AM EST Office Visit [facility] [address] [place] [address] 09178 Name, MD Juan [address] [place] [address] 0[address]19 documented as of this encounter Visit Diagnoses Not on filedocumented in this encounter Additional Health Concerns Assessment Noted Time PHQ-9 Depression Total Score: 2 01/07/20 24 11:51 AM EDT documented as of this encounter Care Teams Rough And Trueing Machine Operator Relationship Specialty Start Date End Date NameJuan MD [address] [place] [address] 35285 PCP - General Family Medicine 11/29/15 Daja Sigala PharmD [address] [place] [address] 33402 Pharmacist Internal Medicine 05/25/24 01/15/25 documented as of this encounter
--- OUTSIDE RECORDS SUMMARY | 2025-05-31 10:58 | XMS_ITS | Encounter Summary ---
Author Organization [employer] Address [address] [place] [address] 7t [place] [address] Care Team Providers Care Cottage Parent Name Role Phone Name, Juan CERDA Primary Care Provider [phone] Daja Sigala PharmD Unavailable [phone] Reason for Visit * Reason Onset Date Comments Prior Authorization 01/08/2023 Encounter Details Date Type Department Care Team ([facility] st Contact Info) Description 01/08/2023 Telephone [facility] [address] [place], [place] [phone] Name, MD Juan [address] [place] [address] Prior Authorization Social History Tobacco Use Types [...] 10:48 AM EDT Tc grupo Strong from [facility] pharmacy requesting a PA for medication elavil 50 mg . documented in this encounter Plan of Treatment Upcoming Encounters Date Type Department Care Team (Late st Contact Info) Description 06/29/2025 10:00 AM EST Office Visit [facility] [address] [place] [address] 52807 Name, MD Juan [address] [place] [address] 21317 documented as of this encounter Visit Diagnoses Not on filedocumented in this encounter Additional Health Concerns Assessment Noted Time PHQ-9 Depression Total Score: 6 12/10/19 23 4:19 PM EDT documented as of this encounter Care Teams Cottage Parent Relationship Specialty Start Date End Date Name, MD Juan [address] [place] [address] 23702 PCP - General Family Medicine 11/29/15 Daja Sigaal PharmD [address] [place] [address] 07877 Pharmacist Internal Medicine 05/25/24 01/15/25 documented as of this encounter
--- OUTSIDE RECORDS SUMMARY | 2025-05-31 10:58 | XMS_ITS | Encounter Summary ---
Author Organization [employer] Address [address] [facility] 7t [place] [address] Care Team Providers Care Dredge Captain Name Role Phone Name, Juan CERDA Primary Care Provider [phone] Daja Sigala PharmD Unavailable [phone] Reason for Visit * Reason Comments Med Refill Encounter Details Date Type Department Care Team ([facility] st Contact Info) Description 08/03/[address] [facility] MED[facility]INE [address] [place], [place] [phone] Name, MD Juan [address] [place] [address] Social History Tobacco Use Types Packs/Day Years [...] Description 06/29/2025 10:00 AM EST Office Visit [facility] MED[facility]INE [address] [place] [address] 63655 Name, MD Juan [address] [place] [address] 40688 documented as of this encounter Visit Diagnoses Not on filedocumented in this encounter Additional Health Concerns Assessment Noted Time PHQ-9 Depression Total Score: 2 01/07/20 24 11:51 AM EDT documented as of this encounter Care Teams Dredge Captain Relationship Specialty Start Date End Date NameJuan MD [address] [place] [address] 67800 PCP - General Family Medicine 11/29/15 Daja Sigala PharmD [address] [place] [address] 93160 Pharmacist Internal Medicine 05/25/24 01/15/25 documented as of this encounter
--- OUTSIDE RECORDS SUMMARY | 2025-05-31 10:58 | XMS_ITS | Clinical Summary ---
Author Organization [facility] Address [address] [place] [address] Care Team Providers Care Costume Shop Manager Name Role Phone Richi Bazan MD Primary Care Provider Surgical History Surgery Date Site/Laterality Comments COLONOSCOPY 11/12/2005 PROCEDURE: [place] COLONOSCOPY STOMA DX INCLUDING COLLJ SPEC SPX; COMMENT: Up to cecum, diverticulosis. [place] at [facility], poor prep. ESOPHAGOGASTRODUODENOSCOPY 01/21/2009 PROCEDURE: MD EGD TRANSORAL BIOPSY SINGLE/MULTIPLE; COMMENT: Normal esophagus, antral ulcer-biopsy:bening ulcer(HPylori+/treated), duodenitis, SB-biopsy:Nl ESOPHAGOGASTRODUODENOSCOPY 05/12/2010 PROCEDURE: MD EGD TRANSORAL BIOPSY SINGLE/MULTIPLE; COMMENT: Esophagus normal, gastritis, gastric ulcer-biopsy:acute ulcerative gastritis (HPylori+++), normal esophagus. SB bx: normal ESOPHAGOGASTRODUODENOSCOPY 10/02/2011 PROCEDURE: MD EGD TRANSORAL BIOPSY SINGLE/MULTIPLE; COMMENT: small gastric ulcer, bx: h pylori present. COLONOSCOPY 10/02/2011 PROCEDURE: MD COLONOSCOPY FLX DX W/COLLJ SPEC WHEN PFRMD; COMMENT: diverticulosis; no polyps. good prep. OTHER SURGICAL HISTORY 06/06/2013 PROCEDURE: MD ANTERIOR COLPORRAPHY RPR CYSTOCELE W/CYSTO Medical History [...] (2 - Td or Tdap) 06/14/2018 06/14/2008 Depression Screening 08/16/2024 COVID-19 Vaccine ( - season) 2025 Influenza Vaccine (#1) 2025 5, 05/15/2013, 05/24/2012, [...] age to complete this topic Care Teams Costume Shop Manager Relationship Specialty Start Date End Date Richi Bazan MD PCP - General Internal Medicine 10/03/15
--- OUTSIDE RECORDS SUMMARY | 2025-05-31 10:59 | XMS_ITS | Encounter Summary ---
Author Organization [employer] Address [address] [place] [address] 7t [place] [address] Care Team Providers Care Cephalometric Tracer Name Role Phone Name, Juan CERDA Primary Care Provider [phone] Daja Sigala PharmD Unavailable [phone] Encounter Details Date Type Department Care Team (Late st Contact Info) Description 01/08/2023 Abstract [facility] [address] [place] [address] [phone] NameJuan MD [address] [place] [address] [phone] Social History Tobacco Use Types Packs/Day Years [...] Description 06/29/2025 10:00 AM EST Office Visit [address] [phone] NameJuan MD [address] [place] [address] 74237 documented as of this encounter Visit Diagnoses Not on filedocumented in this encounter Additional Health Concerns Assessment Noted Time PHQ-9 Depression Total Score: 6 12/10/19 23 4:19 PM EDT documented as of this encounter Care Teams Cephalometric Tracer Relationship Specialty Start Date End Date Name, MD Juan [address] [place] [address] 53844 PCP - General Family Medicine 11/29/15 Daja Sigala PharmD [address] [place] [address] 45562 Pharmacist Internal Medicine 05/25/24 01/15/25 documented as of this encounter
--- OUTSIDE RECORDS SUMMARY | 2025-05-31 10:59 | XMS_ITS | Encounter Summary ---
Author Organization [employer] Address [address] [place] [address] 7t [place] [address] Care Team Providers Care Courier Delivery Driver Name Role Phone Name, Juan CERDA Primary Care Provider [phone] Daja Sigala PharmD Unavailable [phone] Encounter Details Date Type Department Care Team (Late st Contact Info) Description 01/07/[address] [facility] [address] [place] [address] [phone] NameJuan MD [address] [place] [address] [phone] Social History Tobacco Use Types Packs/Day Years [...] Description 06/29/2025 10:00 AM EST Office Visit [address] [phone] NameJuan MD [address] [place] [address] 96959 documented as of this encounter Visit Diagnoses Not on filedocumented in this encounter Additional Health Concerns Assessment Noted Time PHQ-9 Depression Total Score: 6 12/10/19 23 4:19 PM EDT documented as of this encounter Care Teams Courier Delivery Driver Relationship Specialty Start Date End Date Name, MD Juan [address] [place] [address] 34259 PCP - General Family Medicine 11/29/15 Daja Sigala PharmD [address] [place] [address] 65602 Pharmacist Internal Medicine 05/25/24 01/15/25 documented as of this encounter
--- OUTSIDE RECORDS SUMMARY | 2025-05-31 10:59 | XMS_ITS | Encounter Summary ---
Author Organization [employer] Address [address] [place] [address] [address] [place] [address] Care Team Providers Care Knock Out Hand Name Role Phone Name, Juan CERDA Primary Care Provider Daja Sigala PharmD Unavailable [phone] Reason for Visit * Reason Comments Med Refill Encounter Details Date Type Department Care Team ([facility] Contact Info) Description 11/05/2022 Refill [facility] [address] [place] [phone] Juan Lacy MD [address] [place] [phone] Social History Tobacco Use Types Packs/Day Years [...] Department Care Team (Late Contact Info) Description 06/29/2025 10:00 AM EST Office Visit [facility] [address] [place] [address] Juan Lacy MD [address] [place] [address] documented as of this encounter Visit Diagnoses Not on filedocumented in this encounter Care Teams Knock Out Hand Relationship Specialty Start Date End Date Juan Lacy MD [address] [place] [phone] PCP - General Family Medicine 11/29/15 Daja Sigala, MirnaD [address] [place] [address] [place] [address] Pharmacist Internal Medicine 05/25/24 01/15/25 documented as of this encounter
--- OUTSIDE RECORDS SUMMARY | 2025-05-31 10:59 | XMS_ITS | Encounter Summary ---
Author Organization [employer] Address [address] [place] [address] [address] [place] [address] Care Team Providers Care Pantographer Name Role Phone Name, Juan CERDA Primary Care Provider [phone] Daja Sigala PharmD Unavailable [phone] Encounter Details Date Type Department Care Team (Late st Contact Info) Description 10/19/2022 Orders Only [facility] [address] [place] [address] Tamara Yi LPN Social History Tobacco Use [...] Description 06/29/2025 10:00 AM EST Office Visit [facility] [address] [place] [address] NameJuan MD [address] [place] [address] documented as of this encounter Visit Diagnoses Not on filedocumented in this encounter Care Teams Pantographer Relationship Specialty Start Date End Date Juan Lacy MD [address] [place] [address] PCP - General Family Medicine 11/29/15 Daja Sigala, PharmD [address] [place] [address] Pharmacist Internal Medicine 05/25/24 01/15/25 documented as of this encounter
--- OUTSIDE RECORDS SUMMARY | 2025-05-31 10:59 | XMS_ITS | Encounter Summary ---
Author Organization [employer] Address [address] [facility] 7t [place] [address] Care Team Providers Care Mountain Or Glacier Guide Name Role Phone Name, Juan CERDA Primary Care Provider [phone] Daja Sigala PharmD Unavailable [phone] Reason for Visit * Reason Onset Date Comments Call Back Request 10/20/2023 Encounter Details Date Type Department Care Team ([facility] st Contact Info) Description 10/20/2023 Telephone [facility] MED[facility] [address] [place], [place] [phone] Name, MD Juan [address] [place] [address] Call Back Request Social History Tobacco Use [...] Description 06/29/2025 10:00 AM EST Office Visit [facility] [address] [place] [address] Name, MD Juan [address] [place] [address] documented as of this encounter Visit Diagnoses Not on filedocumented in this encounter Additional Health Concerns Assessment Noted Time PHQ-9 Depression Total Score: 6 12/10/19 23 4:19 PM EDT documented as of this encounter Care Teams Mountain Or Glacier Guide Relationship Specialty Start Date End Date Name, MD Juan [address] [place] [address] PCP - General Family Medicine 11/29/15 Daja Sigala PharmD [address] [place] [phone] Pharmacist Internal Medicine 05/25/24 01/15/25 documented as of this encounter
--- OUTSIDE RECORDS SUMMARY | 2025-05-31 10:59 | XMS_ITS | Clinical Summary ---
Author Organization [employer] Address [address] [facility] 7t [place] [address] Care Team Providers Care Label Maker Name Role Phone Name, Juan CERDA Primary Care Provider [phone] Allergies Active Allergy Reactions Criticality Noted Date Comments Sumatriptan Anaphylaxis High 11/29/2015 Medications Blood Pressure kitIndications:Ess ential hypertension USE TO CHECK HOME BLOOD PRESSURE ONCE DAILY DIRECTED 1 kit 06/20/20 24 Active famotidine (Pepcid) 20 MG tabletIndications: Epigastric pain,Nausea without vomiting,Heartburn Take 1 tablet (20 mg) by mouth 2 times daily. 60 tablet 11 11/01/19 25 026 Active amLODIPine-valsart an (Exforge) 10-320 MG tabletIndications: Essential hypertension Take 1 tablet by mouth Once per day. 90 tablet 3 01/17/20 25 Active atorvastatin (Lipitor) 40 MG tabletIndications: Hyperlipidemia, unspecified hyperlipidemia type Take 1 tablet (40 mg) by mouth Once per day. 90 tablet 01/17/20 25 026 Active metoprolol succinate XL (Toprol XL) 25 MG 24 hr tabletIndications: Essential hypertension Take 1 tablet (25 mg) by mouth Once per day. Do not crush or chew. 90 tablet 3 01/17/20 25 Active spironolactone-hyd roCHLOROthiazide (Aldactazide) 25-25 MG tabletIndications: Essential hypertension Take 1 tablet (25 mg) by mouth before breakfast. 90 tablet 3 01/17/20 25 Active butalbital-acetami nophen-caffeine 50-325-40 MG tabletIndications: Migraine without aura and with status migrainosus, not intractable TAKE 1 TO 2 TABLETS BY MOUTH EVERY 8 HOURS NEEDED DO NOT EXCEED 6 TABLETS IN 24 HOURS 20 tablet 02/14/20 25 Active zolpidem (Ambien) 5 MG tablet Take 1 tablet (5 mg) by mouth if needed at bedtime for sleep. 30 tablet 03/30/20 25 Active amitriptyline (Elavil) 10 MG tabletIndications: Migraine without aura and with status migrainosus, not intractable TAKE 1 TABLET BY MOUTH AT BEDTIME 30 tablet 2 05/10/20 25 Active magnesium oxide (Mag-Ox) 400 (240 Mg) MG tabletIndications: Migraine without aura, not intractable, with status migrainosus TAKE 1 TABLET BY MOUTH EVERY MORNING 30 tablet 2 05/10/20 25 Active amitriptyline (Elavil) 10 MG tabletIndications: Migraine without aura and with status migrainosus, not intractable TAKE 1 TABLET BY MOUTH AT BEDTIME 30 tablet 2 02/03/20 25 025 Discontinued magnesium oxide (Mag-Ox) 400 (240 Mg) MG tabletIndications: Migraine without aura, not intractable, with status migrainosus TAKE 1 TABLET BY MOUTH EVERY MORNING 30 tablet 2 02/03/20 25 025 Discontinued Active Problems Problem Noted Date Diagnosed Date [...] Insomnia 01/27/2017 Recurrent major depressive episodes, moderate (C MS/HCC) 01/27/2017 Peripheral venous insufficiency 03/31/2016 Chronic low back [...] Encounters Date Type Department Care Team Description 05/10/2025 Refill [facility] [address] [place] [address] Name, MD Juan Migraine without aura and with status migrainosus, not intractable; Migraine without aura, not intractable, with status migrainosus 03/30/2025 10:15 AM EDT Office Visit [facility] [address] [place] [address] Juan Lacy MD Essential hypertension (Primary Dx); Nocturnal leg cramps; Chronic insomnia 03/30/2025 Travel 03/29/2025 Telephone [facility] [address] [place] [phone] Chrissy Patel [place] chart prep 03/21/2025 Telephone [facility] [address] [place] [address] Génesis Hernandez MD Mammo results 03/13/2025 Results Follow-Up [facility] [address] [place] [address] Génesis Hernandez MD BI Mammogram Screening Tomosynthesis Bilateral from Last 3 Months Immunizations Immunization Administration Dates Next Due INFLUENZA VACCINE QUADRIVALE NT RECOMBINANT PRESERVATIVE FREE RIV4 05/04/2020 Influenza High-dose Quadriva lent Preservative Free 06/21/2023,05/18/2022,05/13/2021 Influenza injectable quadriv alent IIV4 with preservative 05/05/2017,07/27/2016 Influenza injectable quadriv alent preservative free 06/23/2019 Influenza, High Dose Seasona l, Preservative Free 05/09/2024 Influenza, IIV3, injectable 07/30/2015,0 05/15/2013,05/24/2012,2010,05/13/2010,05/23/2009,06/14/2008 MMR 04/08/2017 Moderna Covid-19 Vaccine 12+ 12/01/2020,11/10/19 21 Novel [id number], preservative-free 08/22/2009 Pneumococcal Conjugate PCV 13 02/09/2022 [...] Sign Reading Time Taken Comments Blood Pressure 118/82 03/30/2025 10:06 AM EDT Pulse 74 03/30/2025 10:06 AM EDT Temperature 35.7 C (96.2 F) 03/30/2025 10:06 AM EDT Respiratory Rate 12 03/30/2025 10:06 AM EDT Oxygen Saturation 96% 03/30/2025 10:06 AM EDT Inhaled Oxygen Concentration - - Weight 59.6 kg (131 lb 6.4 oz) 03/30/2025 10:06 AM EDT Height 162.6 cm (5' 4 ) 03/30/2025 10:06 AM EDT Body Mass Index 22.55 03/30/2025 10:06 AM EDT Plan of Treatment Upcoming Encounters Date Type Department Care Team (Late st Contact Info) Description 06/29/2025 10:00 AM EST Office Visit [facility] [address] [place] [address] Name, MD Juan [address] [place] [address] Health Maintenance Due Date Last Done Comments CT Colonography 1955 FIT DNA/Cologuard 1955 FIT 1955 FOBT 1955 Sigmoidoscopy 1955 Hepatitis C Screening 1974 COVID-19 Vaccine ( season) 2025 07/18/2021, 12/01/2020, 11/09/2020 Influenza Vaccine (#1) 2025 , 06/21/2023, 05/18/2022, Additional history exists Alcohol/Substance Use Screening 10/18/2025 10/18/2024 SDOH Screening 10/18/2025 10/18/2024 Depression Screening 12/18/2025 12/18/2024, 12/19/19 25 Tobacco Screening 03/30/2026 03/30/2025 Mammogram 03/06/2027 03/06/2025, 12/0 02/2022, 06/24/2021, Additional history exists Colonoscopy 12/13/2028 12/14/2023 Colorectal Cancer Screening 12/13/2028 Lipid Panel 06/27/2029 06/27/2024, 05/15/2024 RSV Patients and Patients Aged 60 years or older (1 - 1-dose 75+ series) 2031 DTaP/Tdap/Td Vaccines (3 - Td or Tdap) 02/10/2032 02/09/2022, 06/14/2008 Zoster Vaccines Completed 10/11/2019, 06/23/2019 Pneumococcal Vaccine: 50+ Years Completed 06/20/2024, 02/09/2022 [...] Associated Diagnosis Comments BASIC METABOLIC PANEL Routine 04/05/2025 10:30 AM EDT Essential hypertension BI MAMMOGRAM SCREENING TOMOSYNTHESIS BILATERAL Routine 03/06/2025 9:00 AM EDT Encounter for screening mammogram for malignant neoplasm of breast LIPID PANEL, STANDARD Routine 06/27/2024 9:17 AM EST HM COLONOSCOPY Routine 12/14/2023 from Last 3 Months or Most Recently Relevant to Health Maintenance Results * (ABNORMAL) Basic Metabolic Panel (04/05/2025 10:30 AM EDT) Sodium 140 135 - 145 mmol/L [facility] Potassium 4.6 3.3 - 5.1 mmol/L [facility] Chloride 106 96 - 108 mmol/L [facility] Carbon Dioxide 28 22 - 29 mmol/L [facility] Anion Gap 11(L) 12 - 20 [facility] Urea Nitrogen (BUN) 12 9 - 16 mg/dL [facility] Creatinine, Serum 0.64 0.5 - 1.4 mg/dL [facility] Estimated Glomerular Filt Rate >60 [facility] Comment:Chronic Kidney Disea se: Estimated GFR < 60 mL/min/1.40p3Dhdgkd Kidney Disease: Estimated GFR < 15 mL/min/1.73m2 Glucose 93 60 - 115 mg/dL [facility] Calcium 10.6(H) 8.4 - 10.2 mg/dL [facility] Blood Venous blood specimen / Unknown 04/05/2025 10:30 AM EDT 04/05/2025 11:25 AM EDT Juan Lacy MD LAB BLOOD ORDERABLES Final Resul t [facility] [address] [place] [address] [phone] * BI Mammogram Screening Tomosynthesis Bilateral (03/06/2025 9:00 AM EDT) Anatomical Region Laterality Modality Breast Bilateral Mammography 03/06/2025 9:00 AM EDT Narrative 03/13/2025 2:19 PM EDT [facility] [address] [place] [address] Mammography Report Signed Patient: Catalina Florian MR#: [id number] : 1955 Acct:[id number] Age/Sex: 69 / F ADM Date: 03/06/25 Loc: HO.MAMMO Attending Dr: Juan Lacy MD Ordering Physician: Juan Lacy MD Results: 1Negative Date of Service: 03/06/25 Follow Up: 1 Year From [facility] Mammogram Procedure(s): MM tomosynthesis screening BI Accession Number(s): [id number] cc: Juan Lacy MD EXAMINATION: MM SCREENING DIGITAL BREAST TOMOSYNTHESIS, BILATERAL CLINICAL INFORMATION: Screening. Asymptomatic. COMPARISON: Mammography: Comparison is made with available priors TECHNIQUE: Digital breast mammography with tomosynthesis is performed in both the craniocaudal and mediolateral oblique views along with computer-aided detection (CAD). FINDINGS: There are scattered areas of fibroglandular density (ACR BI-RADS breast composition Category b). There are no significant masses, abnormal calcifications, or other abnormalities. MM/MM tomosynthesis screening BI IMPRESSION: No mammographic evidence of malignancy. ASSESSMENT: BI-RADS BI-RADS 1 - Negative RECOMMENDATION: Routine annual mammography screening. 1 year F/U This examination should not preclude the clinical evaluation of a suspicious palpable abnormality. This patient's information was entered into a reminder system with a target due date for their next mammogram. Electronically signed by: Lisa Cheema DO 03/13/2025 02:16 PM EDT Dictated By: Lisa Cheema DO Signed By: <Electronically signed by Lisa Cheema DO in OV> 03/13/25 1416 DD/ 09 TD/TT: 03/06/25 09 Band Master: Procedure Note Donotuseinterpreter, Image - 03/13/2025 [facility] [address] [place] [address] Mammography Report Signed Patient: Kassandra Florian#: [id number] : 1955cct:[id number] Age/Sex: 69 / FADM Date: 03/06/25 Loc: .MAMMO Attending Dr: Juan Lacy MD Ordering Physician: Juan Lacy MDResults: 1Negative Date of Service: 03/06/25Follow Up: 1 Year From Orig ina Mammogram Procedure(s): MM tomosynthesis screening BI Accession Number(s): [id number] cc: Juan Lacy MD EXAMINATION: MM SCREENING DIGITAL BREAST TOMOSYNTHESIS, BILATERAL CLINICAL INFORMATION: Screening. Asymptomatic. COMPARISON: Mammography: Comparison is made with available priors TECHNIQUE: Digital breast mammography with tomosynthesis is performed in both the craniocaudal and mediolateral oblique views along with computer-aided detection (CAD). FINDINGS: There are scattered areas of fibroglandular density (ACR BI-RADS breast composition Category b). There are no significant masses, abnormal calcifications, or other abnormalities. MM/MM tomosynthesis screening BI IMPRESSION: No mammographic evidence of malignancy. ASSESSMENT: BI-RADS BI-RADS 1 - Negative RECOMMENDATION: Routine annual mammography screening. 1 year F/U This examination should not preclude the clinical evaluation of a suspicious palpable abnormality. This patient's information was entered into a reminder system with a target due date for their next mammogram. Electronically signed by: Lisa Cheema DO 03/13/2025 02:16 PM EDT Dictated By: Lisa Cheema DO Signed By: <Electronically signed by Lisa Cheema DO in OV> 03/13/25 1416 DD/ 0900 TD/TT: 03/06/25 0911 Band Master: us [place] Name IMG BI PROCEDURES Final Result * Lipid Panel, Standard (06/27/2024 9:17 AM EST) Triglycerides 96 <150 mg/dL [facility] Comment:Desirable Triglyceri de: less than 150 mg/dLBorderline High Triglyceride 150-199 mg/dLHigh Triglyceride: 200-499 mg/dLVery High Triglyceride: greater than or equal to 5OO mg/dL Cholesterol 151 <200 mg/dL [facility] Comment:Desirable Cholestero l: less than 200 mg/dLBorderline High Cholesterol: 200-239 mg/dLHigh Cholesterol: greater than 239 mg/dL LDL Cholesterol Calculated 87 <100 mg/dL [facility] Comment:Desirable LDL: less than 100 mg/dLNear Optimal/Above Optimal LDL: 110- 129 mg/dLBorderline High LDL: 130-159 mg/dLHigh LDL: 160-189 mg/dLVery High LDL: greater than or equal to 190 mg/dL HDL Cholesterol 45 >40 mg/dL [facility] Comment:Desirable HDL: great er than 40 mg/dL Note: This HDL assay may give artificially low results in patients with liver disease. 06/27/2024 9:17 AM EST 06/27/2024 11:35 AM EST us Juan Lacy MD LAB BLOOD ORDERABLES Final Resul t [facility] [address] [place] [phone] * (ABNORMAL) Colonoscopy (12/14/2023) Colonoscopy Abnormal(A ) Normal Juan Lacy MD HEALTH MAINTENANCE Final Result from Last 3 Months or Most Recently Relevant to Health Maintenance [place] [address] [place] [address] [place] [id number] Care Teams Label Maker Relationship Specialty Start Date End Date Name, MD Juan [address] [place] [id number] PCP - General Family Medicine 11/29/15
== END 2025-05-31 09:56 | disposition home or self-care (01) ==
LOC: HO.HOS 09:34
PROVIDERS: PCP Internal Medicine Geriatric Medicine; Visit Provider Orthopaedic Surgery
DX: M25.511 Pain in right shoulder (principal)
CPT/HCPCS: 99213; G2211

== ENCOUNTER → 2025-05-31 09:33 | Outpatient (BNVA) | payer MEDICARE, MEDICAID, SELFPAY | PROVIDERS: PCP Internal Medicine Geriatric Medicine; Visit Provider Orthopaedic Surgery | DX: Z47.89 Encounter for other orthopedic aftercare (principal); M25.511 Pain in right shoulder; Z98.890 Other specified postprocedural states | CPT/HCPCS: 99212 ==